=== PATIENT | male | born 1945 | race Caucasian/White ===

== ENCOUNTER 2021-08-04 02:37 | Outpatient (CLI) | payer BC, OTHER, SELFPAY ==
[2021-08-04 10:09] LABS: Source Nasal/Nares
[2021-08-04 12:54] LABS: COVID-19 PCR Negative (Negative)
== END 2021-08-04 02:38 | disposition home or self-care (01) ==
LOC: LBO 02:38
PROVIDERS: Visit Provider Ophthalmology
DX: Z20.822 Contact with and (suspected) exposure to COVID-19 (principal); Z01.818 Encounter for other preprocedural examination
CPT/HCPCS: 87635

== ENCOUNTER 2021-08-07 06:30 | Day surgery (SDC) | payer OTHER, BC, SELFPAY ==
[2021-08-07 06:48] VITALS: BP 163/81; PULSE 66; RESP 16; TEMP 36.4; O2SAT 100
[2021-08-07] MEDS: Tropicam./Phenyleph. (1/2.5%) 5 ML BTL OD ×3 (06:55→07:09)
--- NOTE | 2021-08-07 07:01 | W.ANESPRE ---
General Info Date of Service Date Performed: 08/07/21 Height: 5 ft 6 in Weight: 82 kg Body Mass Index (BMI): 29.2 Surgical Procedure: Operation Date: 08/07/21 07:40 Proposed Procedures Side Surgeon p Cataract Extraction with IOL Implant Right Guerrero Arechiga MD Operation Date: 08/07/21 16:55 Proposed Procedures Side Surgeon p Cataract Extraction with IOL Implant Left Guerrero Arechiga MD Meds Allergies and Home Medications Allergies Allergy/AdvReac Type Severity Reaction Status Date / Time Penicillins Allergy Skin Rash Verified 08/07/21 06:47 venom-honey bee Allergy Swelling/Ed Verified 08/07/21 06:47 [bee venom (honey bee)] maurilio Home Medication Medication Instructions Recorded atorvastatin [Lipitor] 10 mg PO DAILY 12/08/15 Lactobacillus acidophilus 10 cell PO DAILY 08/03/21 [Probiotic] ascorbic acid (vitamin C) 500 mg PO DAILY 08/03/21 cholecalciferol (vitamin D3) 2,000 unit PO DAILY 08/03/21 [Vitamin D3] latanoprost 1 drp OPHTHALMIC (EYE) HS 08/03/21 multivitamin,pm-jhgf-Pk-FA-min 1 tab PO DAILY 08/03/21 [Multivitamin And Mineral] tadalafil [Cialis] 10 mg PO DAILY 08/03/21 omega-3 fatty acids [Fish Oil] 1 cap PO DAILY 08/04/21 Current Visit Medications: Current Medications Generic Name Dose Route Start Last Admin Trade Name Freq PRN Reason Stop Dose Admin Acetaminophen 1,000 mg 08/07/21 06:00 Acetaminophen 500 Mg Tab PO Q4H PRN PRN Miscellaneous Medication 0 ml 08/07/21 06:00 Prednisolone 1%, Moxifloxacin 0.5%, Nepafenac 0.1% 5ml Btl OD DIRECTED ABEBE Miscellaneous Medication 0 ml 08/07/21 06:00 08/07/21 06:55 Tropicam./Phenyleph. (1/2.5%) 5 Ml Btl OD 1 drp DIRECTED ABEBE Administration Tetracaine HCl 0 ml 08/07/21 06:00 Tetracaine 0.5% 4 Ml Btl OD DIRECTED ABE[facility] PFSH Active Problems Active Problems: Problem Status Onset Code Nuclear sclerotic cataract of left eye H25.12 Posterior subcapsular age-related cataract of left eye H25.042 Medical History Active Problem List Nuclear sclerotic cataract of left eye (Acute) Posterior subcapsular age-related cataract of left eye (Acute) Medical History Benign essential hypertension Hx of agent [place] exposure Hyperlipidemia 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 Neck pain LARON (obstructive sleep apnea) Pain of right shoulder joint on movement Recurrent varicose vein of lower extremity Superficial vein thrombosis Tinnitus Surgical History Surgical History (Updated 08/07/21 @ 06:47 by Maik Vergara) H/O arthroscopic knee surgery Hx of facial fracture repair Hx of fracture of arm Inguinal hernia Tobacco Smoking/Tobacco Use Status: Former Tobacco Use Alcohol Alcohol Intake: current Alcohol intake frequency: a few times a week Alcohol type: wine Substance Use Substance use: Never Substance use type: does not use Vital Signs and Lab Results Vital Signs Most Recent Vital Signs in EMR: Most Recent Vital Signs Temp Pulse Resp BP Pulse Ox 36.4 C L 66 16 163/81 H 100 08/07/21 06:48 08/07/21 06:48 08/07/21 06:48 08/07/21 06:48 08/07/21 06:48 Lab Results Blood Type / Crossmatch: No Data to Display Complete Blood Count: No Data to Display Complete Metabolic Panel: No Data to Display Liver Function Panel: No Data to Display Coagulation Panel: No Data to Display Cardiac Panel: No Data to Display Arterial Blood Gas: No Data to Display Venous Blood Gas: No Data to Display Pancreas Panel: No Data to Display Thyroid Panel: No Data to Display Infectious Disease: Coronavirus (COVID-19)(PCR) Negative (Negative) 08/04/21 09:05 08/04/21 Coronavirus 2019 Source Nasal/Nares 08/04/21 09:05 08/04/21 Blood Cultures: No Data to Display Toxicology Panel: No Data to Display Anesthesia Assessment and Plan Anesthesia History Personal History: No History of Anesthesia Complications Family History: No Family History of Anesthesia Complications Exercise Tolerance Exercise Tolerance: Metabolic Equivalents>4 Pertinent Negatives Pertinent Negatives: No Symptoms of GERD Cardiac & Pulmonary Exam Cardiac Exam: Normal S1/S2 Heart Sounds Pulmonary Exam: Clear Bilateral Breath Sounds Implantable Cardiac Device Does patient have a Pacemaker or an ICD?: No Airway Exam Known Difficult Airway: No Mallampati Class: 2 Mouth Opening: Normal (> 3cm) Thyromental Distance: Greater than 3 cm Neck Range of Motion: Full ROM Neck Circumference: Normal Teeth Condition: Normal Dentition ASA Classification ASA Score: ASA 2 Emergency Case?: No NPO Status NPO Status: NPO Clears >2 hours, Solids >8 hours Anesthesia Plan Resuscitation Status: Full Code Anesthesia Technique: MAC Anesthesia Airway Planned: Natural Airway Monitors Used: Standard Monitors
[2021-08-07 07:07] VITALS: BMI 29.2
[2021-08-07] MEDS: Tetracaine 0.5% 4 ML BTL OD (07:23)
[2021-08-07] MEDS: Povidone-Iodine Ophth 30 ML BTL (07:24)
[2021-08-07] MEDS: Lidocaine 2% Jelly 6 ML SYR (07:24)
[2021-08-07] MEDS: Balanced Salt Soln.-PLUS 500 ML BAG (07:32)
[2021-08-07] MEDS: Duovisc Viscoelastic System EACH 1 EACH (07:33)
[2021-08-07 07:55] VITALS: BP 137/70; PULSE 65; RESP 16; TEMP 36.3; O2SAT 95
--- NOTE | 2021-08-07 07:55 | W.PM.DSUDISC ---
Discharge Plan Disposition Patient Disposition: HOME Condition: Good Discharge Details Attending Provider: Guerrero Arechiga Primary Care Provider: [facility] Home Meds and New Rx's Prescriptions: No Action atorvastatin [Lipitor] 10 MG tablet 10 mg PO DAILY RF: 0 latanoprost 0.005 % drops 1 drp ophthalmic (eye) HS RF: 0 ascorbic acid (vitamin C) 500 mg Tablet 500 mg PO DAILY RF: 0 Multivitamin And Mineral Tablet 1 tab PO DAILY RF: 0 tadalafil [Cialis] 10 mg Tablet 10 mg PO DAILY RF: 0 cholecalciferol (vitamin D3) [Vitamin D3] 50 mcg (2,000 unit) Capsule 2,000 unit PO DAILY RF: 0 Probiotic 10 billion cell Capsule 10 cell PO DAILY RF: 0 Fish Oil Capsule 1 cap PO DAILY RF: 0 zinc 10 mg Tablet 10 mg PO DAILY RF: 0 Discharge Instructions Stand Alone Forms: Post-op Topical Cataract, Kim Ribeiroey (DSU) Discharge Orders Discharge Orders: Discharge Order (Routine); Ordered 08/07/21 Ordered By: Guerrero Arechiga DS: Diagnosis Discharge Diagnosis (1) Nuclear sclerotic cataract of left eye: Status: Resolved (2) Posterior subcapsular age-related cataract of left eye: Status: Resolved
--- NOTE | 2021-08-07 07:56 | ROE_ITS ---
Date of service: 08/07/21 Time of Service: 07:56 Operative Note Operative Note DATE OF PROCEDURE: 08/07/21 PRE-OP DIAGNOSIS: Nuclear/posterior subcapsular cataract, left eye POST-OP DIAGNOSIS: same PROCEDURE: Cataract extraction using phacoemulsification with intraocular lens implant, left eye SURGEON: Guerrero Arechiga ANESTHESIA TYPE: Local By Surgeon and MAC Refer to Anesthesia Record PATHOLOGY: none sent COMPLICATIONS: None Patient was transported to: same day Patient's condition: stable Implants: [employer]wey [employer] Dewey / [employer] Tecnis [id number] Indications: Progressive decreased vision due to cataract, left eye Procedure Description: CATARACT SURGERY OPERATIVE REPORT PREOPERATIVE DIAGNOSIS: 1. Nuclear/posterior subcapsular cataract, left eye POSTOPERATIVE DIAGNOSIS: Same OPERATION: 1. Cataract extraction using phacoemulsification with posterior chamber intraocular lens implant, left eye. IOL: IOL Director Private/Model: [employer] Dewey / NATHALIA Tecnis [id number] IOL Power: + 16.5 diopters IOL Serial Number: [id number] Optic Diameter: 6.0 mm Haptic/Overall Diameter: 13.0 mm PHACO INFO: Kristian [employer]ur[employer] Vision System with OZil and Active Fluidics Cumulative Dispersed Energy (CDE): 21.26 seconds SURGEON: Guerrero Arechiga MD, JULIA ANESTHESIA: Monitored [facility] (MAC), with local sub-tenon's anesthetic infiltration COMPLICATIONS: None SPECIMENS: None INDICATIONS FOR PROCEDURE: The patient is a 75-year-old gentleman with history of diminished visual acuity and his left eye secondary to the development of significant nuclear and posterior subcapsular cataract. The option of cataract surgery was offered to the patient and he felt he was symptomatic enough that he wished to proceed. PROCEDURE: The correct surgical eye was identified and marked as the left eye and the pupil was dilated in the preoperative area using mydriatics and cycloplegics. The dilated pupil size was 8.0 mm. He elected to proceed without oral sedation. The patient was brought to the operating room where cardiopulmonary monitoring was instituted and surgical time-out was performed, confirming the correct operative eye and IOL power. Topical anesthesia was administered and ophthalmic povidone-iodine 5% was instilled into the conjunctival fornices. Lidocaine gel was applied to the cornea and the elieser-ocular area was prepped with Betadine 10% solution and draped in the usual sterile fashion for intraocular surgery, including an aperture drape. A Tegaderm transparent film dressing was cut in half and used to cover the lashes and lid margins. Care was taken to sequester the lashes and lid margins under the Tegaderm dressing. A lid speculum was placed between the lids of the operative eye and the Carissa-Lexa operating microscope was maneuvered into position. Suly scissors were then used to make a conjunctival buttonhole approximately 6mm posterior to the limbus in the inferonasal quadrant. Blunt dissection was carried out to expose bare sclera, and a blunt-tipped sub-tenon?s anesthesia cannula was introduced and passed posteriorly along the globe where non- preserved plain lidocaine was injected into posterior sub-Tenon?s space. A sideport knife was used to make a paracentesis port superiorly/superiortemporally. Intraocular phenylephrine/lidocaine was injected int the anterior chamber.. The anterior chamber was filled with viscoelastic. A 2.4mm keratome knife was used to create a half-thickness groove at the limbus and then to construct a three-plane near-clear corneal tunnel extending 2.0mm into clear cornea at the 3:00 position. A flap was raised on the anterior capsule and capsulorhexis forceps were used to complete a continuous curvilinear capsulorhexis of 5.5 mm. Balanced salt solution was then used to perform cortical cleaving hydrodissect ion and nuclear hydrodelineation until the lens could be freely rotated within the capsular bag. The lens nucleus was then disassembled and removed within the capsular bag and iris plane using phacoemulsification. The nucleus was noted to be quite dense. Residual cortical material was removed using the 45-degree angled silicone I/A tip with 0.3mm port. The posterior capsule was carefully polished to remove as much residual lens epithelial cells as safely possible. The capsular bag was then inflated and the anterior chamber deepened with viscoelastic. The lens implant described above was inserted into the capsular bag using the NATHALIA [place] Injector. A Kuglen hook was used to dial the IOL into position. Residual viscoelastic was then removed first from posterior to the IOL, then from the anterior chamber using the I/A handpiece. The lens implant was noted to center nicely within the capsular bag. The incisions were stromally hydrated, and the anterior chamber was reformed using BSS. Then 0.5cc of moxifloxacin 1.0mg/ml were injected into the capsular bag and anterior chamber. The incisions were checked with a Weck spear and found to be secure. Several drops of ophthalmic povidone-iodine 5% were then applied to the eye followed by two drops of Imprimis combination prednisolone/moxifloxacin/nepafenac solution. The drapes were removed and a clear plastic protective eye shield was placed over the eye. The patient was then returned to Same Day Surgery in stable condition.
--- NOTE | 2021-08-07 08:08 | W.ANESPOSTOP ---
Postoperative Evaluation Date, Time and Location Date Performed: 08/07/21 Time Performed: 08:00 Patient Location: Day Surgery Unit Vital Signs Most Recent Imported Vital Signs: Most Recent Vital Signs Temp Pulse Resp BP Pulse Ox 36.3 C L 65 16 137/70 95 08/07/21 07:55 08/07/21 07:55 08/07/21 07:55 08/07/21 07:55 08/07/21 07:55 Pain Score Most Recent Pain Score: Most Recent Pain Score Pain Level 0 08/07/21 07:55 Assessment Mental Status: Awake (Alert & Oriented to Patient Baseline) Airway and Respiratory Function: Patent airway with normal (patient baseline) respiratory exam Cardiovascular Function: Hemodynamically Stable Hydration Status: Adequately Hydrated Nausea & Vomiting: No Nausea or Vomiting Pain: Pt. Denies Any Pain Peripheral Nerve Block: Patient did not receive a nerve block
== END 2021-08-07 08:53 | disposition home or self-care (01) ==
PROVIDERS: Visit Provider Ophthalmology
PROC: (CPT 66984; principal; 2021-08-07 07:30)
DX: H25.042 Posterior subcapsular polar age-related cataract, left eye (principal); G47.33 Obstructive sleep apnea (adult) (pediatric); E78.5 Hyperlipidemia, unspecified
CPT/HCPCS: 66984; V2632

== ENCOUNTER 2021-09-15 02:07 | Outpatient (CLI) | payer OTHER, SELFPAY ==
[2021-09-15 10:27] LABS: Source Nasal/Nares
[2021-09-15 16:48] LABS: COVID-19 PCR Negative (Negative)
== END 2021-09-15 02:08 | disposition home or self-care (01) ==
PROVIDERS: Visit Provider Ophthalmology
DX: Z20.822 Contact with and (suspected) exposure to COVID-19 (principal); Z01.818 Encounter for other preprocedural examination
CPT/HCPCS: 87635

== ENCOUNTER 2021-09-18 10:50 | Day surgery (SDC) | payer OTHER, SELFPAY ==
[2021-09-18] MEDS: Tropicam./Phenyleph. (1/2.5%) 5 ML BTL OD ×3 (11:23→11:37)
[2021-09-18 11:24] VITALS: BP 165/77; PULSE 66; RESP 16; TEMP 36.2; O2SAT 98
--- NOTE | 2021-09-18 11:38 | W.ANESPRE ---
General Info Date of Service Date Performed: 09/18/21 Height: 5 ft 6 in Weight: 84.5 kg Body Mass Index (BMI): 30.0 Surgical Procedure: Operation Date: 09/18/21 14:40 Proposed Procedures Side Surgeon p Cataract Extraction with IOL Implant Right Guerrero Arechiga MD Meds Allergies and Home Medications Allergies Allergy/AdvReac Type Severity Reaction Status Date / Time Penicillins Allergy Skin Rash Verified 09/18/21 11:13 venom-honey bee Allergy Swelling/Ed Verified 09/18/21 11:13 [bee venom (honey bee)] maurilio Home Medication Medication Instructions Recorded atorvastatin [Lipitor] 10 mg PO DAILY 12/08/15 Lactobacillus acidophilus 10 cell PO DAILY 08/03/21 [Probiotic] ascorbic acid (vitamin C) 500 mg PO DAILY 08/03/21 cholecalciferol (vitamin D3) 2,000 unit PO DAILY 08/03/21 [Vitamin D3] latanoprost 1 drp OPHTHALMIC (EYE) HS 08/03/21 multivitamin,jd-vefc-Km-FA-min 1 tab PO DAILY 08/03/21 [Multivitamin And Mineral] tadalafil [Cialis] 10 mg PO DAILY 08/03/21 omega-3 fatty acids [Fish Oil] 1 cap PO DAILY 08/04/21 zinc 10 mg PO DAILY 08/07/21 Current Visit Medications: Current Medications Generic Name Dose Route Start Last Admin Trade Name Freq PRN Reason Stop Dose Admin Acetaminophen 1,000 mg 09/18/21 06:00 Acetaminophen 500 Mg Tab PO Q4H PRN PRN Miscellaneous Medication 0 ml 09/18/21 06:00 Prednisolone 1%, Moxifloxacin 0.5%, Nepafenac 0.1% 5ml Btl OD DIRECTED [facility] Miscellaneous Medication 0 ml 09/18/21 06:00 09/18/21 11:37 Tropicam./Phenyleph. (1/2.5%) 5 Ml Btl OD 1 drp DIRECTED ABEBE Administration Tetracaine HCl 0 ml 09/18/21 06:00 Tetracaine 0.5% 4 Ml Btl OD DIRECTED [facility] PFSH Active Problems Active Problems: Problem Status Onset Code Nuclear sclerotic cataract of left eye H25.12 Posterior subcapsular age-related cataract of left eye H25.042 Medical History Medical History Benign essential hypertension Hx of agent [place] exposure Hyperlipidemia 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 Neck pain LARON (obstructive sleep apnea) Pain of right shoulder joint on movement Recurrent varicose vein of lower extremity Superficial vein thrombosis Tinnitus Surgical History Surgical History H/O arthroscopic knee surgery Hx of cataract surgery Hx of facial fracture repair Hx of fracture of arm Inguinal hernia Tobacco Smoking/Tobacco Use Status: Former Tobacco Use Alcohol Alcohol Intake: current Alcohol intake frequency: a few times a week Alcohol type: wine Substance Use Substance use: Never Substance use type: does not use Vital Signs and Lab Results Vital Signs Most Recent Vital Signs in EMR: Most Recent Vital Signs Temp Pulse Resp BP Pulse Ox 36.2 C L 66 16 165/77 H 98 09/18/21 11:24 09/18/21 11:24 09/18/21 11:24 09/18/21 11:24 09/18/21 11:24 Lab Results Blood Type / Crossmatch: No Data to Display Complete Blood Count: No Data to Display Complete Metabolic Panel: No Data to Display Liver Function Panel: No Data to Display Coagulation Panel: No Data to Display Cardiac Panel: No Data to Display Arterial Blood Gas: No Data to Display Venous Blood Gas: No Data to Display Pancreas Panel: No Data to Display Thyroid Panel: No Data to Display Infectious Disease: Coronavirus (COVID-19)(PCR) Negative (Negative) 09/15/21 08:29 09/15/21 Coronavirus 2019 Source Nasal/Nares 09/15/21 08:29 09/15/21 Blood Cultures: No Data to Display Toxicology Panel: No Data to Display Anesthesia Assessment and Plan Anesthesia History Personal History: No History of Anesthesia Complications Family History: No Family History of Anesthesia Complications Exercise Tolerance Exercise Tolerance: Metabolic Equivalents>4 Pertinent Negatives Pertinent Negatives: No Symptoms of GERD Cardiac & Pulmonary Exam Cardiac Exam: Normal S1/S2 Heart Sounds Pulmonary Exam: Clear Bilateral Breath Sounds Implantable Cardiac Device Does patient have a Pacemaker or an ICD?: No Airway Exam Known Difficult Airway: No Mallampati Class: 2 Mouth Opening: Normal (> 3cm) Thyromental Distance: Greater than 3 cm Neck Range of Motion: Full ROM Neck Circumference: Normal Teeth Condition: Normal Dentition ASA Classification ASA Score: ASA 2 Emergency Case?: No NPO Status NPO Status: NPO Clears >2 hours, Solids >8 hours Anesthesia Plan Resuscitation Status: Full Code Anesthesia Technique: MAC Anesthesia Airway Planned: Natural Airway Monitors Used: Standard Monitors
[2021-09-18] MEDS: Tetracaine 0.5% 4 ML BTL OD (12:00)
[2021-09-18] MEDS: Balanced Salt Soln.-PLUS 500 ML BAG (12:00)
[2021-09-18] MEDS: Lidocaine 2% Jelly 6 ML SYR (12:01)
[2021-09-18] MEDS: Duovisc Viscoelastic System EACH 1 EACH (12:01)
[2021-09-18] MEDS: Povidone-Iodine Ophth 30 ML BTL (12:03)
[2021-09-18 12:18] VITALS: BP 148/75; PULSE 66; RESP 16; TEMP 36.5; O2SAT 98
--- NOTE | 2021-09-18 12:21 | W.PM.DSUDISC ---
Discharge Plan Disposition Condition: Good Discharge Details Attending Provider: Guerrero Arechiga Primary Care Provider: [facility] Home Meds and New Rx's Prescriptions: No Action atorvastatin [Lipitor] 10 MG tablet 10 mg PO DAILY RF: 0 latanoprost 0.005 % drops 1 drp ophthalmic (eye) HS RF: 0 ascorbic acid (vitamin C) 500 mg Tablet 500 mg PO DAILY RF: 0 Multivitamin And Mineral Tablet 1 tab PO DAILY RF: 0 tadalafil [Cialis] 10 mg Tablet 10 mg PO DAILY RF: 0 cholecalciferol (vitamin D3) [Vitamin D3] 50 mcg (2,000 unit) Capsule 2,000 unit PO DAILY RF: 0 Probiotic 10 billion cell Capsule 10 cell PO DAILY RF: 0 Fish Oil Capsule 1 cap PO DAILY RF: 0 zinc 10 mg Tablet 10 mg PO DAILY RF: 0 Discharge Instructions Stand Alone Forms: Post-op Topical Cataract, Kim Mazariegos (DSU) DS: Diagnosis Discharge Diagnosis (1) Posterior subcapsular age-related cataract, right eye: Status: Resolved (2) Nuclear sclerotic cataract of right eye: Status: Resolved
--- NOTE | 2021-09-18 12:23 | W.PM.OP ---
Date of service: 09/18/21 Time of Service: 12:24 Operative Note Operative Note DATE OF PROCEDURE: 09/18/21 PRE-OP DIAGNOSIS: Nuclear/posterior subcapsular cataract, right eye POST-OP DIAGNOSIS: same PROCEDURE: Cataract extraction using phacoemulsification with intraocular lens implant, right eye SURGEON: Guerrero Arechiga ANESTHESIA TYPE: Local By Surgeon and MAC Refer to Anesthesia Record ESTIMATED BLOOD LOSS: 0 PATHOLOGY: none sent COMPLICATIONS: None Patient was transported to: same day Patient's condition: stable Implants: De[employer] Dewey/NATHALIA Tecnis [id number] Indications: Progressive visual loss due to cataract, right eye Procedure Description: CATARACT SURGERY OPERATIVE REPORT PREOPERATIVE DIAGNOSIS: 1. Nuclear/posterior subcapsular cataract, right eye POSTOPERATIVE DIAGNOSIS: Same OPERATION: 1. Cataract extraction using phacoemulsification with posterior chamber intraocular lens implant, right eye. IOL: IOL Manager Supply Chain Planning/Model: De[employer] Dewey / NATHALIA Tecnis [id number] IOL Power: + 17.0 diopters IOL Serial Number: [id number] Optic Diameter: 6.0mm Haptic/Overall Diameter: 13.0mm PHACO INFO: [employer] Fluentialurion Vision System with OZil and Active Fluidics Cumulative Dispersed Energy (CDE): 8.46 seconds SURGEON: Guerrero Arechiga MD, JULIA ANESTHESIA: Monitored Anesthesia Care (MAC), with local sub-tenon's anesthetic infiltration COMPLICATIONS: None SPECIMENS: None INDICATIONS FOR PROCEDURE: The patient is a 75-year-old gentleman with history of diminished visual acuity in both eyes secondary to the development of bilateral nuclear and posterior subcapsular cataract. He has already undergone cataract surgery in the left eye and is doing well postoperatively. He now presents for cataract surgery in the right eye. PROCEDURE: The correct surgical eye was identified and marked as the right eye and the pupil was dilated in the preoperative area using mydriatics and cycloplegics. The dilated pupil size was 7.5 mm. He elected to proceed without oral sedation.. The patient was brought to the operating room where cardiopulmonary monitoring was instituted and surgical time-out was performed, confirming the correct operative eye and IOL power. Topical anesthesia was administered and ophthalmic povidone-iodine 5% was instilled into the conjunctival fornices. Lidocaine gel was applied to the cornea and the elieser-ocular area was prepped with Betadine 10% solution and draped in the usual sterile fashion for intraocular surgery, including an aperture drape. A Tegaderm transparent film dressing was cut in half and used to cover the lashes and lid margins. Care was taken to sequester the lashes and lid margins under the Tegaderm dressing. A lid speculum was placed between the lids of the operative eye and the Carissa-Lexa operating microscope was maneuvered into position. Suly scissors were then used to make a conjunctival buttonhole approximately 6mm posterior to the limbus in the inferonasal quadrant. Blunt dissection was carried out to expose bare sclera, and a blunt-tipped sub-tenon?s anesthesia cannula was introduced and passed posteriorly along the globe where non-preserved plain lidocaine was injected into posterior sub-Tenon?s space. A sideport knife was used to make a paracentesis port inferotemporally. Intraocular phenylephrine/lidocaine was injected into the anterior chamber. The anterior chamber was filled with viscoelastic. A 2.4mm keratome knife was used to create a half-thickness groove at the limbus and then to construct a three-plane near-clear corneal tunnel extending 2.0mm into clear cornea superiortemporally. A flap was raised on the anterior capsule and capsulorhexis forceps were used to complete a continuous curvilinear capsulorhexis of 5.5 mm. Balanced salt solution was then used to perform cortical cleaving hydrodissection and nuclear hydrodelineation until the lens could be freely rotated within the capsular bag. The lens nucleus was then disassembled and removed within the capsular bag and iris plane using phacoemulsification. Residual cortical material was removed using the I/A handpiece. The posterior capsule was carefully polished to remove as much residual lens epithelial cells as safely possible. The capsular bag was then inflated and the anterior chamber deepened with viscoelastic. The lens implant described above was inserted into the capsular bag using the NATHALIA [place] Injector. A Kuglen hook was used to dial the IOL into position. Residual viscoelastic was then removed first from posterior to the IOL, then from the anterior chamber using the I/A handpiece. The lens implant was noted to center nicely within the capsular bag. The incisions were stromally hydrated, and the anterior chamber was reformed using BSS. Then 0.5cc of moxifloxacin 1.0mg/ml were injected into the capsular bag and anterior chamber. The incisions were checked with a Weck spear and found to be secure. Several drops of ophthalmic povidone-iodine 5% were then applied to the eye followed by two drops of Imprimis combination prednisolone/moxifloxacin/nepafenac solution. The drapes were removed and a clear plastic protective eye shield was placed over the eye. The patient was then returned to Same Day Surgery in stable condition.
--- NOTE | 2021-09-18 12:58 | W.ANESPOSTOP ---
Postoperative Evaluation Date, Time and Location Date Performed: 09/18/21 Time Performed: 12:25 Patient Location: Day Surgery Unit Vital Signs Most Recent Imported Vital Signs: Most Recent Vital Signs Temp Pulse Resp BP Pulse Ox 36.5 C 66 16 148/75 H 98 09/18/21 12:18 09/18/21 12:18 09/18/21 12:18 09/18/21 12:18 09/18/21 12:18 Pain Score Most Recent Pain Score: Most Recent Pain Score Pain Level 0 09/18/21 12:18 Assessment Mental Status: Awake (Alert & Oriented to Patient Baseline) Airway and Respiratory Function: Patent airway with normal (patient baseline) respiratory exam Cardiovascular Function: Hemodynamically Stable Hydration Status: Adequately Hydrated Nausea & Vomiting: No Nausea or Vomiting Pain: Pt. Denies Any Pain Peripheral Nerve Block: Patient did not receive a nerve block
== END 2021-09-18 12:42 | disposition home or self-care (01) ==
PROVIDERS: Visit Provider Ophthalmology
PROC: (CPT 66984; principal; 2021-09-18 14:30)
DX: H25.041 Posterior subcapsular polar age-related cataract, right eye (principal); G47.33 Obstructive sleep apnea (adult) (pediatric); I10 Essential (primary) hypertension
CPT/HCPCS: 66984; V2632

== ENCOUNTER 2024-10-09 09:02 | Emergency (ER) | payer OTHER, SELFPAY ==
[2024-10-09] VITALS (11 sets, daily range): BP systolic 137–173; BP diastolic 56–65; PULSE 65–77; RESP 18–20; O2SAT 95–99
--- NOTE | 2024-10-09 09:35 | ED.GENADUL_ITS ---
Discharge Plan Disposition Patient Disposition: Home Condition: Stable Discharge Details Clinical Impression: Closed head injury with concussion Primary Care Provider: [facility] ED Provider: Wendy Ogden Home Meds and New Rx's Prescriptions: Continued atorvastatin [Lipitor] 10 MG tablet 10 mg PO DAILY red yeast rice 600 mg capsule 600 mg PO DAILY Rx Instructions: give with meal/snack latanoprost 0.005 % drops 1 drp ophthalmic (eye) HS ascorbic acid (vitamin C) 500 mg Tablet 500 mg PO DAILY multivitamin,ir-rymj-Lw-FA-min Tablet 1 tab PO DAILY tadalafil [Cialis] 10 mg Tablet 10 mg PO DAILY cholecalciferol (vitamin D3) [Vitamin D3] 50 mcg (2,000 unit) Capsule 2,000 unit PO DAILY Probiotic 10 billion cell Capsule 10 cell PO DAILY omega-3 fatty acids Capsule 1 cap PO DAILY zinc 10 mg Tablet 10 mg PO DAILY Discharge Instructions Instructions: Concussion, Adult ED, Minor Head Injury, Adult ED Additional Instructions: At this time the head CT is within normal limits. I do suspect a mild concussion. Please return to the ER immediately for any confusion, vomiting, blurry or double vision, worsening pain not relieved by Tylenol or any concerns. Please take Tylenol or Ibuprofen with food every 4-6 hours as needed for pain and swelling. Thank you for allowing us to care for you today. Referrals: [facility] [Primary Care Provider] - 2 weeks HPI General Mode of arrival: ambulatory . Date/Time Provider Initiated Documentation: 10/09/24 09:12 . Limitations to Documentation: no limitations . Information obtained by: patient, RN notes reviewed and old records reviewed . HPI Narrative: 78-year-old male presents to the ER with a chief complaint of posterior head pain after a head injury couple of days ago. He reports Saturday at 6:00 a trunk of a car came down and hit the back of his left scalp. He now has radiation of pain across the back of his head and up towards the top. He reports increased fatigue and sleepiness at home. He is alert and oriented x 4, denies any neck pain blurry vision double vision headache or weakness. He did take naproxen yesterday nothing today. Is not on any blood thinners or aspirin. No focal neurodeficits noted on exam. Past medical history includes obstructive sleep apnea, tinnitus, hypertension. He does have a small hematoma noted to left posterior scalp. Related Data Home Medications ?Medication ?Instructions ?Recorded ?Confirmed atorvastatin 10 mg tablet (Lipitor) 10 mg PO DAILY 12/08/15 10/09/24 Lactobacillus acidophilus 10 10 cell PO DAILY 08/03/21 10/09/24 billion cell capsule (Probiotic) ascorbic acid (vitamin C) 500 mg 500 mg PO DAILY 08/03/21 10/09/24 tablet cholecalciferol (vitamin D3) 50 2,000 unit PO DAILY 08/03/21 10/09/24 mcg (2,000 unit) capsule (Vitamin D3) latanoprost 0.005 % eye drops 1 drp ophthalmic (eye) HS 08/03/21 10/09/24 multivitamin,nm-ensc-Wa-FA-min 1 tab PO DAILY 08/03/21 10/09/24 tadalafil 10 mg tablet (Cialis) 10 mg PO DAILY 08/03/21 10/09/24 omega-3 fatty acids 1 cap PO DAILY 08/04/21 10/09/24 zinc 10 mg tablet 10 mg PO DAILY 08/07/21 10/09/24 red yeast rice 600 mg capsule 600 mg PO DAILY 10/09/24 10/09/24 Allergies Allergy/AdvReac Type Severity Reaction Status Date / Time Penicillins Allergy Skin Rash Verified 10/09/24 09:14 venom-honey bee (bee venom Allergy Swelling/Ed Verified 10/09/24 09:14 (honey bee)) maurilio General Stated Complaint: HeadInjury NAOMY: 3 Review of Systems All systems reviewed & are unremarkable except as noted in HPI and below Exam Narrative Exam Narrative: Constitutional: Alert and oriented x3. Appears stated age. Normal body habitus. Head: Normocephalic, no trauma. Eyes: Pupils PERRL, Red reflex noted, EOM's intact. Eyelids symmetrical without lesions, discharge, or swelling. ENT: Bilateral TM's WNL, External ear normal to inspection, no mastoid TTP, swelling, or erythema, Nasal turbinates WNL, no nasal discharge. Normal dentition, Posterior pharynx WNL, no exudate. Chest: RRR, Normal S1, S2, distal pulses intact. Resp: Lungs clear to auscultation bilaterally, no wheezes, rales, or rhonchi. Abdomen: Soft, non-distended, Normoactive bowel sounds all 4 quads. Musculoskeletal: Normal gait, Moves all 4 extremities without difficulty. Skin: No suspicious rashes or lesions. Capillary refill less than 2 sec. Neurologic: Cranial nerves II-XII intact. Alert and oriented x 3. Motor: No deficits noted. Sensory: Intact bilaterally all 4 extremities. Hematologic/Lymphatic: No ecchymosis, no lymphadenopathy. Course Vital Signs Vital signs: Vital Signs Pulse 74 10/09/24 09:12 Respiratory Rate 20 10/09/24 09:12 Blood Pressure 173/62 H 10/09/24 09:12 Pulse Oximetry 97 10/09/24 09:12 Pulse 74 10/09/24 09:12 Respiratory Rate 20 10/09/24 09:12 Blood Pressure 173/62 H 10/09/24 09:12 Blood Pressure Position Sitting 10/09/24 09:12 Pulse Oximetry 97 10/09/24 09:12 Oxygen Delivery Method Room Air 10/09/24 09:12 Oxygen Flow Rate 0 10/09/24 09:12 Pain Level 5 10/09/24 09:12 Medical Decision Making 78-year-old male presents to the ER with a chief complaint of posterior head pain after a head injury couple of days ago. He reports Saturday at 6:00 a trunk of a car came down and hit the back of his left scalp. He now has radiation of pain across the back of his head and up towards the top. He reports increased fatigue and sleepiness at home. He is alert and oriented x 4, denies any neck pain blurry vision double vision headache or weakness. He did take naproxen yesterday nothing today. Is not on any blood thinners or aspirin. No focal neurodeficits noted on exam. Past medical history includes obstructive sleep apnea, tinnitus, hypertension. He does have a small hematoma noted to left posterior scalp. CT head W/O ordered CT shows no acute intracranial abnormalities, no skull fractures. I do suspect mild concussion. Will give head injury observation instructions and strict return instructions. Discussed results with patient who verbalized understanding. Discussed red flags and when to return for any confusion worsening headache, vomiting. Verbalized understanding remained hemodynamically stable alert and oriented throughout the remainder of his stay. This text was generated using YouOSation system, please disregard any oddities of phrase or misspellings. Imaging Data Radiologic Study: Imaging: CT Scan Radiologist's impression: EXAM: CT HEAD WO CLINICAL HISTORY: Head Injury 2 days ago, fatigue. TECHNIQUE: Imaging Protocol: Axial computed tomography images with coronal and sagittal reformatted images were created and reviewed COMPARISON: No exams were available for comparison FINDINGS: There are no skull fractures. There is no fluid in the visualized paranasal sinuses. There is no evidence of intracranial hemorrhage, mass effect, or shift of midline structures. There are no extra-axial fluid collections. The ventricles are not enlarged or shifted and there is no blood within the ventricular system nor within the basal cisterns. IMPRESSION: No acute intracranial findings on this noninfused CT scan of the brain. Quality:SDOH Health Related Social Needs: No Data to Display PFSH All Active Problems (Updated 10/09/24 @ 10:38 by Wendy Ogden NP) Closed head injury with concussion (Acute) Medical History LARON (obstructive sleep apnea) Tinnitus Neck pain Benign essential hypertension 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 Hx of agent [place] exposure Superficial vein thrombosis Pain of right shoulder joint on movement Hyperlipidemia Recurrent varicose vein of lower extremity Surgical History Hx of cataract surgery H/O arthroscopic knee surgery Hx of fracture of arm Hx of facial fracture repair Inguinal hernia Social History Smoking/Tobacco Use Status: Former Tobacco Use Quit Date: 09/16/59 Smoking risk assessment performed?: Yes Alcohol Intake: current Alcohol Intake frequency: a few times a week Alcohol type: wine Drug use: Never Substance use type: does not use Do you feel safe at home: Yes Do you feel safe in your relationship?: Yes
--- NOTE | 2024-10-09 09:42 | DI.CT_ITS ---
Exam(s) CT HEAD WO EXAM: CT HEAD WO CLINICAL HISTORY: Head Injury 2 days ago, fatigue. TECHNIQUE: Imaging Protocol: Axial computed tomography images with coronal and sagittal reformatted images were created and reviewed COMPARISON: No exams were available for comparison FINDINGS: There are no skull fractures. There is no fluid in the visualized paranasal sinuses. There is no evidence of intracranial hemorrhage, mass effect, or shift of midline structures. There are no extra-axial fluid collections. The ventricles are not enlarged or shifted and there is no blo od within the ventricular system nor within the basal cisterns. IMPRESSION: No acute intracranial findings on this noninfused CT scan of the brain. Called by myself to ER 10/09/2024 at 10:30 a.m. RADIATION DOSE DELIVERED: 902.12mGy.cm Total DLP DATA REPOSITORY: All CT scans at this facility are submitted to the National Radiology Data Registry (NRDR) Dose Index Registry (DIR) with the [employer] (ACR). RADIATION OPTIMIZATION: All CT scans at this facility use at least one of these dose optimization te chniques: automated exposure control; mA and/or kV adjustment per patient size (includes targeted exa ms where dose is matched to clinical indication); or iterative reconstruction.
--- OUTSIDE RECORDS SUMMARY | 2024-10-09 10:33 | XMS_ITS | Encounter Summary ---
Author Name [facility] [place] [facility] Address [address] [place] [address] Care Team Providers Care Car Distributor Name Role Phone JUAN HANNA Primary Care Provider Unavailab le Insurance Providers: All historical and current Section Date Range: From patient's date of to the date document was created. This section includes the names of all active insurance providers for the patient. Insurance Provider Type of Coverage Plan Name Start of Policy Coverage End of Policy Coverage Group Number Member ID Insurance Provider's Telephone Number Policy Broussard's Name Patient's Relationship to Policy Broussard CONSTANZAEM BCBS CT FEDERAL PREFERRED PROVIDER ORGANIZAT ION (PPO) PSHB BASIC SELF+ 1 Sep 16, 2024 [id number] [phone] REYNA ROSALES PATIENT ANTHEM BCBS CT FEDERAL PREFERRED PROVIDER ORGANIZAT ION (PPO) BASIC SELF+ ONE Mar 17, 2018 113 [id number] REYNA ROSALES PATIENT [place] PREFERRED PROVIDER ORGANIZAT ION (PPO) BASIC SELF+ ONE Mar 17, 2018 113 [id number] REYNA ROSALES PATIENT [place] PREFERRED PROVIDER ORGANIZAT ION (PPO) BASIC SELF+ 1 Mar 17, 2018 113 [id number] [phone] REYNA ROSALES PATIENT [place] FEPRX PLAN PRESCRIPT ION CAREM ARK FEPRX Sep 16, 2024 [id number] REYNA ROSALES PATIENT DARLENE-F EP BCBS PRESCRIPT ION BCBS FEP PLAN Sep 16, 2010 [id number] REYNA ROSALES PATIENT MEDICARE (WNR) MEDICARE (M) PART A Mar 17, 2018 PART A [id number] REYNA ROSALES PATIENT MEDICARE (WNR) MEDICARE (M) PART A Sep 16, 2010 PART A [id number] [phone] REYNA ROSALES PATIENT Selected Encounter This section includes the information on record at [place] for the Encounter. Date/Time Encounter Type Encounter Description Reason Provider Source 2023 10:00 AM HT MUSCLE IMAGE SPECT MULT CARDIAC STRESS TEST ICD-10-CM R07.9 Chest pain, unspecified ANNA CHEUNG Encounter Template Text not used by [place] Assessments - Encounter Diagnoses This section includes the primary and secondary diagnoses documented for the Encounter. Date/Time Primary/Secondary Diagnosis Diagnosis Name Provider Source Oct 29, 2023 08:08 AM PRIMARY Chest pain, unspecified KRYSTLE FONTANEZ [facility] Plan of Treatment: Future Appointments (+ 6 months) and Future Tests (+/- 45 days) The Plan of Treatment section includes future care activities for the patient from all [place] treatmentfacilities. This section includes future appointments and future orders which are active, pending or scheduled. Future Appointments This section includes appointments that were scheduled to occur 6 months from the date of the Encounter, up to a maximum of 20 appointments. The data comes from all [place] treatment facilities. Appointment Date/Time Appointment Type Appointme nt Facility Name Nov 11, 2023 10:00 AM AMBULATORY - REHAB MEDICIN Tati MARCH [facility] Nov 12, 2023 04:00 PM AMBULATORY - MEDICINE SANGITA GARLAND [facility] Nov 13, 2023 10:30 AM AMBULATORY - MEDICINE GANESH MARCH [facility] Dec 05, 2023 08:00 AM AMBULATORY - NONE LUCAS MARCH [facility] Mar 12, 2024 08:00 AM AMBULATORY - MEDICINE STDes GUZMAN [facility] Mar 26, 2024 09:30 AM AMBULATORY - NONE [facility] Mar 26, 2024 10:15 AM [facility] Apr 08, 2024 01:30 PM AMBULATORY - MEDICINE GANESH MARCH [facility] Apr 15, 2024 11:00 AM AMBULATORY - MEDICINE GANESH MARCH [facility] Social History: Smoking Status (Most current) and Tobacco Use (All prior to encounter date) This section includes the most current, and the historical, smoking and tobacco- related health factors from the [place] facility where the Encounter took place. Current Smoking Status This section includes the most current smoking, or tobacco-related health factor, from the [place] facility where the Encounter took place. Date/Time Current Smoking Status Comment Facility Sep 04, 2010 01:20 PM QUIT TOBACCO USE > 7 YEARS AGO Pt. quit smoking in 1974. LUCAS MARCH [facility] Advance Directives: All historical and current Section Date Range: From patient's date of to the date document was created. This section includes ALL of a patient's completed or amended [place] Advance and Rescinded Directives. The entries below indicate that a directive exists for the patient, but an actual copy is not included with this document. The data comes from all [place] facilities. Date Advance Directives Provider Source Oct 08, 2019 ADVANCE DIRECTIVE LEISA ROBERTS [facility] Radiology Reports: +/- 30 days of the encounter Radiology Reports For cases when an order for radiology services may have been completed prior to the date of the Encounter, the report list includes the Radiology Reports that were completed up to 30 days before dateof the Encounter. For cases when an order for radiology services may have been completed after the date of the Encounter, the report list also includes the Radiology Reports that were completed up to30 days after date of the Encounter. The data comes from all [place] treatment facilities. Date/Time Radiology Report Provider Source 2023 10:02 AM SESTAMIBI MYOCARDI AL PERFUSION : REYNA ROSALES SILVIA [id number] -1945 M Exm Date: 2023@10:02 Req Phys: EDITH GARDNER Pat Loc: LIT PACT T PHONE (Req'g Loc) Img Loc: NUCLEAR MEDICINE (OOS) Service: Unknown (Case [id number] COMPLETE) MIBI STRESS (CARDIAC CHAIR) (NM Detailed) CPT:65354 CPT Modifiers : TC TECHNICAL COMPONENT Reason for Study: Estab DX of CAD Radiopharmaceutical: Tc99m SESTAMIBI (Rest Dose), 10.1 mCi Adm'd on 2023@10:00 by BECKY ZELAYA Radiopharmaceutical: Tc99m SESTAMIBI (Stress), 27.5 mCi Adm'd on 2023@11:45 by PRIETO ELLIS ( 2x ) SUPPLY OF RP AGENT,SESTAMIBI PER (NM Detailed) CPT:A9500 Clinical History: Provisional Diagnosis: Orthostatic Hypotension(ICD-10-CM I95.1) Past Cardiac History: white coat syndrome Father [place]. Current Symptoms: lightheadedness and orthostatic hypotension Does the patient have exertional symptoms? Yes Can the patient exercise on a treadmill sufficiently for an exercise study? Yes Does the patient have LBBB on ECG? No. Is patient claustrophobic? No Is patient currently taking Theophylline or Dipyridamole? No Is patient taking any of the following medications? (Beta Chuck, Digoxin, Diltiazem or Verapamil)? No Last recorded Weight/BMI: BODY MASS INDEX - JUL 18, 2023@13:26:08 28.4 175.8 lb [79.74 kg] (07/18/2023 13:26) Last recorded Height: 66 in [167.6 cm] (07/18/2023 13:26) Last recorder Blood Pressure: 174/87 (07/18/2023 Allergies: PENICILLIN, BEE STINGS {{ 1st MPI }} Report Status: Verified Date Reported: 2023 Date Verified: 2023 Boot And Shoe Repairman E-Sig: Report: Results will be reported in Cardiology Stress Test Report Note in [facility]. Impression: Results will be reported in Cardiology Stress Test Report Note in [facility]. Primary Diagnostic Code: Primary Interpreting Staff: LAZARA MELÉNDEZ, Staff Physician Verified by tie hacker for LAZARA MELÉNDEZ /LAZARA TOMLINSON [facility] Encounter Notes: All associated encounter notes This section contains the clinical notes associated to the Encounter. Date/Time Encounter Note(s) Provider Source 2023 04:35 PM CARDIOLOGY DIAGNOS TIC STUDY REPORT: LOCAL TITLE: Cardiology Stress Test Report (CP) STANDARD TITLE: CARDIOLOGY DIAGNOSTIC STUDY REPORT DATE OF NOTE: 2023@16:35:46 ENTRY DATE: 2023@16:35:46 AUTHOR: CLINICAL,DEVICE PRO EXP COSIGNER: URGENCY: STATUS: COMPLETED PROCEDURE SUMMARY CODE: Machine Resulted DATE/TIME PERFORMED: 2023@10:02 DOCUMENT IN VISTA IMAGING SEE FULL REPORT IN VISTA IMAGING SIGNATURE NOT REQUIRED SEE SIGNATURE IN VISTA IMAGING (ISCV KURT (NM STRESS)) AUTO-INSTRUMENT DIAGNOSIS Procedure: NMexer Release Status: Released Off-Line Verified Date Verified: 2023@16:35:27 CP Order Number: [id number] +--+ +--+ EXERCISE NUCLEAR STRESS TEST REPORT Name: REYNA ROSALES Date: 2023 10:02 AM Patient Location: [address] : 1945 Gender: Male Height: 66 in Age: 78 yrs Weight: 176 lb BSA: 1.9 m2 Patient Consent Procedure: Informed consent was discussed and obtained. An explanation of the procedure was provided. Patient verbalized understanding and gives consent to proceed. Exam Type Technetium-99m was injected and resting images were acquired. The patient then exercised on the treadmill and an additional dose of technetium-99m was injected at peak stress. Stress images were then acquired at upright and supine. Baseline ECG: The baseline ECG displays normal sinus rhythm. Normal baseline electrocardiogram. Study Quality The image quality: Adequate. Stress Findings The patient exercised 7:47 minutes on a Eusebio protocol,. achieving a workload of 9.70 METs. The peak heart rate attained was 148 bpm. The peak blood pressure attained was 180/110 mmHg. Patient achieved 104% age-predicted maximal HR. The baseline blood pressure was 140/88 mmHg. The baseline heart rate was 61 bpm. The patient did not have chest pain. No exercise-induced arrhythmias were noted. No ST segment changes. The patient did not have chest pain. Rest Images Homogeneous tracer uptake in all myocardial segments. Resting perfusion is normal. Stress Images Homogeneous tracer uptake in all myocardial segments. Stress perfusion is normal. Gated SPECT There is normal left ventricle wall motion. There is normal left ventricle function. There is no transient ichemic dilation (TID). Left ventricular chamber size is normal. Interpretation Summary Exercise stress myocardial perfusion imaging test shows no evidence of ischemia at a diagnostic level of stress. Exercise capacity is above average. Maximum workload achieved was 9.7 METS. Normal blood pressure response to exercise. Moreno treadmill score of 7 suggests a low risk of cardiovascular events. Left ventricular size and function were normal. Reading Physician:Anna Cheung on 2023 04:35 PM Anna Cheung 2023 04:35 PM Attending Food Services Manager Referring Physician: EDITH GARDNER Administrative Closure: 2023 by: Clinical,Device Proxy Service CLINICAL,DEVICE PROXY SERVICE [facility]
--- OUTSIDE RECORDS SUMMARY | 2024-10-09 10:33 | XMS_ITS | Encounter Summary ---
Author Organization [facility] Address [address] [place] [address] Care Team Providers Care Canceling And Cutting Control Clerk Name Role Phone Unavailable Primary Care Provider Unavailabl e Encounter Details Date Type Department Care Team (Late st Contact Info) Description 10/03/2007 Results Only [facility] [address] [place] [address] Bianca Williamson MD [address] [place] [address] Social History Tobacco Use Types Packs/Day Years Used Date Smoking Tobacco: Never Assessed Sex and Gender Information Value Date Recorded Sex Assigned at Not on file Legal Sex Male 18:25 EST Gender Identity Not on file Sexual Orientation Not on file documented as of this encounter Plan of Treatment Not on file documented as of this encounter Procedures Procedure Name Priority Date/Time Associated Diagnosis Comments SURGICAL PATHOLOGY Routine 10/03/2007 0:00 EST documented in this encounter Results * SURGICAL PATHOLOGY (10/03/2007 0:00 EST) Pathology Report: SURGICAL PATHOLOGY REPORT Reports generated via electronic interface contain original data; however they are lacking the format of the original report. Caution should be taken when reading/interpreti ng unformatted reports. Name: ? DEEPAK PAK ? Accession #: ? [id number] ? : ? 1945 (Age: 61) ??M ? Collect Date: ? 10/03/2007 ? Location: ? [facility] ? Receive Date: ? 10/06/2007 ? Provider: BIANCA WILLIAMSON MD Copy to: ? Final Pathologic Diagnosis: ? Skin of knee, right inner, shave biopsy: - Seborrheic keratosis. ?? Document reviewed and electronically signed by: Luis Bello MD Report ??Date: 10/07/2007 16:28 By the signature above, the attending physician certifies that he/she has personally conducted a gross and/or microscopic examination of the described specimens and rendered or confirmed the above diagnosis. Specimen(s) Received: ? Lesion R inner knee Clinical History: ? Lesion R inner knee Gross Description: ? Received in formalin labelled Pasha and right knee is a 0.6 x 0.4 x less than 0.1 cm shave biopsy of a house hyperkeratotic papule which measures 0.4 x 0.3 x 0.1 cm. ??The specimen is bisected and is entirely submitted in one cassette. ??(Dr. Herrera)/[facility] End of Report NICOLLE FIGUEROA 10/03/2007 10/06/2007 15: 13 EST us Bianca Williamson MD PATHOLOGY ORDERABLES Final Resul t NICOLLE FIGUEROA [address] [place] [address] documented in this encounter Visit Diagnoses Not on filedocumented in this encounter
--- OUTSIDE RECORDS SUMMARY | 2024-10-09 10:33 | XMS_ITS | Continuity of Care Document ---
Author Name [facility] Organization [facility] Care Team Providers Care Word Processor Operator Name Role Phone [facility] Unavailable Unavailable Problems Combined list of problems from Department of Defense and Veterans Affairs facilities. It does not include entries that were removed or entered in error. Problem Status Onset Date Problem Type Date of Resolution Comments Source Acquired hammer toes of bilateral feet Active Condition [facility] Asymmetrical sensorineural hearing loss (SNOMED CT 875637902) Active Condition [facility] Benign essential hypertension (SNOMED CT 3288967) Active Condition [facility] Benign paroxysmal positional vertigo Active Condition [facility] Benign Prostatic Hypertrophy with Outflow Obstruction (SCT 760936717) Active Condition [facility] Exposure to potentially hazardous substance Active Condition [facility] Familial painful callosities Active Condition [facility] History of traumatic brain injury Active Condition [facility] Hyperlipidemia Active Condition [facility] Laboratory Examination Ordered as part of a Routine General Medical Examination Active Condition [facility] 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 (SNOMED CT 2082456) Active Condition [facility] Neck Pain Active Condition [facility] Neoplasm of uncertain behavior of skin Active Condition [facility] Obstructive sleep apnea of adult (SNOMED CT 4618539271281) Active Condition [facility] Orthostatic hypotension Active Condition [facility] Pain of bilateral knee joints Active Condition [facility] Pain of right shoulder joint Active Condition [facility] Personal history of Agent [place] exposure Active Condition [facility] Posttraumatic stress disorder Active [facility] Recurrent varicose vein of lower limb Active Condition [facility] Superficial vein thrombosis Active Condition [facility] Tinnitus Active Condition [facility] Ventral hernia Active Condition [facility] Hearing loss (SNOMED CT 96293954) Inactive Condition 08/24/2019 [facility] Diagnosis: ICD-10-CM Z46.1 Encounter for fitting and adjustment of hearing aid Active Diagnosis [facility] Diagnosis: ICD-10-CM R01.1 Cardiac murmur, unspecified Active Diagnosis [facility] Diagnosis: ICD-10-CM I10 Essential (primary) hypertension Active Diagnosis [facility] Diagnosis: ICD-10-CM Z46.89 Encounter for fitting and adjustment of oth devices Active Diagnosis [facility] Diagnosis: ICD-10-CM Z46.0 Encounter for fit/adjst of spectacles and contact lenses Active Diagnosis [facility] Diagnosis: ICD-10-CM M17.0 Bilateral primary osteoarthritis of knee Active Diagnosis [facility] Diagnosis: ICD-10-CM N40.1 Benign prostatic hyperplasia with lower urinary tract symp Active Diagnosis [facility] Diagnosis: ICD-10-CM H81.10 Benign paroxysmal vertigo, unspecified ear Active Diagnosis [facility] Diagnosis: ICD-10-CM M20.40 Other hammer toe(s) (acquired), unspecified foot Active Diagnosis [facility] Diagnosis: ICD-10-CM I95.1 Orthostatic hypotension Active Diagnosis [facility] Diagnosis: ICD-10-CM Z04.9 Encounter for examination and observation for unsp reason Active Diagnosis [facility] Diagnosis: ICD-10-CM G47.33 Obstructive sleep apnea (adult) (pediatric) Active Diagnosis [facility] Diagnosis: ICD-10-CM S06.2X9S 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, sequela Active Diagnosis [facility] Diagnosis: ICD-10-CM I49.9 Cardiac arrhythmia, unspecified Active Diagnosis [facility] Diagnosis: ICD-10-CM R07.9 Chest pain, unspecified Active Diagnosis [facility] Diagnosis: ICD-10-CM H90.3 Sensorineural hearing loss, bilateral Active Diagnosis [facility] Diagnosis: ICD-10-CM M79.673 Pain in unspecified foot Active Diagnosis [facility] Diagnosis: ICD-10-CM H93.13 Tinnitus, bilateral Active Diagnosis [facility] Diagnosis: ICD-10-CM M79.674 Pain in right toe(s) Active Diagnosis [facility] Diagnosis: ICD-10-CM M79.675 Pain in left toe(s) Active Diagnosis [facility] Medications Combined list of outpatient medications from Department of Defense and Veterans Affairs facilities.Medications provided include 1) outpatient medications from the last 15 months, and 2) patient-reported medications. Medication Details Route Status Patient Instructions Prescription Expires Prescription Number Last Dispense Date Ordering Provider Order Date Order Qty Source ASCORBIC ACID 500MG TAB TAKE ONE TABLET BY MOUTH EVERY DAY ORAL ACTIVE MARY HOOVER A 2011 [facility] BRIMONIDINE 0.2%/BRINZO LAMIDE 1% SUSP,OPH INSTILL ONE DROP IN BOTH EYES TWICE A DAY OPHTHA LMIC 12/29/2023 [id number] YOLANDA HERNANDEZ 2022 8 [facility] CHOLECALCIF KATI 25MCG (1,000UNIT) TAB TAKE TWO TABLETS BY MOUTH EVERY DAY ORAL ACTIVE MARY HOOVER A 2011 [facility] DICLOFENAC NA 1% GEL,TOP APPLY 4 GRAMS TO LOWER EXTREMIT IES TOPICALL Y EVERY EIGHT HOURS NEEDED FOR PAIN/INF LAMMATIO N *DO NOT EXCEED 16 GRAMS DAILY TO ANY JOINT OF LOWER EXTREMIT IES. DO NOT EXCEED 8 GRAMS DAILY TO ANY JOINT OF UPPER EXTREMIT IES. DO NOT EXCEED TOTAL DOSE OF 32 GRAMS DAILY OVER ALL JOINTS. NEEDED FOR BILATERA L KNEE PAIN. *DO NOT EXCEED 16 GRAMS DAILY TO ANY JOINT OF LOWER EXTREMIT IES. DO NOT EXCEED 8 GRAMS DAILY TO ANY JOINT OF UPPER EXTREMIT IES. DO NOT EXCEED TOTAL DOSE OF 32 GRAMS DAILY OVER ALL JOINTS. NEEDED FOR BILATERA L KNEE PAIN. TOPICA L DISCONT INUED BY PROVIDE R 05/29/2025 [id number] ANTONIARADHA S 2023 400 [facility] MAGNESIUM CITRATE LIQUID,ORAL TAKE 400MG BY MOUTH EVERY DAY ORAL ACTIVE MARY HOOVER A [address] [facility] MULTIVITAMI NS W/MINERALS CAP/TAB TAKE ONE CAP/TAB BY MOUTH EVERY DAY ORAL ACTIVE RODSRI,ALEJANDRINA UREN P 2017 [facility] NIACINAMIDE 500MG TAB TAKE ONE TABLET BY MOUTH EVERY DAY ORAL ACTIVE RODSRIALEJANDRINA DINAN P 2018 [facility] OMEGA-3-ACI D ETHYL ESTERS 1000MG CAP,ORAL TAKE 1 CAPSULE BY MOUTH EVERY DAY ORAL ACTIVE MARY HOOVER A 2011 [facility] PROBIOTIC CAP,ORAL TAKE BY MOUTH EVERY DAY ORAL ACTIVE RODSRIALEJANDRINA UREN P 2018 [facility] RED YEAST RICE CAP/TAB TAKE 600MG BY MOUTH EVERY DAY ORAL ACTIVE [facility]ARY HOOVER A [address] [facility] SILDENAFIL CITRATE 100MG TAB TAKE ONE TABLET BY MOUTH NEEDED FOR ERECTILE DYSFUNCT ION MAX USE ONCE IN 24 HOUR PERIOD ORAL ACTIVE 11/30/2024 [id number] JJ,EV ELYN L [address] [facility] TAMSULOSIN HCL 0.4MG CAP TAKE ONE CAPSULE BY MOUTH ONCE DAILY FOR BENIGN PROSTATI C HYPERPLA ARMANDO 30 MINUTES AFTER THE SAME MEALTIME EACH DAY ORAL ACTIVE 03/27/2025 [id number] JJ,EV ELYN L 2023 90 [facility] Allergies, Adverse Reactions, Alerts Combined list of allergies from Department of Defense and Veterans Affairs facilities. It does not include entries that were removed or entered in error. Substance Category Reaction Severity Reaction type Status Date Reported Comments Source BEE STINGS Propensity to adverse reaction (finding) Swelling active 05/02/2018 [facility] PENICILLIN Propensity to adverse reactions to drug (finding) Eruption active 09/04/2010 [facility] Immunizations Combined list of available immunizations from the Department of Defense and Veterans Affairs facilities. Immunization Series Date Given Administered By Site Reaction Lot Number CVX Code Drug First Coat Operator Status Comments Source TDAP 2022 TEVIN SPICER RIGHT DELTO ID [id number] 115 complet ed [facility] COVID-19 (MODERNA), MRNA, LNP-S, PF, 100 MCG/0.5 ML DOSE 2 2020 207 complet ed [facility] COVID-19 (MODERNA), MRNA, LNP-S, PF, 100 MCG/0.5 ML DOSE 1 2020 207 complet ed [facility] PNEUMOCOCCAL POLYSACCHARID E PPV23 2016 33 complet ed [facility] PNEUMOCOCCAL CONJUGATE PCV 13 2014 133 complet ed [facility] TD(ADULT) UNSPECIFIED FORMULATION 2012 139 complet ed [facility] TDAP 2009 115 complet ed [facility] ZOSTER LIVE 2009 121 complet ed [facility] PNEUMOCOCCAL, UNSPECIFIED FORMULATION 2008 109 complet ed [facility] TETANUS DIPHTHERIA (HISTORICAL) 2006 139 complet ed routine [facility] Results Combined list of recent chemistry, hematology and other laboratory results from Department of Defense and Veterans Affairs, ranging from 15 months to all on record, depending upon the facility. Order Name Results Value Reference Range Date Interpretation Specimen Comments Source PSA (ARCHITEC T) PROSTATE SPECIFIC AG [MASS/VOLU ME] IN SERUM OR PLASMA 3.72 ng/mL 07/30 Specimen Type: SERUM Comment: , Tests performed on [employer] SN:[id number] (405) TSH within normal limits. Reflex testing not required. Ordering Provider: CARMEN GARDNER Report Released Date/Time: Jun 26, 2024 08:27 AM Reporting Lab: [facility] [address] [facility] [address] Performing Lab: [facility] [address] [facility] [address] [facility] THYROID TESTING CASCADE THYROTROPI N [UNITS/VOL UME] IN SERUM OR PLASMA 3.10 u[IU]/mL 0.35 - 5.00 07/30 Specimen Type: SERUM Comment: , Tests performed on [employer] SN:[id number] (405) TSH within normal limits. Reflex testing not required. Ordering Provider: CARMEN GARDNER Report Released Date/Time: Jun 26, 2024 08:27 AM Reporting Lab: [facility] [address] [facility] [address] Performing Lab: [facility] [address] [facility] [address] [facility] VIT D 25-OH(J ) CALCIFEROL (VIT D2) [MASS/VOLU ME] IN SERUM OR PLASMA 28.9 ng/mL 20.0 - 50.0 07/30 Specimen Type: SERUM Comment: , Tests performed on [employer] SN:[id number] (405) TSH within normal limits. Reflex testing not required. Ordering Provider: CARMEN GARDNER Report Released Date/Time: Jun 26, 2024 08:27 AM Reporting Lab: [facility] [address] [facility] [address] Performing Lab: [facility] [address] [facility] [address] [facility] LIVER PROFILE PROTEIN [MASS/VOLU ME] IN SERUM OR PLASMA 6.7 g/dL 6.0 - 8.5 07/30 Specimen Type: PLASMA Comment: , Tests performed on [employer] SN:[id number] (405). Ordering Provider: CARMEN GARDNER Report Released Date/Time: Jun 26, 2024 08:27 AM Reporting Lab: [facility] [address] [facility] [address] Performing Lab: [facility] [address] [facility] [address] [facility] LIVER PROFILE ALBUMIN [MASS/VOLU ME] IN SERUM OR PLASMA 3.7 g/dL 3.2 - 5.0 07/30 Specimen Type: PLASMA Comment: , Tests performed on [employer] SN:[id number] (405). Ordering Provider: CARMEN GARDNER Report Released Date/Time: Jun 26, 2024 08:27 AM Reporting Lab: [facility] [address] [facility] [address] Performing Lab: [facility] [address] [facility] [address] [facility] LIVER PROFILE BILIRUBIN. TOTAL [MASS/VOLU ME] IN SERUM OR PLASMA 0.4 mg/dL 0.2 - 1.2 07/30 Specimen Type: PLASMA Comment: , Tests performed on [employer] SN:[id number] (405). Ordering Provider: CARMEN GARDNER Report Released Date/Time: Jun 26, 2024 08:27 AM Reporting Lab: [facility] [address] [place] [facility] [place] [address] Performing Lab: [facility] [address] [place] [facility] [place] [address] [facility] LIVER PROFILE ALKALINE PHOSPHATAS E [ENZYMATIC ACTIVITY/V OLUME] IN SERUM OR PLASMA 41 U/L 40 - 150 07/30 Specimen Type: PLASMA Comment: , Tests performed on [employer] SN:[id number] (405). Ordering Provider: CARMEN GARDNER Report Released Date/Time: Jun 26, 2024 08:27 AM Reporting Lab: [facility] [address] [place] [facility] [place] [address] Performing Lab: [facility] [address] [place] [facility] [place] [address] [facility] LIVER PROFILE ALANINE AMINOTRANS FERASE [ENZYMATIC ACTIVITY/V OLUME] IN SERUM OR PLASMA 34 U/L 7 - 52 07/30 Specimen Type: PLASMA Comment: , Tests performed on [employer] SN:[id number] (405). Ordering Provider: CARMEN GARDNER Report Released Date/Time: Jun 26, 2024 08:27 AM Reporting Lab: [facility] [address] [place] [facility] [place] [address] Performing Lab: [facility] [address] [place] [facility] [place] [address] [facility] LIVER PROFILE ASPARTATE AMINOTRANS FERASE [ENZYMATIC ACTIVITY/V OLUME] IN SERUM OR PLASMA 25 U/L 5 - 34 07/30 Specimen Type: PLASMA Comment: , Tests performed on [employer] SN:[id number] (405). Ordering Provider: CARMEN GARDNER Report Released Date/Time: Jun 26, 2024 08:27 AM Reporting Lab: [facility] [address] [place] [facility] [place] [address] Performing Lab: [facility] [address] [place] [facility] [place] [address] [facility] LIVER PROFILE FIB-4 SCORE 1.41 <2.67 - 2.67 07/30 Specimen Type: PLASMA Comment: , Tests performed on [employer] SN:[id number] (405). Ordering Provider: CARMEN GARDNER Report Released Date/Time: Jun 26, 2024 08:27 AM Reporting Lab: [facility] [address] [facility] [address] Performing Lab: [facility] [address] [facility] [address] [facility] P4 GLU,BUN,C REAT,LYTE S,CA UREA NITROGEN [MASS/VOLU ME] IN SERUM OR PLASMA 15 mg/dL 7 - 25 07/30 Specimen Type: PLASMA Comment: , Tests performed on [employer] SN:[id number] (405). Ordering Provider: CARMEN GARDNER Report Released Date/Time: Jun 26, 2024 08:27 AM Reporting Lab: [facility] [address] [facility] [address] Performing Lab: [facility] [address] [facility] [address] [facility] P[facility] GLU,BUN,C REAT,LYTE S,CA SODIUM [MOLES/VOL UME] IN SERUM OR PLASMA 138 mmol/L 135 - 145 07/30 Specimen Type: PLASMA Comment: , Tests performed on [employer] SN:[id number] (405). Ordering Provider: CARMEN GARDNER Report Released Date/Time: Jun 26, 2024 08:27 AM Reporting Lab: [facility] [address] [facility] [address] Performing Lab: [facility] [address] [facility] [address] [facility] P4 GLU,BUN,C REAT,LYTE S,CA POTASSIUM [MOLES/VOL UME] IN SERUM OR PLASMA 4.4 mmol/L 3.5 - 5.0 07/30 Specimen Type: PLASMA Comment: , Tests performed on [employer] SN:[id number] (405). Ordering Provider: CARMEN GARDNER Report Released Date/Time: Jun 26, 2024 08:27 AM Reporting Lab: [facility] [address] [facility] [address] Performing Lab: [facility] [address] [facility] [address] [facility] P4 GLU,BUN,C REAT,LYTE S,CA CHLORIDE [MOLES/VOL UME] IN SERUM OR PLASMA 103 mmol/L 100 - 110 07/30 Specimen Type: PLASMA Comment: , Tests performed on [employer] SN:[id number] (405). Ordering Provider: CARMEN GARDNER Report Released Date/Time: Jun 26, 2024 08:27 AM Reporting Lab: [facility] [address] [facility] [address] Performing Lab: [facility] [address] [facility] [address] [facility] P4 GLU,BUN,C REAT,LYTE S,CA CARBON DIOXIDE, TOTAL [MOLES/VOL UME] IN SERUM OR PLASMA 28 mmol/L 20 - 30 07/30 Specimen Type: PLASMA Comment: , Tests performed on [employer] SN:[id number] (405). Ordering Provider: CARMEN GARDNER Report Released Date/Time: Jun 26, 2024 08:27 AM Reporting Lab: [facility] [address] [facility] [address] Performing Lab: [facility] [address] [facility] [address] [facility] P4 GLU,BUN,C REAT,LYTE S,CA ANION GAP IN SERUM OR PLASMA 7 4 - 16 07/30 Specimen Type: PLASMA Comment: , Tests performed on [employer] SN:[id number] (405). Ordering Provider: CARMEN GARDNER Report Released Date/Time: Jun 26, 2024 08:27 AM Reporting Lab: [facility] [address] [facility] [address] Performing Lab: [facility] [address] [facility] [address] [facility] P4 GLU,BUN,C REAT,LYTE S,CA GLUCOSE [MASS/VOLU ME] IN SERUM OR PLASMA 99 mg/dL 65 - 100 07/30 Specimen Type: PLASMA Comment: , Tests performed on [employer] SN:[id number] (405). Ordering Provider: CARMEN GARDNER Report Released Date/Time: Jun 26, 2024 08:27 AM Reporting Lab: [facility] [address] [facility] [address] Performing Lab: [facility] [address] [facility] [address] [facility] P4 GLU,BUN,C REAT,LYTE S,CA CREATININE [MASS/VOLU ME] IN SERUM OR PLASMA 0.96 mg/dL 0.50 - 1.50 07/30 Specimen Type: PLASMA Comment: , Tests performed on [employer] SN:[id number] (405). Ordering Provider: CARMEN GARDNER Report Released Date/Time: Jun 26, 2024 08:27 AM Reporting Lab: [facility] [address] [facility] [address] Performing Lab: [facility] [address] [facility] [address] [facility] P4 GLU,BUN,C REAT,LYTE S,CA CALCIUM [MASS/VOLU ME] IN SERUM OR PLASMA 8.7 mg/dL 8.5 - 10.5 07/30 Specimen Type: PLASMA Comment: , Tests performed on [employer] SN:[id number] (405). Ordering Provider: CARMEN GARDNER Report Released Date/Time: Jun 26, 2024 08:27 AM Reporting Lab: [facility] [address] [facility] [address] Performing Lab: [facility] [address] [facility] [address] [facility] P4 GLU,BUN,C REAT,LYTE S,CA GLOMERULAR FILTRATION RATE/1.73 SQ M.PREDICTE D [VOLUME RATE/AREA] IN SERUM, PLASMA OR BLOOD BY CREATININE -BASED FORMULA (CKD-EPI 2020) 81 mL/min 07/30 Specimen Type: PLASMA Comment: , Tests performed on [employer] SN:[id number] (405). Ordering Provider: CARMEN GARDNER Report Released Date/Time: Jun 26, 2024 08:27 AM Reporting Lab: [facility] [address] [facility] [address] Performing Lab: [facility] [address] [facility] [address] [facility] CBC NO DIFF LEUKOCYTES [#/VOLUME] IN BLOOD BY AUTOMATED COUNT 4.5 10*3/uL 4.5 - 11.0 07/30 Specimen Type: BLOOD No comment entered. Ordering Provider: CARMEN GARDNER Report Released Date/Time: Jun 26, 2024 08:27 AM Reporting Lab: [facility] [address] [facility] [address] Performing Lab: [facility] [address] [facility] [address] [facility] CBC NO DIFF ERYTHROCYT ES [#/VOLUME] IN BLOOD BY AUTOMATED COUNT 4.59 10*6/uL 4.23 - 5.66 07/30 Specimen Type: BLOOD No comment entered. Ordering Provider: CARMEN GARDNER Report Released Date/Time: Jun 26, 2024 08:27 AM Reporting Lab: [facility] [address] [facility] [address] Performing Lab: [facility] [address] [facility] [address] [facility] CBC NO DIFF HEMOGLOBIN [MASS/VOLU ME] IN BLOOD 14.7 g/dL 12.8 - 17 07/30 Specimen Type: BLOOD No comment entered. Ordering Provider: CARMEN GARDNER Report Released Date/Time: Jun 26, 2024 08:27 AM Reporting Lab: [facility] [address] [facility] [address] Performing Lab: [facility] [address] [facility] [address] [facility] CBC NO DIFF HEMATOCRIT [VOLUME FRACTION] OF BLOOD BY AUTOMATED COUNT 44.0 39.2 - 50.4 07/30 Specimen Type: BLOOD No comment entered. Ordering Provider: CARMEN GARDNER Report Released Date/Time: Jun 26, 2024 08:27 AM Reporting Lab: [facility] [address] [facility] [address] [facility] [address] [facility] [address] [facility] CBC NO DIFF MCV [ENTITIC VOLUME] BY AUTOMATED COUNT 95.9 fL 82 - 99 07/30 Specimen Type: BLOOD No comment entered. Ordering Provider: CARMEN GARDNER Report Released Date/Time: Jun 26, 2024 08:27 AM Reporting Lab: [facility] [address] [facility] [address] Performing Lab: [facility] [address] [facility] [address] [facility] CBC NO DIFF MCH [ENTITIC MASS] BY AUTOMATED COUNT 32.0 pg 26.2 - 32.6 07/30 Specimen Type: BLOOD No comment entered. Ordering Provider: CARMEN GARDNER Report Released Date/Time: Jun 26, 2024 08:27 AM Reporting Lab[facility] [address] [facility] [address] Per[facility]: [facility] [address] [facility] [address] [facility] CBC NO DIFF MCHC [MASS/VOLU ME] BY AUTOMATED COUNT 33.4 g/dL 30.8 - 35.1 07/30 Specimen Type: BLOOD No comment entered. Ordering Provider: CARMEN GARDNER Report Released Date/Time: Jun 26, 2024 08:27 AM Reporting Lab[facility] [address] [facility] [address] Per[facility]: [facility] [address] [facility] [address] [facility] CBC NO DIFF PLATELETS [#/VOLUME] IN BLOOD BY AUTOMATED COUNT 245 10*3/uL 140 - 360 07/30 Specimen Type: BLOOD No comment entered. Ordering Provider: CARMEN GARDNER Report Released Date/Time: Jun 26, 2024 08:27 AM Reporting Lab: [facility] [address] [facility] [address] Per[facility]: [facility] [address] [facility] [address] [facility] CBC NO DIFF PLATELET MEAN VOLUME [ENTITIC VOLUME] IN BLOOD BY AUTOMATED COUNT 8.8 fL 9.2 - 12.4 07/30 L Specimen Type: BLOOD No comment entered. Ordering Provider: CARMEN GARDNER Report Released Date/Time: Jun 26, 2024 08:27 AM Reporting Lab: [facility] [address] [facility] [address] Performing Lab: [facility] [address] [facility] [address] [facility] CBC NO DIFF ERYTHROCYT E DISTRIBUTI ON WIDTH [RATIO] BY AUTOMATED COUNT 13.1 12.0 - 16.0 07/30 Specimen Type: BLOOD No comment entered. Ordering Provider: CARMEN GARDNER Report Released Date/Time: Jun 26, 2024 08:27 AM Reporting Lab: [facility] [address] [facility] [address] Per[facility]: [facility] [address] [facility] [address] [facility] LIPOPROTE IN CHOLESTER OL FRACT. PANEL CHOLESTERO L [MASS/VOLU ME] IN SERUM OR PLASMA 236 mg/dL 0 - 200 07/30 H Specimen Type: PLASMA Comment: , Tests performed on [employer] SN:[id number] (405). Ordering Provider: CARMEN GARDNER Report Released Date/Time: Jun 26, 2024 08:27 AM Reporting Lab: [facility] [address] [facility] [address] [facility]: [facility] [address] [facility] [address] [facility] LIPOPROTE IN CHOLESTER OL FRACT. PANEL TRIGLYCERI DE [MASS/VOLU ME] IN SERUM OR PLASMA 183 mg/dL 0 - 150 07/30 H Specimen Type: PLASMA Comment: , Tests performed on [employer] SN:[id number] (405). Ordering Provider: CARMEN GARDNER Report Released Date/Time: Jun 26, 2024 08:27 AM Reporting Lab: [facility] [address] [facility] [address] [facility]: [facility] [address] [facility] [address] [facility] LIPOPROTE IN CHOLESTER OL FRACT. PANEL CHOLESTERO L IN HDL [MASS/VOLU ME] IN SERUM OR PLASMA 52 mg/dL 40 07/30 Specimen Type: PLASMA Comment: , Tests performed on [employer] SN:[id number] (405). Ordering Provider: CARMEN GARDNER Report Released Date/Time: Jun 26, 2024 08:27 AM Reporting Lab: [facility] [address] [facility] [address] Performing Lab: [facility] [address] [facility] [address] [facility] LIPOPROTE IN CHOLESTER OL FRACT. PANEL CHOLESTERO L IN LDL [MASS/VOLU ME] IN SERUM OR PLASMA BY CALCULATIO N 147 mg/dL 0 - 129 07/30 H Specimen Type: PLASMA Comment: , Tests performed on Desai Lap Cutter Truer Operator Joon SN:[id number] (405). Ordering Provider: CARMEN GARDNER Report Released Date/Time: Jun 26, 2024 08:27 AM Reporting Lab: [facility] [address] [facility] [address] Performing Lab: [facility] [address] [facility] [address] [facility] URINALYSI S W/REFLEX TO CULTURE COLOR OF URINE Colorles s 05/21 Specimen Type: URINE No comment entered. Ordering Provider: CARMEN GARDNER Report Released Date/Time: May 01, 2024 10:59 AM Reporting Lab: [facility] [address] [facility] [address] Performing Lab: [facility] [address] [facility] [address] [facility] URINALYSI S W/REFLEX TO CULTURE SPECIFIC GRAVITY OF URINE BY REFRACTOME TRY 1.005 1.003 - 1.030 05/21 Specimen Type: URINE No comment entered. Ordering Provider: CARMEN GARDNER Report Released Date/Time: May 01, 2024 10:59 AM Reporting Lab: [facility] [address] [facility] [address] Performing Lab: [facility] [address] [facility] [address] [facility] URINALYSI S W/REFLEX TO CULTURE UROBILINOG EN [MASS/VOLU ME] IN URINE <2.0mg/d L <2.0 - 2.0 05/21 Specimen Type: URINE No comment entered. Ordering Provider: CARMEN GARDNER Report Released Date/Time: May 01, 2024 10:59 AM Reporting Lab: [facility] [address] [facility] [address] Performing Lab: [facility] [address] [facility] [address] [facility] URINALYSI S W/REFLEX TO CULTURE BILIRUBIN. TOTAL [PRESENCE] IN URINE BY TEST STRIP NEG 05/21 Specimen Type: URINE No comment entered. Ordering Provider: CARMEN GARDNER Report Released Date/Time: May 01, 2024 10:59 AM Reporting Lab: [facility] [address] [facility] [address] Performing [facility]: [facility] [address] [facility] [address] [facility] URINALYSI S W/REFLEX TO CULTURE KETONES [PRESENCE] IN URINE NEGmg/dL 05/21 Specimen Type: URINE No comment entered. Ordering Provider: CARMEN GARDNER Report Released Date/Time: May 01, 2024 10:59 AM Reporting Lab: [facility] [address] [facility] [address] Performing Lab: [facility] [address] [facility] [address] [facility] URINALYSI S W/REFLEX TO CULTURE GLUCOSE [MASS/VOLU ME] IN URINE BY TEST STRIP NEGmg/dL 05/21 Specimen Type: URINE No comment entered. Ordering Provider: CARMEN GARDNER Report Released Date/Time: May 01, 2024 10:59 AM Reporting Lab: [facility] [address] [facility] [address] Performing Lab: [facility] [address] [facility] [address] [place] [address] [facility] URINALYSI S W/REFLEX TO CULTURE PROTEIN [MASS/VOLU ME] IN URINE BY TEST STRIP NEGmg/dL 05/21 Specimen Type: URINE No comment entered. Ordering Provider: CARMEN GARDNER Report Released Date/Time: May 01, 2024 10:59 AM Reporting Lab: [facility] [address] [facility] [address] Performing Lab: [facility] [address] [facility] [address] [facility] URINALYSI S W/REFLEX TO CULTURE PH OF URINE BY TEST STRIP 6.5 5 - 8 05/21 Specimen Type: URINE No comment entered. Ordering Provider: CARMEN GARDNER Report Released Date/Time: May 01, 2024 10:59 AM Reporting Lab: [facility] [address] [facility] [address] Performing Lab: [facility] [address] [facility] [address] [facility] URINALYSI S W/REFLEX TO CULTURE APPEARANCE OF URINE CLEAR 05/21 Specimen Type: URINE No comment entered. Ordering Provider: CARMEN GARDNER Report Released Date/Time: May 01, 2024 10:59 AM Reporting Lab: [facility] [address] [facility] [address] Performing Lab: [facility] [address] [facility] [address] [facility] URINALYSI S W/REFLEX TO CULTURE HEMOGLOBIN [PRESENCE] IN URINE NEG 05/21 Specimen Type: URINE No comment entered. Ordering Provider: CARMEN GARDNER Report Released Date/Time: May 01, 2024 10:59 AM Reporting Lab: [facility] [address] [facility] [address] Performing Lab: [facility] [address] [facility] [address] [facility] URINALYSI S W/REFLEX TO CULTURE NITRITE [PRESENCE] IN URINE BY TEST STRIP NEG 05/21 Specimen Type: URINE No comment entered. Ordering Provider: CARMEN GARDNER Report Released Date/Time: May 01, 2024 10:59 AM Reporting Lab: [facility] [address] [facility] [address] Performing Lab: [facility] [address] [facility] [address] [facility] URINALYSI S W/REFLEX TO CULTURE LEUKOCYTES [PRESENCE] IN URINE NEG 05/21 Specimen Type: URINE No comment entered. Ordering Provider: CARMEN GARDNER Report Released Date/Time: May 01, 2024 10:59 AM Reporting Lab: [facility] [address] [facility] [address] Performing Lab: [facility] [address] [facility] [address] [facility] VIT D 25-OH(WRJ ) CALCIFEROL (VIT D2) [MASS/VOLU ME] IN SERUM OR PLASMA 31.0 ng/mL 20.0 - 50.0 03/26 Specimen Type: SERUM Comment: , Tests performed on Desai Lap Cutter Truer Operator Robles SN:[id number] (405) TSH within normal limits. Reflex testing not required. Ordering Provider: CARMEN GARDNER Report Released Date/Time: Mar 17, 2024 08:32 AM Reporting Lab: [facility] [address] [facility] [address] Performing Lab: [facility] [address] [facility] [address] [facility] LIPOPROTE IN CHOLESTER OL FRACT. PANEL CHOLESTERO L [MASS/VOLU ME] IN SERUM OR PLASMA 248 mg/dL 0 - 200 03/26 H Specimen Type: PLASMA Comment: , Tests performed on Desai G[employer] Miners Jono SN:[id number] (405). Ordering Provider: CARMEN GARDNER Report Released Date/Time: Mar 17, 2024 08:32 AM Reporting Lab: [facility] [address] [facility] [address] Performing Lab: [facility] [address] [facility] [address] [facility] LIPOPROTE IN CHOLESTER OL FRACT. PANEL TRIGLYCERI DE [MASS/VOLU ME] IN SERUM OR PLASMA 128 mg/dL 0 - 150 03/26 Specimen Type: PLASMA Comment: , Tests performed on Desai Lap Cutter Truer Operator Joon SN:[id number] (405). Ordering Provider: CARMEN GARDNER Report Released Date/Time: Mar 17, 2024 08:32 AM Reporting Lab: [facility] [address] [facility] [address] Performing Lab: [facility] [address] [facility] [address] [facility] LIPOPROTE IN CHOLESTER OL FRACT. PANEL CHOLESTERO L IN HDL [MASS/VOLU ME] IN SERUM OR PLASMA 56 mg/dL 40 03/26 Specimen Type: PLASMA Comment: , Tests performed on Desai Lap Cutter Truer Operator Joon SN:[id number] (405). Ordering Provider: CARMEN GARDNER Report Released Date/Time: Mar 17, 2024 08:32 AM Reporting Lab: [facility] [address] [place] [facility] [place] [address] Performing Lab: [facility] [address] [facility] [address] [facility] LIPOPROTE IN CHOLESTER OL FRACT. PANEL CHOLESTERO L IN LDL [MASS/VOLU ME] IN SERUM OR PLASMA BY CALCULATIO N 166 mg/dL 0 - 129 03/26 H Specimen Type: PLASMA Comment: , Tests performed on Desai Lap Cutter Truer Operator Joon SN:[id number] (405). Ordering Provider: CARMEN GARDNER Report Released Date/Time: Mar 17, 2024 08:32 AM Reporting Lab: [facility] [address] [facility] [address] Performing Lab: [facility] [address] [facility] [address] [facility] Vital Signs Combined list of inpatient and outpatient Vital Signs from Department of Defense and Veterans Affairs, ranging from 12 months to all on record, depending upon the facility. Vital Sign Value Date Comments Source SYSTOLIC BLOOD PRESSURE 144 07/30/2024 12:59:03 [facility] DIASTOLIC BLOOD PRESSURE 67 07/30/2024 12:59:03 [facility] PULSE OXIMETRY 95 07/30/2024 [facility] WEIGHT 179.8 07/30/2024 12:59:03 [facility] BMI 29kg/m2 07/30/2024 12:59:03 [facility] PAIN 1 07/30/2024 12:59:03 [facility] HEIGHT 66 07/30/2024 12:59:03 [facility] TEMPERATURE 96.9 07/30/2024 12[facility]59:03 [facility] PULSE 70 07/30/2024 12:59:03 [facility] SYSTOLIC BLOOD PRESSURE 165 05/11/2024 08:08:44 [facility] DIASTOLIC BLOOD PRESSURE 73 05/11/2024 08:08:44 [facility] PULSE OXIMETRY 98 05/11/2024 08:08:44 [facility] PAIN 5 05/11/2024 08:08:44 [facility] PULSE 57 05/11/2024 08:08:44 [facility] RESPIRATION 16 05/11/2024 08:08:44 [facility] SYSTOLIC BLOOD PRESSURE 136 03/26/2024 09:25:58 [facility] DIASTOLIC BLOOD PRESSURE 72 03/26[facility]24 09:25[facility] 94 03/26/2024 09:25:58 [facility] WEIGHT 178.4 03/26/2024 09:25:58 [facility] BMI 29kg/m2 03/26/2024 09:25:58 [facility] PAIN 0 03/26/2024 09:25:58 [facility] HEIGHT 66 03/26/2024 09:25:58 [facility] TEMPERATURE 96.9 03/26/2024 09:25:58 [facility] PULSE 49 03/26/2024 09:25:58 . Darnell [facility] Encounters Combined list of: 1) Encounters from Department of Veterans Affairs facilities going back up to thelast 18 months. 2) Encounters from the Department of Defense facilities going back up to 280 months. Location Location Details Encounter Type Encounter Number Reason For Visit Attending Provider ADM Date DC Date Status Disposition Source [facility] OFF/OP EST JANUARY X REQ PHY/QHP [id number] [id number] Diagnos is: ICD-10- CM M79.675 Pain in left toe(s)< br/> Helio MCKINLEY 04/29 [facility] OFFICE O/P EST MOD 30-39 MIN 48728-2.40 5. Diagnos is: ICD-10- CM M79.674 Pain in right toe(s)< br/> TRINI,CHINA ISTOPHER L 05/15 [facility] DIAB SHOE FOR DENSITY INSERT 79976-5.40 5. Diagnos is: ICD-10- CM M20.40 Other hammer toe(s) (acquir ed), unspeci fied foot
TRINI,[facility] ISTOPHER L 05/24 [facility] Outpatient Encounter [id number] [id number] [facility] HEARING AID REPAIR/MOD IFYING [id number] [id number] Diagnos is: ICD-10- CM Z46.1 Encount er for fitting and adjustm ent of hearing aid<br/ > KARIN FABIAN R 06/06 [facility] Outpatient Encounter [id number] [id number] [facility] FIT SPECTACLES MULTIFOCAL [id number] [id number] Diagnos is: ICD-10- CM Z46.0 Encount er for fit/adj st of spectac les and contact lenses< br/> ANGEL GONZALEZ MARCE 06/18 [facility] Outpatient Encounter [id number] [id number] [facility] Outpatient Encounter [id number] [id number] 07/02 [facility] OFF/OP EST MAY X REQ PHY/QHP [id number] [id number] Diagnos is: ICD-10- CM Z46.89 Encount er for fitting and adjustm ent of oth devices
ASHLEYPARTHASALONikiaELIAS Ahn MARCI 07/05 [facility] OFFICE O/P EST MOD 30-39 MIN 10823-5.40 [id number] Diagnos is: ICD-10- CM I95.1 Orthost atic hypoten lucy
CARMEN GARDNER ELISA L 07/18 [facility] Outpatient Encounter [id number] [id number] Gabriel KAT 07/18 [facility] Outpatient Encounter [id number] [id number] 07/18 [facility] Outpatient Encounter [id number] [id number] 07/25 [facility] Outpatient Encounter [id number] [id number] Serg KEYES ELPIDIO L 07/31 [facility] HEARING AID EXAM BOTH EARS 31139-2.40 [id number] Diagnos is: ICD-10- CM H93.13 Tinnitu s, bilater al
CARENKARIN LAURIE R 08/01 [facility] RY [facility] TTE W/DOPPLER COMPLETE 43422-3.40 [id number] Diagnos is: ICD-10- CM I95.1 Orthost atic hypoten lucy
JORGE CORONADO L 08/05 [facility] OFFICE O/P EST LOW 20-29 MIN 30292-4.40 [id number] Diagnos is: ICD-10- CM M79.673 Pain in unspeci fied foot
VERONICA,PEN [place] 08/14 [facility] HEARING AID FITTING/CH ECKING 87325-4.40 [id number] Diagnos is: ICD-10- CM H90.3 Sensori neural hearing loss, bilater al
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
CARMEN GARDNER ELISA L 10/02 [facility] Outpatient Encounter [id number] [id number] 10/04 [facility] SELF-MGMT EDUC & TRAIN 1 [place] [address]-7.40 [id number] Diagnos is: ICD-10- CM H90.3 Sensori neural hearing loss, bilater al
KARIN FABIAN R 10/[facility] Outpatient Encounter [id number] [id number] 10/08 [facility] HT MUSCLE IMAGE SPECT MULT [id number] [id number] Diagnos is: ICD-10- CM R07.9 Chest pain, unspeci fied
STOCKLUIZ THAN 10/16 [facility] EXT ECG>7D<15D RECORDING [id number] [id number] Diagnos is: ICD-10- CM I49.9 Cardiac arrhyth arlin, unspeci fied
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
LAMIA,MARY SUPRIYA 11/11 [facility] EXT ECG>7D<15D REV&INTERP J 30335-8.40 [id number] Diagnos is: ICD-10- CM I95.1 Orthost atic hypoten lucy
Gabriel KAT 11/11 [facility] [place] [facility] [place] [facility] OFF/OP EST MAY X REQ PHY/QHP 73040-2.40 [id number] Diagnos is: ICD-10- CM G47.33 Obstruc tive sleep apnea (adult) (pediat toni)
BJELIC,LAUREN ESPERANZA L 11/12 [facility] Outpatient Encounter [id number] [id number] Diagnos is: ICD-10- CM I95.1 Orthost atic hypoten lucy
CARMEN GARDNER L 11/13 [facility] Outpatient Encounter [id number] [id number] 11/27 [facility] Outpatient Encounter [id number] [id number] 12/04 [facility] Outpatient Encounter [id number] [id number] 12/07 [facility] OFF/OP EST JANUARY X REQ PHY/QHP [id number] [id number] Diagnos is: ICD-10- CM Z04.9 Encount er for examina tion and observa tion for unsp reason< br/> PETTIGLIO, PAMELLA A 03/12 [facility] OFFICE O/P EST MOD 30 MIN [id number] [id number] Diagnos is: ICD-10- CM N40.1 Benign prostat ic hyperpl edu with lower urinary tract symp
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
JJ,CARMEN ELISA L 04/15 [facility] THERAPEUTI C EXERCISES 70103-3.40 [id number] Diagnos is: ICD-10- CM H81.10 Benign paroxys mal vertigo , unspeci fied ear<br/ > PRIETO,CA NDACE L 04/20 [facility] HC PRO PHONE CALL 11-20 MIN [id number] [id number] Diagnos is: ICD-10- CM H81.10 Benign paroxys mal vertigo , unspeci fied ear<br/ > PRIETO,CA NDACE L 04/20 [facility] THERAPEUTI C ACTIVITIES [id number] [id number] Diagnos is: ICD-10- CM H81.10 Benign paroxys mal vertigo , unspeci fied ear<br/ > PRIETO,CA NDACE L 04/28 [facility] OFFICE O/P EST MOD 30 MIN [id number] [id number] Diagnos is: ICD-10- CM M20.40 Other hammer toe(s) (acquir ed), unspeci fied foot
VERONICAALLISON MESSER 05/11 [facility] THERAPEUTI C ACTIVITIES [id number] [id number] Diagnos is: ICD-10- CM H81.10 Benign paroxys mal vertigo , unspeci fied ear<br/ > PIRETO,CA NDACE L 05/15 [facility] OFF/OP EST JANUARY X REQ PHY/QHP 70498-4.40 [id number] Diagnos is: ICD-10- CM N40.1 Benign prostat ic hyperpl edu with lower urinary tract symp
PETTIGLIOPAMELLA A 05/21 [facility] OFF/OP CNSLTJ NEW/EST LOW 30 [id number] [id number] Diagnos is: ICD-10- CM M17.0 Bilater al primary osteoar thritis of knee
FRANK KNIGHT S 05/28 [facility] Outpatient Encounter [id number] [id number] VERONICA,PEN [place] 05/28 [facility] Outpatient Encounter [id number] [id number] 06/09 [facility] Outpatient Encounter [id number] [id number] 06/12 [facility] FIT SPECTACLES MULTIFOCAL 84502-6.40 [id number] Diagnos is: ICD-10- CM Z46.0 Encount er for fit/adj st of spectac les and contact lenses< br/> ANGEL GONZALEZ 06/15 [facility] Outpatient Encounter [id number] [id number] 06/16 [facility] Outpatient Encounter [id number] [id number] 06/26 [facility] Outpatient Encounter [id number] [id number] VERONICA,PEN [place] 07/03 [facility] Outpatient Encounter [id number] [id number] 07/07 [facility] ORTHOPEDIC [place] [id number] [id number] Diagnos is: ICD-10- CM Z46.89 Encount er for fitting and adjustm ent of oth devices
JENNIFER WEISS Y B 07/10 [facility] OFFICE O/P EST MOD 30 MIN [id number] [id number] Diagnos is: ICD-10- CM I10 Essenti al (primar y) hyperte nsion<b r/> JJ,CARMEN ELISA L 07/30 [facility] N [facility] Outpatient Encounter [id number] [id number] 07/31 [facility] Outpatient Encounter [id number] [id number] 07/31 [facility] Outpatient Encounter [id number] [id number] 08/24 [facility] 3D RENDER W/INTRP POSTPROCES 97711-7.40 [id number] Diagnos is: ICD-10- CM R01.1 Cardiac murmur, unspeci fied
RAMÍREZ GARY S 09/14 [facility] HEARING AID SUP/ACCESS /DEV 07862-3.40 [id number] Diagnos is: ICD-10- CM Z46.1 Encount er for fitting and adjustm ent of hearing aid<br/ > KARIN FABIAN 09/15 [facility] Outpatient Encounter [id number] [id number] 10/09 [facility] Social History Combined list of available smoking, tobacco, and other social history from Department of Defense and Veterans Affairs facilities. Social History Type Response Date Comment Source Tobacco smoking status [facility]-TOBACCO FORMER USER 10/02/2023 [facility] of [facility] History of tobacco use ID-TOBACCO FORMER USER 05/18/2022 [facility] History of tobacco use ID-TOBACCO FORMER USER 05/17/2021 [facility] History of tobacco use ID-TOBACCO FORMER USER 11/04/2018 [facility] History of tobacco use QUIT TOBACCO USE > 7 YEARS AGO 01/27/2018 quit in 1971-72 [facility] History of tobacco use QUIT TOBACCO USE > 7 YEARS AGO 04/29/2017 [facility] History of tobacco use QUIT TOBACCO USE > 7 YEARS AGO 04/05/2016 quit early 70's [facility] History of tobacco use QUIT TOBACCO USE > 7 YEARS AGO 09/04/2010 Pt. quit smoking in 1975. [facility] Plan of Care List of future care activities from Department of Veterans Affairs facilities. Additional future care activities may be listed in the Assessment and Plan section. Date/Time Care Activity Care Activity Detail Facili ty 11/05/2024 AMBULATORY - MEDICINE AMBULATORY - MEDICI [facility] Advance Directives List of completed, amended, or rescinded Advance Directives on record at Department of Veterans Affairs facilities. An actual copy of the Directive is not included. Date Advance Directive Provider Source 10/08/2019 ADVANCE DIRECTIVE LEISA ROBERTS [facility]
--- OUTSIDE RECORDS SUMMARY | 2024-10-09 10:33 | XMS_ITS | Clinical Summary ---
Author Organization [facility] Address [address] [place] [address] Care Team Providers Care Ip Litigation Associate Name Role Phone Unknown, Provider Primary Care Provider Unava ilable Social History Tobacco Use Types Packs/Day Years Used Date Smoking Tobacco: Never Assessed Sex and Gender Information Value Date Recorded Sex Assigned at Not on file Legal Sex Male 18:25 EST Gender Identity Not on file Sexual Orientation Not on file Plan of Treatment Health Maintenance Due Date Last Done Comments Hepatitis C Screen 1945 Fall Risk Screening 2010 RSV Immunization ( o r 60+ Years) (1 - 1-dose 75+ series) 2020 COVID-19 Vaccine ( season) 2024 Care Teams Ip Litigation Associate Relationship Specialty Start Date End Date Unknown, Provider, PCP - General 07/29/15
--- OUTSIDE RECORDS SUMMARY | 2024-10-09 10:33 | XMS_ITS | Referral Summary ---
Author Organization [facility] Address [address] [place] [address] Care Team Providers Care Technician Support Association Name Role Phone Unknown, Provider Primary Care Provider Unava ilable Social History Tobacco Use Types Packs/Day Years Used Date Smoking Tobacco: Never Assessed Sex and Gender Information Value Date Recorded Sex Assigned at Not on file Legal Sex Male 18:25 EST Gender Identity Not on file Sexual Orientation Not on file Plan of Treatment Not on file Care Teams Technician Support Association Relationship Specialty Start Date End Date Unknown, Provider, PCP - General 07/29/15
--- OUTSIDE RECORDS SUMMARY | 2024-10-09 10:33 | XMS_ITS | Encounter Summary ---
Author Organization [facility] Address [address] [place] [address] Care Team Providers Care Spring Up Supervisor Name Role Phone Unavailable Primary Care Provider Unavailabl e Encounter Details Date Type Department Care Team (Late st Contact Info) Description 05/16/[address] [facility] [address] [place] [address] Rose Sandhu MD [address] [place] [address] Social History Tobacco Use Types Packs/Day Years [...] Date/Time Associated Diagnosis Comments SURGICAL PATHOLOGY Routine 05/16/2000 0:00 EDT documented in this encounter Results * SURGICAL PATHOLOGY (05/16/2000 0:00 EDT) Pathology Report: SURGICAL PATHOLOGY REPORT Reports generated via electronic interface contain original data; however they are lacking the format of the original report. Caution should be taken when reading/interpreti ng unformatted reports. Name: ? DEEPAK PAK ? Accession #: ? [id number] ? : ? 1945 (Age: 54) ??M ? Collect Date: ? 05/16/2000 ? Location: ? [facility] ? Receive Date: ? 05/16/2000 ? Provider: ROSE SANDHU MD Copy to: YOSELIN SHRESTHA MD ? Final Pathologic Diagnosis: ? Skin of back, punch biopsy: - Seborrheic keratosis, pigmented. Document reviewed and electronically signed by: Lizet Osorio MD Report ??Date: 05/17/2000 17:40 By the signature above, the attending physician certifies that he/she has personally conducted a gross and/or microscopic examination of the described specimens and rendered or confirmed the above diagnosis. Specimen(s) Received: ? None given Clinical History: ? Pigmented skin lesion - ?dysplastic nevus or melanoma; clinical diagnosis code 239.8 Gross Description: ? Received in formalin labelled [place] and puncture biopsy back is a house-brown mottled granular circular 0.4 cm skin punch excised to a depth of 0.4 cm. ??There is an eccentric brown homogeneous 0.2 x 0.2 cm papule. ??The specimen is bisected and entirely submitted in one cassette. ??(Gloria Dhillon)/ankita End of Report NICOLLE FIGUEROA 05/16/2000 05/16/2000 9:0 7 EDT us Rose Sandhu MD PATHOLOGY ORDERABLES Final Resul t NICOLLE FIGUEROA [address] [place] [address] documented in this encounter Visit Diagnoses Not on filedocumented in this encounter
--- OUTSIDE RECORDS SUMMARY | 2024-10-09 10:33 | XMS_ITS | Encounter Summary ---
Author Name [facility] [place] [facility] [place] [facility] [place] Address [address] [place] [address] Care Team Providers Care Sheet Layer Name Role Phone JUAN HANNA Primary Care Provider Unavail le Insurance Providers: All historical and current [...] Broussard's Name Patient's Relationship to Policy Broussard ANTHEM BCBS CT FEDERAL PREFERRED PROVIDER ORGANIZAT ION (PPO) PSHB BASIC SELF+ 1 Sep 16, 2024 33C [id number] REYNA ROSALES PATIENT ANTHEM BCBS CT FEDERAL PREFERRED PROVIDER ORGANIZAT ION (PPO) BASIC SELF+ ONE Mar 17, 2018 113 [id number] REYNA ROSALES PATIENT ANTHEM [place] OF [place] (FEDERAL) PREFERRED PROVIDER ORGANIZAT ION (PPO) BASIC SELF+ ONE Mar 17, 2018 113 [id number] REYNA ROSALES PATIENT BCBS OF [place] FEDERAL PREFERRED PROVIDER ORGANIZAT ION (PPO) BASIC SELF+ 1 Mar 17, 2018 113 [id number] REYNA ROSALES PATIENT CAREMARK FEPRX PLAN PRESCRIPT ION CAREM ARK FEPRX Sep 16, 2024 [id number] REYNA ROSALES PATIENT DARLENE-F EP BCBS PRESCRIPT ION BCBS FEP PLAN Sep 16, 2010 [id number] REYNA ROSALES PATIENT MEDICARE (WNR) MEDICARE (M) PART A Mar 17, 2018 PART A [id number] REYNA ROSALES PATIENT MEDICARE (WNR) MEDICARE (M) PART A Sep 16, 2010 PART A [id number] REYNA ROSALES PATIENT Selected Encounter This section includes the information on record at [place] for the Encounter. Date/Time Encounter Type Encounter Description Reason Provider Source 2023 02:15 PM EXT ECG>7D<15D RECORDING CARDIOLOGY ICD-10-CM I49.9 Cardiac arrhythmia, unspecified JENNY KAT Encounter Template Text not used by [place] Assessments - Encounter Diagnoses This section includes the primary and secondary diagnoses documented for the Encounter. Date/Time Primary/Secondary Diagnosis Diagnosis Name Provider Source Oct 23, 2023 12:12 PM PRIMARY Cardiac arrhythmia, unspecified TERRA ALICEA [facility] Plan of Treatment: Future Appointments (+ 6 months) and Future Tests (+/- 45 days) The Plan of Treatment section includes future care activities for the patient from all [place] treatmentfacilities. This section includes future appointments and future orders which are active, pending or scheduled. Future Appointments This section includes appointments that were scheduled to occur 6 months from the date of the Encounter, up to a maximum of 20 appointments. The data comes from all [place] treatment facilities. Appointment Date/Time Appointment Type Appointme nt Facility Name Nov 11, 2023 10:00 AM AMBULATORY - REHAB MEDICIN Tati MARCH [facility] Nov 12, 2023 04:00 PM AMBULATORY - MEDICINE SANGITA [facility] Nov 13, 2023 10:30 AM AMBULATORY - MEDICINE GANESH MARCH [facility] Dec 05, 2023 08:00 AM AMBULATORY - NONE LUCAS MARCH [facility] Mar 12, 2024 08:00 AM AMBULATORY - MEDICINE [facility] Mar 26, 2024 09:30 AM AMBULATORY [facility] NONE [facility] Mar 26, 2024 10:15 AM AMBULATORY - NONE [facility] Apr 08, 2024 01:30 PM AMBULATORY - MEDICINE GANESH MARCH [facility] Apr 15, 2024 11:00 AM AMBULATORY - MEDICINE GANESH MARCH [facility] Social History: Smoking Status (Most current) and Tobacco Use (All prior to encounter date) This section includes the most current, and the historical, smoking and tobacco- related health factors from the [place] facility where the Encounter took place. Current Smoking Status This section includes the most current smoking, or tobacco-related health factor, from the [place] facility where the Encounter took place. Date/Time Current Smoking Status Comment Facility Sep 04, 2010 01:20 PM QUIT TOBACCO USE > 7 YEARS AGO Pt. quit smoking in 1974. LUCAS ANCA [facility] Advance Directives: All historical and current Section Date Range: From patient's date of to the date document was created. This section includes ALL of a patient's completed or amended [place] and Rescinded Directives. The entries below indicate that a directive exists for the patient, but an actual copy is not included with this document. The data comes from all [place] facilities. Date [place] Directives Provider Source Oct 08, 2019 ADVANCE DIRECTIVE LEISA ROBERTS [facility] Radiology Reports: +/- 30 days of the [...] the Encounter. The data comes from all [place] treatment facilities. Date/Time Radiology Report Provider Source 2023 10:02 AM SESTAMIBI MYOCARDI AL PERFUSION : REYNA ROSALES SILVIA [id number] -[id number] M Exm Date: 2023@10:02 Req Phys: EDITH GARDNER Pat Loc: LIT PACT T PHONE (Req'g Loc) Img Loc: NUCLEAR MEDICINE ([facility]OS) Service: Unknown (Case 345 COMPLETE) MIBI STRESS (CARDIAC CHAIR) ([place] Detailed) CPT:27265 CPT Modifiers : TC TECHNICAL COMPONENT Reason for Study: Estab DX of CAD Radiopharmaceutical: Tc99m SESTAMIBI (Rest Dose), 10.1 mCi Adm'd on 2023@10:00 by BECKY ZELAYA Radiopharmaceutical: Tc99m SESTAMIBI (Stress), 27.5 mCi Adm'd on 2023@11:45 by PRIETO ELLIS ( 2x ) SUPPLY OF RP AGENT,SESTAMIBI PER ([place] Detailed) CPT:A9500 Clinical History: Provisional Diagnosis: Orthostatic Hypotension(ICD-10-CM I95.1) Past Cardiac History: white coat syndrome Father [place]. Current Symptoms: lightheadedness and orthostatic hypotension Does the patient have exertional symptoms? Yes Can the patient exercise on a treadmill sufficiently for an exercise study? Yes Does the patient have LBBB on ECG? No. Is patient claustrophobic? No Is patient currently taking Theophylline or Dipyridamole? No Is patient taking any of the following medications? (Beta [place], Digoxin, Diltiazem or Verapamil)? No Last recorded Weight/BMI: BODY MASS INDEX - JUL 18, 2023@13:26:08 28.4 175.8 lb [79.74 kg] (07/18/2023 13:26) Last recorded Height: 66 in [167.6 cm] (07/18/2023 13:26) Last recorder Blood Pressure: 174/87 (07/18/2023 Allergies: PENICILLIN, BEE STINGS {{ 1st MPI }} Report Status: Verified Date Reported: 2023 Date Verified: 2023 Security Flex Utility Officer E-Sig: Report: Results will be reported in Cardiology Stress Test Report Note in CPRS. Impression: Results will be reported in Cardiology Stress Test Report Note in CPRS. Primary Diagnostic Code: Primary Interpreting Staff: LAZARA MELÉNDEZ, Staff Physician Verified by recording studio internship for LAZARA MELÉNDEZ /LAZARA TOMLINSON [facility] Encounter Notes: All associated encounter notes This section contains the clinical notes associated to the Encounter. Date/Time Encounter Note(s) Provider Source 2023 01:39 PM CARDIOLOGY DIAGNOS TIC STUDY REPORT: LOCAL TITLE: Arrhythmia Monitoring Report/Cardiology STANDARD TITLE: CARDIOLOGY DIAGNOSTIC STUDY REPORT DATE OF NOTE: 2023@13:39 ENTRY DATE: 2023@13:39:38 AUTHOR: TERRA ALICEA COSIGNER: URGENCY: STATUS: COMPLETED Diagnosis:Cardiac Arrhythmia, unspecified(ICD-10-CM I49.9) Ziopatch XT applied per protocol. Patient instructed to wear monitor for 14 days, then remove and send back in the return kit provided (pt was advised to take package directly into P.O. and ask the parts clerk plant maintenance to scan the bar code for tracking purposes). Pt was also instructed to press the event button every time he experiences a symptom, and write in the diary book provided what the symptom was and how long it lasted. Opportunity was given for questions, and the patient seemed comfortable with the instructions. Zio XT Device#: [id number] Return Kit tracking #:[id number] /ken/ TERRA ALICEA Licensed Practical Nurse Signed: 2023 13:44 TERRA ALICEA [facility]
--- OUTSIDE RECORDS SUMMARY | 2024-10-09 10:34 | XMS_ITS | Encounter Summary ---
Author Name [facility] [place] [facility] [place] [facility] [place] Address [address] [place] [address] Care Team Providers Care Esters And Emulsifiers Supervisor Name Role Phone JUAN HANNA Primary Care [...] BASIC SELF+ 1 Sep 16, 2024 33C [id number] [phone] REYNA ROSALES PATIENT ANTHEM BCBS CT FEDERAL PREFERRED PROVIDER ORGANIZAT ION (PPO) BASIC SELF+ ONE Mar 17, 2018 113 [id number] REYNA ROSALES PATIENT ANTHEM [place] (FEDERAL) PREFERRED PROVIDER ORGANIZAT ION (PPO) BASIC SELF+ ONE Mar 17, 2018 113 [id number] REYNA ROSALES PATIENT [place] OF [place] FEDERAL PREFERRED PROVIDER ORGANIZAT ION (PPO) BASIC SELF+ 1 Mar 17, 2018 113 [id number] REYNA ROSALES PATIENT CAREMARK FEPRX PLAN PRESCRIPT ION CAREM ARK FEPRX Sep 16, 2024 [id number] REYNA ROSALES PATIENT DARLNEE-F EP BCBS PRESCRIPT ION BCBS FEP PLAN Sep 16, 2010 [id number] REYNA ROSALES PATIENT MEDICARE (WNR) MEDICARE (M) PART A Mar 17, 2018 PART A [id number] REYNA ROSALES PATIENT MEDICARE (WNR) MEDICARE (M) PART A Sep 16, 2010 PART A [id number] [phone] REYNA ROSALES PATIENT Selected Encounter This section includes the information on record at [place] for the Encounter. Date/Time Encounter Type Encounter Description Reason Pro vider Source Nov 28, 2023 03:22 PM Outpatient Encounter ADMIN PAT ACTIVTIES (MASNONCT) IHE Encounter Template Text not used by [place] Plan of Treatment: Future Appointments (+ 6 months) and Future Tests (+/- 45 days) The Plan of Treatment section includes future care activities for the patient from all [place] treatmentfacilities. This section includes future appointments and future orders which are active, pending or scheduled. Future Appointments This section includes appointments that were scheduled to occur 6 months from the date of the Encounter, up to a maximum of 20 appointments. The data comes from all [place] treatment facilities. Appointment Date/Time Appointment Type Appointme nt Facility Name Dec 05, 2023 08:00 AM AMBULATORY - NONE LUCAS MARCH [facility] Mar 12, 2024 08:00 AM AMBULATORY - MEDICINE Des [facility] Mar 26, 2024 09:30 AM AMBULATORY - NONE [facility] Mar 26, 2024 10:15 AM AMBULATORY - NONE [facility] Apr 08, 2024 01:30 PM AMBULATORY - MEDICINE [facility] [facility] Apr 15, 2024 11:00 AM AMBULATORY - MEDICINE [facility] Apr 20, 2024 09:00 AM AMBULATORY - REHAB MEDICIN E WHITE [facility] Apr 28, 2024 01:30 PM AMBULATORY - REHAB MEDICIN E WHITE [facility] May 11, 2024 08:00 AM AMBULATORY - SURGERY [facility] May 15, 2024 09:00 AM AMBULATORY - REHAB MEDICIN E LUCAS [facility] May 21, 2024 08:45 AM AMBULATORY - NONE [facility] May 21, 2024 09:00 AM AMBULATORY - MEDICINE [facility] May 28, 2024 09:00 AM AMBULATORY - SURGERY [facility] Social History: Smoking Status (Most current) and Tobacco Use (All prior to encounter date) This section includes the most current, and the historical, smoking and tobacco- related health factors from the [place] facility where the Encounter took place. Current Smoking Status This section includes the most current smoking, or tobacco-related health factor, from the [place] facility where the Encounter took place. Date/Time Current Smoking Status Comment Facility Sep 04, 2010 01:20 PM QUIT TOBACCO USE > 7 YEARS AGO Pt. quit smoking in 1974. [facility] Advance Directives: All historical and current Section Date Range: From patient's date of to the date document was created. This section includes ALL of a patient's completed or amended [place] and Rescinded Directives. The entries below indicate that a directive exists for the patient, but an actual copy is not included with this document. The data comes from all [place] facilities. Date [place] Directives Provider Source Oct 08, 2019 ADVANCE DIRECTIVE LEISA ROBERTS [facility] Encounter Notes: All associated encounter notes This section contains the clinical notes associated to the Encounter. Date/Time Encounter Note(s) Provider Source Nov 28, 2023 03:22 PM TELEPHONE ENCOUNTE R NOTE: LOCAL TITLE: V1 PHARMACY CUSTOMER CARE MEDICATION RENEWAL STANDARD TITLE: TELEPHONE ENCOUNTER NOTE DATE OF NOTE: NOV 28, 2023@15:22 ENTRY DATE: NOV 28, 2023@15:22:48 AUTHOR: CYNTHIA TRAVIS EXP COSIGNER: URGENCY: STATUS: COMPLETED V1 PHARMACY CUSTOMER CARE MEDICATION RENEWAL Has ADDENDA Date: Nov Division: [place] Pt referred by Pharmacy Call Center for medication renewal: Non-controlled/maintenance medication Medications requested: [id number] SILDENAFIL CITRATE 100MG TAB Defer to primary care provider To be mailed . Please review and renew if appropriate. *This note was generated by [facility] Pharmacy Customer Care. If you have any questions or need assistance, do not contact this author. Please refer all questions to your local, on-site pharmacy departments. /ken/ Philip Travis (Cynthia), [facility] Cutter Out, [place]/Pharmacy Customer Care Signed: 11/28/2023 15:23 Receipt Acknowledged By: 11/28/2023 15:28 /ken/ RITO CRUM for STEVE MCKINLEY 11/30/2023 17:03 /ken/ EDITH GARDNER APRN 11/28/2023 ADDENDUM STATUS: COMPLETED Dispense Drugs (units/dose): SILDENAFIL CITRATE 100MG TAB () Last Filled: 03/20/23 Refills Remainin Filled: 03/20/23 (Mail) released 03/25/23 /ken/ RITO CRUM Signed: 11/28/2023 15:28 CYNTHIA TRAVIS [facility]
--- OUTSIDE RECORDS SUMMARY | 2024-10-09 10:34 | XMS_ITS | Encounter Summary ---
Author Name [facility] [place] [facility] [place] Address [address] [place] [address] Care Team Providers Care Electrician Refinery Name Role Phone JUAN HANNA Primary Care Provider [facility] Insurance Providers: All historical and current [...] Broussard's Name Patient's Relationship to Policy Broussard SUHAS BCBS CT FEDERAL PREFERRED PROVIDER ORGANIZAT ION (PPO) PSHB BASIC SELF+ 1 Sep 16, 2024 33C [id number] REYNA ROSALES PATIENT ANTHEM BCBS CT FEDERAL PREFERRED PROVIDER ORGANIZAT ION (PPO) BASIC SELF+ ONE Mar 17, 2018 113 [id number] REYNA ROSALES PATIENT ANTHEM [place] (FEDERAL) PREFERRED PROVIDER ORGANIZAT ION (PPO) BASIC SELF+ ONE Mar 17, 2018 113 [id number] REYNA ROSALES PATIENT [place] FEDERAL PREFERRED PROVIDER ORGANIZAT ION (PPO) BASIC SELF+ 1 Mar 17, 2018 113 [id number] REYNA ROSALES PATIENT DARLENE FEPRX PLAN PRESCRIPT ION CAREM ARK FEPRX Sep 16, 2024 [id number] REYNA ROSALES PATIENT DARLENE-F EP BCBS PRESCRIPT ION BCBS FEP PLAN Sep 16, 2010 [id number] REYNA ROSALES PATIENT MEDICARE (WNR) MEDICARE (M) PART A Mar 17, 2018 PART A [id number] REYNA ROSALES PATIENT MEDICARE (WNR) MEDICARE (M) PART A Sep 16, 2010 PART A [id number] REYNA ROSALES PATIENT Selected Encounter This section includes the information on record at [place] for the Encounter. Date/Time Encounter Type Encounter Description Reason Provider Source Nov 11, 2023 10:02 AM EXT ECG>7D<15D REV&INTERPJ CARDIOLOGY ICD-10-CM I95.1 Orthostatic hypotension JENNY KAT Encounter Template Text not used by [place] Assessments - Encounter Diagnoses This section includes the primary and secondary diagnoses documented for the Encounter. Date/Time Primary/Secondary Diagnosis Diagnosis Name Provider Source Nov 20, 2023 10:53 AM PRIMARY Orthostatic hypotension JENNY KAT [facility] Plan of Treatment: Future Appointments (+ 6 months) and Future Tests (+/- 45 days) The Plan of Treatment section includes future care activities for the patient from all [place] treatmentfacilities. This section includes future appointments and future orders which are active, pending or scheduled. Future Appointments This section includes appointments that were scheduled to occur 6 months from the date of the Encounter, up to a maximum of 20 appointments. The data comes from all [place] treatment facilities. Appointment Date/Time Appointment Type Appointme nt Facility Name Nov 12, 2023 04:00 PM AMBULATORY - MEDICINE [facility] Nov 13, 2023 10:30 AM AMBULATORY - MEDICINE GANESH Tati MARCH [facility] Dec 05, 2023 08:00 AM AMBULATORY - NONE LUCAS MARCH [facility] Mar 12, 2024 08:00 AM AMBULATORY - MEDICINE [facility] Mar 26, 2024 09:30 AM AMBULATORY - NONE [facility] Mar 26, 2024 10:15 AM AMBULATORY - NONE [facility] Apr 08, 2024 01:30 PM AMBULATORY - MEDICINE GANESH MARCH [facility] Apr 15, 2024 11:00 AM AMBULATORY - MEDICINE WHIT Tati MARCH [facility] Apr 20, 2024 09:00 AM AMBULATORY - REHAB MEDICIN E LUCAS MARCH [facility] Apr 28, 2024 01:30 PM AMBULATORY - REHAB MEDICIN E LUCAS MARCH [facility] May 11, 2024 08:00 AM AMBULATORY - SURGERY [facility] Social History: Smoking Status (Most current) and Tobacco Use (All prior to encounter date) This section includes the most current, and the historical, smoking and tobacco- related health factors from the [place] facility where the Encounter took place. Current Smoking Status This section includes the most current smoking, or tobacco-related health factor, from the [place] facility where the Encounter took place. Date/Time Current Smoking Status [facility] Facility Sep 04, 2010 01:20 PM QUIT TOBACCO USE > 7 YEARS AGO Pt. quit smoking in 1974. LUCAS [facility] [place] Directives: All historical and current Section Date Range: From patient's date of to the date document was created. This section includes ALL of a patient's completed or amended [place] and Rescinded Directives. The entries below indicate that a directive exists for the patient, but an actual copy is not included with this document. The data comes from all [place] facilities. Date [place] Directives Provider Source Oct 08, 2019 ADVANCE DIRECTIVE LEISA ROBERTS [facility] Radiology Reports: +/- 30 days of [...] the Encounter. The data comes from all [place] treatment facilities. Date/Time Radiology Report Provider Source 2023 10:02 AM SESTAMIBI MYOCARDI AL PERFUSION : REYNA ROSALES [facility] [id number] -1945 M Exm Date: 2023@10:02 Req Phys: EDITH GARDNER Pat Loc: LIT PACT T PHONE (Req'g Loc) Img Loc: NUCLEAR MEDICINE ([facility]OS) Service: Unknown (Case 345 COMPLETE) MIBI STRESS (CARDIAC CHAIR) ([place] Detailed) CPT:64882 CPT Modifiers : TC TECHNICAL COMPONENT Reason for Study: Estab DX of CAD Radiopharmaceutical: Tc99m SESTAMIBI (Rest Dose), 10.1 mCi Adm'd on 2023@10:00 by BECYK ZELAYA Radiopharmaceutical: Tc99m SESTAMIBI (Stress), 27.5 mCi Adm'd on 2023@11:45 by PRIETO ELLIS ( 2x ) SUPPLY OF RP AGENT,SESTAMIBI PER ([place] Detailed) CPT:A9500 Clinical History: Provisional Diagnosis: Orthostatic Hypotension(ICD-10-CM I95.1) Past Cardiac History: white coat syndrome Father [place]. Current Symptoms: lightheadedness and orthostatic hypotension Does [...] Verified Date Reported: 2023 Date Verified: 2023 Shoe Repairer Helper E-Sig: Report: Results will be reported in Cardiology Stress Test Report Note in CPRS. Impression: Results will be reported in Cardiology Stress Test Report Note in CPRS. Primary Diagnostic Code: Primary Interpreting Staff: LAZARA MELÉNDEZ, Staff Physician Verified by airworthiness inspector for LAZARA MELÉNDEZ /LAZARA TOMLINSON [facility] Encounter Notes: All associated encounter notes This section contains the clinical notes associated to the Encounter. Date/Time Encounter Note(s) Provider Source Nov 11, 2023 10:02 AM CARDIOLOGY DIAGNOS TIC STUDY REPORT: LOCAL TITLE: Arrhythmia Monitoring Report/Cardiology STANDARD TITLE: CARDIOLOGY DIAGNOSTIC STUDY REPORT DATE OF NOTE: NOV 11, 2023@10:02 ENTRY DATE: NOV 11, 2023@10:02:44 AUTHOR: JENNY KAT COSIGNER: URGENCY: STATUS: COMPLETED Zio results Indication: Lightheadedness Prescriber: Duglas Gardner Enrollment period: 10/16/23 - 10/30/23 Analysis time (after artifact removed): 13 days and 20 hours The predominant underlying rhythm was sinus with a mean heart rate of 69 bpm (sinus range 45 to 137 bpm). ------ Atrial ectopy: Frequent isolated beats (8.3%), occasional couplets (3.9%) and rare triplets. Ventricular ectopy: Rare isolated beats ------- Atrial fibrillation/Atrial flutter : none Supraventricular tachycardia : 15 episodes the longest of which was 26 seconds in duration at average rate of 109bpm, the fastest of which 4 beats in duration at max rate of 130 bpm. Ventricular tachycardia (4 beats or more): none AV block (2nd degree Mobitz type II, 3rd degree): none Pauses (3 seconds or longer): none Triggered events: 13 Diary entries: 9 [lightheaded, dizzy] The cardiac rhythm during the patient's symptoms was sinus at 58-106bpm at times with frequent atrial ectopy. Impression: The underlying rhythm is sinus at a mean heart rate of 69bpm. Atrial ectopy was frequent, atrial ectopy accounted for ~12%. Patient symptoms occurred during sinus rhythm at times with atrial ectopy, difficult to determine if the atrial ectopy is causing dizziness as the atrial ectopy was pervasive (~ 12% of all beats). /ken/ JENNY KAT Staff Physician, Cardiology Signed: 11/11/2023 10:12 JENNY KAT [facility]
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
--- OUTSIDE RECORDS SUMMARY | 2024-10-09 10:34 | XMS_ITS | Encounter Summary ---
Author Name [facility] [place] [facility] [place] [facility] [place] Address [address] [place] [address] Care Team Providers Care Television Mechanic Name Role Phone JUAN HANNA Primary Care [...] BASIC SELF+ 1 Sep 16, 2024 [id number] [id number] [phone] REYNA ROSALES PATIENT [place] PREFERRED PROVIDER ORGANIZAT ION (PPO) BASIC SELF+ ONE Mar 17, 2018 113 [id number] [phone] REYNA ROSALES PATIENT ANTHE[place] (FEDERAL) PREFERRED PROVIDER ORGANIZAT ION (PPO) BASIC SELF+ ONE Mar 17, 2018 113 [id number] [phone] REYNA ROSALES PATIENT [place] FED[place]AL PREFERRED PROVIDER ORGANIZAT ION (PPO) BASIC SELF+ 1 Mar 17, 2018 113 [id number] [phone] REYNA ROSALES PATIENT [place] FEPRX PLAN PRESCRIPT ION MARYJANEM ARK FEPRX Sep 16, 2024 [id number] REYNA ROSALES PATIENT DARLENE-F EP BCBS PRESCRIPT ION BCBS FEP PLAN Sep 16, 2010 [id number] REYNA ROSALES PATIENT MEDICARE (WNR) MEDICARE (M) PART A Mar 17, 2018 PART A [id number] REYNA ROSALES PATIENT MEDICARE (WNR) MEDICARE (M) PART A Sep 16, 2010 PART A [id number] REYNA ROSALES PATIENT Selected Encounter This section includes the information on record at [place] for the Encounter. Date/Time Encounter Type Encounter Description Reason Provider Source Nov 13, 2023 10:30 AM Outpatient Encounter TELEPHONE PRIMARY CARE ICD-10-CM I95.1 Orthostatic hypotension EDITH GARDNER Tati Encounter Template Text not used by [place] Assessments - Encounter Diagnoses This section includes the primary and secondary diagnoses documented for the Encounter. Date/Time Primary/Secondary Diagnosis Diagnosis Name Provider Source Nov 13, 2023 10:30 AM PRIMARY Orthostatic hypotension EDITH GARDNER [facility] Nov 13, 2023 10:30 AM SECONDARY Benign paroxysmal vertigo, unspecified ear EDITH GARDNER [facility] Nov 13, 2023 10:30 AM SECONDARY Personal history of traumatic brain injury EDITH GARDNER [facility] Plan of Treatment: Future Appointments (+ 6 months) and Future Tests (+/- 45 days) The Plan of Treatment section includes future care activities for the patient from all [place] treatmentfacilities. This section includes future appointments and future orders which are active, pending or scheduled. Future Appointments This section includes appointments that were scheduled to occur 6 months from the date of the Encounter, up to a maximum of 20 appointments. The data comes from all [place] treatment facilities. Appointment Date/Time Appointment Type Appointme nt Facility Name Dec 05, 2023 08:00 AM AMBULATORY - NONE [place] [facility] Mar 12, 2024 08:00 AM AMBULATORY - MEDICINE [facility] Mar 26, 2024 09:30 AM AMBULATORY - NONE [facility] Mar 26, 2024 10:15 AM AMBULATORY - NONE [facility] Apr 08, 2024 01:30 PM AMBULATORY - MEDICINE GANESH MARCH T [facility] Apr 15, 2024 11:00 AM AMBULATORY - MEDICINE WHIT Tati MARCH T [facility] Apr 20, 2024 09:00 AM AMBULATORY - REHAB MEDICIN E LUCAS MARCH T [facility] Apr 28, 2024 01:30 PM AMBULATORY - REHAB MEDICIN E LUCAS MARCH T [facility] May 11, 2024 08:00 AM AMBULATORY - SURGERY LUCAS MARCH [facility] Social History: Smoking Status (Most current) and Tobacco Use (All prior to encounter date) This section includes the most current, and the historical, smoking and tobacco- related health factors from the [place] facility where the Encounter took place. Current Smoking Status This section includes the most current smoking, or tobacco-related health factor, from the [place] facility where the Encounter took place. Date/Time Current Smoking Status Comment Renato amor Oct 02, 2023 11:00 AM VA-TOBACCO FORMER USER [facility] Tobacco Use History This section includes a history of the smoking, or tobacco-related health factors, that were collected on or before the date of the Encounter. The data comes from the [place] facility where the Encounter took place. Date/Time Smoking Status/Tobacco Use Comment Jimy beauchamp Oct 02, 2023 11:00 AM VA-TOBACCO QUIT 15 YRS OR MORE [facility] May 18, 2022 02:00 PM VA-TOBACCO FORMER USER [facility] May 18, 2022 02:00 PM VA-TOBACCO QUIT 15 YRS OR MORE [facility] May 17, 2021 09:30 AM VA-TOBACCO FORMER USER [facility] May 17, 2021 09:30 AM VA-TOBACCO QUIT 15 YRS OR MORE [facility] Nov 04, 2018 09:35 AM VA-TOBACCO FORMER USER [facility] Nov 04, 2018 09:35 AM VA-TOBACCO QUIT 15 YRS OR MORE [facility] January 27, 2018 03:02 PM QUIT TOBACCO USE > 7 YEARS AGO quit in 1970- [facility] Apr 05, 2016 06:59 AM QUIT TOBACCO USE > 7 YEARS AGO quit early [facility] Advance Directives: All historical and current Section Date Range: From patient's date of to the date document was created. This section includes ALL of a patient's completed or amended VA Advance and Rescinded Directives. The entries below indicate that a directive exists for the patient, but an actual copy is not included with this document. The data comes from all [place] facilities. Date Advance Directives Provider Source Oct 08, 2019 ADVANCE DIRECTIVE LEISA ROBERTS [facility] Radiology Reports: +/- 30 days [...] the Encounter. The data comes from all [place] treatment facilities. Date/Time Radiology Report Provider Source 2023 10:02 AM SESTAMIBI MYOCARDI AL PERFUSION : REYNA ROSALES Hiro [id number] -[id number] M Exm Date: 2023@10:02 Req Phys: EDITH GARDNER Pat Loc: LIT PACT T PHONE (Req'g Loc) Img Loc: NUCLEAR MEDICINE (OOS) Service: Unknown (Case [id number] COMPLETE) MIBI STRESS (CARDIAC CHAIR) (NM Detailed) CPT:58409 CPT Modifiers : TC TECHNICAL COMPONENT Reason [...] Verified Date Reported: 2023 Date Verified: 2023 Environmental [employer] Sanitarian E-Sig: Report: Results will be reported in Cardiology Stress Test Report Note in CPRS. Impression: Results will be reported in Cardiology Stress Test Report Note in CPRS. Primary Diagnostic Code: Primary Interpreting Staff: LAZARA MELÉNDEZ, Staff Physician Verified by operating room surgical technologist for LAZARA MELÉNDEZ /LAZARA TOMLINSON [facility] Encounter Notes: All associated encounter notes This section contains the clinical notes associated to the Encounter. Date/Time Encounter Note(s) Provider Source Nov 13, 2023 12:16 PM PRIMARY CARE TELEP KWAME ENCOUNTER NOTE: LOCAL TITLE: Telephone Note-Primary Care STANDARD TITLE: PRIMARY CARE TELEPHONE ENCOUNTER NOTE DATE OF NOTE: NOV 13, 2023@12:16 ENTRY DATE: NOV 13, 2023@12:17:03 AUTHOR: EDITH GARDNER EXP COSIGNER: URGENCY: STATUS: COMPLETED Work Phone: Cell phone: ASSES/PLAN - # vertigo- would like to try Chang-Daroff maneuver exercises- if this does not help we will consult PT Continue yoga/strectching # dizziness/lightheadedness- othrostatic hypotension moving slowly when changing positions,normal cadiac stress test, ZIO with atrial ectopy unclear if related to dixxiness consider cardiac consult if worsens NOT discussed today # hyperlipidemia- did not tolerate statin may consider lower dose statin but his lifestyle modifications have already lowered his cholesterol and he planned on losing 12 lbs over the summer - lost 12 then gained some back # HTN - well controlled at home possible element of white coat syndrom continue with lifestyle management - 124/71 pulse 58 # ventral hernia epigastric- appears with sit up, spontaneouly reduces- approx 4 inches around dicussed binder not interested # hammer toe-went back to podiatry- has orthotics his feet are flattening- # lesion L ear- AK vs SCC seen by Dr Mayes's office requesting - AK # back and neck pain- chiropractor and massage therapy #Meds: reviewed, reconciled #health Maint: vaccines reviewed: RTC - March or Apr ftf follow up [x] open access [x] Counseling of patient/family dominates over 50% of this 15 minute telephone encounter HPI: Was seen in TBI clinic [facility], states that was enlightening. Multiple TBI since age 9. Plan was to mail Chang-Daroff maneuver instructions. If not successful recommend PT at [facility] or [facility] or via [facility] for more specific instructions to treat BPPV Less dizziness getting out of bed in the morning now that he is changing posotion more slowly Cardiac stress test was normal ZIO patch - Impression: The underlying rhythm is sinus at a mean heart rate of 69bpm. Atrial ectopy was frequent, atrial ectopy accounted for ~12%. Patient symptoms occurred during sinus rhythm at times with atrial ectopy, difficult to determine if the atrial ectopy is causing dizziness as the atrial ectopy was pervasive (~ 12% of all beats). Discussed differentiating between BPPV (room spinning/balance issues) and lightheadedness. Described these are two separate issues. 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 Acquired hammer toes of bilateral feet 2. Orthostatic hypotension 3. Neoplasm of uncertain behavior of skin 4. Ventral hernia 5. Recurrent varicose vein of lower limb 6. Hyperlipidemia 7. Pain of right shoulder joint 8. Pain of right shoulder joint 9. Posttraumatic stress disorder 10. Superficial vein thrombosis 11. Personal history of Agent [place] exposure 12. Asymmetrical sensorineural hearing loss (SNOMED CT [id number]) 13. 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 (SNOMED CT 4442171) 14. Benign essential hypertension (SNOMED CT 1549905) 15. Laboratory Examination Ordered as part of a Routine General Medical Examinat 16. Neck Pain 17. Tinnitus 18. Obstructive sleep apnea of adult (SNOMED CT [id number]) SURGICAL HISTORY: MEDS: Active Outpatient Medications (excluding Supplies): Active Outpatient [...] BY MOUTH EVERY DAY ACTIVE 6) Non-VA OHWVZ-1-TWSP ETHYL ESTERS 1000MG CAP 1000MG ACTIVE MOUTH EVERY DAY 7) Non-VA PROBIOTIC CAP,ORAL BY MOUTH EVERY DAY ACTIVE 8) Non-VA RED YEAST RICE CAP/TAB 600MG MOUTH EVERY DAY ACTIVE 9 Total Medications Outside VA meds: ALLERGIES: PENICILLIN, BEE STINGS ROS: as above OBJ: Exam: Psych: Normal affect and demeanor. normal speech pattern Neurological:Alert, oriented X3 /es/ EDITH GARDNER APRN Signed: 11/13/2023 12:47 EDITH GARDNER [facility]
--- OUTSIDE RECORDS SUMMARY | 2024-10-09 10:34 | XMS_ITS | Encounter Summary ---
Author Name [facility] [place] [facility] [place] Address [address] [place] [address] Care Team Providers Care Pastry Artist Name Role Phone JUAN HANNA Primary Care Provider [facility] le Insurance Providers: All historical and [...] BASIC SELF+ 1 Sep 16, 2024 33C [id number] [phone] REYNA ROSALES PATIENT ANTHEM BCBS CT FEDERAL PREFERRED PROVIDER ORGANIZAT ION (PPO) BASIC SELF+ ONE Mar 17, 2018 113 [id number] REYNA ROSALES PATIENT ANTHEM [place] OF [place] (FEDERAL) PREFERRED PROVIDER ORGANIZAT ION (PPO) BASIC SELF+ ONE Mar 17, 2018 113 [id number] [phone] REYNA ROSALES PATIENT BCBS OF [place] FEDERAL PREFERRED PROVIDER ORGANIZAT ION (PPO) BASIC SELF+ 1 Mar 17, 2018 113 [id number] REYNA ROSALES PATIENT DARLENE FEPRX PLAN PRESCRIPT ION CAREM ARK FEPRX Sep 16, 2024 [id number] REYNA ROSALES PATIENT DARLENE-F EP BCBS PRESCRIPT ION BCBS FEP PLAN Sep 16, 2010 [id number] REYNA ROSALES PATIENT MEDICARE (WNR) MEDICARE (M) PART A Mar 17, 2018 PART A [id number] [phone] REYNA ROSALES PATIENT MEDICARE (WNR) MEDICARE (M) PART A Sep 16, 2010 PART A [id number] REYNA ROSALES PATIENT Selected Encounter This section includes the information on record at [place] for the Encounter. Date/Time Encounter Type Encounter Description Reason Provider Source Mar 12, 2024 08:00 AM OFF/OP EST JANUARY X REQ PHY/QHP PRIMARY CARE/MEDICINE ICD-10-CM Z04.9 Encounter for examination and observation for unsp reason BRADY WORRELL RA [facility] Encounter Template Text not used by [place] Assessments - Encounter Diagnoses This section includes the primary and secondary diagnoses documented for the Encounter. Date/Time Primary/Secondary Diagnosis Diagnosis Name Provider Source Mar 25, 2024 11:23 AM PRIMARY Encounter for examination and observation for unsp reason BRADY WORRELL RA [facility] Plan of Treatment: Future Appointments (+ 6 months) and Future Tests (+/- 45 days) The Plan of Treatment section includes future care activities for the patient from all [place] treatmentfacilities. This section includes future appointments and future orders which are active, pending or scheduled. Future Appointments This section includes appointments that were scheduled to occur 6 months from the date of the Encounter, up to a maximum of 20 appointments. The data comes from all [place] treatment facilities. Appointment Date/Time Appointment Type Appointme nt Facility Name Mar 26, 2024 09:30 AM AMBULATORY - NONE [facility] Mar 26, 2024 10:15 AM AMBULATORY - NONE [facility] Apr 08, 2024 01:30 PM AMBULATORY - MEDICINE GANESH MARCH [facility] Apr 15, 2024 11:00 AM AMBULATORY - MEDICINE GANESH MARCH Alejandro [facility] Apr 20, 2024 09:00 AM AMBULATORY [place] [facility] Apr 28, 2024 01:30 PM AMBULATORY - [place] [facility] May 11, 2024 08:00 AM AMBULATORY [place] [facility] May 15, 2024 09:00 AM AMBULATORY - [place] [facility] May 21, 2024 08:45 AM AMBULATORY - NONE [facility] May 21, 2024 09:00 AM AMBULATORY - MEDICINE [facility] May 28, 2024 09:00 AM [place] [facility] Jun 16, 2024 01:00 PM AMBULATORY - [place] [facility] Jul 10, 2024 11:30 AM [place] [facility] Jul 30, 2024 01:00 PM AMBULATORY - NONE [facility] Jul 30, 2024 02:00 PM AMBULATORY - NONE [facility] Aug 24, 2024 08:30 AM AMBULATORY - NONE LUCAS MARCH T [facility] Aug 26, 2024 08:30 AM AMBULATORY - MEDICINE [place] MARCH T [facility] Lab Results: +/- 30 days of the encounter This section includes the Chemistry and Hematology Lab Results on record with [facility] for the patient. Radiology Reports and Pathology Reports are provided separately, in subsequent sections. Lab Results This section contains the Chemistry/Hematology Results that were resulted 30 days before or 30 daysafter the date of the Encounter. Date/Time Source Result Type Result - Unit Interpretation Reference Range Comment Mar 26, 2024 10:19 AM [facility] VIT D 25-OH([facility]) Specimen Type: SERUM Comment: , Tests performed on Desai [employer] Robles SN:[id number] (405) TSH within normal limits. Reflex testing not required. Ordering Provider: EDITH GARDNER Report Released Date/Time: Mar 17, 2024 08:32 AM Reporting Lab: [facility] [place] [facility] [address] [facility] [address] Performing Lab: [facility] [place] [facility] [address] [facility] [place] [facility] [address] VIT D 25-OH([facility]) 31.0 ng/mL 20.0-50.0 Mar 26, 2024 10:19 AM [facility] CBC NO DIFF Specimen Type: BLOOD No comment entered. Ordering Provider: EDITH GARDNER Report Released Date/Time: Mar 17, 2024 08:32 AM Reporting Lab: [facility] [place] [facility] [address] [facility] [place] [facility] [address] Performing Lab: [facility] [place] [facility] [address] [facility] [place] [address] WBC 4.6 10*3/uL 4.5-11.0 RBC 4.87 10*6/uL 4.23-5.66 HGB 15.6 g/dL 12.8-17 HEMATOCRIT 46.8 39.2-50.4 MCV 96.1 fL 82-99 MCH 32.0 pg 26.2-32.6 MCHC 33.3 g/dL 30.8-35.1 PLT 238 10*3/uL 140-360 MPV 9.5 fL 9.2-12.4 RDW 13.2 12.0-16.0 Mar 26, 2024 10:19 AM [facility] LIPOPROTEIN CHOLESTEROL FRACT. PANEL Specimen Type: PLASMA Comment: , Tests performed on Consult A Doctor SN:[id number] (405). Ordering Provider: EDITH GARDNER Report Released Date/Time: Mar 17, 2024 08:32 AM Reporting Lab: [facility] [place] [facility] [address] [facility] [place] [facility] [address] Performing Lab: [facility] [place] [facility] [address] [facility] [address] CHOLESTEROL 248 mg/dL H 0-200 TRIGLYCERIDE 128 mg/dL 0-150 HDL CHOLESTEROL 56 mg/dL >40 LDL CHOLESTEROL (CALC) 166 mg/dL H 0-129 Mar 26, 2024 10:19 AM [facility] LIVER PROFILE Specimen Type: PLASMA Comment: , Tests performed on Consult A Doctor SN:[id number] (405). Ordering Provider: EDITH GARDNER Report Released Date/Time: Mar 17, 2024 08:32 AM Reporting Lab: [facility] [place] [facility] [address] [facility] [address] Performing Lab: [facility] [place] [facility] [address] [facility] [address] PROTEIN, TOTAL 7.0 g/dL 6.0-8.5 ALBUMIN 3.9 g/dL 3.2-5.0 BILIRUBIN, TOTAL 0.9 mg/dL 0.2-1.2 ALKALINE PHOSPHATASE 37 U/L L 40-150 ALT(SGPT) 22 U/L 7-52 AST(SGOT) 27 U/L 5-34 FIB-4 SCORE 1.89 <2.67 Mar 26, 2024 10:19 AM [facility] GLYCOHEMOGLOBIN (A1C ONLY) Specimen Type: BLOOD Comment: , Tests performed on [employer] SN:[id number] (405) Values obtained from A1C measurements can vary. For typical A1C assays, a reported value of 7.0 could actually be between 6.72 and 7.28 if measured by a reference method. A reported value of 9.0 could actually be between 8.73 and 9.27. Ref: http://www.ng sp.org/CAPdat a.asp Ordering Provider: EDITH GARDNER Report Released Date/Time: Mar 17, 2024 08:32 AM Reporting Lab: [facility] [facility] [address] [facility] [address] Performing Lab: [facility] [address] [facility] [address] HEMOGLOBIN A1C 5.4 4.0-5.6 Mar 26, 2024 10:19 AM [facility] THYROID TESTING CASCADE Specimen Type: SERUM Comment: , Tests performed on Desai [employer] SN:[id number] (405) TSH within normal limits. Reflex testing not required. Ordering Provider: EDITH GARDNER Report Released Date/Time: Mar 17, 2024 08:32 AM Reporting Lab: [facility] [address] [facility] [facility] [address] Performing Lab: [facility] [place] [address] [facility] [address] TSH 4.33 u[IU]/mL 0.35-5.00 Mar 26, 2024 10:19 AM [facility] P4 GLU,BUN,CREAT,LYTES,CA Specimen Type: PLASMA Comment: , Tests performed on Consult A Doctor SN:[id number] (405). Ordering Provider: EDITH GARDNER Report Released Date/Time: Mar 17, 2024 08:32 AM Reporting Lab: [facility] [address] [place] [id number] Performing Lab: [facility] [place] [facility] [address] [place] [phone] UREA NITROGEN 15 mg/dL 7-25 SODIUM 139 mmol/L 135-145 POTASSIUM 4.7 mmol/L 3.5-5.0 CHLORIDE 103 mmol/L 100-110 CARBON DIOXIDE 30 mmol/L 20-30 ANION GAP 6 4-16 GLUCOSE 89 mg/dL 65-100 CREATININE 0.88 mg/dL 0.50-1.50 CALCIUM 9.2 mg/dL 8.5-10.5 eGFR(CKD-EPI 2020) 88 mL/min Mar 26, 2024 10:19 AM [facility] PSA (SIGNAL TOWER DIRECTOR) Specimen Type: SERUM Comment: , Tests performed on [employer] SN:[id number] (405) TSH within normal limits. Reflex testing not required. Ordering Provider: EDITH GARDNER Report Released Date/Time: Mar 26, 2024 10:09 AM Reporting Lab: [place] [address] [place] [place] [phone] Performing Lab: [place] [id number] PSA (SIGNAL TOWER DIRECTOR) 4.09 ng/mL H Mar 26, 2024 10:19 AM [facility] URINALYSIS W/REFLEX TO CULTURE Specimen Type: URINE No comment entered. Ordering Provider: EDITH GARDNER Report Released Date/Time: Mar 17, 2024 08:32 AM Reporting Lab: [place] [address] [place] [phone] Performing Lab: [place] [phone] URINE COLOR Colorless NOT DEFINED SPECIFIC GRAVITY 1.006 1.0 03-1.03 0 UROBILINOGEN <2.0 mg/dL <2.0 URINE BILIRUBIN NEG NEG URINE KETONES NEG mg/dL NEG URINE GLUCOSE NEG mg/dL NEG PROTEIN, URINE NEG mg/dL NEG URINE PH 6.5 5-8 CLARITY CLEAR NOT DEFINED URINE BLOOD NEG NEG NITRITE, URINE NEG NEG WBC SCREEN NEG NEG Social History: Smoking Status (Most current) and Tobacco Use (All prior to encounter date) This section includes the most current, and the historical, smoking and tobacco- related health factors from the [place] facility where the Encounter took place. Current Smoking Status This section includes the most current smoking, or tobacco-related health factor, from the [place] facility where the Encounter took place. Date/Time Current Smoking Status Comment Renato amor Oct 02, 2023 11:00 AM VA-TOBACCO FORMER USER [facility] Tobacco Use History This section includes a history of the smoking, or tobacco-related health factors, that were collected on or before the date of the Encounter. The data comes from the [place] facility where the Encounter took place. Date/Time Smoking Status/Tobacco Use Comment Jimy beauchamp Oct 02, 2023 11:00 AM VA-TOBACCO QUIT 15 YRS OR MORE [facility] May 18, 2022 02:00 PM VA-TOBACCO FORMER USER [facility] May 18, 2022 02:00 PM VA-TOBACCO QUIT 15 YRS OR MORE [facility] May 17, 2021 09:30 AM VA-TOBACCO FORMER USER [facility] May 17, 2021 09:30 AM VA-TOBACCO QUIT 15 YRS OR MORE [facility] Nov 04, 2018 09:35 AM VA-TOBACCO FORMER USER [facility] Nov 04, 2018 09:35 AM VA-TOBACCO QUIT 15 YRS OR MORE [facility] January 27, 2018 03:02 PM QUIT TOBACCO USE > 7 YEARS AGO quit in 1970- [facility] Apr 05, 2016 06:59 AM QUIT TOBACCO USE > 7 YEARS AGO quit early 's [facility] Advance Directives: All historical and current Section Date Range: From patient's date of to the date document was created. This section includes ALL of a patient's completed or amended [place] Advance and Rescinded Directives. The entries below indicate that a directive exists for the patient, but an actual copy is not included with this document. The data comes from all [place] facilities. Date Advance Directives Provider Source Oct 08, 2019 ADVANCE DIRECTIVE LEISA ROBERTS Alejandro [facility] Encounter Notes: All associated encounter notes This section contains the clinical notes associated to the Encounter. Date/Time Encounter Note(s) Provider Source Mar 12, 2024 08:10 AM NONVA MEDICATION M GT NOTE: LOCAL TITLE: Prescription Slip for NonVA Pharmacy STANDARD TITLE: NONVA MEDICATION MGT NOTE DATE OF NOTE: MAR 12, 2024@08:10 ENTRY DATE: MAR 12, 2024@08:10:39 AUTHOR: CHANELLE PERAZA EXP COSIGNER: URGENCY: STATUS: COMPLETED [facility] [address] [place] [address] Patient: Date: MAR 12, 2024 REYNA ROSALES [address], [place] [address] :Sep Medication: DOXYCYLINE 100 MG Quantity: 14 Sig: TAKE ONE TAB BY MOUTH 2 TIMES DAILY FOR 7 DAYS Refills: 0 Substitution Permitted NPI # [id number] JULIETH # Feb /es/ Date AMISH VASQUEZ [facility] Mar 12, 2024 08:04 AM PRIMARY CARE NOTE: LOCAL TITLE: [place] [facility] NOTE STANDARD TITLE: PRIMARY CARE NOTE DATE OF NOTE: MAR 12, 2024@08:04 ENTRY DATE: MAR 12, 2024@08:04:59 AUTHOR: PAMELLA WORRELL EXP COSIGNER: URGENCY: STATUS: COMPLETED Vet presenting to clinic with rash area left outer lower abd- states found tick after shower- beleves on for less than 24 hours. Tick removed easily- not engorged- noted some tissue may have come off. Cleaned area with H2O2, rubbing alcohol. Has noted rash to area with several blisters, very itchy- cellulitic appearance. Confer with provider- will start course of doxycyline. /ken/ PAMELLA WORRELL RN Signed: 03/12/2024 08:10 PAMELLA WORRELL [facility]
--- OUTSIDE RECORDS SUMMARY | 2024-10-09 10:34 | XMS_ITS | Encounter Summary ---
Author Name [facility] [facility] [place] [facility] [place] Address [address] [place] [address] Care Team Providers Care Building Repair Maintenance Supervisor Name Role Phone JUAN HANNA Primary [...] BASIC SELF+ 1 Sep 16, 2024 33C [id number] [phone] REYNA ROSALES PATIENT ANTHEM BCBS [place] FEDERAL PREFERRED PROVIDER ORGANIZAT ION (PPO) BASIC SELF+ ONE Mar 17, 2018 113 [id number] [phone] REYNA ROSALES PATIENT AN[place] (FED[place]) PREFERRED PROVIDER ORGANIZAT ION (PPO) BASIC SELF+ ONE Mar 17, 2018 113 [id number] REYNA ROSALES PATIENT [place] FED[place]AL PREFERRED PROVIDER ORGANIZAT ION (PPO) BASIC SELF+ 1 Mar 17, 2018 113 [id number] REYNA ROSALES PATIENT [place] FEPRX PLAN PRESCRIPT ION CAREM ARK FEPRX Sep 16, 2024 [id number] REYNA ROSALES PATIENT DARLENE-F EP BCBS PRESCRIPT ION BCBS FEP PLAN Sep 16, 2010 [id number] REYNA ROSALES PATIENT MEDICARE (WNR) MEDICARE (M) PART A Mar 17, 2018 PART A [id number] [phone] REYNA ROSALES PATIENT MEDICARE (WNR) MEDICARE (M) PART A Sep 16, 2010 PART A [id number] [phone] REYNA ROSALES PATIENT Selected Encounter This section includes the information on record at [place] for the Encounter. Date/Time Encounter Type Encounter Description Reason Pro vider Source Dec 05, 2023 03:00 PM Outpatient Encounter COMMUNITY CARE CONSULT IHE Encounter Template Text not used by VA Plan of Treatment: Future Appointments (+ 6 [...] Appointment Type Appointme nt Facility Name Mar 12, 2024 08:00 AM AMBULATORY - MEDICINE [facility] Mar 26, 2024 09:30 AM AMBULATORY - NONE [facility] Mar 26, 2024 10:15 AM AMBULATORY - NONE [facility] Apr 08, 2024 01:30 PM [place] [facility] Apr 15, 2024 11:00 AM [place] [facility] Apr 20, 2024 09:00 AM AM[place] [facility] Apr 28, 2024 01:30 PM AMBULATORY - [place] [facility] May 11, 2024 08:00 AM [place] [facility] May 15, 2024 09:00 AM AM[place] [facility] May 21, 2024 08:45 AM AMBULATORY - NONE [facility] May 21, 2024 09:00 AM AMBULATORY - MEDICINE [facility] May 28, 2024 09:00 AM AMBULATORY - SURGERY [facility] [facility] Social History: Smoking Status (Most current) [...] Pt. quit smoking in 1974. [facility] Advance Directives: All historical and current Section [...] Oct 08, 2019 ADVANCE DIRECTIVE LEISA ROBERTS [facility] Encounter Notes: All associated encounter notes This section contains the clinical notes associated to the Encounter. Date/Time Encounter Note(s) Provider Source Dec 05, 2023 03:00 PM NONVA CONSULT: LOCAL TITLE: COMMUNITY CARE CONSULT RESULT NOTE STANDARD TITLE: NONVA CONSULT DATE OF NOTE: DEC 05, 2023@15:00 ENTRY DATE: DEC 27, 2023@15:01:44 AUTHOR: JACKELINE PRESLEY EXP COSIGNER: URGENCY: STATUS: COMPLETED Vist[facility] Imaging - Scanned Document COMMUNITY CARE-OPTOMETRY DISEASE MANAGEMENT DOS: 12/05/2023 POAG OS, GLAUCOMA SUSPECT PROGRESS EVAL NOTE [facility] /ken/ JACKELINE PRESLEY TRAVELING SALES REPRESENTATIVE Signed: 12/27/2023 15:04 JACKELINE PRESLEY [facility]
--- OUTSIDE RECORDS SUMMARY | 2024-10-09 10:35 | XMS_ITS | Encounter Summary ---
Author Name [facility] [place] [facility] [place] Address [address] [place] [address] Care Team Providers Care Mushroom Farmer Name Role Phone JUAN HANNA Primary Care Provider Unavailab robertson Insurance Providers: All historical and current Section [...] BASIC SELF+ 1 Sep 16, 2024 33C [id number] [phone] REYNA ROSALES PATIENT [place] PREFERRED PROVIDER ORGANIZAT ION (PPO) BASIC SELF+ ONE Mar 17, 2018 113 [id number] REYNA ROSALES PATIENT ANTHEM [place] OF [place] ([place]ED[place]) PREFERRED PROVIDER ORGANIZAT ION (PPO) BASIC SELF+ ONE Mar 17, 2018 113 [id number] [phone] REYNA ROSALES PATIENT [place] PREFERRED PROVIDER ORGANIZAT ION (PPO) BASIC SELF+ 1 Mar 17, 2018 113 [id number] REYNA ROSALES PATIENT [place] FEPRX PLAN PRESCRIPT ION CAREM ARK FEPRX Sep 16, 2024 [id number] REYNA ROSALES PATIENT DARLENE-F EP BCBS PRESCRIPT ION BCBS FEP PLAN Sep 16, 2010 [id number] REYNA ROSALES PATIENT MEDICARE (WNR) MEDICARE (M) PART A Mar 17, 2018 PART A [id number] REYNA ROSALES PATIENT MEDICARE (WNR) MEDICARE (M) PART A Sep 16, 2010 PART A [id number] REYNA ROSALES PATIENT Selected Encounter This section includes the information on record at [place] for the Encounter. Date/Time Encounter Type Encounter Description Reason Provider Source Apr 28, 2024 01:30 PM [facility] [employer] PHYSICAL THERAPY ICD-10-CM H81.10 Benign paroxysmal vertigo, unspecified ear RADAMES PRIETO E Encounter Template Text not used by [place] Assessments - Encounter Diagnoses This section includes the primary and secondary diagnoses documented for the Encounter. Date/Time Primary/Secondary Diagnosis Diagnosis Name Provider Source May 07, 2024 02:39 PM PRIMARY Benign paroxysmal vertigo, unspecified ear JEWELS PRIETO [facility] Plan of Treatment: Future Appointments (+ [...] Date/Time Appointment Type Appointme nt Facility Name May 11, 2024 08:00 AM AMBULATORY - SURGERY [facility] May 15, 2024 09:00 AM AMBULATORY - REHAB MEDICIN E [facility] May 21, 2024 08:45 AM AMBULATORY - NONE [facility] May 21, 2024 09:00 AM AMBULATORY - MEDICINE [facility] May 28, 2024 09:00 AM AMBULATORY - SURGERY [facility] Jun 16, 2024 01:00 PM AMBULATORY - REHAB MEDICIN E [facility] Jul 10, 2024 11:30 AM AMBULATORY - SURGERY [facility] Jul 30, 2024 01:00 PM AMBULATORY - NONE [facility] Jul 30, 2024 02:00 PM AMBULATORY - NONE [facility] Aug 24, 2024 08:30 AM AMBULATORY - NONE [facility] Aug 26, 2024 08:30 AM AMBULATORY - MEDICINE [facility] Sep 14, 2024 08:30 AM [facility] Sep 15, 2024 09:30 AM [facility] Lab Results: +/- 30 days of the encounter This section includes the Chemistry and Hematology Lab Results on record with [place] for the patient. Radiology Reports and Pathology Reports are provided separately, in subsequent sections. Lab Results This section contains the Chemistry/Hematology Results that were resulted 30 days before or 30 daysafter the date of the Encounter. Date/Time Source Result Type Result - Unit Interpretation Reference Range Comment May 21, 2024 09:08 AM [facility] URINALYSIS W/REFLEX TO CULTURE Specimen Type: URINE No comment entered. Ordering Provider: ERIC GARDNER Report Released Date/Time: May 01, 2024 10:59 AM Reporting Lab: [facility] [address] [facility] [id number] Performing Lab: [facility] [address] [facility] [address] URINE COLOR Colorless NOT DEFINED SPECIFIC GRAVITY 1.005 1.003-1.030 UROBILINOGEN <2.0 mg/dL <2.0 URINE BILIRUBIN NEG [...] YEARS AGO Pt. quit smoking in 1974. [facility] Advance Directives: All historical and [...] Oct 08, 2019 ADVANCE DIRECTIVE LEISA ROBERTS [facility] Radiology Reports: +/- 30 days of [...] the Encounter. The data comes from all [place] treatment facilities. Date/Time Radiology Report Provider Source May 28, 2024 08:43 AM KNEE 4 VIEWS (ORTH O): REYNA ROSALES [facility] [id number] -1945 M Exm Date: MAY 28, 2024@08:43 Req Phys: JJ,EDITH L Pat Loc: LIT PACT T (Req'g Loc) Img Loc: XRAY (OOS) Service: [place] [address] (Case [id number] COMPLETE) KNEE 4 VIEWS (ORTHO) (RAD Detailed) CPT:98164 Reason for Study: knee pain Clinical History: Both knees ache on a reular basis, flexibility is not good. wears compression stocking R leg, knee pain has been present for several years but has gotten worse this past year. Pain is worse when walking up or down stairs, described as I have a pretty high tolerance for pain, it is sharp, across the entire knee no swelling or discoloration. No recent injury hx meniscus tears surgically repaired both knees. [facility]. coordinate with [facility] pearl Report Status: Verified Date Reported: MAY 28, 2024 Date Verified: MAY 28, 2024 [employer] Professional E-Sig:/ES/DERRELL RODRIGES Report: Bilateral knees: COMPARISON: No relevant prior imaging. Right knee: There is severe narrowing of the medial joint compartment -- loss of joint space with subchondral sclerosis and minor marginal osteophyte formation. Spurring of the intercondylar tibial spines is also noted. As result of the changes in the medial compartment there is compensatory widening (varus angulation) of the lateral compartment. Mild marginal osteophytes are noted. The patella is normally aligned and without significant tilt. Mild marginal osteophyte formation is evident. There is a evidence of joint fluid in the suprapatellar bursa. Minor enthesophyte formation is associated with the superior pole of patella. The periarticular soft tissues are otherwise unremarkable except minor scattered calcific atherosclerotic change.. Left knee: There are severe degenerative changes of the medial joint compartment -- loss of joint space with subchondral sclerosis and minor marginal osteophyte formation. Minor spurring of the intercondylar tibial spines is appreciated. There is varus angulation of the knee resulting in widening of the lateral compartment. Only minor marginal osteophyte formation is appreciated. The patellofemoral articulation is well-maintained although there is some marginal osteophyte formation related to the patella. A small amount of increased soft tissue density is evident in the suprapatellar bursa consistent with joint fluid. Minor enthesophyte formation of the superior pole of patella is noted. The periarticular soft tissues are of higher vascular calcification. Impression: 1. 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 2. Bilateral joint effusions (small). Primary Diagnostic Code: NO IMMEDIATE ATTENTION REQUIRED Primary Interpreting Staff: DERRELL RODRIGES, RADIOLOGY ATTENDING ([employer] Certified Network Professional) /DERRELL BARRAGAN [facility] May 28, 2024 08:43 AM KNEE 4 VIEWS (ORTH O): REYNA ROSALES [facility] [id number] -1945 M Exm Date: MAY 28, 2024@08:43 Req Phys: JJ,EDITH L Pat Loc: LIT PACT T (Req'g Loc) Img Loc: XRAY (OOS) Service: Unknown [facility] [address] (Case [id number] COMPLETE) KNEE 4 VIEWS (ORTHO) (RAD Detailed) CPT:09097 Proc Modifiers : LEFT Reason for Study: knee pain Clinical History: Both knees ache on a reular basis, flexibility is not good. wears compression stocking R leg, knee pain has been present for several years but has gotten worse this past year. Pain is worse when walking up or down stairs, described as I have a pretty high tolerance for pain, it is sharp, across the entire knee no swelling or discoloration. No recent injury hx meniscus tears surgically repaired both knees. [facility]. coordinate with [employer] Report Status: Verified Date Reported: MAY 28, 2024 Date Verified: MAY 28, 2024 [employer] Cert[employer] Professional E-Sig:/ES/DERRELL RODRIGES Report: Bilateral knees: COMPARISON: No relevant prior imaging. Right knee: There is severe narrowing of the medial joint compartment -- loss of joint space with subchondral sclerosis and minor marginal osteophyte formation. Spurring of the intercondylar tibial spines is also noted. As result of the changes in the medial compartment there is compensatory widening (varus angulation) of the lateral compartment. Mild marginal osteophytes are noted. The patella is normally aligned and without significant tilt. Mild marginal osteophyte formation is evident. There is a evidence of joint fluid in the suprapatellar bursa. Minor enthesophyte formation is associated with the superior pole of patella. The periarticular soft tissues are otherwise unremarkable except minor scattered calcific atherosclerotic change.. Left knee: There are severe degenerative changes of the medial joint compartment -- loss of joint space with subchondral sclerosis and minor marginal osteophyte formation. Minor spurring of the intercondylar tibial spines is appreciated. There is varus angulation of the knee resulting in widening of the lateral compartment. Only minor marginal osteophyte formation is appreciated. The patellofemoral articulation is well-maintained although there is some marginal osteophyte formation related to the patella. A small amount of increased soft tissue density is evident in the suprapatellar bursa consistent with joint fluid. Minor enthesophyte formation of the superior pole of patella is noted. The periarticular soft tissues are of higher vascular calcification. Impression: 1. 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 2. Bilateral joint effusions (small). Primary Diagnostic Code: NO IMMEDIATE ATTENTION REQUIRED Primary Interpreting Staff: DERRELL RODRIGES, RADIOLOGY ATTENDING ([employer] Certified Network Professional) /DERRELL [facility]AN [facility] Encounter Notes: All associated encounter notes This section contains the clinical notes associated to the Encounter. Date/Time Encounter Note(s) Provider Source Apr 28, 2024 01:00 PM PHYSICAL THERAPY N OTE: LOCAL TITLE: Physical Therapy Note STANDARD TITLE: PHYSICAL THERAPY NOTE DATE OF NOTE: APR 28, 2024@13:00 ENTRY DATE: APR 28, 2024@15:46:36 AUTHOR: JEWELS PRIETO EXP COSIGNER: URGENCY: STATUS: COMPLETED Current PC Provider: EDITH GARDNER Current PC Team: LIT PACT T *WH* Current Pat. 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 Since [facility] he has had 11/12/23Was seen in TBI clinic [facility], states that was enlightening. Multiple TBI since age 9. Plan was to mail Chang-Daroff maneuver instructions. If not successful trial balance exercises. Discussed care plan with [place]ah and they would [facility], even if they are eligible for community care. [facility] follow up on Saturday at [address] Address: [address] [place] [address] [id number] [facility] County: [place] ([address]) Office: UNSPECIFIED E-mail: [email or web address]: continues to have difficulty with connecting with visits and was not able to connect this morning. We rescheduled for 1300 today , and he had no issues with this connection. O: Glenbeulah instructed and performed: balance progression, with Rhomberg progression, SLS progression, tandem progression , education on balance training ORDER Performance health [employer] Item #[id number] Catalog #[id number] [employer] Balance Disc Item #[id number] Catalog #[id number] A: Glenbeulah did well with exercises and exercise progression. He has profound balance loss with eyes closed so I advised him to work up to this but not when he is alone. Glenbeulah was advised to performed roll test to determine if he continues to have symptoms that are unilateral. Also advised with head off the bed position. P: follow up in 2 weeks total time 60 mins [id number] ther ex [id number] ther act 15 /es/ JEWELS PRIETO Doctor of Physical Therapy, licensed in [place] Signed: 05/04/2024 16:41 JEWELS PRIETO [facility]
--- OUTSIDE RECORDS SUMMARY | 2024-10-09 10:35 | XMS_ITS | Encounter Summary ---
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 Name Role Phone JUAN HANNA Primary [...] BASIC SELF+ 1 Sep 16, 2024 33C [id number] [phone] REYNA PAK PATIENT ANTHEM BCBS CT FEDERAL PREFERRED PROVIDER ORGANIZAT ION (PPO) BASIC SELF+ ONE Mar 17, 2018 113 [id number] REYNA PAK PATIENT ANTHEM [place]BS OF [place] (FEDERAL) PREFERRED PROVIDER ORGANIZAT ION (PPO) BASIC SELF+ ONE Mar 17, 2018 113 [id number] REYNA PAK PATIENT BCBS OF [place] FEDERAL PREFERRED PROVIDER ORGANIZAT ION (PPO) BASIC SELF+ 1 Mar 17, 2018 113 [id number] REYNA PAK FEPRX PLAN PRESCRIPT ION CAREM ARK FEPRX Sep 16, 2024 [id number] REYNA PAK-F EP BCBS PRESCRIPT ION BCBS FEP PLAN Sep 16, 2010 [id number] REYNA PAK PATIENT MEDICARE (WNR) MEDICARE (M) PART A Mar 17, 2018 PART A [id number] REYNA PAK PATIENT MEDICARE (WNR) MEDICARE (M) PART A Sep 16, 2010 PART A [id number] REYNA PAK PATIENT Selected Encounter This section includes the information on record at [place] for the Encounter. Date/Time Encounter Type Encounter Description Reason Provider Source May 11, 2024 08:00 AM OFFICE O/P EST MOD 30 MIN PODIATRY ICD-10-CM M20.40 Other hammer toe(s) (acquired), unspecified foot VERONICA,SOFY IHE Encounter Template Text not used by [place] Assessments - Encounter Diagnoses This section includes the primary and secondary diagnoses documented for the Encounter. Date/Time Primary/Secondary Diagnosis Diagnosis Name Provider Source May 21, 2024 02:52 PM PRIMARY Other hammer toe(s) (acquired), unspecified foot VERONICA,SOFY [place] [facility] May 21, 2024 02:52 PM SECONDARY Corns and callosities VERONICA,SOFY [place] May 21, 2024 02:52 PM SECONDARY Nail dystrophy VERONICA,SOFY [place] [facility] May 21, 2024 02:52 PM SECONDARY Tinea unguium VERONICA,SOFY [place] [facility] Plan of Treatment: Future Appointments (+ [...] Appointment Type Appointme nt Facility Name May 15, 2024 09:00 AM AMBULATORY - REHAB MEDICIN E [facility] May 21, 2024 08:45 AM AMBULATORY - NONE [facility] May 21, 2024 09:00 AM AMBULATORY - MEDICINE [facility] May 28, 2024 09:00 AM AMBULATORY - SURGERY [facility] T [facility] Jun 16, 2024 01:00 PM AMBULATORY - REHAB MEDICIN E [facility] Jul 10, 2024 11:30 AM AMBULATORY - SURGERY [facility]ARCH [place] [facility] Jul 30, 2024 01:00 PM AMBULATORY - NONE [facility] Jul 30, 2024 02:00 PM AMBULATORY - NONE [facility] Aug 24, 2024 08:30 AM AMBULATORY - NONE [facility] Aug 26, 2024 08:30 AM AMBULATORY - MEDICINE [place] [facility] Sep 14, 2024 08:30 AM AMBULATORY - MEDICINE GANESH MARCH T [facility] Sep 15, 2024 09:30 AM [facility] Nov 05, 2024 08:30 AM AMBULATORY - MEDICINE [facility] Lab Results: +/- 30 days of [...] Range Comment May 21, 2024 09:[address] [facility] URINALYSIS W/REFLEX TO CULTURE Specimen Type: URINE No comment entered. Ordering Provider: ERIC GARDNER Report Released Date/Time: May 01, 2024 10:59 AM Reporting Lab: [facility] [address] [facility] [address] Performing Lab: [facility] [address] [facility] [address] URINE COLOR Colorless NOT DEFINED SPECIFIC GRAVITY 1.005 1.003-1.030 UROBILINOGEN <2.0 mg/dL <2.0 URINE BILIRUBIN NEG NEG URINE KETONES NEG mg/dL NEG URINE GLUCOSE NEG mg/dL NEG PROTEIN, URINE NEG mg/dL NEG URINE PH 6.5 5-8 CLARITY CLEAR NOT DEFINED URINE BLOOD NEG NEG NITRITE, URINE NEG NEG WBC SCREEN NEG NEG Vital Signs: All taken on the encounter date This section contains inpatient and outpatient Vital Signs collected on the date of the Encounter. Date/Time Temperature Pulse Blood Pressure Respiratory Rate SP02 Pain Height Weight Body Mass Index Source May 11, 2024 08:08 AM 57 165/73 16 98 5 [facility] Social History: Smoking Status (Most [...] YEARS AGO Pt. quit smoking in 1974. [facility] Advance Directives: All historical and [...] Oct 08, 2019 ADVANCE DIRECTIVE LEISA ROBERTS [facility] Radiology Reports: +/- 30 [...] the Encounter. The data comes from all [place] treatment facilities. Date/Time Radiology Report Provider Source May 28, 2024 08:43 AM KNEE 4 VIEWS (ORTH O): REYNA PAK [id number] -1945 M Exm Date: MAY 28, 2024@08:43 Req Phys: EDITH GARDNER Pat Loc: LIT PACT T (Req'g Loc) Img Loc: XRAY (OOS) Service: Unknown [facility] [place] [address] (Case [id number] COMPLETE) KNEE 4 VIEWS (ORTHO) (RAD Detailed) CPT:24184 Proc Modifiers : LEFT Reason for Study: [...] tears surgically repaired both knees. Agus Finch [facility]. coordinate with GISSELLE pearl Report Status: Verified Date Reported: MAY 28, 2024 Date Verified: MAY 28, 2024 Shipwright Helper E-Sig:/ES/DERRELL RODRIGES Report: Bilateral knees: COMPARISON: No [...] Primary Interpreting Staff: DERRELL RODRIGES, RADIOLOGY ATTENDING (Shipwright Helper) /DERRELL BARRAGAN [facility] May 28, 2024 08:43 AM KNEE 4 VIEWS (ORTH O): REYNA PAK [id number] -1945 M Exm Date: MAY 28, 2024@08:43 Req Phys: JJ,EDITH L Pat Loc: LIT PACT T (Req'g Loc) Img Loc: XRAY (OOS) Service: [place] [address] (Case [id number] COMPLETE) KNEE 4 VIEWS (ORTHO) (RAD Detailed) CPT:18281 Reason for Study: knee pain Clinical History: [...] meniscus tears surgically repaired both knees. [facility]. coordinate with LICHA pearl Report Status: Verified Date Reported: MAY 28, 2024 Date Verified: MAY 28, 2024 Shipwright Helper E-Sig:/ES/DERRELL RODRIGES Report: Bilateral knees: COMPARISON: No [...] Primary Interpreting Staff: DERRELL RODRIGES, RADIOLOGY ATTENDING (Shipwright Helper) /DERRELL BARRAGAN T [facility] Encounter Notes: All associated encounter notes This section contains the clinical notes associated to the Encounter. Date/Time Encounter Note(s) Provider Source May 11, 2024 08:07 AM PODIATRY OUTPATIEN T NOTE: LOCAL TITLE: Podiatry/Outpatient Note STANDARD TITLE: PODIATRY OUTPATIENT NOTE DATE OF NOTE: MAY 11, 2024@08:07 ENTRY DATE: MAY 11, 2024@08:07:11 AUTHOR: SOFY HDZ COSIGNER: URGENCY: STATUS: COMPLETED Mr. Pak is a 78 yo non-DM male who is seen in clinic for follow up care to consult for Chief Complaint: Pt. is walk-in to clinic with c/o pain in L/great toe. He reports that he is unable to lift medial portion of L/great toe nail. This is the area that is causing pain. Minimal redness, pain on palpation of area by nail. No s/sx's of infection present. He was previously seen at [facility] in [place] by AMISH Franklin. Today he reports that since he has been to see Philip his foot pain and knee pain has resolved. He also notes that if he goes without the TRUCK DRIVER SUPERVISOR's in the house with his slippers he has significant pain to feet and knees. He is thrilled that something as simple as good orthotics (from [facility] in [place]) can be so effective in relieving his LE pain. Today he again asks about using his BC/BS insurance through his to get an extra pair of TRUCK DRIVER SUPERVISOR's. His c/o today are to get his TRUCK DRIVER SUPERVISOR's renewed and see if he can get his R2 hammer toe fixed, it bothers him greatly and to get new footwear. 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 Benign essential hypertension ([facility] 6331444) V72.62 Lab Exam Ordered part of Routine General Med. Exam. (ICD-9-CM 72.62) 723.1 Neck Pain (ICD-9-CM 723.1) 388.30 Tinnitus (ICD-9-CM 388.30) G47.33 Obstructive sleep apnea of adult ([facility] [id number]) Active Outpatient Medications (excluding Supplies): Active Outpatient Medications Status ======== 1) SILDENAFIL CITRATE 100MG TAB TAKE ONE TABLET BY MOUTH ACTIVE NEEDED FOR ERECTILE DYSFUNCTION MAX USE ONCE IN 24 HOUR PERIOD 2) TAMSULOSIN HCL 0.4MG CAP TAKE ONE CAPSULE BY MOUTH ACTIVE ONCE DAILY FOR BENIGN PROSTATIC HYPERPLASIA 30 MINUTES AFTER THE SAME MEALTIME EACH DAY Active Non-VA Medications Status ======== 1) Non-VA ASCORBIC ACID 500MG TAB 500MG MOUTH EVERY DAY ACTIVE 2) Non-VA CHOLECALCIF 25MCG (D3-1,000UNIT) TAB 2000UNIT ACTIVE MOUTH EVERY DAY 3) Non-VA MAGNESIUM CITRATE LIQUID,ORAL 400MG MOUTH ACTIVE EVERY DAY 4) Non-VA MULTIVITAMIN/MINERALS CAP/TAB ONE CAP/TAB BY ACTIVE MOUTH EVERY DAY 5) Non-VA NIACINAMIDE 500MG TAB 500MG BY MOUTH EVERY DAY ACTIVE 6) Non-VA VHZZP-0-YMLT ETHYL ESTERS 1000MG CAP 1000MG ACTIVE MOUTH EVERY DAY 7) Non-VA PROBIOTIC CAP,ORAL BY MOUTH EVERY DAY ACTIVE 8) Non-VA RED YEAST RICE CAP/TAB 600MG MOUTH EVERY DAY ACTIVE ======== 10 Total Medications Allergies: PENICILLIN, BEE STINGS Lab A1c (last three) Collection DT Specimen Test Name Result Units Ref Range 03/26/2024 10:19 BLOOD HEMOGLOBIN A1C 5.4 % 4.0 - 5.6 07/03/2023 07:40 BLOOD HEMOGLOBIN A1C 5.2 % 4.0 - 5.6 08/20/2013 08:34 BLOOD HEMOGLOBIN A1C 5.9 HIGHEST 4.0 - 5.6 REVIEW OF SYSTEMS: No F/C/NS/N/V. 10 point ROS conducted and were unremarkable except for : General: Head and Neck: Respiratory: Cardiovascular: GI: : Musculoskeletal: Neurological: Psychiatric: Integumentary: LATEST VITALS: BP: 165/73 (05/11/2024 08:08) Pulse: 57 (05/11/2024 08:08) Temp: 96.9 F [36.1 C] (03/26/2024 09:25) Resp: 16 (05/11/2024 08:08) HT(in): 66 in [167.6 cm] (03/26/2024 09:25) WT(lbs):178.4 lb [80.92 kg] (03/26/2024 09:25) 05/11/24 @ 0808 PULSE OXIMETRY: 98 BODY MASS INDEX - MAR 26, 2024@09:25:58 28.9 Shoe/Amb: Kenna low top hikers in good condition too small /independent Social: Tobacco: Smoked for 3 years while in the [employer] EtOH: Vasc: Dopplered pulses: Right DP Monophasic/Biphasic X3, B/L feet are warm to touch. CFT:< 3 seconds bilateral. No pedal hair growth noted. Varicosities noted bilaterally. No edema noted on B/L LE, he wears thigh high compression on his RLE. Derm: Nails are thick and dystrophic with subungual debris X10. Today they are trimmed/debrided/smoothed without issue. R1 nail was not attached to the nail bed in a U shape it was trimmed back/smoothed to intact nail without issue. Left lateral plantar foot has a row of 5 small corns that are debrided with a curette without incidence. Skin texture and turgor are WNL. No open wounds or ecchymosis noted. No erythema or clinical signs of infection noted. No interdigital maceration noted. No evidence of ingrown nails noted. Neurologic: S-W 5.07 Intact B/L, Light touch sensations grossly intact. Orthopedic: Semi rigid hammered digit to R2nd toe with mickie prominence to Right MTPJ with mild lateral deviation of Right hallux. Fat pad atrophy. IMP: Mr. Pak is a 78 yo non-DM male who is seen in clinic for follow up care to consult for Chief Complaint: Pt. is walk-in to clinic with c/o pain in L/great toe. He reports that he is unable to lift medial portion of L/great toe nail. This is the area that is causing pain. Today his nails are trimmed/ debrided/smoothed as noted above, new footwear are ordered and a consult is placed to renew TRUCK DRIVER SUPERVISOR's at [facility]. PLAN: 1. Foot exam and education: a. Wear slippers in the home with orthotics b. Continue current foot care regimen 2. Foot and knee pain: a. Resolved with TRUCK DRIVER SUPERVISOR's from [facility], Renewed today b. New footwear [employer] [facility]642 Aquilino Matos, 8.5 Wide 3. Corns Left lateral foot: a. Debrided without issue 4. Hammer toe R2: a. Will follow up to see the best remedy for your toe b. Tenotomy or surgery c. At this time we have limited OR availability RTC: April 2025 TOTAL TIME SPENT WITH PATIENT: 50 MINUTES /ken/ Sofy Hdz MSN INSPECTOR INSULATION Staff Nurse Practitioner Signed: 05/11/2024 17:08 SOFY HDZ [facility]
--- OUTSIDE RECORDS SUMMARY | 2024-10-09 10:35 | XMS_ITS | Encounter Summary ---
Author Name [facility] [place] [place] [facility] [place] Address [address] [place] [address] Care Team Providers Care Full Stack Software Engineer Name Role Phone JUAN HANNA Primary Care [...] BASIC SELF+ 1 Sep 16, 2024 33C [id number] [phone] REYNA ROSALES PATIENT ANTHEM BCBS CT FEDERAL PREFERRED PROVIDER ORGANIZAT ION (PPO) BASIC SELF+ ONE Mar 17, 2018 113 [id number] [phone] RENYA ROSALES PATIENT ANTHEM [place] OF [place] (FEDERAL) PREFERRED PROVIDER ORGANIZAT ION (PPO) BASIC SELF+ ONE Mar 17, 2018 113 [id number] REYNA ROSALES PATIENT BCBS OF [place] FEDERAL PREFERRED PROVIDER ORGANIZAT ION (PPO) BASIC SELF+ 1 Mar 17, 2018 113 [id number] [phone] REYNA ROSALES PATIENT [place] FEPRX PLAN PRESCRIPT ION CAREM ARK FEPRX Sep 16, 2024 [id number] REYNA ROSALES PATIENT DARLENE-F EP BCBS PRESCRIPT ION BCBS FEP PLAN Sep 16, 2010 [id number] REYNA ROSALES PATIENT MEDICARE (WNR) MEDICARE (M) PART A Mar 17, 2018 PART A [id number] REYNA ROSALES PATIENT MEDICARE (WNR) MEDICARE (M) PART A Sep 16, 2010 PART A [id number] [phone] REYNA ROSALES PATIENT Selected Encounter This section includes the information on record at [place] for the Encounter. Date/Time Encounter Type Encounter Description Reason Pro vider Source Mar 26, 2024 02:37 PM Outpatient Encounter ADMIN PAT ACTIVTIES (MASNONCT) IHE Encounter Template Text not used by [place] Plan of Treatment: Future Appointments (+ 6 months) and Future Tests (+/- 45 days) The Plan of Treatment section includes future care activities for the patient from all [place] treatmentfacilities. This section includes future appointments and future orders which are active, pending or scheduled. Future Appointments This section includes appointments that were scheduled to occur 6 months from the date of the Encounter, up to a maximum of 20 appointments. The data comes from all [place] treatment facilities. Appointment Date/Time Appointment Type Appointme nt Facility Name Apr 08, 2024 01:30 PM AM[facility]ORY [facility] Apr 15, 2024 11:00 AM AMBUL[facility]ORY - MEDIC[facility] Apr 20, 2024 09:00 AM AMBULATORY - REHAB MEDICIN E [facility] Apr 28, 2024 01:30 PM AMBULATORY - REHAB MEDICIN E [facility] May 11, 2024 08:00 AM AMBULATORY - SURGERY [facility] May 15, 2024 09:00 AM AMBULATORY - REHAB MEDICIN E [facility] May 21, 2024 08:45 AM AMBULATORY - NONE [facility] May 21, 2024 09:00 AM AMBULATORY - MEDICINE [facility] May 28, 2024 09:00 AM AMBULATORY - SURGERY [facility]UCAS MARCH [facility] Jun 16, 2024 01:00 PM AMBULATORY - REHAB MEDICIN E [facility] MARCH [facility] Jul 10, 2024 11:30 AM AMBULATORY - SURGERY [facility] Jul 30, 2024 01:00 PM AMBULATORY - NONE [facility] Jul 30, 2024 02:00 PM AMBULATORY - NONE [facility] Aug 24, 2024 08:30 AM AMBULATORY - NONE [facility] Aug 26, 2024 08:30 AM AMBULATORY - MEDICINE GANESH MARCH T [facility] Sep 14, 2024 08:30 AM AMBULATORY - MEDICINE [facility]ARCH T [facility] Sep 15, 2024 09:30 AM AMBULATORY - [facility]AB [facility]IC[facility] Lab Results: +/- 30 days of the [...] Range Comment Mar 26, 2024 10:19 AM [facility] CBC NO DIFF Specimen Type: BLOOD No comment entered. Ordering Provider: EDITH GARDNER Report Released Date/Time: Mar 17, 2024 08:32 AM Reporting Lab: [facility] [address] [facility] [address] Performing Lab: [facility] [address] [facility] [address] WBC 4.6 10*3/uL 4.5-11.0 RBC 4.87 10*6/uL 4.23-5.66 HGB 15.6 g/dL 12.8-17 HEMATOCRIT 46.8 39.2-50.4 MCV 96.1 fL 82-99 MCH 32.0 pg 26.2-32.6 MCHC 33.3 g/dL 30.8-35.1 PLT 238 10*3/uL 140-360 MPV 9.5 fL 9.2-12.4 RDW 13.2 12.0-16.0 Mar 26, 2024 10:19 AM [facility] VIT D 25-OH([facility]) Specimen Type: SERUM Comment: , Tests performed on [employer] Robles SN:[id number] (405) TSH within normal limits. Reflex testing not required. Ordering Provider: EDITH GARDNER Report Released Date/Time: Mar 17, 2024 08:32 AM Reporting Lab: [facility] [address] [facility] [address] Performing Lab: [facility] [address] [facility] [address] VIT D 25-OH([facility]) 31.0 ng/mL 20.0-50.0 Mar 26, 2024 10:19 AM [facility] LIPOPROTEIN CHOLESTEROL FRACT. PANEL Specimen Type: PLASMA Comment: , Tests performed on [employer] SN:[id number] (405). Ordering Provider: EDITH GARDNER Report Released Date/Time: Mar 17, 2024 08:32 AM Reporting Lab: [facility] [address] [facility] [address] Performing Lab: [facility] [address] [facility] [address] CHOLESTEROL 248 mg/dL H 0-200 TRIGLYCERIDE 128 mg/dL 0-150 HDL CHOLESTEROL 56 mg/dL >40 LDL CHOLESTEROL (CALC) 166 mg/dL H 0-129 Mar 26, 2024 10:19 AM [facility] P4 GLU,BUN,CREAT,LYTES,CA Specimen Type: PLASMA Comment: , Tests performed on [employer] SN:[id number] (405). Ordering Provider: EDITH GARDNER Report Released Date/Time: Mar 17, 2024 08:32 AM Reporting Lab: [facility] [address] [facility] [address] Performing Lab: [facility] [address] [facility] [address] UREA NITROGEN 15 mg/dL 7-25 SODIUM 139 mmol/L 135-145 POTASSIUM 4.7 mmol/L 3.5-5.0 CHLORIDE 103 mmol/L 100-110 CARBON DIOXIDE 30 mmol/L 20-30 ANION GAP 6 4-16 GLUCOSE 89 mg/dL 65-100 CREATININE 0.88 mg/dL 0.50-1.50 CALCIUM 9.2 mg/dL 8.5-10.5 eGFR(CKD-EPI 2020) 88 mL/min Mar 26, 2024 10:19 AM [facility] LIVER PROFILE Specimen Type: PLASMA Comment: , Tests performed on [employer] SN:[id number] (405). Ordering Provider: EDITH GARDNER Report Released Date/Time: Mar 17, 2024 08:32 AM Reporting [facility] [address] [facility] [address] Performing Lab: [facility] [address] [facility] [address] PROTEIN, TOTAL 7.0 g/dL 6.0-8.5 ALBUMIN 3.9 g/dL 3.2-5.0 BILIRUBIN, TOTAL 0.9 mg/dL 0.2-1.2 ALKALINE PHOSPHATASE 37 U/L L 40-150 ALT(SGPT) 22 U/L 7-52 AST(SGOT) 27 U/L 5-34 FIB-4 SCORE 1.89 <2.67 Mar 26, 2024 10:19 AM [facility] GLYCOHEMOGLOBIN (A1C ONLY) Specimen Type: BLOOD Comment: , Tests performed on [employer] Robles SN:[id number] (405) Values obtained from A1C measurements can vary. For typical A1C assays, a reported value of 7.0 could actually be between 6.72 and 7.28 if measured by a reference method. A reported value of 9.0 could actually be between 8.73 and 9.27. Ref: http://www.ng sp.org/CAPdat a.asp Ordering Provider: EDITH GARDNER Report Released Date/Time: Mar 17, 2024 08:32 AM Reporting Lab: [facility] [address] [facility] [address] Performing Lab: [facility] [address] [facility] [address] HEMOGLOBIN A1C 5.4 4.0-5.6 Mar 26, 2024 10:19 AM [facility] PSA (FURNITURE STAINER) Specimen Type: SERUM Comment: , Tests performed on [employer] Robles SN:[id number] (405) TSH within normal limits. Reflex testing not required. Ordering Provider: EDITH GARDNER Report Released Date/Time: Mar 26, 2024 10:09 AM Reporting Lab: [facility] [address] [facility] [address] Performing Lab: [facility] [address] [facility] [address] PSA (FURNITURE STAINER) 4.09 ng/mL H Mar 26, 2024 10:19 AM [facility] THYROID TESTING CASCADE Specimen Type: SERUM Comment: , Tests performed on [employer] Heavy Equipment Operator Robles SN:[id number] (405) TSH within normal limits. Reflex testing not required. Ordering Provider: EDITH GARDNER Report Released Date/Time: Mar 17, 2024 08:32 AM Reporting Lab: [facility] [address] [facility] [address] Performing Lab: [facility] [address] [facility] [address] TSH 4.33 u[IU]/mL 0.35-5.00 Mar 26, 2024 10:19 AM [facility] URINALYSIS W/REFLEX TO CULTURE Specimen Type: URINE No comment entered. Ordering Provider: EDITH GARDNER Report Released Date/Time: Mar 17, 2024 08:32 AM Reporting Lab: [facility] [address] [facility] [address] Performing Lab: [facility] [address] [facility] [address] URINE COLOR Colorless NOT DEFINED SPECIFIC GRAVITY [...] and tobacco- related health factors from the [place] facility where the Encounter took place. Current Smoking Status This section includes the most current smoking, or tobacco-related health factor, from the [place] facility where the Encounter took place. Date/Time Current Smoking Status Comment Facility Sep 04, 2010 01:20 PM QUIT TOBACCO USE > 7 YEARS AGO Pt. quit smoking in 1974. [facility] Advance Directives: All historical and current Section Date Range: From patient's date of to the date document was created. This section includes ALL of a patient's completed or amended [place] Advance and Rescinded Directives. The entries below indicate that a directive exists for the patient, but an actual copy is not included with this document. The data comes from all [place] facilities. Date Advance Directives Provider Source Oct 08, 2019 ADVANCE DIRECTIVE LEISA ROBERTS [facility] Encounter Notes: All associated encounter notes This section contains the clinical notes associated to the Encounter. Date/Time Encounter Note(s) Provider Source Mar 26, 2024 02:37 PM LETTERS: LOCAL TITLE: LETTER TO PATIENT ATTEMPT TO CONTACT STANDARD TITLE: LETTERS DATE OF NOTE: MAR 26, 2024@14:37 ENTRY DATE: MAR 26, 2024@14:37:56 AUTHOR: ELIAS SINCLAIR COSIGNER: URGENCY: STATUS: COMPLETED [facility] [address] [place] [address] MAR 26, 2024 REYNA ROSALES [address] [place] [id number] Dear REYNA ROSALES, [facility] [place] is trying to reach you to schedule an appointment. If you have already been in contact with the clinic and scheduled an appointment you may disregard this letter. If we do not hear from you within 14 days, we will assume you no longer desire an appointment. Please call one of the numbers provided below so that we may find a suitable date for you: Service: Orthopedic Service Direct: [phone] Ext: [phone] Toll Free: [phone] [phone] We look forward to hearing from you. Sincerely, Clinical Operations ELIAS SINCLAIR [facility]
--- OUTSIDE RECORDS SUMMARY | 2024-10-09 10:35 | XMS_ITS | Encounter Summary ---
Author Name [facility] [place] Organization [facility] [place] [facility] [place] Address [address] [place] [address] Care Team Providers Care [employer] Team Leader Name Role Phone JUAN HANNA Primary Care [...] BASIC SELF+ 1 Sep 16, 2024 33C [id number] [phone] REYNA ROSALES PATIENT ANTHEM BCBS CT FEDERAL PREFERRED PROVIDER ORGANIZAT ION (PPO) BASIC SELF+ ONE Mar 17, 2018 113 [id number] [phone] REYNA ROSALES PATIENT ANTHEM [place] OF [place] (FEDERAL) PREFERRED PROVIDER ORGANIZAT ION (PPO) BASIC SELF+ ONE Mar 17, 2018 113 [id number] [phone] REYNA ROSALES PATIENT [place] FEDERAL PREFERRED PROVIDER ORGANIZAT ION (PPO) BASIC SELF+ 1 Mar 17, 2018 113 [id number] [phone] REYNA ROSALES FEPRX PLAN PRESCRIPT ION CAREM ARK FEPRX Sep 16, 2024 [id number] REYNA ROSALES-F EP BCBS PRESCRIPT ION BCBS FEP PLAN Sep 16, 2010 [id number] REYNA ROSALES PATIENT MEDICARE (WNR) MEDICARE (M) PART A Mar 17, 2018 PART A [id number] REYNA ROSALES PATIENT MEDICARE (WNR) MEDICARE (M) PART A Sep 16, 2010 PART A [id number] REYNA ROSALES PATIENT Selected Encounter This section includes the information on record at [place] for the Encounter. Date/Time Encounter Type Encounter Description Reason Provider Source Apr 20, 2024 09:00 AM PRO PHONE CALL 11-20 MIN TELEPHONE/REHAB AND SUPPORT ICD-10-CM H81.10 Benign paroxysmal vertigo, unspecified ear TIFFANIE PRIETO IHTati Encounter Template Text not used by [place] Assessments - Encounter Diagnoses This section includes the primary and secondary diagnoses documented for the Encounter. Date/Time Primary/Secondary Diagnosis Diagnosis Name Provider Source Apr 20, 2024 09:00 AM PRIMARY Benign paroxysmal vertigo, unspecified ear JEWELS PRIETO [facility] Plan of Treatment: Future Appointments (+ [...] Appointment Type Appointme nt Facility Name Apr 28, 2024 01:30 PM AMBULATORY - REHAB MEDICIN E [facility] May 11, 2024 08:00 AM AMBULATORY - SURGERY [facility] May 15, 2024 09:00 AM AMBULATORY - REHAB MEDICIN E [facility] May 21, 2024 08:45 AM AMBULATORY - NONE [facility] May 21, 2024 09:00 AM AMBULATORY - MEDICINE [facility] May 28, 2024 09:00 AM AMBULATORY - SURGERY [facility] Jun 16, 2024 01:00 PM AMBULATORY - REHAB MEDICIN E [facility] Jul 10, 2024 11:30 AM AMBULATORY - SURGERY [facility] Jul 30, 2024 01:00 PM AMBULATORY - NONE [facility] Jul 30, 2024 02:00 PM AMBULATORY - NONE [facility] Aug 24, 2024 08:30 AM AMBULATORY - NONE [facility] [place] Aug 26, 2024 08:30 AM AMBULATORY - MEDICINE [facility] Sep 14, 2024 08:30 AM AMBULATORY - MEDICINE [facility] Sep 15, 2024 09:30 AM [facility] Lab Results: +/- 30 days [...] Range Comment Mar 26, 2024 10:19 AM [facility] CBC NO DIFF Specimen Type: BLOOD No comment entered. Ordering Provider: EDITH GARDNER Report Released Date/Time: Mar 17, 2024 08:32 AM Reporting Lab: [facility] [address] [address] [address] Performing Lab: [facility] [address] [address] [address] WBC 4.6 10*3/uL 4.5-11.0 RBC 4.87 10*6/uL 4.23-5.66 HGB 15.6 g/dL 12.8-17 HEMATOCRIT 46.8 39.2-50.4 MCV 96.1 fL 82-99 MCH 32.0 pg 26.2-32.6 MCHC 33.3 g/dL 30.8-35.1 PLT 238 10*3/uL 140-360 MPV 9.5 fL 9.2-12.4 RDW 13.2 12.0-16.0 Mar 26, 2024 10:19 AM [facility] VIT D 25-OH(J) Specimen Type: SERUM Comment: , Tests performed on [employer] Robles SN:[id number] (405) TSH within normal limits. Reflex testing not required. Ordering Provider: EDITH GARDNER Report Released Date/Time: Mar 17, 2024 08:32 AM Reporting Lab: [facility] [address] [address] Performing Lab: [facility] [address] [address] VIT D 25-OH([facility]) 31.0 ng/mL 20.0-50.0 Mar 26, 2024 10:19 AM [facility] LIPOPROTEIN CHOLESTEROL FRACT. PANEL Specimen Type: PLASMA Comment: , Tests performed on [employer] SN:[id number] (405). Ordering Provider: EDITH GARDNER Report Released Date/Time: Mar 17, 2024 08:32 AM Reporting Lab: [facility] [address] [address] Performing Lab: [facility] [address] [facility] [address] CHOLESTEROL 248 mg/dL H 0-200 TRIGLYCERIDE 128 mg/dL 0-150 HDL CHOLESTEROL 56 mg/dL >40 LDL CHOLESTEROL (CALC) 166 mg/dL H 0-129 Mar 26, 2024 10:19 AM [facility] LIVER PROFILE Specimen Type: PLASMA Comment: , Tests performed on [employer] SN:[id number] (405). Ordering Provider: EDITH GARDNER Report Released Date/Time: Mar 17, 2024 08:32 AM Reporting Lab: [facility] [address] [address] Performing Lab: [facility] [address] [address] PROTEIN, TOTAL 7.0 g/dL 6.0-8.5 ALBUMIN 3.9 g/dL 3.2-5.0 BILIRUBIN, TOTAL 0.9 mg/dL 0.2-1.2 ALKALINE PHOSPHATASE 37 U/L L 40-150 ALT(SGPT) 22 U/L 7-52 AST(SGOT) 27 U/L 5-34 FIB-4 SCORE 1.89 <2.67 Mar 26, 2024 10:19 AM [facility] P4 GLU,BUN,CREAT,LYTES,CA Specimen Type: PLASMA Comment: , Tests performed on [employer] Joon SN:[id number] (405). Ordering Provider: EDITH GARDNER Report Released Date/Time: Mar 17, 2024 08:32 AM Reporting Lab: [facility] [address] [address] Performing Lab: [facility] [address] [facility] [address] UREA NITROGEN 15 mg/dL 7-25 SODIUM 139 mmol/L 135-145 POTASSIUM 4.7 mmol/L 3.5-5.0 CHLORIDE 103 mmol/L 100-110 CARBON DIOXIDE 30 mmol/L 20-30 ANION GAP 6 4-16 GLUCOSE 89 mg/dL 65-100 CREATININE 0.88 mg/dL 0.50-1.50 CALCIUM 9.2 mg/dL 8.5-10.5 eGFR(CKD-EPI 2020) 88 mL/min Mar 26, 2024 10:19 AM [facility] GLYCOHEMOGLOBIN (A1C ONLY) Specimen Type: BLOOD Comment: , Tests performed on [employer] Robles SN:[id number] (405) Values obtained from A1C measurements can vary. For typical A1C assays, a reported value of 7.0 could actually be between 6.72 and 7.28 if measured by a reference method. A reported value of 9.0 could actually be between 8.73 and 9.27. Ref: http://www.ng sp.org/CAPdat a.asp Ordering Provider: EDITH GARDNER Report Released Date/Time: Mar 17, 2024 08:32 AM Reporting Lab: [facility] [address] [address] Performing Lab: [facility] [address] [address] HEMOGLOBIN A1C 5.4 4.0-5.6 Mar 26, 2024 10:19 AM [facility] THYROID TESTING CASCADE Specimen Type: SERUM Comment: , Tests performed on [employer] Robles SN:[id number] (405) TSH within normal limits. Reflex testing not required. Ordering Provider: EDITH GARDNER Report Released Date/Time: Mar 17, 2024 08:32 AM Reporting Lab: [facility] [address] [address] [address] Performing Lab: [facility] [address] [address] TSH 4.33 u[IU]/mL 0.35-5.00 Mar 26, 2024 10:19 AM [facility] PSA (SENIOR BENEFITS SPECIALIST) Specimen Type: SERUM Comment: , Tests performed on [employer] Robles SN:[id number] (405) TSH within normal limits. Reflex testing not required. Ordering Provider: EDITH GARDNER Report Released Date/Time: Mar 26, 2024 10:09 AM Reporting Lab: [facility] [address] [address] [address] Performing Lab: [facility] [address] [address] PSA (SENIOR BENEFITS SPECIALIST) 4.09 ng/mL H Mar 26, 2024 10:19 AM [facility] URINALYSIS W/REFLEX TO CULTURE Specimen Type: URINE No comment entered. Ordering Provider: EDITH GARDNER Report Released Date/Time: Mar 17, 2024 08:32 AM Reporting Lab: [facility] [address] [address] Performing Lab: [facility] [address] [address] URINE COLOR Colorless NOT DEFINED SPECIFIC GRAVITY [...] YEARS AGO Pt. quit smoking in 1974. [facility] Advance Directives: All historical and current [...] Provider Source Oct 08, 2019 ADVANCE DIRECTIVE [facility] Encounter Notes: All associated encounter notes This section contains the clinical notes associated to the Encounter. Date/Time Encounter Note(s) Provider Source Apr 20, 2024 03:42 PM PHYSICAL THERAPY T ELEPHONE ENCOUNTER NOTE: LOCAL TITLE: Telephone Note/Physical Therapy STANDARD TITLE: PHYSICAL THERAPY TELEPHONE ENCOUNTER NOTE DATE OF NOTE: APR 20, 2024@15:42 ENTRY DATE: APR 20, 2024@15:42:32 AUTHOR: JEWELS PRIETO EXP COSIGNER: URGENCY: STATUS: COMPLETED was not present for [facility] meeting and reports by phone that he was under the understanding that the video had to be connected through the phone and not just the computer. He reports that for some reason he is not able to receive [facility] phone calls right now and reports that the phone did ring x 2 and he was unable to answer. 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
--- OUTSIDE RECORDS SUMMARY | 2024-10-09 10:35 | XMS_ITS | Encounter Summary ---
Author Name [facility] Organization [facility] [place] Address [address] [place] [address] Care Team Providers Care Facility Attendant Name Role Phone JUAN HANNA Primary Care [...] BASIC SELF+ 1 Sep 16, 2024 33C [id number] [phone] REYNA ROSALES PATIENT ANTHEM BCBS CT FEDERAL PREFERRED PROVIDER ORGANIZAT ION (PPO) BASIC SELF+ ONE Mar 17, 2018 113 [id number] [phone] REYNA ROSALES PATIENT ANTHEM [place] (FEDERAL) PREFERRED PROVIDER ORGANIZAT ION (PPO) BASIC SELF+ ONE Mar 17, 2018 113 [id number] REYNA ROSALES PATIENT [place] OF [place] FEDERAL PREFERRED PROVIDER ORGANIZAT ION (PPO) BASIC SELF+ 1 Mar 17, 2018 113 [id number] REYNA ROSALES PATIENT [place] FEPRX PLAN PRESCRIPT ION CAREM ARK FEPRX Sep 16, 2024 [id number] REYNA ROSALES PATIENT DARLENE-F EP BCBS PRESCRIPT ION BCBS FEP PLAN Sep 16, 2010 [id number] REYNA ROSALES PATIENT MEDICARE (WNR) MEDICARE (M) PART A Mar 17, 2018 PART A [id number] REYNA ROSALES PATIENT MEDICARE (WNR) MEDICARE (M) PART A Sep 16, 2010 PART A [id number] REYNA ROSALES PATIENT Selected Encounter This section includes the information on record at [place] for the Encounter. Date/Time Encounter Type Encounter Description Reason Pro vider Source Apr 03, 2024 12:28 PM Outpatient Encounter ADMIN PAT ACTIVTIES (MASNONCT) I[facility] Encounter Template Text not used by [place] Plan of Treatment: Future Appointments (+ 6 months) and Future Tests (+/- 45 days) The Plan of Treatment section includes future care activities for the patient from all [place] treatmentfacilities. This section includes future appointments and future orders which are active, pending or scheduled. Future Appointments This section includes appointments that were scheduled to occur 6 months from the date of the Encounter, up to a maximum of 20 appointments. The data comes from all [place] treatment facilities. Appointment Date/Time Appointment Type Appointme nt Facility Name Apr 08, 2024 01:30 PM [facility]ORY [facility] Apr 15, 2024 11:00 AM [facility] Apr 20, 2024 09:00 AM AMBULATORY - REHAB MEDICIN [facility] Apr 28, 2024 01:30 PM AMBULATORY - REHAB MEDICIN E [facility] May 11, 2024 08:00 AM AMBULATORY - SURGERY [facility] May 15, 2024 09:00 AM AMBULATORY - REHAB MEDICIN E [facility] May 21, 2024 08:45 AM AMBULATORY - NONE [facility] May 21, 2024 09:00 AM AMBULATORY - MEDICINE [facility] May 28, 2024 09:00 AM [facility]BUL[facility] [place] [facility] Jun 16, 2024 01:00 PM AMBULATORY - [place] [facility] Jul 10, 2024 11:30 AM [facility]BUL[facility]ORY - [facility] [place] [facility] Jul 30, 2024 01:00 PM AMBULATORY - NONE [facility] Jul 30, 2024 02:00 PM AMBULATORY - NONE [facility] Aug 24, 2024 08:30 AM AMBULATORY - NONE [facility] [place] [facility] Aug 26, 2024 08:30 AM [place] [facility] Sep 14, 2024 08:30 AM [place] [facility] Sep 15, 2024 09:30 AM AMBULATORY - REHAB [facility]ICIN [facility] Lab Results: +/- 30 days of [...] Range Comment Mar 26, 2024 10:19 AM [facility] VIT D 25-OH([facility]) Specimen Type: SERUM Comment: , Tests performed on [employer] Rob[employer] SN:[id number] (405) TSH within normal limits. Reflex testing not required. Ordering Provider: EDITH GARDNER Report Released Date/Time: Mar 17, 2024 08:32 AM Reporting Lab: [facility] [address] [address] Performing Lab: [facility] [address] [address] VIT D 25-OH([facility]) 31.0 ng/mL 20.0-50.0 Mar 26, 2024 10:19 AM [facility] LIPOPROTEIN CHOLESTEROL FRACT. PANEL Specimen Type: PLASMA Comment: , Tests performed on [employer]oon SN:[id number] (405). Ordering Provider: EDITH GARDNER Report Released Date/Time: Mar 17, 2024 08:32 AM Reporting Lab: [facility] [address] [facility] [address] Performing Lab: [facility] [address] [facility] [address] CHOLESTEROL 248 mg/dL H 0-200 TRIGLYCERIDE 128 mg/dL 0-150 HDL CHOLESTEROL 56 mg/dL >40 LDL CHOLESTEROL (CALC) 166 mg/dL H 0-129 Mar 26, 2024 10:19 AM [facility] P4 GLU,BUN,CREAT,LYTES,CA Specimen Type: PLASMA Comment: , Tests performed on [employer] Joon SN:[id number] (405). Ordering Provider: EDITH GARDNER Report Released Date/Time: Mar 17, 2024 08:32 AM Reporting Lab: [facility] [address] [facility] [address] Performing Lab: [facility] [address] [facility] [address] UREA NITROGEN 15 mg/dL 7-25 SODIUM 139 mmol/L 135-145 POTASSIUM 4.7 mmol/L 3.5-5.0 CHLORIDE 103 mmol/L 100-110 CARBON DIOXIDE 30 mmol/L 20-30 ANION GAP 6 4-16 GLUCOSE 89 mg/dL 65-100 CREATININE 0.88 mg/dL 0.50-1.50 CALCIUM 9.2 mg/dL 8.5-10.5 eGFR(CKD-EPI 2020) 88 mL/min Mar 26, 2024 10:19 AM [facility] LIVER PROFILE Specimen Type: PLASMA Comment: , Tests performed on [employer] Joon SN:[id number] (405). Ordering Provider: EDITH GARDNER Report Released Date/Time: Mar 17, 2024 08:32 AM Reporting Lab: [facility] [address] [facility] [address] Performing Lab: [facility] [address] [facility] [address] PROTEIN, TOTAL 7.0 g/dL 6.0-8.5 ALBUMIN 3.9 g/dL 3.2-5.0 BILIRUBIN, TOTAL 0.9 mg/dL 0.2-1.2 ALKALINE PHOSPHATASE 37 U/L L 40-150 ALT(SGPT) 22 U/L 7-52 AST(SGOT) 27 U/L 5-34 FIB-4 SCORE 1.89 <2.67 Mar 26, 2024 10:19 AM [facility] GLYCOHEMOGLOBIN (A1C ONLY) Specimen Type: BLOOD Comment: , Tests performed on [employer] SN:[id number] (405) Values obtained from A1C measurements can vary. For typical A1C assays, a reported value of 7.0 could actually be between 6.72 and 7.28 if measured by a reference method. A reported value of 9.0 could actually be between 8.73 and 9.27. Ref: http://www.ng sp.org/CAPdat a.asp Ordering Provider: EDITH GARDNER Report Released Date/Time: Mar 17, 2024 08:32 AM Reporting Lab: [facility] [address] [facility] [address] Performing Lab: [facility] [address] [facility] [address] HEMOGLOBIN A1C 5.4 4.0-5.6 Mar 26, 2024 10:19 AM [facility] THYROID TESTING CASCADE Specimen Type: SERUM Comment: , Tests performed on [employer] SN:[id number] (405) TSH within normal limits. Reflex testing not required. Ordering Provider: EDITH GARDNER Report Released Date/Time: Mar 17, 2024 08:32 AM Reporting Lab: [facility] [address] [facility] [address] Performing Lab: [facility] [address] [facility] [address] TSH 4.33 u[IU]/mL 0.35-5.00 Mar 26, 2024 10:19 AM [facility] CBC NO DIFF Specimen Type: BLOOD No comment entered. Ordering Provider: EDITH GARDNER Report Released Date/Time: Mar 17, 2024 08:32 AM Reporting Lab: [facility] [address] [facility] [address] Performing Lab: [facility] [address] [facility] [address] WBC 4.6 10*3/uL 4.5-11.0 RBC 4.87 10*6/uL 4.23-5.66 HGB 15.6 g/dL 12.8-17 HEMATOCRIT 46.8 39.2-50.4 MCV 96.1 fL 82-99 MCH 32.0 pg 26.2-32.6 MCHC 33.3 g/dL 30.8-35.1 PLT 238 10*3/uL 140-360 MPV 9.5 fL 9.2-12.4 RDW 13.2 12.0-16.0 Mar 26, 2024 10:19 AM [facility] PSA (SECRETARY OF POLICE) Specimen Type: SERUM Comment: , Tests performed on [employer] Robles SN:[id number] (405) TSH within normal limits. Reflex testing not required. Ordering Provider: EDITH GARDNER Report Released Date/Time: Mar 26, 2024 10:09 AM Reporting Lab: [facility] [address] [facility] [address] Performing Lab: [facility] [address] [facility] [address] PSA (SECRETARY OF POLICE) 4.09 ng/mL H Mar 26, 2024 10:19 AM [facility] URINALYSIS W/REFLEX TO CULTURE Specimen Type: URINE No comment entered. Ordering Provider: EDITH GARDNER Report Released Date/Time: Mar 17, 2024 08:32 AM Reporting Lab: [facility] [address] [facility] [address] Performing Lab: [facility] [address] [facility] [address] URINE COLOR Colorless NOT DEFINED SPECIFIC GRAVITY [...] and tobacco- related health factors from the ID facility where the Encounter took place. Current Smoking Status This section includes the most current smoking, or tobacco-related health factor, from the ID facility where the Encounter took place. Date/Time Current Smoking Status Comment Facility Sep 04, 2010 01:20 PM QUIT TOBACCO USE > 7 YEARS AGO Pt. quit smoking in 1974. [facility] Advance Directives: All historical and current Section Date Range: From patient's date of to the date document was created. This section includes ALL of a patient's completed or amended ID Advance and Rescinded Directives. The entries below indicate that a directive exists for the patient, but an actual copy is not included with this document. The data comes from all ID facilities. Date Advance Directives Provider Source Oct 08, 2019 ADVANCE DIRECTIVE LEISA ROBERTS [facility] Encounter Notes: All associated encounter notes This section contains the clinical notes associated to the Encounter. Date/Time Encounter Note(s) Provider Source Apr 03, 2024 12:28 PM LETTERS: LOCAL TITLE: LETTER TO PATIENT ATTEMPT TO CONTACT STANDARD TITLE: LETTERS DATE OF NOTE: APR 03, 2024@12:28 ENTRY DATE: APR 03, 2024@12:28:19 AUTHOR: NELSON LYNN EXP COSIGNER: URGENCY: STATUS: COMPLETED [facility] [address] [place] [address] APR 03, 2024 REYNA ROSALES [address] [place] [id number] Dear REYNA ROSALES, [facility] [place] is trying to reach you to schedule [...] find a suitable date for you: Service: Physical Therapy Direct: [phone] [phone] Toll Free: [phone] We look forward to hearing from you. Sincerely, Clinical Operations NELSON LYNN [facility]
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
--- OUTSIDE RECORDS SUMMARY | 2024-10-09 10:35 | XMS_ITS | Encounter Summary ---
Author Name [facility] Organization [facility] [place] Address [address] [place] [address] Care Team Providers Care Skirt Clipper Name Role Phone JUAN HANNA Primary Care [...] BASIC SELF+ 1 Sep 16, 2024 33C [id number] [phone] REYNA ROSALES PATIENT ANTHEM BCBS [place] FEDERAL PREFERRED PROVIDER ORGANIZAT ION (PPO) BASIC SELF+ ONE Mar 17, 2018 113 [id number] [phone] REYNA ROSALES PATIENT ANTHEM [place] (FEDERAL) PREFERRED PROVIDER ORGANIZAT ION (PPO) BASIC SELF+ ONE Mar 17, 2018 113 [id number] [phone] REYNA ROSALES PATIENT [place] FED[place] PREFERRED PROVIDER ORGANIZAT ION (PPO) BASIC SELF+ 1 Mar 17, 2018 113 [id number] [phone] REYNA ROSALES PATIENT CAREMARK FEPRX PLAN PRESCRIPT ION MARYJANEM ARK FEPRX Sep 16, 2024 [id number] REYNA ROSALES PATIENT CARESANKET-F EP BCBS PRESCRIPT ION BCBS FEP PLAN Sep 16, 2010 [id number] REYNA ROSALES PATIENT MEDICARE (WNR) MEDICARE (M) PART A Mar 17, 2018 PART A [id number] REYNA ORSALES PATIENT MEDICARE (WNR) MEDICARE (M) PART A Sep 16, 2010 PART A [id number] REYNA ROSALES PATIENT Selected Encounter This section includes the information on record at [place] for the Encounter. Date/Time Encounter Type Encounter Description Reason Pro vider Source Apr 08, 2024 01:30 PM Outpatient Encounter TELEPHONE PRIMARY CARE IHE Encounter Template Text not used by [place] Plan of Treatment: Future Appointments (+ 6 months) and Future Tests (+/- 45 days) The Plan of Treatment section includes future care activities for the patient from all [place] treatmentfacilities. This section includes future appointments and future orders which are active, pending or scheduled. Future Appointments This section includes appointments that were scheduled to occur 6 months from the date of the Encounter, up to a maximum of 20 appointments. The data comes from all [place] treatment facilities. Appointment Date/Time Appointment Type Appointme nt Facility Name Apr 15, 2024 11:00 AM [facility] Apr 20, 2024 09:00 AM AMBULATORY - REHAB [facility]ICIN E [facility] Apr 28, 2024 01:30 PM AMBULATORY - REHAB MEDICIN E [facility] May 11, 2024 08:00 AM AMBULATORY - SURGERY [facility] May 15, 2024 09:00 AM AMBULATORY - [facility]AB [facility]ICIN [facility] May 21, 2024 08:45 AM AMBULATORY - NONE [facility] May 21, 2024 09:00 AM AMBULATORY - MEDICINE [facility] May 28, 2024 09:00 AM AMBUL[facility]ORY - SURGERY [facility] Jun 16, 2024 01:00 PM AMBULATORY - REHAB MEDICIN E [facility] Jul 10, 2024 11:30 AM AMBULATORY - SURGERY [facility] Jul 30, 2024 01:00 PM AMBULATORY - NONE [facility] Jul 30, 2024 02:00 PM AMBULATORY - NONE [facility] Aug 24, 2024 08:30 AM AMBULATORY - NONE [facility] Aug 26, 2024 08:30 AM AMBULATORY - MEDICINE [facility] Sep 14, 2024 08:30 AM AMBULATORY - MEDICINE [facility] Sep 15, 2024 09:30 AM AMBULATORY - [facility]IC[facility] Lab Results: +/- 30 days of [...] Range Comment Mar 26, 2024 10:19 AM [facility] CBC NO DIFF Specimen Type: BLOOD No comment entered. Ordering Provider: EDITH GARDNER Report Released Date/Time: Mar 17, 2024 08:32 AM Reporting Lab: [facility] [address] [facility] [address] Performing Lab: [facility] [address] [facility] [address] WBC 4.6 10*3/uL 4.5-11.0 RBC 4.87 10*6/uL 4.23-5.66 HGB 15.6 g/dL 12.8-17 HEMATOCRIT 46.8 39.2-50.4 MCV 96.1 fL 82-99 MCH 32.0 pg 26.2-32.6 MCHC 33.3 g/dL 30.8-35.1 PLT 238 10*3/uL 140-360 MPV 9.5 fL 9.2-12.4 RDW 13.2 12.0-16.0 Mar 26, 2024 10:19 AM [facility] VIT D 25-OH(WRJ) Specimen Type: SERUM Comment: , Tests performed on [employer] Robles SN:[id number] (405) TSH within normal limits. Reflex testing not required. Ordering Provider: EDITH GARDNER Report Released Date/Time: Mar 17, 2024 08:32 AM Reporting Lab: [facility] [address] [facility] [address] Performing Lab: [facility] [address] [facility] [address] VIT D 25-OH(WRJ) 31.0 ng/mL 20.0-50.0 Mar 26, 2024 10:19 AM [facility] LIPOPROTEIN CHOLESTEROL FRACT. PANEL Specimen Type: PLASMA Comment: , Tests performed on [employer] T[employer] Joon SN:[id number] (405). Ordering Provider: EDITH GARDNER Report Released Date/Time: Mar 17, 2024 08:32 AM Reporting Lab: [facility] [address] [facility] [address] Performing Lab: [facility] [address] [facility] [address] CHOLESTEROL 248 mg/dL H 0-200 TRIGLYCERIDE 128 mg/dL 0-150 HDL CHOLESTEROL 56 mg/dL >40 LDL CHOLESTEROL (CALC) 166 mg/dL H 0-129 Mar 26, 2024 10:19 AM [facility] LIVER PROFILE Specimen Type: PLASMA Comment: , Tests performed on [employer] Joon SN:[id number] (405). Ordering Provider: EDITH GARDNER Report Released Date/Time: Mar 17, 2024 08:32 AM Reporting Lab: [facility] [address] [facility] [address] Performing Lab: [facility] [address] [facility] [address] PROTEIN, TOTAL 7.0 g/dL 6.0-8.5 ALBUMIN 3.9 g/dL 3.2-5.0 BILIRUBIN, TOTAL 0.9 mg/dL 0.2-1.2 ALKALINE PHOSPHATASE 37 U/L L 40-150 ALT(SGPT) 22 U/L 7-52 AST(SGOT) 27 U/L 5-34 FIB-4 SCORE 1.89 <2.67 Mar 26, 2024 10:19 AM [facility] P4 GLU,BUN,CREAT,LYTES,CA Specimen Type: PLASMA Comment: , Tests performed on [employer] Joon SN:[id number] (405). Ordering Provider: EDITH GARDNER Report Released Date/Time: Mar 17, 2024 08:32 AM Reporting Lab: [facility] [address] [facility] [address] Performing Lab: [facility] [address] [facility] [address] UREA NITROGEN 15 mg/dL 7-25 SODIUM 139 mmol/L 135-145 POTASSIUM 4.7 mmol/L 3.5-5.0 CHLORIDE 103 mmol/L 100-110 CARBON DIOXIDE 30 mmol/L 20-30 ANION GAP 6 4-16 GLUCOSE 89 mg/dL 65-100 CREATININE 0.88 mg/dL 0.50-1.50 CALCIUM 9.2 mg/dL 8.5-10.5 eGFR(CKD-EPI 2020) 88 mL/min Mar 26, 2024 10:19 AM [facility] THYROID TESTING [place] Specimen Type: SERUM Comment: , Tests performed on [employer] SN:[id number] (405) TSH within normal limits. Reflex testing not required. Ordering Provider: EDITH GARDNER Report Released Date/Time: Mar 17, 2024 08:32 AM Reporting Lab: [facility] [address] [facility] [address] Performing Lab: [facility] [address] [facility] [address] TSH 4.33 u[IU]/mL 0.35-5.00 Mar 26, 2024 10:19 AM [facility] GLYCOHEMOGLOBIN (A1C ONLY) Specimen Type: BLOOD Comment: , Tests performed on [employer] SN:[id number] (405) Values obtained from A1C measurements can [...] Reporting Lab: [facility] [address] [facility] [address] Performing Lab: [facility] [address] [facility] [address] HEMOGLOBIN A1C 5.4 4.0-5.6 Mar 26, 2024 10:19 AM [facility] PSA (APPLIANCE REPAIR TECHNICIAN) Specimen Type: SERUM Comment: , Tests performed on [employer] T[employer] Boss Robles SN:[id number] (405) TSH within normal limits. Reflex testing not required. Ordering Provider: EDITH GARDNER Report Released Date/Time: Mar 26, 2024 10:09 AM Reporting Lab: [facility] [address] [phone] Performing Lab: [facility] [address] [place] [phone] PSA (APPLIANCE REPAIR TECHNICIAN) 4.09 ng/mL H Mar 26, 2024 10:19 AM [facility] URINALYSIS W/REFLEX TO CULTURE Specimen Type: URINE No comment entered. Ordering Provider: EDITH GARDNER Report Released Date/Time: Mar 17, 2024 08:32 AM Reporting Lab: [facility] [address] [phone] Performing Lab: [facility] [address] [place] [address] URINE COLOR Colorless NOT DEFINED SPECIFIC GRAVITY [...] and tobacco- related health factors from the [place] facility where the Encounter took place. Current Smoking Status This section includes the most current smoking, or tobacco-related health factor, from the [place] facility where the Encounter took place. Date/Time Current Smoking Status Comment Renato amor Oct 02, 2023 11:00 AM [place]-TOBACCO FORMER USER [facility] Tobacco Use History This section includes a history of the smoking, or tobacco-related health factors, that were collected on or before the date of the Encounter. The data comes from the [place] facility where the Encounter took place. Date/Time Smoking Status/Tobacco Use Comment F acility Oct 02, 2023 11:00 AM VA-TOBACCO QUIT 15 YRS OR MORE [facility] May 18, 2022 02:00 PM VA-TOBACCO FORMER USER [facility] May 18, 2022 02:00 PM VA-TOBACCO QUIT 15 YRS OR MORE [facility] May 17, 2021 09:30 AM VA-TOBACCO FORMER USER [facility] May 17, 2021 09:30 AM VA-TOBACCO QUIT 15 YRS OR MORE [facility] Nov 04, 2018 09:35 AM VA-TOBACCO FORMER USER [facility] Nov 04, 2018 09:35 AM VA-TOBACCO QUIT 15 YRS OR MORE [facility] January 27, 2018 03:02 PM QUIT TOBACCO USE > 7 YEARS AGO quit in 1970- [facility] Apr 05, 2016 06:59 AM QUIT TOBACCO USE > 7 YEARS AGO quit early s [facility] Advance Directives: All historical and current Section Date Range: From patient's date of to the date document was created. This section includes ALL of a patient's completed or amended [place] Advance and Rescinded Directives. The entries below indicate that a directive exists for the patient, but an actual copy is not included with this document. The data comes from all [place] facilities. Date Advance Directives Provider Source Oct 08, 2019 ADVANCE DIRECTIVE LEISA ROBERTS [facility] Encounter Notes: All associated encounter notes This section contains the clinical notes associated to the Encounter. Date/Time Encounter Note(s) Provider Source Apr 08, 2024 01:37 PM NO SHOW NOTE: LOCAL TITLE: NO SHOW/CLINIC CANCELLATION NOTE PRIMARY CARE STANDARD TITLE: NO SHOW NOTE DATE OF NOTE: APR 08, 2024@13:37 ENTRY DATE: APR 08, 2024@13:38:08 AUTHOR: EDITH GARDNER COSIGNER: URGENCY: STATUS: COMPLETED PRIMARY CARE NO SHOW/CLINIC CANCELLATION NOTE Scheduled Appointment Date & Time: Mar@13:30 (X) For phone or [facility] visits [place] was not able to be contacted at the scheduled time of the visit Left [place] voicemail message: mail box full Please reschedule the for the following visit type and timeframe [facility] Clinic Telephone Clinic Face to Face Clinic (X) Next available opening RTC Date: Assign MSAs to this note to take action on the clinic appointment and add any additional re-scheduling instructions. /ken/ EDITH GARDNER APRN Signed: 04/08/2024 13:39 Receipt Acknowledged By: 04/09/2024 08:38 /ken/ EDITH SANTOYO [facility]
--- OUTSIDE RECORDS SUMMARY | 2024-10-09 10:35 | XMS_ITS | Encounter Summary ---
Author Name [facility] Organization [facility] [place] Address [address] [place] [address] Care Team Providers Care Clinical Account Specialist Name Role Phone JUAN HANNA Primary Care [...] BASIC SELF+ 1 Sep 16, 2024 33C [id number] [phone] REYNA ROSALES PATIENT ANTHEM BCBS CT FEDERAL PREFERRED PROVIDER ORGANIZAT ION (PPO) BASIC SELF+ ONE Mar 17, 2018 113 [id number] REYNA ROSALES PATIENT ANTHEM [place]BS OF [place] (FEDERAL) PREFERRED PROVIDER ORGANIZAT ION (PPO) BASIC SELF+ ONE Mar 17, 2018 113 [id number] [phone] REYNA ROSALES PATIENT [place] FEDERAL PREFERRED PROVIDER ORGANIZAT ION (PPO) BASIC SELF+ 1 Mar 17, 2018 113 [id number] [phone] REYNA ROSALES PATIENT [employer] FEPRX PLAN PRESCRIPT ION CAREM ARK FEPRX Sep 16, 2024 [id number] REYNA ROSALES PATIENT DARLENE-F EP BCBS PRESCRIPT ION BCBS FEP PLAN Sep 16, 2010 [id number] REYNA ROSALES PATIENT MEDICARE (WNR) MEDICARE (M) PART A Mar 17, 2018 PART A [id number] REYNA ROSALES PATIENT MEDICARE (WNR) MEDICARE (M) PART A Sep 16, 2010 PART A [id number] [phone] REYNA ROSALES PATIENT Selected Encounter This section includes the information on record at [place] for the Encounter. Date/Time Encounter Type Encounter Description Reason Pro vider Source Dec 08, 2023 10:37 AM Outpatient Encounter ADMIN PAT ACTIVTIES (MASNONCT) IHE [...] 12, 2024 08:00 AM AMBULATORY - [facility] Mar 26, 2024 09:30 AM AMBULATORY - NONE [facility] Mar 26, 2024 10:15 AM AMBULATORY - NONE [facility] Apr 08, 2024 01:30 PM [facility] - [facility]IC[facility] Apr 15, 2024 11:00 AM [facility]IC[facility] [facility] [facility] Apr 20, 2024 09:00 AM AMBULATORY - [facility] [place] [facility] Apr 28, 2024 01:30 PM AMBULATORY - [facility] [place] [facility] May 11, 2024 08:00 AM AMBULATORY - SURGERY [place] [facility] May 15, 2024 09:00 AM AMBULATORY - REHAB MEDICIN [facility] May 21, 2024 08:45 AM AMBULATORY - NONE [facility] May 21, 2024 09:00 AM AMBULATORY - MEDICINE [facility] May 28, 2024 09:00 AM AMBULATORY - SURGERY [facility] Social History: Smoking Status (Most current) [...] AGO Pt. quit smoking in 1974. [facility] Advance Directives: All historical and current [...] Provider Source Oct 08, 2019 ADVANCE DIRECTIVE ARMANDOLEISAWENDY ZAVALA [facility] Encounter Notes: All associated encounter notes This section contains the clinical notes associated to the Encounter. Date/Time Encounter Note(s) Provider Source Dec 08, 2023 10:38 AM NONVA NOTE: LOCAL TITLE: NonVA Medical Records STANDARD TITLE: NONVA NOTE DATE OF NOTE: DEC 08, 2023@10:38 ENTRY DATE: MAY 05, 2024@10:38:55 AUTHOR: CHOLO PRIETO EXP COSIGNER: URGENCY: STATUS: COMPLETED NONVA 11/13/2023-12/08/2023 HOME BLOOD PRESSURE READINGS PROVIDED BY PATIENT /es/ CHOLO PRIETO Signed: 05/05/2024 10:39 Receipt Acknowledged By: 05/05/2024 15:24 /ken/ CHOLO BARRAGAN APRN [facility]
--- OUTSIDE RECORDS SUMMARY | 2024-10-09 10:35 | XMS_ITS | Encounter Summary ---
Author Name [facility] [place] [facility] [place] [facility] [place] Address [address] [place] [address] Care Team Providers Care Base Filler Name Role Phone JUAN AHNNA Primary Care Provider Unavail le Insurance Providers: [...] BASIC SELF+ 1 Sep 16, 2024 33C [id number] [phone] REYNA ROSALES PATIENT ANTHEM BCBS [place] PREFERRED PROVIDER ORGANIZAT ION (PPO) BASIC SELF+ ONE Mar 17, 2018 113 [id number] [phone] REYNA ROSALES PATIENT ANTHEM [place] OF [place] (FEDERAL) PREFERRED PROVIDER ORGANIZAT ION (PPO) BASIC SELF+ ONE Mar 17, 2018 113 [id number] [phone] REYNA ROSALES PATIENT [place] FED[place] PREFERRED PROVIDER ORGANIZAT ION (PPO) BASIC SELF+ 1 Mar 17, 2018 113 [id number] [phone] REYNA ROSALES PATIENT [place] FEPRX PLAN PRESCRIPT ION CAREM ARK FEPRX Sep 16, 2024 [id number] REYNA ROSALES PATIENT DARLENE-F EP BCBS PRESCRIPT ION BCBS FEP PLAN Sep 16, 2010 [id number] REYNA ROSALES PATIENT MEDICARE (WNR) MEDICARE (M) PART A Mar 17, 2018 PART A [id number] REYNA ROSALES PATIENT MEDICARE (WNR) MEDICARE (M) PART A Sep 16, 2010 PART A [id number] [phone] REYNA ROSALES PATIENT Selected Encounter This section includes the information on record at [place] for the Encounter. Date/Time Encounter Type Encounter Description Reason Provider Source Apr 20, 2024 09:00 AM THERAPEUTIC EXERCISES PHYSICAL THERAPY ICD-10-CM H81.10 Benign paroxysmal vertigo, unspecified ear RADAMES VAZQUEZ E Encounter Template Text not used by [place] Assessments - Encounter Diagnoses This section includes the primary and secondary diagnoses documented for the Encounter. Date/Time Primary/Secondary Diagnosis Diagnosis Name Provider Source May 09, 2024 12:27 PM PRIMARY Benign paroxysmal vertigo, unspecified ear JEWELS VAZQUEZ [facility] Plan of Treatment: Future Appointments (+ 6 months) and Future Tests (+/- 45 days) The Plan of Treatment section includes future care activities for the patient from all [place] treatmentfacilities. This section includes future appointments and future orders which are active, pending or scheduled. Future Appointments This section includes appointments that were scheduled to occur 6 months from the date of the Encounter, up to a maximum of 20 appointments. The data comes from all [place] treatment facilities. Appointment Date/Time Appointment Type Appointme nt Facility Name Apr 28, 2024 01:30 PM AMBULATORY - REHAB MEDICIN E [facility] May 11, 2024 08:00 AM AMBULATORY - SURGERY [facility] May 15, 2024 09:00 AM AMBULATORY - REHAB MEDICIN E [facility] May 21, 2024 08:45 AM AMBULATORY - NONE [facility] May 21, 2024 09:00 AM AMBULATORY - MEDICINE [facility] May 28, 2024 09:00 AM AMBULATORY - SURGERY [facility] Jun 16, 2024 01:00 PM AMBULATORY - REHAB MEDICIN E [facility] Jul 10, 2024 11:30 AM AMBULATORY - SURGERY [facility] Jul 30, 2024 01:00 PM AMBULATORY - NONE [facility] Jul 30, 2024 02:00 PM AMBULATORY - NONE [facility] Aug 24, 2024 08:30 AM AMBULATORY - NONE [facility] Aug 26, 2024 08:30 AM AMBULATORY - MEDICINE GANESH [facility] Sep 14, 2024 08:30 AM AMBULATORY - MEDICINE GANESH E ANCA T [facility] Sep 15, 2024 09:30 AM AMB[facility] - [facility] Lab Results: +/- 30 days of [...] Range Comment Mar 26, 2024 10:19 AM [facility] CBC NO DIFF Specimen Type: BLOOD No comment entered. Ordering Provider: EDITH GARDNER Report Released Date/Time: Mar 17, 2024 08:32 AM Reporting Lab: [facility] [address] [address] Performing Lab: [facility] [address] [address] WBC 4.6 10*3/uL 4.5-11.0 RBC 4.87 10*6/uL 4.23-5.66 HGB 15.6 g/dL 12.8-17 HEMATOCRIT 46.8 39.2-50.4 MCV 96.1 fL 82-99 MCH 32.0 pg 26.2-32.6 MCHC 33.3 g/dL 30.8-35.1 PLT 238 10*3/uL 140-360 MPV 9.5 fL 9.2-12.4 RDW 13.2 12.0-16.0 Mar 26, 2024 10:19 AM [facility] VIT D 25-OH([facility] [[email or web address] Specimen Type: SERUM Comment: , Tests performed on [employer] SN:[id number] (405) TSH within normal limits. Reflex testing not required. Ordering Provider: EDITH GARDNER Report Released Date/Time: Mar 17, 2024 08:32 AM Reporting Lab: [facility] [address] [address] Performing Lab: [facility] [address] [facility] [address] VIT D 25-OH([facility] [[email or web address]]) 31.0 ng/mL 20.0-50.0 Mar 26, 2024 10:19 AM [facility] LIPOPROTEIN CHOLESTEROL FRACT. PANEL Specimen Type: PLASMA Comment: , Tests performed on [employer] SN:[id number] (405). Ordering Provider: EDITH GARDNER Report Released Date/Time: Mar 17, 2024 08:32 AM Reporting Lab: [facility] [address] [facility] [address] Performing Lab: [facility] [address] [address] CHOLESTEROL 248 mg/dL H 0-200 TRIGLYCERIDE 128 mg/dL 0-150 HDL CHOLESTEROL 56 mg/dL >40 LDL CHOLESTEROL (CALC) 166 mg/dL H 0-129 Mar 26, 2024 10:19 AM [facility] P4 GLU,BUN,CREAT,LYTES,CA Specimen Type: PLASMA Comment: , Tests performed on [employer] SN:[id number] (405). Ordering Provider: EDITH GARDNER Report Released Date/Time: Mar 17, 2024 08:32 AM Reporting Lab: [facility] [address] [address] Performing Lab: [facility] [address] [address] UREA NITROGEN 15 mg/dL 7-25 SODIUM 139 mmol/L 135-145 POTASSIUM 4.7 mmol/L 3.5-5.0 CHLORIDE 103 mmol/L 100-110 CARBON DIOXIDE 30 mmol/L 20-30 ANION GAP 6 4-16 GLUCOSE 89 mg/dL 65-100 CREATININE 0.88 mg/dL 0.50-1.50 CALCIUM 9.2 mg/dL 8.5-10.5 eGFR(CKD-EPI 2020) 88 mL/min Mar 26, 2024 10:19 AM [facility] LIVER PROFILE Specimen Type: PLASMA Comment: , Tests performed on [employer] SN:[id number] (405). Ordering Provider: EDITH GARDNER Report Released Date/Time: Mar 17, 2024 08:32 AM Reporting Lab: [facility] [address] [address] Performing Lab: [facility] [address] [address] PROTEIN, TOTAL 7.0 g/dL 6.0-8.5 ALBUMIN 3.9 g/dL 3.2-5.0 BILIRUBIN, TOTAL 0.9 mg/dL 0.2-1.2 ALKALINE PHOSPHATASE 37 U/L L 40-150 ALT(SGPT) 22 U/L 7-52 AST(SGOT) 27 U/L 5-34 FIB-4 SCORE 1.89 <2.67 Mar 26, 2024 10:19 AM [facility] GLYCOHEMOGLOBIN (A1C ONLY) Specimen Type: BLOOD Comment: , Tests performed on [employer] SN:[id number] (405) Values obtained from A1C measurements can vary. For typical A1C assays, a reported value of 7.0 could actually be between 6.72 and 7.28 if measured by a reference method. A reported value of 9.0 could actually be between 8.73 and 9.27. Ref: http://www.ng sp.org/CAPdat a.asp Ordering Provider: EDITH GARDNER Report Released Date/Time: Mar 17, 2024 08:32 AM Reporting Lab: [facility] [address] [address] Performing Lab: [facility] [address] [address] HEMOGLOBIN A1C 5.4 4.0-5.6 Mar 26, 2024 10:19 AM [facility] PSA (CHAIN FORMING MACHINE OPERATOR) Specimen Type: SERUM Comment: , Tests performed on [employer] SN:[id number] (405) TSH within normal limits. Reflex testing not required. Ordering Provider: EDITH GARDNER Report Released Date/Time: Mar 26, 2024 10:09 AM Reporting Lab: [facility] [address] [address] Performing Lab: [facility] [address] [address] PSA (CHAIN FORMING MACHINE OPERATOR) 4.09 ng/mL H Mar 26, 2024 10:19 AM [facility] THYROID TESTING CASCADE Specimen Type: SERUM Comment: , Tests performed on [employer] SN:[id number] (405) TSH within normal limits. Reflex testing not required. Ordering Provider: EDITH GARDNER Report Released Date/Time: Mar 17, 2024 08:32 AM Reporting Lab: [facility] [address] [address] Performing Lab: [facility] [address] [address] TSH 4.33 u[IU]/mL 0.35-5.00 Mar 26, 2024 10:19 AM [facility] URINALYSIS W/REFLEX TO CULTURE Specimen Type: URINE No comment entered. Ordering Provider: EDITH GARDNER Report Released Date/Time: Mar 17, 2024 08:32 AM Reporting Lab: [facility] [address] [facility] [address] Performing Lab: [facility] [address] [address] URINE COLOR Colorless NOT DEFINED SPECIFIC GRAVITY [...] and tobacco- related health factors from the [place] facility where the Encounter took place. Current Smoking Status This section includes the most current smoking, or tobacco-related health factor, from the [place] facility where the Encounter took place. Date/Time Current Smoking Status Comment Facility Sep 04, 2010 01:20 PM QUIT TOBACCO USE > 7 YEARS AGO Pt. quit smoking in 1974. [facility] Advance Directives: All historical and current Section Date Range: From patient's date of to the date document was created. This section includes ALL of a patient's completed or amended [place] Advance and Rescinded Directives. The entries below indicate that a directive exists for the patient, but an actual copy is not included with this document. The data comes from all [place] facilities. Date Advance Directives Provider Source Oct 08, 2019 ADVANCE DIRECTIVE LEISA ROBERTS [facility] Encounter Notes: All associated encounter notes This section contains the clinical notes associated to the Encounter. Date/Time Encounter Note(s) Provider Source Apr 23, 2024 04:00 PM PHYSICAL THERAPY OUTPATIENT CONSULT: [facility] TITLE: CONSULT: Physical Therapy Outpatient STANDARD TITLE: PHYSICAL THERAPY OUTPATIENT CONSULT DATE OF NOTE: APR 23, 2024@16:00 ENTRY DATE: APR 23, 2024@16:17:31 AUTHOR: JEWELS VAZQUEZ EXP COSIGNER: URGENCY: STATUS: COMPLETED Current PC Provider: EDITH GARDNER Current PC Team: LIT PACT T *WH* Current Pat. 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 Since [facility] he has had 11/12/23Was seen in TBI clinic [facility], states that was enlightening. Multiple TBI since age 9. Plan was to mail Chang-Daroff maneuver instructions. If not succucessful follow up with balance ex. Discussed care plan with [facility] and they would like [facility], even if they are eligible for community care. [facility] Residential Address: [address] [place] [id number] [place] [address] County: [place] ([place] Office: UNSPECIFIED E-mail: [email or web address] S: is a78 year old male who reports that he has been getting lightheaded for 50 years. He reprots that he loses balance when walking between objects through hallway and has to touch the ma sometimes. He also has dizziness with sit to stand sometimes and knows to wait for a couple of minutes. He reprots that despite the dizziness he was always a very good skier and skater , but it has gotten much works lately and he feels he has no balance at all. He has done the Habituation exercises and reprots that he doesn't think they helped at that time. He does not get dizzy lying down or getting up, or rolling over in bed. instructed and performed :Access Code: [email or web address] URL: [email or web address] Date: 04/28/2024 Prepared by: Jewels Vazquez Exercises - Heel Raises with Counter Support - 1 x daily - 7 x weekly - 1 sets - 10 reps - Mini Squat with Counter Support - 1 x daily - 7 x weekly - 1 sets - 10 reps - Standing Hip Extension with Counter Support - 1 x daily - 7 x weekly - 1 sets - 10 reps - Standing March with Counter Support - 1 x daily - 7 x weekly - 1 sets - 10 reps - Standing Hip Abduction with Counter Support - 1 x daily - 7 x weekly - 1 sets - 10 reps - Standing Knee Flexion with Counter Support - 1 x daily - 7 x weekly - 1 sets - 10 reps - Sit to Stand - 1 x daily - 7 x weekly - 1 sets - 10 reps - Standing Bicep Curls with Resistance - 1 x daily - 7 x weekly - 1 sets - 10 reps - Romberg Stance with Eyes Closed - 1 x daily - 7 x weekly - 1 sets - 10 reps - Tandem Stance - 1 x daily - 7 x weekly - 1 sets - 10 reps - Sit to Stand Without Arm Support - 1 x daily - 7 x weekly - 1 sets - 10 reps A: presents with complex dizziness that is worse with head turns and quick motions but can be controlled with slowing down and spending more time with movements. He reports that he knows his balance is worse now but he hasn't found anything that helps. We will start with advance balance exercise and if he wants to try habituation exercises again, I advised that they will not cause any damage. P: Follow up on the total time 60 mins [id number] mod complex eval 30 [id number] ther ex 30 /es/ JEWELS VAZQUEZ Doctor of Physical Therapy, licensed in [place] Signed: 05/04/2024 16:22 JEWELS VAZQUEZ [facility]
--- OUTSIDE RECORDS SUMMARY | 2024-10-09 10:35 | XMS_ITS | Encounter Summary ---
Author Name [facility] Address [address] [place] [address] Care Team Providers Care Dietary Manager Name Role Phone JUAN HANNA Primary Care [...] BASIC SELF+ 1 Sep 16, 2024 [id number] [phone] REYNA ROSALES PATIENT ANTHEM BCBS CT FEDERAL PREFERRED PROVIDER ORGANIZAT ION (PPO) BASIC SELF+ ONE Mar 17, 2018 113 [id number] [phone] REYNA ROSALES PATIENT ANTHEM [place] (FEDERAL) PREFERRED PROVIDER ORGANIZAT ION (PPO) BASIC SELF+ ONE Mar 17, 2018 113 [id number] [phone] REYNA ROSALES PATIENT [place] OF [place] FEDERAL PREFERRED PROVIDER ORGANIZAT ION (PPO) BASIC SELF+ 1 Mar 17, 2018 113 [id number] REYNA ROSALES PATIENT [place] FEPRX PLAN PRESCRIPT ION CAREM ARK FEPRX Sep 16, 2024 [id number] REYNA ROSALES PATIENT DARLENE-F EP BCBS PRESCRIPT ION BCBS FEP PLAN Sep 16, 2010 [id number] REYNA ROSALES PATIENT MEDICARE (WNR) MEDICARE (M) PART A Mar 17, 2018 PART A [id number] REYNA ROSALES PATIENT MEDICARE (WNR) MEDICARE (M) PART A Sep 16, 2010 PART A [id number] [phone] REYNA ROSALES PATIENT Selected Encounter This section includes the information on record at [place] for the Encounter. Date/Time Encounter Type Encounter Description Reason Provider Source Mar 26, 2024 09:30 AM OFFICE O/P EST MOD 30 MIN PRIMARY CARE/MEDICINE ICD-10-CM N40.1 Benign prostatic hyperplasia with lower urinary tract symp JJ,EDITH L IHE Encounter Template Text not used by [place] Assessments - Encounter Diagnoses This section includes the primary and secondary diagnoses documented for the Encounter. Date/Time Primary/Secondary Diagnosis Diagnosis Name Provider Source Apr 14, 2024 04:12 PM PRIMARY Benign prostatic hyperplasia with lower urinary tract symp JJ,EDITH L [facility] Apr 14, 2024 04:12 PM SECONDARY Benign paroxysmal vertigo, unspecified ear JJ,EDITH L [facility] Apr 14, 2024 04:12 PM SECONDARY Essential (primary) hypertension JJEDITH L [facility] Apr 14, 2024 04:12 PM SECONDARY Hyperlipidemia, unspecified JJ,EDITH L [facility] Apr 14, 2024 04:12 PM SECONDARY Orthostatic hypotension JJ,EDITH L [facility] Apr 14, 2024 04:12 PM SECONDARY Other obstructive and reflux uropathy JJ,EDITH L [facility] Apr 14, 2024 04:12 PM SECONDARY Pain in left knee JJ,EDITH L [facility] Apr 14, 2024 04:12 PM SECONDARY Pain in right knee JJ,EDITH L [facility] Apr 14, 2024 04:12 PM SECONDARY Post-traumatic stress disorder, unspecified EDITH GARDNER [facility] Plan of Treatment: Future Appointments (+ 6 months) and Future Tests (+/- 45 days) The Plan of Treatment section includes future care activities for the [facility] This section includes future appointments and future orders which are active, pending or scheduled. Future Appointments This section includes appointments that were scheduled to occur 6 months from the date of the Encounter, up to a maximum of 20 appointments. The data comes from all [place] treatment facilities. Appointment Date/Time Appointment Type Appointme nt Facility Name Apr 08, 2024 01:30 PM AMBULATORY [place]IC[place] [facility] Apr 15, 2024 11:00 AM [place] [facility] Apr 20, 2024 09:00 AM AMBULATORY - [place] [facility] Apr 28, 2024 01:30 PM [place]AT[place] [facility] May 11, 2024 08:00 AM AMBULATORY [place] [facility] May 15, 2024 09:00 AM AM[place]AT[place] [facility] May 21, 2024 08:45 AM AMBULATORY - NONE [facility] May 21, 2024 09:00 AM AMBULATORY - MEDICINE [facility] May 28, 2024 09:00 AM [place]ORY [place] [facility] Jun 16, 2024 01:00 PM AMBULATORY - [place] [facility] Jul 10, 2024 11:30 AM AMBULATORY - [place] [facility] Jul 30, 2024 01:00 PM AMBULATORY - NONE [facility] Jul 30, 2024 02:00 PM AMBULATORY - NONE [facility] Aug 24, 2024 08:30 AM AMBULATORY - NONE [place] [facility] Aug 26, 2024 08:30 AM [place] [facility] Sep 14, 2024 08:30 AM [place] [facility] Sep 15, 2024 09:30 AM [facility]ULAT[facility] - [facility] Lab Results: +/- 30 days of the encounter This section includes the Chemistry and Hematology Lab Results on record with [place] for the patient. Radiology Reports and Pathology Reports are provided separately, in subsequent sections. Lab Results This section contains the Chemistry/Hematology Results that were resulted 30 days before or 30 daysafter the date of the Encounter. Date/Time Source Result Type Result - Unit Interpretation Reference Range Comment Mar 26, 2024 10:19 AM [facility] CBC NO DIFF Specimen Type: BLOOD No comment entered. Ordering Provider: EDITH GARDNER Report Released Date/Time: Mar 17, 2024 08:32 AM Reporting Lab: [facility] [address] [facility] [address] Performing Lab: [facility] [address] [facility] [address] WBC 4.6 10*3/uL 4.5-11.0 RBC 4.87 10*6/uL 4.23-5.66 HGB 15.6 g/dL 12.8-17 HEMATOCRIT 46.8 39.2-50.4 MCV 96.1 fL 82-99 MCH 32.0 pg 26.2-32.6 MCHC 33.3 g/dL 30.8-35.1 PLT 238 10*3/uL 140-360 MPV 9.5 fL 9.2-12.4 RDW 13.2 12.0-16.0 Mar 26, 2024 10:19 AM [facility] VIT D 25-OH(WRJ) Specimen Type: SERUM Comment: , Tests performed on [employer] SN:[id number] (405) TSH within normal limits. Reflex testing not required. Ordering Provider: EDITH GARDNER Report Released Date/Time: Mar 17, 2024 08:32 AM Reporting Lab: [facility] [address] [facility] [address] Performing Lab: [facility] [address] [facility] [facility] [address] VIT D 25-OH([facility]) 31.0 ng/mL 20.0-50.0 Mar 26, 2024 10:19 AM [facility] LIPOPROTEIN CHOLESTEROL FRACT. PANEL Specimen Type: PLASMA Comment: , Tests performed on [employer] SN:[id number] (405). Ordering Provider: EDITH GARDNER Report Released Date/Time: Mar 17, 2024 08:32 AM Reporting Lab: [facility] [address] [facility] [facility] [address] Performing Lab: [facility] [address] [facility] [address] CHOLESTEROL 248 mg/dL H 0-200 TRIGLYCERIDE 128 mg/dL 0-150 HDL CHOLESTEROL 56 mg/dL >40 LDL CHOLESTEROL (CALC) 166 mg/dL H 0-129 Mar 26, 2024 10:19 AM [facility] LIVER PROFILE Specimen Type: PLASMA Comment: , Tests performed on [employer]ai Embossing Clerk Joon SN:[id number] (405). Ordering Provider: EDITH GARDNER Report Released Date/Time: Mar 17, 2024 08:32 AM Reporting Lab: [facility] [address] [facility] [address] Performing Lab: [facility] [address] [facility] [facility] [address] PROTEIN, TOTAL 7.0 g/dL 6.0-8.5 ALBUMIN 3.9 g/dL 3.2-5.0 BILIRUBIN, TOTAL 0.9 mg/dL 0.2-1.2 ALKALINE PHOSPHATASE 37 U/L L 40-150 ALT(SGPT) 22 U/L 7-52 AST(SGOT) 27 U/L 5-34 FIB-4 SCORE 1.89 <2.67 Mar 26, 2024 10:19 AM [facility] P4 GLU,BUN,CREAT,LYTES,CA Specimen Type: PLASMA Comment: , Tests performed on [employer] Embossing Clerk Joon SN:[id number] (405). Ordering Provider: EDITH GARDNER Report Released Date/Time: Mar 17, 2024 08:32 AM Reporting Lab: [facility] [address] [facility] [address] Performing Lab: [facility] [address] [facility] [facility] [address] UREA NITROGEN 15 mg/dL 7-25 SODIUM 139 mmol/L 135-145 POTASSIUM 4.7 mmol/L 3.5-5.0 CHLORIDE 103 mmol/L 100-110 CARBON DIOXIDE 30 mmol/L 20-30 ANION GAP 6 4-16 GLUCOSE 89 mg/dL 65-100 CREATININE 0.88 mg/dL 0.50-1.50 CALCIUM 9.2 mg/dL 8.5-10.5 eGFR(CKD-EPI 2020) 88 mL/min Mar 26, 2024 10:19 AM [facility] THYROID TESTING [place] Specimen Type: SERUM Comment: , Tests performed on [employer] Robles SN:[id number] (405) TSH within normal limits. Reflex testing not required. Ordering Provider: EDITH GARDNER Report Released Date/Time: Mar 17, 2024 08:32 AM Reporting [facility]: [facility] [address] [facility] [address] Performing Lab: [facility] [address] [facility] [facility] [address] TSH 4.33 u[IU]/mL 0.35-5.00 Mar 26, 2024 10:19 AM [facility] GLYCOHEMOGLOBIN (A1C ONLY) Specimen Type: BLOOD Comment: , Tests performed on [employer] SN:[id number] (405) Values obtained from A1C measurements can vary. For typical A1C assays, a reported value of 7.0 could actually be between 6.72 and 7.28 if measured by a reference method. A reported value of 9.0 could actually be between 8.73 and 9.27. Ref: http://www.ng sp.org/CAPdat a.asp Ordering Provider: DEITH GARDNER Report Released Date/Time: Mar 17, 2024 08:32 AM Reporting Lab: [facility] [address] [facility] [address] [facility] [address] [facility] [address] HEMOGLOBIN A1C 5.4 4.0-5.6 Mar 26, 2024 10:19 AM [facility] PSA (OPTHALMIC TECH) Specimen Type: SERUM Comment: , Tests performed on [employer]les SN:[id number] (405) TSH within normal limits. Reflex testing not required. Ordering Provider: EDITH GARDNER Report Released Date/Time: Mar 26, 2024 10:09 AM Reporting Lab: [facility] [address] [facility] [address] Performing Lab: [facility] [address] [facility] [facility] [address] PSA (OPTHALMIC TECH) 4.09 ng/mL H Mar 26, 2024 10:19 AM [facility] URINALYSIS W/REFLEX TO CULTURE Specimen Type: URINE No comment entered. Ordering Provider: EDITH GARDNER Report Released Date/Time: Mar 17, 2024 08:32 AM Reporting Lab: [facility] [address] [facility] [address] Performing Lab: [facility] [address] [facility] [facility] [address] URINE COLOR Colorless NOT DEFINED SPECIFIC GRAVITY [...] Pain Height Weight Body Mass Index Source Mar 26, 2024 09:25 AM 96.9 49 136/72 94 0 66 178.4 29 [facility] Social History: Smoking Status (Most current) and Tobacco Use (All prior to encounter date) This section includes the most current, and the historical, smoking and tobacco- related health factors from the [place] facility where the Encounter took place. Current Smoking Status This section includes the most current smoking, or tobacco-related health factor, from the [place] facility where the Encounter took place. Date/Time Current Smoking Status Comment Renato aomr Oct 02, 2023 11:00 AM VA-TOBACCO FORMER USER [facility] Tobacco Use History This section includes a history of the smoking, or tobacco-related health factors, that were collected on or before the date of the Encounter. The data comes from the [place] facility where the Encounter took place. Date/Time Smoking Status/Tobacco Use Comment Jimy beauchamp Oct 02, 2023 11:00 AM VA-TOBACCO QUIT 15 YRS OR MORE [facility] May 18, 2022 02:00 PM VA-TOBACCO FORMER USER [facility] May 18, 2022 02:00 PM VA-TOBACCO QUIT 15 YRS OR MORE [facility] May 17, 2021 09:30 AM VA-TOBACCO FORMER USER [facility] May 17, 2021 09:30 AM VA-TOBACCO QUIT 15 YRS OR MORE [facility] Nov 04, 2018 09:35 AM VA-TOBACCO FORMER USER [facility] Nov 04, 2018 09:35 AM VA-TOBACCO QUIT 15 YRS OR MORE [facility] January 27, 2018 03:02 PM QUIT TOBACCO USE > 7 YEARS AGO quit in 1970- [facility] Apr 05, 2016 06:59 AM QUIT TOBACCO USE > 7 YEARS AGO quit early [facility] Advance Directives: All historical and current Section Date Range: From patient's date of to the date document was created. This section includes ALL of a patient's completed or amended [place] Advance and Rescinded Directives. The entries below indicate that a directive exists for the patient, but an actual copy is not included with this document. The data comes from all [place] facilities. Date Advance Directives Provider Source Oct 08, 2019 ADVANCE DIRECTIVE [facility] Encounter Notes: All associated encounter notes This section contains the clinical notes associated to the Encounter. Date/Time Encounter Note(s) Provider Source Mar 26, 2024 11:23 AM ADDENDUM: LOCAL TITLE: Addendum STANDARD TITLE: ADDENDUM DATE OF NOTE: MAR 26, 2024@11:23:55 ENTRY DATE: MAR 26, 2024@11:23:56 AUTHOR: STEVE MCKINLEY COSIGNER: URGENCY: STATUS: COMPLETED PVR is done with 325 ml in bladder. /ken/ STEVE MCKINLEY Registered Nurse Signed: 03/26/2024 11:24 Receipt Acknowledged By: 03/26/2024 17:05 /ken/ EDITH GARDNER APRN --- Original Document --- 03/26/24 Preventive Health Annual Review: Suicide Screen: C-SSRS Screening Allen-Suicide Severity Rating Scale (C-SSRS Screener) 1. Over the past month, have you wished you were or wished you could go to sleep and not wake up? No 2. Over the past month, have you had any actual thoughts of killing yourself? No 3. Over the past month, have you been thinking about how you might do this? Response not required due to responses to other questions. 4. Over the past month, have you had these thoughts and had some intention of acting on them? Response not required due to responses to other questions. 5. Over the past month, have you started to work out or worked out the details of how to kill yourself? Response not required due to responses to other questions. 6. If yes, at any time in the past month did you intend to carry out this plan? Response not required due to responses to other questions. 7. In your lifetime, have you ever done anything, started to do anything, or prepared to do anything to end your life (for example, collected pills, obtained a gun, gave away valuables, went to the roof but didn't jump)? No 8. If YES, was this within the past 3 months? Response not required due to responses to other questions. Sexual Orientation: The patient thinks of their sexual orientation as: Straight or Heterosexual PTSD Screening: PC-PTSD-5 A PTSD screening test (PC-PTSD-5) was negative (score=1). IN THE PAST MONTH, have you ever had any experience that was so frightening, horrible or traumatic. For example: A serious accident or fire a physical or sexual assault or abuse An earthquake or flood A war Seeing someone be killed or seriously injured Having a loved one through homicide or suicide 1. Have you ever experienced this kind of event? YES 2. Had nightmares about the event(s) or thought about the event(s) when you did not want to? YES 3. Tried hard not to think about the event(s) or went out of your way to avoid situations that reminded you of the event(s)? NO 4. Been constantly on guard, watchful, or easily startled? NO 5. Delta numb or detached from people, activities, or your surroundings? NO 6. Delta guilty or unable to stop blaming yourself or others for the event(s) or any problems the event(s) may have caused? NO /es/ AVERY VICK Health Wiring Technician Signed: 03/26/2024 09:32 [facility] Mar 26, 2024 09:35 AM PRIMARY CARE NOTE: LOCAL TITLE: Primary Care Clinic Note STANDARD TITLE: PRIMARY CARE NOTE DATE OF NOTE: MAR 26, 2024@09:35 ENTRY DATE: MAR 26, 2024@09:35:04 AUTHOR: EDITH GARDNER EXP COSIGNER: URGENCY: STATUS: COMPLETED ASSES/PLAN - # BPH with urinary retention- - U/A, PSA , bladder scan PVR 325 - tamsulosin 0.4 mg discussed side effects # vertigo- tried Chang-Daroff maneuver exercises- no difference - consult PT - Continue yoga/strectching # dizziness/lightheadedness- othrostatic hypotension moving slowly when changing positions,normal cadiac stress test, ZIO with atrial ectopy unclear if related to dizziness consider cardiac consult if worsens - murmur aprreciated on exam- discuss echo next visit # Knee pain bilateral- -xrays and MUSKET consult # hyperlipidemia- did not tolerate statin may consider lower dose statin but his lifestyle modifications have already lowered his cholesterol - lost 12 then gained some back - CHO panel today # HTN - well controlled at home [...] reconciled #health Maint: vaccines reviewed: RTC - 1 week phone [x] open access Side effects from Meds: [x] Yes []NO [x] Counseling of patient/family dominates over 50% of face to face encounter HPI: Both knees ache on a reular basis, [...] tears surgically repaired both knees. [facility]. has toe isues right foot he thinks he needs surgery for, last seen in podiatry Jul 2023, due to reutrn April he will call Dizzy spells and loss of balance is getting worse. Since [facility] he has had 11/12/23Was seen in TBI clinic [facility], states that was enlightening. Multiple TBI since age 9. Plan was to mail Chang-Daroff maneuver instructions. If not successful recommend PT at [facility] or [facility] or via [facility] for more specific instructions to treat BPPV He is having increased urgency with urination- when he hears water running he needs to go, the flow is very slow and he can not sense when the flow stops, he does not feel if his bladder is empty, denies pain discomfort or burning, urinating every 2 hours during the day and is up once or twice at night. Drinks a lot of water, color is bright yellow. He has diffiulty starting a stream. Tick bite left side March 12 , dark red spot in center with 2 inches surrounding errytymia treated with doxy BID x 7 days tick was not engourged, he thinks it was on less than 24 hours. Area was very itchy, improved now. Redness is fading. B/P at home is 120-130/70s. 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 Exposure to potentially hazardous substance 2. History of traumatic brain injury 3. Benign paroxysmal positional vertigo 4. Acquired hammer toes of bilateral feet 5. Orthostatic hypotension 6. Neoplasm of uncertain behavior of skin 7. Ventral hernia 8. Recurrent varicose vein of lower limb 9. Hyperlipidemia 10. Pain of right shoulder joint 11. Pain of right shoulder joint 12. Posttraumatic stress disorder 13. Superficial vein thrombosis 14. Personal history of Agent Mower exposure 15. Asymmetrical sensorineural hearing loss (SNOMED CT 578055525) 16. 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 Benign essential hypertension (SNOMED CT 1719887) 18. Laboratory Examination Ordered as part of a Routine General Medical Examinat 19. Neck Pain 20. Tinnitus 21. Obstructive sleep apnea of adult (SNOMED CT 4891585060461) MEDS: Active Outpatient Medications (excluding Supplies): Active Outpatient Medications Status 1) SILDENAFIL CITRATE 100MG TAB TAKE ONE TABLET BY MOUTH ACTIVE NEEDED FOR ERECTILE DYSFUNCTION MAX USE ONCE IN 24 HOUR PERIOD Active Non-VA Medications Status 1) Non-VA ASCORBIC ACID 500MG TAB 500MG MOUTH EVERY DAY ACTIVE 2) Non-VA CHOLECALCIF 25MCG (D3-1,000UNIT) TAB 2000UNIT ACTIVE MOUTH EVERY DAY 3) Non-VA MAGNESIUM CITRATE LIQUID,ORAL 400MG MOUTH ACTIVE EVERY DAY 4) Non-VA MULTIVITAMIN/MINERALS CAP/TAB ONE CAP/TAB BY ACTIVE MOUTH EVERY DAY 5) Non-VA NIACINAMIDE 500MG TAB 500MG BY MOUTH EVERY DAY ACTIVE 6) Non-VA [id number] ETHYL ESTERS 1000MG CAP 1000MG ACTIVE MOUTH EVERY DAY 7) Non-VA PROBIOTIC CAP,ORAL BY MOUTH EVERY DAY ACTIVE 8) Non-VA RED YEAST RICE CAP/TAB 600MG MOUTH EVERY DAY ACTIVE 9 Total Medications Outside VA meds: ALLERGIES: PENICILLIN, BEE STINGS ROS: Gen: sleeps poorly, up 2-3 times to urinate, appetite good CV: denies chest pain, sob, headaches, visual distubances GI: denies diarrhea, constipation, blood in stool :+urinary frequency, urgency Extrem: no edema,+ pain OBJ: BP:136/72 (03/26/2024 09:25) HR:49 (03/26/2024 09:25) WT:178.4 lb [80.92 kg] (03/26/2024 09:25) HT: 66 in [167.6 cm] (03/26/2024 09:25) BODY MASS INDEX - MAR 26, 2024@09:25:58 28.9 General- Well-appearing, no apparent distress. Cardiovascular:RRR, S1,S2, + murmur, PMI non-displaced Respiratory: non-labored breathing, clear A & P Abdomen: abdomen soft, nontender Skin:Warm and dry. Extremities/feet: (-) edema Musculoskeletal: normal gait Psych: Normal affect and demeanor. normal speech pattern Neurological:Alert, oriented X3 /es/ EDITH GARDNER EXECUTIVE ADMINISTRATIVE ASSISTANT Signed: 03/26/2024 13:13 EDITH GARDNER [facility] Mar 26, 2024 09:30 AM PRIMARY CARE KELLEN Mueller EVALUATION NOTE: LOCAL TITLE: Preventive Health Annual Review STANDARD TITLE: PRIMARY CARE ANNUAL EVALUATION NOTE DATE OF NOTE: MAR 26, 2024@09:30 ENTRY DATE: MAR 26, 2024@09:30:06 AUTHOR: AVERY VICK EXP COSIGNER: URGENCY: STATUS: COMPLETED Preventive Health Annual Review Has ADDENDA Suicide Screen: C-SSRS Screening Allen-Suicide Severity Rating Scale (C-SSRS Screener) 1. Over the past month, have you wished you were or wished you could go to sleep and not wake up? No 2. Over the past month, have you had any actual thoughts of killing yourself? No 3. Over the past month, have you been thinking about how you might do this? Response not required due to responses to other questions. 4. Over the past month, have you had these thoughts and had some intention of acting on them? Response not required due to responses to other questions. 5. Over the past month, have you started to work out or worked out the details of how to kill yourself? Response not required due to responses to other questions. 6. If yes, at any time in the past month did you intend to carry out this plan? Response not required due to responses to other questions. 7. In your lifetime, have you ever done anything, started to do anything, or prepared to do anything to end your life (for example, collected pills, obtained a gun, gave away valuables, went to the roof but didn't jump)? No 8. If YES, was this within the past 3 months? Response not required due to responses to other questions. Sexual Orientation: The patient thinks of their sexual orientation as: Straight or Heterosexual PTSD Screening: PC-PTSD-5 A PTSD screening test (PC-PTSD-5) was negative (score=1). IN THE PAST MONTH, have you ever had any experience that was so frightening, horrible or traumatic. For example: A serious accident or fire a physical or sexual assault or abuse An earthquake or flood A war Seeing someone be killed or seriously injured Having a loved one through homicide or suicide 1. Have you ever experienced this kind of event? YES 2. Had nightmares about the event(s) or thought about the event(s) when you did not want to? YES 3. Tried hard not to think about the event(s) or went out of your way to avoid situations that reminded you of the event(s)? NO 4. Been constantly on guard, watchful, or easily startled? NO 5. Delta numb or detached from people, activities, or your surroundings? NO 6. Delta guilty or unable to stop blaming yourself or others for the event(s) or any problems the event(s) may have caused? NO /ken/ AVERY VICK Health Wiring Technician Signed: 03/26/2024 09:32 03/26/2024 ADDENDUM STATUS: COMPLETED PVR is done with 325 ml in bladder. /ken/ STEVE MCKINLEY Registered Nurse Signed: 03/26/2024 11:24 Receipt Acknowledged By: * AWAITING SIGNATURE * EDITH GARDNER [facility]
--- OUTSIDE RECORDS SUMMARY | 2024-10-09 10:35 | XMS_ITS | Encounter Summary ---
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 Name Role Phone JUAN HANNA Primary Care [...] BASIC SELF+ 1 Sep 16, 2024 33C [id number] [phone] REYNA ROSALES PATIENT ANTHEM BCBS [place] PREFERRED PROVIDER ORGANIZAT ION (PPO) BASIC SELF+ ONE Mar 17, 2018 113 [id number] [phone] REYNA ROSALES PATIENT ANTHEM BCBS OF [place] (FEDERAL) PREFERRED PROVIDER ORGANIZAT ION (PPO) BASIC SELF+ ONE Mar 17, 2018 113 [id number] [phone] REYNA ROSALES PATIENT BCBS OF IN [place] PREFERRED PROVIDER ORGANIZAT ION (PPO) BASIC SELF+ 1 Mar 17, 2018 113 [id number] [phone] REYNA ROSALES PATIENT CAREMARK FEPRX PLAN PRESCRIPT ION CAREM ARK FEPRX Sep 16, 2024 [id number] REYNA ROSALES PATIENT DARLENE-F EP BCBS PRESCRIPT ION BCBS FEP PLAN Sep 16, 2010 [id number] REYNA ROSALES PATIENT MEDICARE (WNR) MEDICARE (M) PART A Mar 17, 2018 PART A [id number] REYNA ROSALES PATIENT MEDICARE (WNR) MEDICARE (M) PART A Sep 16, 2010 PART A [id number] [phone] REYNA ROSALES PATIENT Selected Encounter This section includes the information on record at [place] for the Encounter. Date/Time Encounter Type Encounter Description Reason Provider Source May 15, 2024 09:00 AM THERAPEUTIC ACTIVITIES PHYSICAL THERAPY ICD-10-CM H81.10 Benign paroxysmal vertigo, unspecified ear RADAMES PRIETO E Encounter Template Text not used by [place] Assessments - Encounter Diagnoses This section includes the primary and secondary diagnoses documented for the Encounter. Date/Time Primary/Secondary Diagnosis Diagnosis Name Provider Source May 24, 2024 10:21 PM PRIMARY Benign paroxysmal vertigo, unspecified ear JEWELS PRIETO [facility] Plan of Treatment: Future Appointments (+ 6 months) and Future Tests (+/- 45 days) The Plan of Treatment section includes future care activities for the patient from all [place] treatmentfacilities. This section includes future appointments and future orders which are active, pending or scheduled. Future Appointments This section includes appointments that were scheduled to occur 6 months from the date of the Encounter, up to a maximum of 20 appointments. The data comes from all [place] treatment facilities. Appointment Date/Time Appointment Type Appointme nt Facility Name May 21, 2024 08:45 AM AMBULATORY - NONE [facility] May 21, 2024 09:00 AM AMBULATORY - MEDICINE [facility] May 28, 2024 09:00 AM AMBULATORY - SURGERY [facility] Jun 16, 2024 01:00 PM AMBULATORY - REHAB MEDICIN E [facility] Jul 10, 2024 11:30 AM AMBULATORY - SURGERY [facility] Jul 30, 2024 01:00 PM AMBULATORY - NONE [facility] Jul 30, 2024 02:00 PM AMBULATORY - NONE [facility] Aug 24, 2024 08:30 AM AMBULATORY - NONE LUCAS MARCH [facility] Aug 26, 2024 08:30 AM AMBULATORY - MEDICINE GANESH MARCH [facility] Sep 14, 2024 08:30 AM AMBULATORY - MEDICINE GANESH MARCH [facility] Sep 15, 2024 09:30 AM [facility] Nov 05, 2024 08:30 AM [facility]ORY - MEDICINE [facility] Lab Results: +/- 30 days of the [...] Range Comment May 21, 2024 09:08 AM [facility] URINALYSIS W/REFLEX TO CULTURE Specimen Type: URINE No comment entered. Ordering Provider: ERIC GARDNER Report Released Date/Time: May 01, 2024 10:59 AM Reporting Lab: LUCAS MARCH [facility] [address] [facility] [address] Performing Lab: [facility] [address] [facility] [address] URINE COLOR Colorless NOT DEFINED SPECIFIC GRAVITY [...] and tobacco- related health factors from the [place] facility where the Encounter took place. Current Smoking Status This section includes the most current smoking, or tobacco-related health factor, from the [place] facility where the Encounter took place. Date/Time Current Smoking Status Comment Facility Sep 04, 2010 01:20 PM QUIT TOBACCO USE > 7 YEARS AGO Pt. quit smoking in 1974. [facility] Advance Directives: All historical and current Section Date Range: From patient's date of to the date document was created. This section includes ALL of a patient's completed or amended [place] Advance and Rescinded Directives. The entries below indicate that a directive exists for the patient, but an actual copy is not included with this document. The data comes from all [place] facilities. Date Advance Directives Provider Source Oct 08, 2019 ADVANCE DIRECTIVE LEISA ROBERTS [facility] Radiology Reports: +/- 30 days [...] the Encounter. The data comes from all [place] treatment facilities. Date/Time Radiology Report Provider Source May 28, 2024 08:43 AM KNEE 4 VIEWS (ORTH O): REYNA ROSALES [id number] -1945 M Exm Date: MAY 28, 2024@08:43 Req Phys: JJ,EDITH Mueller Pat Loc: LIT PACT T (Req'g Loc) Img Loc: XRAY (OOS) Service: [place] [address] (Case [id number] COMPLETE) KNEE 4 VIEWS (ORTHO) (RAD Detailed) CPT:71336 Reason for Study: knee pain Clinical History: [...] 28, 2024 Date Verified: MAY 28, 2024 Buffet Attendant E-Sig:/ES/DERRELL RODRIGES Report: Bilateral knees: COMPARISON: No [...] Primary Interpreting Staff: DERRELL RODRIGES, RADIOLOGY ATTENDING (Buffet Attendant) /DERRELL BARRAGAN [facility] May 28, 2024 08:43 AM KNEE 4 VIEWS (ORTH O): REYNA ROSALES [facility] [id number] -1945 M Exm Date: MAY 28, 2024@08:43 Req Phys: JJ,EDITH L Pat Loc: LIT PACT T (Req'g Loc) Img Loc: XRAY (OOS) Service: [place] [address] (Case [id number] COMPLETE) KNEE 4 VIEWS (ORTHO) (RAD Detailed) CPT:53348 Proc Modifiers : LEFT Reason for Study: [...] both knees. [facility]. coordinate with GISSELLE pearl Report Status: Verified Date Reported: MAY 28, 2024 Date Verified: MAY 28, 2024 Buffet Attendant E-Sig:/ES/DERRELL RODRIGES Report: Bilateral knees: COMPARISON: No [...] Primary Interpreting Staff: DERRELL RODRIGES, RADIOLOGY ATTENDING (Buffet Attendant) /DERRELL [place]ARR[place] [facility] Encounter Notes: All associated encounter notes This section contains the clinical notes associated to the Encounter. Date/Time Encounter Note(s) Provider Source May 15, 2024 09:00 AM PHYSICAL THERAPY N OTE: LOCAL TITLE: Physical Therapy Note STANDARD TITLE: PHYSICAL THERAPY NOTE DATE OF NOTE: MAY 15, 2024@09:00 ENTRY DATE: MAY 15, 2024@09:14:38 AUTHOR: JEWELS PRIETO EXP COSIGNER: URGENCY: STATUS: COMPLETED Current PC Provider: EDITH GARDNER Current PC Team: JEFRY PACT T *WH* Current Pat. 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 Since [facility] he has had 11/12/23Was seen in TBI clinic [facility], states that was enlightening. Multiple TBI since age 9. Plan was to mail Chang-Reinaldooff maneuver instructions. If not successful follow up with balance ex. Residential Address: [address] [place] [address] County: [place] ([facility]) Office: UNSPECIFIED E-mail: [email or web address] HPI: is a 78 year old male who reports that he [...] was always a very good skier and skater, but it has gotten much works lately and he feels he has no balance at all. He has done the Habituation exercises and reprots that he doesn't think they helped at that time. He does not get dizzy lying down or getting up, or rolling over in bed. He reports that he has dizzy spells ,or when he is in doorways. S: reprots that he is really enjoying his exercises and his is also doing them. He had no idea that these were exercises that can help with his balance He reprots that he did see his admitting supervisor and they discussed his L side vision and that when he looks to the L he doesn't always loosing vision to the Left unless he completely turns your head all the way to look face forward to the Left. O: Profound LOB with eyes closed even with feet together. Balance with contralateral leg movement tandem walking double and SLS on Spotzot Ball lift with arms at shoulder height We discussed the next level of exercise and avoiding eyes closed if not safe and work on at this point, He reprots that he is missing fishing and would love to get back out. We discussed LOB in running water where the eyes see movement and send wrong messages to head. Lane is making good progress and enjoying exercises. He continues to report dizziness and LOB with turns. We discussed the three components to balance ,: the joint proprioceptors, the ears and the eyes. We also discussed fly making and he was advised that Corine Santiago has a fly making class on Tuesdays at [facility]. P: follow up in 3 weeks 900 AM total time 60 mins [id number] ther ex [phone] ther act / JEWELS PRIETO Doctor of Physical Therapy, licensed in [place] Signed: 05/24/2024 22:22 JEWELS PRIETO [facility]
--- OUTSIDE RECORDS SUMMARY | 2024-10-09 10:36 | XMS_ITS | Encounter Summary ---
Author Name [facility] [place] [facility] [place] Address [address] [place] [address] Care Team Providers Care Feed Preparation Operator Name Role Phone JUAN HANNA Primary Care [...] BASIC SELF+ 1 Sep 16, 2024 33C [id number] [phone] REYNA ROSALES PATIENT ANTHEM BCBS CT FEDERAL PREFERRED PROVIDER ORGANIZAT ION (PPO) BASIC SELF+ ONE Mar 17, 2018 113 [id number] [phone] REYNA ROSALES PATIENT ANTHEM BC[place] OF [place] ([place]ED[place]) PREFERRED PROVIDER ORGANIZAT ION (PPO) BASIC SELF+ ONE Mar 17, 2018 113 [id number] [phone] REYNA ROSALES PATIENT BCBS OF [place] FED[place]AL PREFERRED PROVIDER ORGANIZAT ION (PPO) BASIC SELF+ 1 Mar 17, 2018 113 [id number] [phone] REYNA ROSALES PATIENT CAREMARK FEPRX PLAN PRESCRIPT ION CAREM ARK FEPRX Sep 16, 2024 [id number] REYNA ROSALES PATIENT DARLENE-F EP BCBS PRESCRIPT ION BCBS FEP PLAN Sep 16, 2010 [id number] REYNA ROSALES PATIENT MEDICARE (WNR) MEDICARE (M) PART A Mar 17, 2018 PART A [id number] [phone] REYNA ROSALES PATIENT MEDICARE (WNR) MEDICARE (M) PART A Sep 16, 2010 PART A [id number] REYNA ROSALES PATIENT Selected Encounter This section includes the information on record at [place] for the Encounter. Date/Time Encounter Type Encounter Description Reason Pro vider Source Jul 31, 2024 01:50 PM Outpatient Encounter ADMIN PAT ACTIVTIES (MASNONCT) IHE Encounter Template Text not used by CT Plan of Treatment: Future Appointments (+ 6 months) and Future Tests (+/- 45 days) The Plan of Treatment section includes future care activities for the patient from all [place] treatmentfacilities. This section includes future appointments and future orders which are active, pending or scheduled. Future Appointments This section includes appointments that were scheduled to occur 6 months from the date of the Encounter, up to a maximum of 20 appointments. The data comes from all [place] treatment facilities. Appointment Date/Time Appointment Type Appointme nt Facility Name Aug 24, 2024 08:30 AM AMBULATORY - NONE [facility] Aug 26, 2024 08:30 AM AMBULATORY - MEDICINE [place] [facility] Sep 14, 2024 08:30 AM AMBULATORY - MEDICINE [place] [facility] Sep 15, 2024 09:30 AM AMBULATORY - REHAB [facility] Nov 05, 2024 08:30 AM AMBULATORY - MEDICINE [facility] Lab Results: +/- 30 days of the encounter This section includes the Chemistry and Hematology Lab Results on record with CT for the patient. Radiology Reports and Pathology Reports are provided separately, in subsequent sections. Lab Results This section contains the Chemistry/Hematology Results that were resulted 30 days before or 30 daysafter the date of the Encounter. Date/Time Source Result Type Result - Unit Interpretation Reference Range Comment Jul 30, 2024 02:16 PM [facility] PSA (HEAD TENNIS PROFESSIONAL) Specimen Type: SERUM Comment: , Tests performed on [employer] Trainee Robles SN:[id number] (405) TSH within normal limits. Reflex testing not required. Ordering Provider: ERIC GARDNER Report Released Date/Time: Jun 26, 2024 08:27 AM Reporting Lab: [facility] [address] [facility] [address] Performing Lab: [facility] [address] [facility] [address] PSA (HEAD TENNIS PROFESSIONAL) 3.72 ng/mL Jul 30, 2024 02:16 PM [facility] THYROID TESTING [place] Specimen Type: SERUM Comment: , Tests performed on [employer] Tra[employer] Robles SN:[id number] (405) TSH within normal limits. Reflex testing not required. Ordering Provider: ERIC GARDNER Report Released Date/Time: Jun 26, 2024 08:27 AM Reporting Lab: [facility] [address] [facility] [address] [facility]forming Lab: [facility] [address] [facility] [address] TSH 3.10 u[IU]/mL 0.35-5.00 Jul 30, 2024 02:16 PM [facility] VIT D 25-OH(J) Specimen Type: SERUM Comment: , Tests performed on [employer] Tra[employer] Robles SN:[id number] (405) TSH within normal limits. Reflex testing not required. Ordering Provider: ERIC GARDNER Report Released Date/Time: Jun 26, 2024 08:27 AM Reporting Lab: [facility] [address] [facility] [address] Performing Lab: [facility] [address] [facility] [address] VIT D 25-OH(J) 28.9 ng/mL 20.0-50.0 Jul 30, 2024 02:16 PM [facility] LIVER PROFILE Specimen Type: PLASMA Comment: , Tests performed on [employer]ai [employer] Joon SN:[id number] (405). Ordering Provider: ERIC GARDNER Report Released Date/Time: Jun 26, 2024 08:27 AM Reporting Lab: [facility] [address] [facility] [address] Performing Lab: [facility] [address] [place] [id number] PROTEIN, TOTAL 6.7 g/dL 6.0-8.5 ALBUMIN 3.7 g/dL 3.2-5.0 BILIRUBIN, TOTAL 0.4 mg/dL 0.2-1.2 ALKALINE PHOSPHATASE 41 U/L 40-150 ALT(SGPT) 34 U/L 7-52 AST(SGOT) 25 U/L 5-34 FIB-4 SCORE 1.41 <2.67 Jul 30, 2024 02:16 PM [facility] CBC NO DIFF Specimen Type: BLOOD No comment entered. Ordering Provider: ERIC GARDNER Report Released Date/Time: Jun 26, 2024 08:27 AM Reporting Lab: [facility] [address] [facility] [address] Performing Lab: [place] [phone] WBC 4.5 10*3/uL 4.5-11.0 RBC 4.59 10*6/uL 4.23-5.66 HGB 14.7 g/dL 12.8-17 HEMATOCRIT 44.0 39.2-50.4 MCV 95.9 fL 82-99 MCH 32.0 pg 26.2-32.6 MCHC 33.4 g/dL 30.8-35.1 PLT 245 10*3/uL 140-360 MPV 8.8 fL L 9.2-12.4 RDW 13.1 12.0-16.0 Jul 30, 2024 02:16 PM [facility] P4 GLU,BUN,CREAT,LYTES,CA Specimen Type: PLASMA Comment: , Tests performed on [employer] SN:[id number] (687). Ordering Provider: ERIC GARDNER Report Released Date/Time: Jun 26, 2024 08:27 AM Reporting Lab: [facility] [address] [place] [id number] Performing Lab: [place] [phone] UREA NITROGEN 15 mg/dL 7-25 SODIUM 138 mmol/L 135-145 POTASSIUM 4.4 mmol/L 3.5-5.0 CHLORIDE 103 mmol/L 100-110 CARBON DIOXIDE 28 mmol/L 20-30 ANION GAP 7 4-16 GLUCOSE 99 mg/dL 65-100 CREATININE 0.96 mg/dL 0.50-1.50 CALCIUM 8.7 mg/dL 8.5-10.5 eGFR(CKD-EPI 2020) 81 mL/min Jul 30, 2024 02:[address] [facility] CB LIPOPROTEIN CHOLESTEROL FRACT. PANEL Specimen Type: PLASMA Comment: , Tests performed on [employer] SN:[id number] (405). Ordering Provider: ERIC GARDNER Report Released Date/Time: Jun 26, 2024 08:27 AM Reporting Lab: [facility] [address] [facility] [address] Performing Lab: [facility] [address] [facility] [address] CHOLESTEROL 236 mg/dL H 0-200 TRIGLYCERIDE 183 mg/dL H 0-150 HDL CHOLESTEROL 52 mg/dL >40 LDL CHOLESTEROL (CALC) 147 mg/dL H 0-129 Social History: Smoking Status (Most current) and Tobacco Use (All prior to encounter date) This section includes the most current, and the historical, smoking and tobacco- related health factors from the CT facility where the Encounter took place. Current Smoking Status This section includes the most current smoking, or tobacco-related health factor, from the [place] facility where the Encounter took place. Date/Time Current Smoking Status Comment Facility Sep 04, 2010 01:20 PM QUIT TOBACCO USE > 7 YEARS AGO Pt. quit smoking in 1974. [facility] Advance Directives: All historical and current Section Date Range: From patient's date of to the date document was created. This section includes ALL of a patient's completed or amended CT Advance and Rescinded Directives. The entries below indicate that a directive exists for the patient, but an actual copy is not included with this document. The data comes from all CT facilities. Date Advance Directives Provider Source Oct 08, 2019 ADVANCE DIRECTIVE LEISA ROBERTS [facility] Radiology Reports: +/- 30 days [...] the Encounter. The data comes from all CT treatment facilities. Date/Time Radiology Report Provider Source Jul 31, 2024 12:10 PM UNLISTED COPIES FO R OUTSIDE REFERRAL: REYNA ROSALES [id number] -1945 M Exm Date: JUL 31, 2024@12:10 Req Phys: EDITH GARDNER Pat Loc: COM CARE-ORTHO GEN (Req'g Loc) Img Loc: XRAY (OOS) Service: Unknown (Case 63 COMPLETE) UNLISTED COPIES FOR OUTSIDE REFER(RAD Detailed) CPT:79544 Reason for Study: Copies for outside referral Clinical History: Please send 05/28/2024 knee XRs, L and R, to [facility], r/t [facility] Report Status: Electronically Filed Date Reported: Report: Copies (CD) made for outside facility. Impression: Copies (CD) made for outside facility Primary Diagnostic Code: VERIFIED BY: / *ELECTRONICALLY FILED* [facility] Encounter Notes: All associated encounter notes This section contains the clinical notes associated to the Encounter. Date/Time Encounter Note(s) Provider Source Jul 31, 2024 01:50 PM LETTERS: LOCAL TITLE: LETTER TO PATIENT ATTEMPT TO CONTACT STANDARD TITLE: LETTERS DATE OF NOTE: JUL 31, 2024@13:50 ENTRY DATE: JUL 31, 2024@13:50:31 AUTHOR: SIMONA DAVILA COSIGNER: URGENCY: STATUS: COMPLETED [facility] [address] [place] [address] JUL 31, 2024 REYNA ROSALES [address], [place] [address] Dear REYNA ROSALES, [facility] in [place] is trying to reach you to schedule an appointment. If you have already been in contact with the clinic and scheduled an appointment, you may disregard this letter. If we do not hear from you within 14 days, we will assume you no longer desire an appointment. Please call one of the numbers provided below so that we may find a suitable date for you. Service: Cardiology Service - Echocardiogram Direct: [phone] Ext: [phone] Toll Free: [phone] Ext: [phone] We look forward to hearing from you. Sincerely, Clinical Operations [facility]
--- OUTSIDE RECORDS SUMMARY | 2024-10-09 10:36 | XMS_ITS | Encounter Summary ---
Author Name [facility] [facility] [place] [facility] [place] [facility] [place] Address [address] [place] [address] Care Team Providers Care Registration Scheduling Specialist Name Role Phone JUAN HANNA Primary [...] BASIC SELF+ 1 Sep 16, 2024 [id number] [phone] REYNA ROSALES PATIENT ANTHEM BCBS CT FEDERAL PREFERRED PROVIDER ORGANIZAT ION (PPO) BASIC SELF+ ONE Mar 17, 2018 113 [id number] [phone] REYNA ROSALES PATIENT ANTHEM [place] (FEDERAL) PREFERRED PROVIDER ORGANIZAT ION (PPO) BASIC SELF+ ONE Mar 17, 2018 113 [id number] [phone] REYNA ROSALES PATIENT [place] FEDERAL PREFERRED PROVIDER ORGANIZAT ION (PPO) BASIC SELF+ 1 Mar 17, 2018 113 [id number] [phone] REYNA ROSALES PATIENT [place] FEPRX PLAN PRESCRIPT ION CAREM ARK FEPRX Sep 16, 2024 [id number] REYNA ROSALES PATIENT DARLENE-F EP BCBS PRESCRIPT ION BCBS FEP PLAN Sep 16, 2010 [id number] REYNA ROSALES PATIENT MEDICARE (WNR) MEDICARE (M) PART A Mar 17, 2018 PART A [id number] REYNA ROSALES PATIENT MEDICARE (WNR) MEDICARE (M) PART A Sep 16, 2010 PART A [id number] REYNA ROSALES PATIENT Selected Encounter This section includes the information on record at [place] for the Encounter. Date/Time Encounter Type Encounter Description Reason Provider Source Jul 30, 2024 01:00 PM OFFICE O/P EST MOD 30 MIN PRIMARY CARE/MEDICINE ICD-10-CM I10 Essential (primary) hypertension JJEDITH Ervin E Encounter Template Text not used by [facility] Assessments - Encounter Diagnoses This section includes the primary and secondary diagnoses documented for the Encounter. Date/Time Primary/Secondary Diagnosis Diagnosis Name Provider Source Aug 12, 2024 10:38 AM PRIMARY Essential (primary) hypertension JJEDITH [facility] Aug 12, 2024 10:38 AM SECONDARY Benign paroxysmal vertigo, unspecified ear JJEDITH Mueller [facility] Aug 12, 2024 10:38 AM SECONDARY Benign prostatic hyperplasia with lower urinary tract symp JJ,EDITH Ervin [facility] Aug 12, 2024 10:38 AM SECONDARY Hyperlipidemia, unspecified JJ,EDITH L [facility] Aug 12, 2024 10:38 AM SECONDARY Other obstructive and reflux uropathy JJEDITH Ervin [facility] Aug 12, 2024 10:38 AM SECONDARY Pain in left knee JJEDITH Ervin [facility] Aug 12, 2024 10:38 AM SECONDARY Pain in right knee JJ,EDITH Ervin [facility] Aug 12, 2024 10:38 AM SECONDARY Sensorineural hearing loss, bilateral JJEDITH [facility] Aug 12, 2024 10:38 AM SECONDARY Unspecified male sexual dysfunction EDITH GARDNER [facility] Aug 12, 2024 10:38 AM SECONDARY Ventral hernia without obstruction or gangrene EDITH GARDNER [facility] Plan of Treatment: Future Appointments (+ 6 months) and Future Tests (+/- 45 days) The Plan of Treatment section includes future care activities for the patient from all [place] treatmentfacilities. This section includes future appointments and future orders which are active, pending or scheduled. Future Appointments This section includes appointments that were scheduled to occur 6 months from the date of the Encounter, up to a maximum of 20 appointments. The data comes from all [place] treatment facilities. Appointment Date/Time Appointment Type Appointme nt Facility Name Aug 24, 2024 08:30 AM AMBULATORY - NONE LUCAS MARCH [facility] Aug 26, 2024 08:30 AM AMBULATORY - MEDICINE [facility] [place] Tati [facility] Sep 14, 2024 08:30 AM AMBULATORY - MEDICINE [facility] [place] Tati [facility] Sep 15, 2024 09:30 AM AMBULATORY - REHAB [facility] Nov 05, 2024 08:30 AM AMBULATORY - MEDICINE [facility] Lab Results: +/- 30 days of the encounter This section includes the Chemistry and Hematology Lab Results on record with [place] for the patient. Radiology Reports and Pathology Reports are provided separately, in subsequent sections. Lab Results This section contains the Chemistry/Hematology Results that were resulted 30 days before or 30 daysafter the date of the Encounter. Date/Time Source Result Type Result - Unit Interpretation Reference Range Comment Jul 30, 2024 02:16 PM [facility] VIT D 25-OH([facility]) Specimen Type: SERUM Comment: , Tests performed on [employer] SN:[id number] (405) TSH within normal limits. Reflex testing not required. Ordering Provider: ERIC GARDNER Report Released Date/Time: Jun 26, 2024 08:27 AM Reporting Lab: [facility] [address] [address] Performing Lab: [facility] [address] [address] VIT D 25-OH([facility]) 28.9 ng/mL 20.0-50.0 Jul 30, 2024 02:16 PM [facility] PSA (BILINGUAL SCHOOL PSYCHOLOGIST) Specimen Type: SERUM Comment: , Tests performed on [employer] SN:[id number] (405) TSH within normal limits. Reflex testing not required. Ordering Provider: ERIC GARDNER Report Released Date/Time: Jun 26, 2024 08:27 AM Reporting Lab: [facility] [address] [address] Performing Lab: [facility] [address] [address] PSA (BILINGUAL SCHOOL PSYCHOLOGIST) 3.72 ng/mL Jul 30, 2024 02:16 PM [facility] THYROID TESTING [place] Specimen Type: SERUM Comment: , Tests performed on [employer] SN:[id number] (405) TSH within normal limits. Reflex testing not required. Ordering Provider: ERIC GARDNER Report Released Date/Time: Jun 26, 2024 08:27 AM Reporting Lab: [facility] [address] [address] Performing Lab: [facility] [address] [address] TSH 3.10 u[IU]/mL 0.35-5.00 Jul 30, 2024 02:16 PM [facility] LIVER PROFILE Specimen Type: PLASMA Comment: , Tests performed on [employer] SN:[id number] (405). Ordering Provider: ERIC GARDNER Report Released Date/Time: Jun 26, 2024 08:27 AM Reporting Lab: [facility] [address] [address] Performing Lab: [facility] [address] [address] [address] PROTEIN, TOTAL 6.7 g/dL 6.0-8.5 ALBUMIN 3.7 g/dL 3.2-5.0 BILIRUBIN, TOTAL 0.4 mg/dL 0.2-1.2 ALKALINE PHOSPHATASE 41 U/L 40-150 ALT(SGPT) 34 U/L 7-52 AST(SGOT) 25 U/L 5-34 FIB-4 SCORE 1.41 <2.67 Jul 30, 2024 02:16 PM [facility] CBC NO DIFF Specimen Type: BLOOD No comment entered. Ordering Provider: ERIC GARDNER Report Released Date/Time: Jun 26, 2024 08:27 AM Reporting Lab: [facility] [address] [address] Performing Lab: [facility] [address] [place] [phone] WBC 4.5 10*3/uL 4.5-11.0 RBC 4.59 10*6/uL 4.23-5.66 HGB 14.7 g/dL 12.8-17 HEMATOCRIT 44.0 39.2-50.4 MCV 95.9 fL 82-99 MCH 32.0 pg 26.2-32.6 MCHC 33.4 g/dL 30.8-35.1 PLT 245 10*3/uL 140-360 MPV 8.8 fL L 9.2-12.4 RDW 13.1 12.0-16.0 Jul 30, 2024 02:16 PM [facility] P4 GLU,BUN,CREAT,LYTES,CA Specimen Type: PLASMA Comment: , Tests performed on [employer] SN:[id number] (405). Ordering Provider: ERIC GARDNER Report Released Date/Time: Jun 26, 2024 08:27 AM Reporting Lab: [facility] [address] [address] [address] Performing Lab: [facility] [address] [place] [phone] UREA NITROGEN 15 mg/dL 7-25 SODIUM 138 mmol/L 135-145 POTASSIUM 4.4 mmol/L 3.5-5.0 CHLORIDE 103 mmol/L 100-110 CARBON DIOXIDE 28 mmol/L 20-30 ANION GAP 7 4-16 GLUCOSE 99 mg/dL 65-100 CREATININE 0.96 mg/dL 0.50-1.50 CALCIUM 8.7 mg/dL 8.5-10.5 eGFR(CKD-EPI 2020) 81 mL/min Jul 30, 2024 02:16 PM [facility] LIPOPROTEIN CHOLESTEROL FRACT. PANEL Specimen Type: PLASMA Comment: , Tests performed on [employer] Joon SN:[id number] (405). Ordering Provider: ERIC GARDNER Report Released Date/Time: Jun 26, 2024 08:27 AM Reporting Lab: [facility] [address] [address] Performing Lab: [facility] [address] [facility] [place] [place] [address] CHOLESTEROL 236 mg/dL H 0-200 TRIGLYCERIDE 183 mg/dL H 0-150 HDL CHOLESTEROL 52 mg/dL >40 LDL CHOLESTEROL (CALC) 147 mg/dL H 0-129 Vital Signs: All taken on the encounter date This section contains inpatient and outpatient Vital Signs collected on the date of the Encounter. Date/Time Temperature Pulse Blood Pressure Respiratory Rate SP02 Pain Height Weight Body Mass Index Source Jul 30, 2024 01:23 PM 122/64 [facility] Jul 30, 2024 12:59 PM 96.9 70 144/67 95 1 66 179.8 29 [facility] [facility] Social History: Smoking Status (Most current) and Tobacco Use (All prior to encounter date) This section includes the most current, and the historical, smoking and tobacco- related health factors from the [place] facility where the Encounter took place. Current Smoking Status This section includes the most current smoking, or tobacco-related health factor, from the [place] facility where the Encounter took place. Date/Time Current Smoking Status Comment Renato amor Oct 02, 2023 11:00 AM VA-TOBACCO FORMER USER [facility] Tobacco Use History This section includes a history of the smoking, or tobacco-related health factors, that were collected on or before the date of the Encounter. The data comes from the [place] facility where the Encounter took place. Date/Time Smoking Status/Tobacco Use Comment Jimy beauchamp Oct 02, 2023 11:00 AM VA-TOBACCO QUIT 15 YRS OR MORE [facility] May 18, 2022 02:00 PM VA-TOBACCO FORMER USER [facility] May 18, 2022 02:00 PM VA-TOBACCO QUIT 15 YRS OR MORE [facility] May 17, 2021 09:30 AM VA-TOBACCO FORMER USER [facility] May 17, 2021 09:30 AM VA-TOBACCO QUIT 15 YRS OR MORE [facility] Nov 04, 2018 09:35 AM VA-TOBACCO FORMER USER [facility] Nov 04, 2018 09:35 AM VA-TOBACCO QUIT 15 YRS OR MORE [facility] January 27, 2018 03:02 PM QUIT TOBACCO USE > 7 YEARS AGO quit in 1970- [facility] Apr 05, 2016 06:59 AM QUIT TOBACCO USE > 7 YEARS AGO quit early [facility] Advance Directives: All historical and current Section Date Range: From patient's date of to the date document was created. This section includes ALL of a patient's completed or amended [place] Advance and Rescinded Directives. The entries below indicate that a directive exists for the patient, but an actual copy is not included with this document. The data comes from all [place] facilities. Date Advance Directives Provider Source Oct 08, 2019 ADVANCE DIRECTIVE ARMANDOLEISA COLON LUCAS [facility] [facility] Radiology Reports: +/- [...] the Encounter. The data comes from all [place] treatment facilities. Date/Time Radiology Report Provider Source Jul 31, 2024 12:10 PM UNLISTED COPIES FO R OUTSIDE REFERRAL: REYNA ROSALES [id number] -[id number] M Exm Date: JUL 31, 2024@12:10 Req Phys: EDITH GARDNER Pat Loc: COM CARE-ORTHO GEN (Req'g Loc) Img Loc: XRAY (OOS) Service: Unknown (Case [id number] COMPLETE) UNLISTED COPIES FOR OUTSIDE REFER(RAD Detailed) CPT:55336 Reason for Study: Copies for outside referral Clinical History: Please send 05/28/2024 knee XRs, L and R, to [facility], r/t [facility] Report Status: Electronically Filed Date Reported: Report: Copies (CD) made for outside facility. Impression: Copies (CD) made for outside facility Primary Diagnostic Code: VERIFIED BY: / *ELECTRONICALLY FILED* LUCAS MARCH [facility] Encounter Notes: All associated encounter notes This section contains the clinical notes associated to the Encounter. Date/Time Encounter Note(s) Provider Source Sep 14, 2024 12:43 PM ADDENDUM: LOCAL TITLE: Addendum STANDARD TITLE: ADDENDUM DATE OF NOTE: SEP 14, 2024@12:43:38 ENTRY DATE: SEP 14, 2024@12:43:39 AUTHOR: EDITH GARDNER EXP COSIGNER: URGENCY: STATUS: COMPLETED Please mail to /es/ EDITH GARDNER APRN Signed: 09/14/2024 12:43 Receipt Acknowledged By: 09/18/2024 08:50 /ken/ ANGELIKA DOVE Hospital Scientist --- Original Document --- 09/14/24 Letter to Patient Jeronimo Ararat: SEP 14, 2024 REYNA ROSALES [address], [place] [address] Dear REYNA ROSALES: The results of your cardiac echo show no change since the Jul 2023 study. The ma of the heart are functioning properly with good pumping ability. There is some hardening of the aortic valve with mild regurgitation (back flow). This may be the murmur I heard. No significant valve disease was seen. Please don't hesitate to call if you have any questions or concerns, . Sincerely, EDITH Scruggs [facility] [address] [place] [address] EDITH GARDNER [facility] Sep 14, 2024 12:39 PM LETTERS: LOCAL TITLE: Letter to Ila Scruggs STANDARD TITLE: LETTERS DATE OF NOTE: SEP 14, 2024@12:39 ENTRY DATE: SEP 14, 2024@12:39:21 AUTHOR: EDITH GARDNER COSIGNER: URGENCY: STATUS: COMPLETED Letter to Ila Scruggs Has ADDENDA SEP 14, 2024 REYNA ROSALES [address] [place], [place] [address] Dear REYNA ROSALES: The results of your cardiac echo show no change since the Jul 2023 study. The ma of the heart are functioning properly with good pumping ability. There is some hardening of the aortic valve with mild regurgitation (back flow). This may be the murmur I heard. No significant valve disease was seen. Please don't hesitate to call if you have any questions or concerns, . Sincerely, EDITH GARDNER APRN [place] [facility] [address] [place] [address] 09/14/2024 ADDENDUM STATUS: COMPLETED Please mail to vinny /ken/ EDITH GARDNER APRN Signed: 09/14/2024 12:43 Receipt Acknowledged By: * AWAITING SIGNATURE * ANGELIKA DOVE EVELYN L [facility] Aug 07, 2024 04:11 PM ADDENDUM: LOCAL TITLE: Addendum STANDARD TITLE: ADDENDUM DATE OF NOTE: AUG 07, 2024@16:11:23 ENTRY DATE: AUG 07, 2024@16:11:24 AUTHOR: EDITH GARDNER EXP COSIGNER: URGENCY: STATUS: COMPLETED Please mail to /ken/ EDITH GARDNER APRN Signed: 08/07/2024 16:11 Receipt Acknowledged By: 08/10/2024 08:19 /ken/ ANGELIKA DOVE Hospital Scientist --- Original Document --- 08/07/24 Letter to Patient - Sheba: AUG 07, 2024 REYNA ROSALES [address] [place], [place] [address] Dear REYNA ROSALES: I have reviewed your lab results. Complete blood count, Vit D and thyroid all look good. Electrolytes, kidney and liver function all normal. Cholesterol Your cholesterol levels are: CHOLESTEROL 236 H mg/dL 0 - 200 TRIGLYCERIDE 183 H mg/dL 0 - 150 HDL CHOLESTEROL 52 mg/dL Ref: >=40 LDL CHOLESTEROL (CALC) 147 H mg/dL 0 - 129 Comments: You can work on increasing your HDL, which is the good cholesterol. To improve this number, you can eat more fiber, avoid trans sat, and replace saturated fats with unsaturated fats. A heart-healthy diet includes lots of fruits and vegetables, fiber, and healthy fats (like those found in fish, nuts, and certain oils). It also means limiting sugar and unhealthy fats You can lower your LDL, or bad, cholesterol by avoiding red meat, butter, fried foods, cheese, and other foods that have a lot of saturated fat. You can lower triglycerides by avoiding sugary foods, fried foods, and excess alcohol. If you are overweight, it can help to lose weight. Your doctor or nurse can help you do this in a healthy way. Try to get regular physical activity. Even gentle forms of exercise, like walking, are good for your health. Even if these steps do little to change your cholesterol, they can improve your health in many other ways. Prostate level is normal Please don't hesitate to call if you have any questions or concerns, . Sincerely, EDITH Scruggs [facility] [address] [place] [address] [facility] Aug 07, 2024 04:04 PM LETTERS: LOCAL TITLE: Letter to Patient - [place] STANDARD TITLE: LETTERS DATE OF NOTE: AUG 07, 2024@16:04 ENTRY DATE: AUG 07, 2024@16:05:16 AUTHOR: EDITH GARDNER EXP COSIGNER: URGENCY: STATUS: COMPLETED Letter to Patient - Sheba Has ADDENDA AUG 07, 2024 REYNA ROS[address]ES [address] [place] [id number] Dear REYNA ROSALES: I have reviewed your lab results. Complete blood count, Vit D and thyroid all look good. Electrolytes, kidney and liver function all normal. Cholesterol Your cholesterol levels are: CHOLESTEROL 236 H mg/dL 0 - 200 TRIGLYCERIDE 183 H mg/dL 0 - 150 HDL CHOLESTEROL 52 mg/dL Ref: >=40 LDL CHOLESTEROL (CALC) 147 H mg/dL 0 - 129 Comments: You can work on increasing your HDL, which is the good cholesterol. To improve this number, you can eat more fiber, avoid trans sat, and replace saturated fats with unsaturated fats. A heart-healthy diet includes lots of fruits and vegetables, fiber, and healthy fats (like those found in fish, nuts, and certain oils). It also means limiting sugar and unhealthy fats You can lower your LDL, or bad, cholesterol by avoiding red meat, butter, fried foods, cheese, and other foods that have a lot of saturated fat. You can lower triglycerides by avoiding sugary foods, fried foods, and excess alcohol. If you are overweight, it can help to lose weight. Your doctor or nurse can help you do this in a healthy way. Try to get regular physical activity. Even gentle forms of exercise, like walking, are good for your health. Even if these steps do little to change your cholesterol, they can improve your health in many other ways. Prostate level is normal Please don't hesitate to call if you have any questions or concerns, . Sincerely, EDITH Scruggs [facility] [address] [place] [address] 08/07/2024 ADDENDUM STATUS: COMPLETED Please mail to Thanks. /es/ EDITH GARDNER APRN Signed: 08/07/2024 16:11 Receipt Acknowledged By: * AWAITING SIGNATURE * ANGELIKA DOVE EVELYN L [facility] Jul 30, 2024 01:07 PM PRIMARY CARE KELLEN Mueller EVALUATION NOTE: LOCAL TITLE: Preventive Health Annual Review STANDARD TITLE: PRIMARY CARE ANNUAL EVALUATION NOTE DATE OF NOTE: JUL 30, 2024@13:07 ENTRY DATE: JUL 30, 2024@13:07:04 AUTHOR: AVERY VICK COSIGNER: URGENCY: STATUS: COMPLETED COVID-19 Immunization: Refused Moderna Monovalent COVID-19 vaccine Immunization: COVID-19 (MODERNA), MRNA, LNP-S, PF, 50 MCG/0.5 ML (AGES 12+ YEARS) Refusal Reason: PATIENT DECISION Patient refuses all immunization(s) in the COVID-19 group Date Documented: 07/30/24 13:07 Influenza Immunization: Deferral / Refusal The patient declines to receive the recommended dose of seasonal influenza vaccine. Immunization: INFLUENZA, UNSPECIFIED FORMULATION Refusal Reason: PATIENT DECISION Patient refuses all immunization(s) in the FLU group Date Documented: 07/30/24 13:07 /ken/ AVERY VICK Health Accounting Software Specialist Signed: 07/30/2024 13:08 AVERY VICK Des [facility] Jul 30, 2024 01:07 PM PRIMARY CARE NOTE: LOCAL TITLE: Primary Care Clinic Note STANDARD TITLE: PRIMARY CARE NOTE DATE OF NOTE: JUL 30, 2024@13:07 ENTRY DATE: JUL 30, 2024@13:07:24 AUTHOR: EDITH GARDNER EXP COSIGNER: URGENCY: STATUS: COMPLETED Here for annual eval ASSES/PLAN - # BPH with urinary retention- - U/A, PSA , bladder scan PVR 325 March 2024 - tamsulosin 0.4 mg discussed side effects - repeat May 2024 U/A PVR 18 ml # vertigo/ loss of balance - tried Chang-Daroff maneuver exercises- no difference - seen in PT - much improvemnt - Continue yoga/strectching # Knee pain bilateral- -xrays and MUSKET consult done- going to [facility] for second opinion # hyperlipidemia- did not tolerate statin may consider lower dose statin but his lifestyle modifications have already lowered his cholesterol - CHO panel March 2024 CHOLESTEROL 248 H mg/dL 0 - 200 TRIGLYCERIDE 128 mg/dL 0 - 150 HDL CHOLESTEROL 56 mg/dL Ref: >=40 LDL CHOLESTEROL (CALC) 166 H mg/dL 0 - 129 Comments: # HTN - well controlled at home possible element of white coat syndrom continue with lifestyle management - # heart murmur- - echo ordered # ventral hernia epigastric- appears with sit up, spontaneouly reduces- approx 4 inches around dicussed binder not interested # hammer toe-went back to podiatry- has orthotics his feet are flattening- # lesion L ear- 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 Ariel from [facility] team, offered injections due to side effects, got some diclofenac gel but did not use it due to cardiac warnings on insert. He has an appointment at [facility] for second opinion. He was seen in PT for dizziness, was taught Chang-Daroff maneuver and provided with a pad he inflates and stands on ? these things have been great help. Has balance exercises all have helped. Started tamsulosin over the summer, urinary flow has improved no wait , strong, no dribbling. Takes B/P at home usually low 120s/70s HR 65-71 We discussed cholesterol. He has read parts of the [place] study, he also read about a study in [place] where average age of was in their 90sm all had high cholesterol. He acknowledges it is against everything reported in the [place] study We discussed risk/benefit of statin he does not want to start one at this time Having trouble staying asleep- sleeps for 4-5 hours then he is up. He gets oob, has two tangerines and coffee, reads the news. He naps every day for about an hour. Has C-PAP ? helps him sleep better when he does sleep. 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 Familial painful callosities 2. Benign Prostatic Hypertrophy with Outflow Obstruction ([facility] [id number]) 3. Pain of bilateral knee joints 4. Exposure to potentially hazardous substance 5. History of traumatic brain injury 6. Benign paroxysmal positional vertigo 7. Acquired hammer toes of bilateral feet 8. Orthostatic hypotension 9. Neoplasm of uncertain behavior of skin 10. Ventral hernia 11. Recurrent varicose vein of lower limb 12. Hyperlipidemia 13. Pain of right shoulder joint 14. Pain of right shoulder joint 15. Posttraumatic stress disorder 16. Superficial vein thrombosis 17. Personal history of Agent [place] exposure 18. Asymmetrical sensorineural hearing loss (SNOMED CT 384269646) 19. 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 Benign essential hypertension (SNOMED CT 1059156) 21. Laboratory Examination Ordered as part of a Routine General Medical Examinat 22. Neck Pain 23. Tinnitus 24. Obstructive sleep apnea of adult (SNOMED CT 8372144756229) MEDS: Active Outpatient Medications (excluding Supplies): Active Outpatient Medications Status 1) DICLOFENAC NA 1% TOP GEL APPLY 4 GRAMS TO LOWER ACTIVE EXTREMITIES TOPICALLY EVERY EIGHT HOURS NEEDED FOR PAIN/INFLAMMATION *DO NOT EXCEED 16 GRAMS DAILY TO ANY JOINT OF LOWER EXTREMITIES. DO NOT EXCEED 8 GRAMS DAILY TO ANY JOINT OF UPPER EXTREMITIES. DO NOT EXCEED TOTAL DOSE OF 32 GRAMS DAILY OVER ALL JOINTS. NEEDED FOR BILATERAL KNEE PAIN. 2) SILDENAFIL CITRATE 100MG TAB TAKE ONE TABLET BY MOUTH ACTIVE NEEDED FOR ERECTILE DYSFUNCTION MAX USE ONCE IN 24 HOUR PERIOD 3) TAMSULOSIN HCL 0.4MG CAP TAKE ONE CAPSULE [...] BY MOUTH EVERY DAY ACTIVE 6) Non-VA EFSNR-9-EMCF ETHYL ESTERS 1000MG CAP 1000MG ACTIVE MOUTH EVERY DAY 7) Non-VA PROBIOTIC CAP,ORAL BY MOUTH EVERY DAY ACTIVE 8) Non-VA RED YEAST RICE CAP/TAB 600MG MOUTH EVERY DAY ACTIVE 11 Total Medications Outside VA meds: ALLERGIES: PENICILLIN, BEE STINGS ROS: Gen: sleeps not well, good energy, appetite good CV: denies chest pain, sob, headaches, visual distubances GI: denies diarrhea, constipation, blood in stool : no urinary frequency, urgency Extrem: no edema, +pain OBJ: BP:144/67 (07/30/2024 12:59) HR:70 (07/30/2024 12:59) WT:179.8 lb [81.56 kg] (07/30/2024 12:59) HT: 66 in [167.6 cm] (07/30/2024 12:59) BODY MASS INDEX - JUL 30, 2024@12:59:03 29.1 General- Well-appearing, no apparent distress. Cardiovascular:RRR, S1,S2, no m/g/r, PMI non-displaced Respiratory: non-labored breathing, clear A & P Abdomen: abdomen soft, nontender Skin:Warm and dry. Extremities/feet: (-) edema Musculoskeletal: normal gait Psych: Normal affect and demeanor. normal speech pattern Neurological:Alert, oriented X3 Medication Reconciliation: Perform Medication Reconciliation JLV Link Data on this list may not be complete. Please check JLV. Allergies/ADRs (Tool #5) FACILITY ALLERGY/ADR -------- No Remote Allergy/ADR Data available for this patient [facility] BEE STINGS [facility] PENICILLIN [facility] (Tool #1) INCLUDED IN THIS LIST: Alphabetical list of active outpatient prescriptions dispensed from this [place] (local) and dispensed from another [place] or [facility] facility (remote) as well as inpatient orders (local pending and active), local clinic medications, locally documented non-VA medications, and local prescriptions that have or been discontinued in the past 90 days. Non-VA Meds Last Documented On: May 04, 2019 NOTE The display of VA prescriptions dispensed from another [place] or [facility] facility (remote) is limited to active outpatient prescription entries matched to National Drug File at the originating site and may not include some items such as investigational drugs, compounds, etc. NOT INCLUDED IN THIS LIST: Medications self-entered by the patient into personal health records (i.e. [employer]) are NOT included in this list. Non-VA medications documented outside this [place], remote inpatient orders (regardless of status) and remote clinic medications are NOT included in this list. The patient and provider must always discuss medications the patient is taking, regardless of where the medication was dispensed or obtained. Non-VA ASCORBIC ACID 500MG TAB TAKE ONE TABLET BY MOUTH EVERY DAY Non-VA medication recommended by VA provider. Non-VA CHOLECALCIF 25MCG (D3-1,000UNIT) TAB TAKE TWO TABLETS BY MOUTH EVERY DAY Non-VA medication recommended by VA provider. OUTPT DICLOFENAC NA 1% TOP GEL (Status = Active) APPLY 4 GRAMS TO LOWER EXTREMITIES TOPICALLY EVERY EIGHT HOURS NEEDED FOR PAIN/INFLAMMATION *DO NOT EXCEED 16 GRAMS DAILY TO ANY JOINT OF LOWER EXTREMITIES. DO NOT EXCEED 8 GRAMS DAILY TO ANY JOINT OF UPPER EXTREMITIES. DO NOT EXCEED TOTAL DOSE OF 32 GRAMS DAILY OVER ALL JOINTS. NEEDED FOR BILATERAL KNEE PAIN. Rx# [id number] Last Released: 06/01/24 Qty/Days Supply: 400/90 Rx Expiration Date: 05/29/25 Refills Remainin Indication: FOR PAIN/INFLAMMATION Non-VA MAGNESIUM CITRATE LIQUID,ORAL TAKE 400MG BY MOUTH EVERY DAY Non-VA medication recommended by VA provider. Non-VA MULTIVITAMIN/MINERALS CAP/TAB TAKE ONE CAP/TAB BY MOUTH EVERY DAY Patient wants to buy from Non-VA pharmacy. Non-VA NIACINAMIDE 500MG TAB TAKE ONE TABLET BY MOUTH EVERY DAY Patient wants to buy from Non-VA pharmacy. Non-VA LYHMA-5-REGR ETHYL ESTERS 1000MG CAP TAKE 1 CAPSULE BY MOUTH EVERY DAY Non-VA medication recommended by VA provider. Non-VA PROBIOTIC CAP,ORAL TAKE BY MOUTH EVERY DAY Non-VA medication not recommended by VA provider. Non-VA RED YEAST RICE CAP/TAB TAKE 600MG BY MOUTH EVERY DAY Non-VA medication recommended by VA provider. OUTPT SILDENAFIL CITRATE 100MG TAB (Status = Active/Suspended) TAKE ONE TABLET BY MOUTH NEEDED FOR ERECTILE DYSFUNCTION MAX USE ONCE IN 24 HOUR PERIOD Rx# [id number] Last Released: 03/12/24 Qty/Days Supply: Rx Expiration Date: 11/30/24 Refills Remainin Indication: FOR ERECTILE DYSFUNCTION OUTPT TAMSULOSIN HCL 0.4MG CAP (Status = Active/Suspended) TAKE ONE CAPSULE BY MOUTH ONCE DAILY FOR BENIGN PROSTATIC HYPERPLASIA 30 MINUTES AFTER THE SAME MEALTIME EACH DAY Rx# [id number] Last Released: 03/31/24 Qty/Days Supply: Rx Expiration Date: 03/27/25 Refills Remainin Indication: FOR BENIGN PROSTATIC HYPERPLASIA SUPPLIES Comments: does not want to use diclonefac The patient's Essential Medication List for Review was used for reconciliation to address additions, deletions, and changes as reported by the patient/caregiver. The patient\caregiver indicates that medications are not being taken as documented on the above medication list. The patient\caregiver was educated on the importance of taking medications as directed. They maintain their own up to date medication list. Was medication education provided for new medications or changes to medications? (including medication name, dose, route, reason for use, and potential side effects). No new medications or medication changes during this encounter. HTN Assess for Elevated BP>=140/90: Repeat blood pressure: 122/64 Patient reported blood pressure Systolic BP 117 Diastolic BP 70 The patient's blood pressure is usually adequately controlled. No medication changes are indicated at this time. COVID-19 Immunization: Refused Moderna Monovalent COVID-19 vaccine Immunization: COVID-19 (MODERNA), MRNA, LNP-S, PF, 50 MCG/0.5 ML (AGES 12+ YEARS) Refusal Reason: PATIENT DECISION Patient refuses all immunization(s) in the COVID-19 group Date Documented: 07/30/24 13:24 Frail/Elderly ADL & IADL Screens: ADL Screen Record INDEX of ADL. Score = 18 1. Bathing: either sponge bath, tub bath or shower. Receives no assistance (gets in and out of tub by self, if tub is usual means of bathing). 2. Dressing: gets clothes from closets and drawers, including under-clothes, outer garments and using fasteners (including braces if worn). Gets clothes and dresses self without assistance. 3. Toileting: going to the toilet room for bowel and urine elimination; cleaning self after elimination and arranging clothes. (May use cane, walker, or wheelchair, and manage bedpan or commode, emptying same next morning). No assistance needed. 4. Transfer: Moves in and out of bed, or chair, without assistance (may use support object like cane or walker). 5. Continence: Controls urination and bowel movement completely by self. 6. Feeding: Feeds self without assistance. Influenza Immunization: Deferral / Refusal The patient declines to receive the recommended dose of seasonal influenza vaccine. Immunization: INFLUENZA, UNSPECIFIED FORMULATION Refusal Reason: PATIENT DECISION Patient refuses all immunization(s) in the FLU group Date Documented: 07/30/24 13:25 Homelessness/Food Insecurity Screen: In the past 2 months, have you been living in stable housing that you own, rent, or stay in as part of a household? Yes - Living in stable housing. Are you worried or concerned that in the next 2 months you may NOT have stable housing that you own, rent, or stay in as part of a household? No - Not worried about housing near future [facility] [place] [facility] reports the following: Within the past 12 months, you worried whether your food would run out before you got money to buy more. Never true Within the past 12 months, the food you bought just didn't last and you didn't have money to get more. Never true Alcohol Use Screen (AUDIT-C): Alcohol Screen: SCREEN FOR ALCOHOL (AUDIT-C) An alcohol screening test (AUDIT-C) was negative (score=4). 1. How often did you have a drink containing alcohol in the past year? Consider a drink to be a 12 ounce can or bottle of regular beer, 8 ounces of malt liquor, a 5 ounce glass of table wine, or a 1.5 ounce shot of liquor (like scotch, gin, or vodka). Monthly or less 2. How many drinks containing alcohol did you have on a typical day when you were drinking in the past year? One or two drinks 3. How often did you have six or more drinks on one occasion in the past year? Weekly Herpes Zoster (Shingles) Vaccine: The patient declines to receive the recommended dose of zoster (shingles) vaccine. Immunization: ZOSTER RECOMBINANT Refusal Reason: PATIENT DECISION Patient refuses all immunization(s) in the ZOSTER group Date Documented: 07/30/24 13:27 Advance Directive Screen MH AD: Patient has an Advance Directive on file at this [facility]. No updates are needed at this time. The patient received education about Advance Directives and written notification of his/her rights. Comment: will send us a copy Depression Screening: Perform PHQ-2 A PHQ-2 screen was performed. The score was 0 which is a negative screen for depression. Over the past two weeks, how often have you been bothered by the following problems? 1. Little interest or pleasure in doing things Not at all 2. Feeling down, depressed, or hopeless Not at all /ken/ EDITH GARDNER [address] Signed: 07/30/2024 14:31 EDITH GARDNER [facility] Jul 30, 2024 01:01 PM PRIMARY CARE KELLEN Mueller EVALUATION NOTE: LOCAL TITLE: Preventive Health Annual Review STANDARD TITLE: PRIMARY CARE ANNUAL EVALUATION NOTE DATE OF NOTE: JUL 30, 2024@13:01 ENTRY DATE: JUL 30, 2024@13:01:56 AUTHOR: VICK,AVERY EXP COSIGNER: URGENCY: STATUS: COMPLETED Falls & Incontinence Screen: Falls Screen: 4. No falls within the past year. Incontinence Screen: No incontinence. Homelessness/Food Insecurity Screen: In the past 2 months, have you been living in stable housing that you own, rent, or stay in as part of a household? Yes - Living in stable housing. Are you worried or concerned that in the next 2 months you may NOT have stable housing that you own, rent, or stay in as part of a household? No - Not worried about housing near future [facility] [place] [facility] reports the following: Within the past 12 months, you worried whether your food would run out before you got money to buy more. Never true Within the past 12 months, the food you bought just didn't last and you didn't have money to get more. Never true Alcohol Use Screen (AUDIT-C): Alcohol Screen: SCREEN FOR ALCOHOL (AUDIT-C) An alcohol screening test (AUDIT-C) was negative (score=3). 1. How often did you have a drink containing alcohol in the past year? Consider a drink to be a 12 ounce can or bottle of regular beer, 8 ounces of malt liquor, a 5 ounce glass of table wine, or a 1.5 ounce shot of liquor (like scotch, gin, or vodka). Two to three times per week 2. How many drinks containing alcohol did you have on a typical day when you were drinking in the past year? One or two drinks 3. How often did you have six or more drinks on one occasion in the past year? Never Depression Screening: Perform PHQ-2 A PHQ-2 screen was performed. The score was 0 which is a negative screen for depression. Over the past two weeks, how often have you been bothered by the following problems? 1. Little interest or pleasure in doing things Not at all 2. Feeling down, depressed, or hopeless Not at all /ken/ AVERY VICK [employer] Specialist Signed: 07/30/2024 13:03 AVERY VICK [facility]
--- OUTSIDE RECORDS SUMMARY | 2024-10-09 10:36 | XMS_ITS | Encounter Summary ---
Author Name [facility] Address [address] [place] [address] Care Team Providers Care Interline Clerk Name Role Phone JUAN HANNA Primary [...] BASIC SELF+ 1 Sep 16, 2024 33C [id number] [phone] REYNA ROSALES PATIENT [place] FED[place]AL PREFERRED PROVIDER ORGANIZAT ION (PPO) BASIC SELF+ ONE Mar 17, 2018 113 [id number] [phone] REYNA ROSALES PATIENT ANTHEM [place] (FEDERAL) PREFERRED PROVIDER ORGANIZAT ION (PPO) BASIC SELF+ ONE Mar 17, 2018 113 [id number] [phone] REYNA ROSALES PATIENT [place] PREFERRED PROVIDER ORGANIZAT ION (PPO) BASIC SELF+ 1 Mar 17, 2018 113 [id number] REYNA ROSALES PATIENT [employer] FEPRX PLAN PRESCRIPT ION MARYJANEM ARK FEPRX Sep 16, 2024 [id number] REYNA ROSALES PATIENT CARESANKET-F EP BCBS PRESCRIPT ION BCBS FEP PLAN Sep 16, 2010 [id number] REYNA ROSALES PATIENT MEDICARE (WNR) MEDICARE (M) PART A Mar 17, 2018 PART A [id number] REYNA ROSALES PATIENT MEDICARE (WNR) MEDICARE (M) PART A Sep 16, 2010 PART A [id number] [phone] REYNA ROSALES PATIENT Selected Encounter This section includes the information on record at [place] for the Encounter. Date/Time Encounter Type Encounter Description Reason Pro vider Source Jun 16, 2024 01:00 PM Outpatient Encounter PHYSICAL THERAPY IHE Encounter Template Text not used by VA Plan of Treatment: Future Appointments (+ 6 months) and Future Tests (+/- 45 days) The Plan of Treatment section includes future care activities for the patient from all [place] treatmentfacilities. This section includes future appointments and future orders which are active, pending or scheduled. Future Appointments This section includes appointments that were scheduled to occur 6 months from the date of the Encounter, up to a maximum of 20 appointments. The data comes from all [place] treatment facilities. Appointment Date/Time Appointment Type Appointme nt Facility Name Jul 10, 2024 11:30 AM AMBULATORY - SURGERY [facility] [place] [facility] Jul 30, 2024 01:00 PM AMBULATORY - NONE [facility] Jul 30, 2024 02:00 PM AMBULATORY - NONE [facility] Aug 24, 2024 08:30 AM AMBULATORY - NONE [place] [facility] Aug 26, 2024 08:30 AM [place] [facility] Sep 14, 2024 08:30 AM [place] [facility] Sep 15, 2024 09:30 AM [facility] Nov 05, 2024 08:30 AM AMBULATORY - MEDICINE [facility] Lab Results: +/- 30 days of the encounter This section includes the Chemistry and Hematology Lab Results on record with [place] for the patient. Radiology Reports and Pathology [...] May 01, 2024 10:59 AM Reporting Lab: [facility] [address] [facility] [address] Performing Lab: [facility] [address] [facility] [address] URINE COLOR Colorless NOT DEFINED SPECIFIC GRAVITY [...] and tobacco- related health factors from the [place] facility where the Encounter took place. Current Smoking Status This section includes the most current smoking, or tobacco-related health factor, from the [place] facility where the Encounter took place. Date/Time Current Smoking Status Comment Facility Sep 04, 2010 01:20 PM QUIT TOBACCO USE > 7 YEARS AGO Pt. quit smoking in 1974. [facility] Advance Directives: All historical and current Section Date Range: From patient's date of to the date document was created. This section includes ALL of a patient's completed or amended [place] Advance and Rescinded Directives. The entries below indicate that a directive exists for the patient, but an actual copy is not included with this document. The data comes from all [place] facilities. Date Advance Directives Provider Source Oct [...] the Encounter. The data comes from all [place] treatment facilities. Date/Time Radiology Report Provider Source May 28, 2024 08:43 AM KNEE 4 VIEWS (ORTH O): REYNA ROSALES [id number] -1945 M Exm Date: MAY 28, 2024@08:43 Req Phys: JJ,EDITH L Pat Loc: LIT PACT T (Req'g Loc) Img Loc: XRAY (OOS) Service: [place] [address] (Case [id number] COMPLETE) KNEE 4 VIEWS (ORTHO) (RAD Detailed) CPT:05179 Reason for Study: knee pain Clinical History: [...] 28, 2024 Date Verified: MAY 28, 2024 Network Admin E-Sig:/ES/DERRELL RODRIGES Report: Bilateral knees: COMPARISON: No [...] Primary Interpreting Staff: DERRELL RODRIGES, RADIOLOGY ATTENDING (Network Admin) /DERRELL BARRAGAN [facility] May 28, 2024 08:43 AM KNEE 4 VIEWS (ORTH O): REYNA ROSALES [facility] [id number] -1945 M Exm Date: MAY 28, 2024@08:43 Req Phys: JJ,EDITH L Pat Loc: LIT PACT T (Req'g Loc) Img Loc: XRAY (OOS) Service: [place] [address] (Case [id number] COMPLETE) KNEE 4 VIEWS (ORTHO) (RAD Detailed) CPT:08483 Proc Modifiers : LEFT Reason for Study: [...] both knees. [facility]. coordinate with GISSELLE pearl Report Status: Verified Date Reported: MAY 28, 2024 Date Verified: MAY 28, 2024 Network Admin E-Sig:/ES/DERRELL RODRIGES Report: Bilateral knees: COMPARISON: No [...] Primary Interpreting Staff: DERRELL RODRIGES, RADIOLOGY ATTENDING (Network Admin) /DERRELL BARRAGAN [facility]
--- OUTSIDE RECORDS SUMMARY | 2024-10-09 10:36 | XMS_ITS | Encounter Summary ---
Author Name [facility] [place] Address [address] [place] [address] Care Team Providers Care Grounds And Nursery Specialist Name Role Phone JUAN HANNA Primary [...] BASIC SELF+ 1 Sep 16, 2024 33C [id number] [phone] REYNA ROSALES PATIENT ANTHEM BCBS CT FEDERAL PREFERRED PROVIDER ORGANIZAT ION (PPO) BASIC SELF+ ONE Mar 17, 2018 113 [id number] [id number] REYNA ROSALES PATIENT ANTHEM [place] (FEDERAL) PREFERRED PROVIDER ORGANIZAT ION (PPO) BASIC SELF+ ONE Mar 17, 2018 113 [id number] REYNA ROSALES PATIENT [place] FEDERAL PREFERRED PROVIDER ORGANIZAT ION (PPO) BASIC SELF+ 1 Mar 17, 2018 113 [id number] [phone] REYNA ROSALES PATIENT [employer] FEPRX PLAN PRESCRIPT ION CAR[employer] ARK FEPRX Sep 16, 2024 [id number] REYNA ROSALES PATIENT [employer]-F EP BCBS PRESCRIPT ION BCBS FEP PLAN Sep 16, 2010 [id number] REYNA ROSALES PATIENT MEDICARE (WNR) MEDICARE (M) PART A Mar 17, 2018 PART A [id number] REYNA ROSALES PATIENT MEDICARE (WNR) MEDICARE (M) PART A Sep 16, 2010 PART A [id number] REYNA ROSALES PATIENT Selected Encounter This section includes the information on record at [place] for the Encounter. Date/Time Encounter Type Encounter Description Reason Provider Source May 28, 2024 09:39 AM Outpatient Encounter PROSTHETICS/ORTHOTIC S KALEY MARTIN Encounter Template Text not used by [place] Plan of Treatment: Future Appointments (+ 6 months) and Future Tests (+/- 45 days) The Plan of Treatment section includes future care activities for the patient from all [place] treatmentfacilities. This section includes future appointments and future orders which are active, pending or scheduled. Future Appointments This section includes appointments that were scheduled to occur 6 months from the date of the Encounter, up to a maximum of 20 appointments. The data comes from all [place] treatment facilities. Appointment Date/Time Appointment Type Appointme nt Facility Name Jun 16, 2024 01:00 PM AMBULATORY - REHAB [facility] Jul 10, 2024 11:30 AM AMBULATORY - SURGERY [facility] Jul 30, 2024 01:00 PM AMBULATORY - NONE [facility] Jul 30, 2024 02:00 PM AMBULATORY - NONE [facility] Aug 24, 2024 08:30 AM AMBULATORY - NONE [facility] [place] [facility] Aug 26, 2024 08:30 AM AMBULATORY - MEDICINE [facility] Sep 14, 2024 08:30 AM AMBULATORY - MEDICINE [facility] Sep 15, 2024 09:30 AM [facility] Nov 05, 2024 08:30 AM AMBULATORY - MEDICINE [facility] Lab Results: +/- 30 days of the [...] Range Comment May 21, 2024 09:08 AM [facility] URINALYSIS W/REFLEX TO CULTURE Specimen Type: URINE No comment entered. Ordering Provider: ERIC GARDNER Report Released Date/Time: May 01, 2024 10:59 AM Reporting Lab: [facility] [address] [facility] [address] Performing Lab: [facility] [address] [facility] [address] URINE COLOR Colorless NOT DEFINED SPECIFIC GRAVITY [...] smoking, or tobacco-related health factor, from the [place] facility where the Encounter took place. Date/Time Current Smoking Status Comment Facility Sep 04, 2010 01:20 PM QUIT TOBACCO USE > 7 YEARS AGO Pt. quit smoking in 1974. [facility] Advance Directives: All historical and current Section Date Range: From patient's date of to the date document was created. This section includes ALL of a patient's completed or amended VA Advance and Rescinded Directives. The entries below indicate that a directive exists for the patient, but an actual copy is not included with this document. The data comes from all [place] facilities. Date Advance Directives Provider Source Oct 08, 2019 ADVANCE DIRECTIVE LEISA ROBERTS [facility] Radiology Reports: +/- 30 days of [...] the Encounter. The data comes from all [place] treatment facilities. Date/Time Radiology Report Provider Source May 28, 2024 08:43 AM KNEE 4 VIEWS (ORTH O): REYNA ROSALES [id number] -1945 M Exm Date: MAY 28, 2024@08:43 Req Phys: EDITH GARDNER Pat Loc: LIT PACT T (Req'g Loc) Img Loc: XRAY (OOS) Service: [place] [address] (Case [id number] COMPLETE) KNEE 4 VIEWS (ORTHO) (RAD Detailed) CPT:26714 Reason for Study: knee pain Clinical History: [...] 28, 2024 Date Verified: MAY 28, 2024 [place] Guide E-Sig:/ES/DERRELL RODRIGES Report: Bilateral knees: COMPARISON: No [...] Primary Interpreting Staff: DERRELL RODRIGES, RADIOLOGY ATTENDING ([place] Guide) /DERRELL BARRAGAN [facility] May 28, 2024 08:43 AM KNEE 4 VIEWS (ORTH O): REYNA ROSALES [facility] [id number] -1945 M Exm Date: MAY 28, 2024@08:43 Req Phys: JJ,EDITH L Pat Loc: LIT PACT T (Req'g Loc) Img Loc: XRAY (OOS) Service: [place] [address] (Case [id number] COMPLETE) KNEE 4 VIEWS (ORTHO) (RAD Detailed) CPT:61108 Proc Modifiers : LEFT Reason for Study: [...] 28, 2024 Date Verified: MAY 28, 2024 [place] Guide E-Sig:/ES/DERRELL RODRIGES Report: Bilateral knees: COMPARISON: No [...] Primary Interpreting Staff: DERRELL RODRIGES, RADIOLOGY ATTENDING ([place] Guide) /DERRELL BARRAGAN [facility]
--- OUTSIDE RECORDS SUMMARY | 2024-10-09 10:36 | XMS_ITS | Encounter Summary ---
Author Name [facility] [place] [facility] [place] [facility] [place] Address [address] [place] [address] Care Team Providers Care Relief Mate Name Role Phone JUAN HANNA Primary Care [...] BASIC SELF+ 1 Sep 16, 2024 33C [id number] [phone] REYNA ROSALES PATIENT ANTHEM BCBS CT FEDERAL PREFERRED PROVIDER ORGANIZAT ION (PPO) BASIC SELF+ ONE Mar 17, 2018 113 [id number] [phone] REYNA ROSALES PATIENT ANTHEM BCBS OF [place] (FEDERAL) PREFERRED PROVIDER ORGANIZAT ION (PPO) BASIC SELF+ ONE Mar 17, 2018 113 [id number] [phone] REYNA ROSALES PATIENT BCBS OF [place] FEDERAL PREFERRED PROVIDER ORGANIZAT ION (PPO) BASIC SELF+ 1 Mar 17, 2018 113 [id number] REYNA ROSALES DARLENE FEPRX PLAN PRESCRIPT ION CAREM ARK FEPRX Sep 16, 2024 [id number] REYNA ROSALES PATIENT DARLENE-F EP BCBS PRESCRIPT ION BCBS FEP PLAN Sep 16, 2010 [id number] REYNA ROSALES PATIENT MEDICARE (WNR) MEDICARE (M) PART A Mar 17, 2018 PART A [id number] [phone] REYNA ROSALES PATIENT MEDICARE (WNR) MEDICARE (M) PART A Sep 16, 2010 PART A [id number] [phone] REYNA ROSALES PATIENT Selected Encounter This section includes the information on record at [place] for the Encounter. Date/Time Encounter Type Encounter Description Reason Provider Source May 28, 2024 09:00 AM OFF/OP CNSLTJ NEW/EST LOW 30 ORTHO/JOINT SURG ICD-10-CM M17.0 Bilateral primary osteoarthritis of knee GÓMEZ KNIGHT Tati Encounter Template Text not used by [place] Assessments - Encounter Diagnoses This section includes the primary and secondary diagnoses documented for the Encounter. Date/Time Primary/Secondary Diagnosis Diagnosis Name Provider Source Jun 12, 2024 11:38 AM PRIMARY Bilateral primary osteoarthritis of knee GÓMEZ KNIGHT [facility] Jun 12, 2024 11:38 AM SECONDARY Pain in left knee GÓMEZ KNIGHT [facility] Jun 12, 2024 11:38 AM SECONDARY Pain in right knee GÓMEZ KNIGHT [facility] Plan of Treatment: Future Appointments (+ [...] PM AMBULATORY - REHAB MEDICIN [facility] Jul 10, 2024 11:30 AM AMBULATORY - SURGERY [facility] Jul 30, 2024 01:00 PM AMBULATORY - NONE [facility] Jul 30, 2024 02:00 PM AMBULATORY - NONE [facility] Aug 24, 2024 08:30 AM AMBULATORY - NONE [facility] Aug 26, 2024 08:30 AM AMBULATORY - MEDICINE [facility] Sep 14, 2024 08:30 AM AMBULATORY - MEDICINE [facility] Sep 15, 2024 09:30 AM AMBULATORY - REHAB MEDICIN [facility] Nov 05, 2024 08:30 AM AMBULATORY - MEDICINE [facility] Lab Results: +/- 30 days of [...] Range Comment May 21, 2024 09:08 AM [facility] URINALYSIS W/REFLEX TO CULTURE Specimen Type: URINE No comment entered. Ordering Provider: ERIC GARDNER Report Released Date/Time: May 01, 2024 10:59 AM Reporting Lab: [facility] [address] [address] Performing Lab: [facility] [address] [address] URINE COLOR Colorless NOT DEFINED SPECIFIC GRAVITY [...] YEARS AGO Pt. quit smoking in 1974. [facility] Advance Directives: All historical and current [...] Oct 08, 2019 ADVANCE DIRECTIVE LEISA ROBERTS [facility] Radiology Reports: +/- 30 days of [...] KNEE 4 VIEWS (ORTH O): REYNA ROSALES [id number] -1945 M Exm Date: MAY 28, 2024@08:43 Req Phys: EDITH GARDNER Pat Loc: LIT PACT T (Req'g Loc) Img Loc: XRAY (OOS) Service: [place] [address] (Case [id number] COMPLETE) KNEE 4 VIEWS (ORTHO) (RAD Detailed) CPT:66968 Reason for Study: knee pain Clinical History: [...] 28, 2024 Date Verified: MAY 28, 2024 Shop Tailor E-Sig:/ES/DERRELL RODRIGES Report: Bilateral knees: COMPARISON: No [...] Primary Interpreting Staff: DERRELL RODRIGES, RADIOLOGY ATTENDING (Shop Tailor) /DERRELL [facility]ARRAGAN [facility] May 28, 2024 08:43 AM KNEE 4 VIEWS (ORTH O): REYNA ROSALES [facility] [id number] -1945 M Exm Date: MAY 28, 2024@08:43 Req Phys: EDITH GARDNER L Pat Loc: LIT PACT T (Req'g Loc) Img Loc: XRAY (OOS) Service: [place] [address] (Case [id number] COMPLETE) KNEE 4 VIEWS (ORTHO) (RAD Detailed) CPT:08682 Proc Modifiers : LEFT Reason for Study: [...] tears surgically repaired both knees. Agus Finch [facility]. coordinate with Sc[facility] apt Report Status: Verified Date Reported: MAY 28, 2024 Date Verified: MAY 28, 2024 Shop Tailor E-Sig:/ES/DERRELL RODRIGES Report: Bilateral knees: COMPARISON: No [...] Primary Interpreting Staff: DERRELL RODRIGES, RADIOLOGY ATTENDING (Shop Tailor) /DERRELL BARRAGAN [facility] Encounter Notes: All associated encounter notes This section contains the clinical notes associated to the Encounter. Date/Time Encounter Note(s) Provider Source May 28, 2024 10:23 AM ORTHOPEDIC SURGERY CONSULT: LOCAL TITLE: CONSULT: Orthopedic Surgery STANDARD TITLE: ORTHOPEDIC SURGERY CONSULT DATE OF NOTE: MAY 28, 2024@10:23 ENTRY DATE: MAY 29, 2024@11:25:25 AUTHOR: GÓMEZ KNIGHT COSIGNER: URGENCY: STATUS: COMPLETED CHIEF COMPLAINT: Left greater than right knee pain. HISTORY OF PRESENT ILLNESS: The patient is a 78-year-old male with a several year history of left greater than right knee pain. His pain is intermittent, global, aching in nature. It tends to be worse in the medial aspect. The pain increases with prolonged walking, prolonged standing, stairs. He avoids kneeling activities. His pain has decreased with rest. He is not taking any medications for pain or arthritis. He relates that he does not like to take medications. Denies swelling, instability with his knees. He has not used a brace or a cane. He has had no infections or injections of his knees. He was walking up to a mile a day; however, has had to significantly curtail that due to knee pain. He is able to bike with his 17 to 30 miles 2 to 3 times a week and that does not bother his knees. He has had 2 prior arthroscopies for presumed meniscal tears on both knees. These were done approximately 20 and 15 years ago. He denies any wound healing issues, denies any history of infections after these surgeries. He denies any bilateral hip or groin area pain. He has had no back pain in the past, got right lower extremity sciatica he said after seeing a chiropractor, switched over to a massage therapist, has not had any additional left lower extremity sciatica. This was approximately 15 years ago. He denies any lower extremity paresthesias. He had a superficial vein thrombosis on the right, and was evaluated for varicose veins awhile ago with no operative intervention, no blood thinners, and uses a compression stocking on his left lower extremity. He is not on blood thinners, he is not on aspirin. Denies bleeding problems. Denies a history of DVT, PE. Denies rheumatoid arthritis, psoriatic arteritis, gout. Relates he tested positive once for COVID but was not symptomatic. He has been vaccinated for COVID. He denies fevers, chills, or recent illness. SOCIAL HISTORY: He is . He is retired. He is as [employer] . He is very active around the house doing work around the house. He quit smoking numerous years ago. He smoked a pack a day for about 3 years while he was in the service. He denies vaping or other nicotine sources now. He drinks 1 beer or a glass of wine most nights of the week. He denies a history of IV or illicit drug use. ALLERGIES: 1. Penicillin with rash. 2. Bee stings with swelling. MEDICATIONS: 1. Sildenafil. 2. Tamsulosin. 3. Probiotic. 4. Vitamin D3. 5. Red yeast rice capsule. 6. Roxie 3 fatty acid. 7. Vitamin C. 8. Magnesium. 9. Multivitamin. 10. Niacinamide. REVIEW OF SYSTEMS: 1. Hearing loss, uses hearing aids. 2. Sleep apnea, uses CPAP. 3. BPH. 4. Benign paroxysmal vertigo. 5. Post traumatic stress disorder. Denies diabetes, thyroid problems. Denies glaucoma. Denies COPD, asthma. Denies NV, chest pain, heart failure, atrial fibrillation, hypertension, hypercholesterolemia. Denies orthopnea, paroxysmal nocturnal dyspnea. Denies gastroesophageal reflux disease, peptic ulcer disease, weight loss, change in bowel habits, bright red blood per rectum, black tarry stools. Nocturia 0 to 1 times a night. Denies hematuria, dysuria, UTIs, kidney stones. Denies strokes or seizures. Denies depression, anxiety. PAST SURGICAL HISTORY: 1. 2 right knee arthroscopies done approximately 20 and 15 years ago. 2. 2 left knee arthroscopies done approximately 20 and 15 years ago. 3. Bilateral cataract extractions. 4. Open reduction, internal fixation of the right arm fracture. 5. Bilateral inguinal hernia repairs as an . 6. Open reduction, internal fixation of a jaw fracture in 1994. PAST MEDICAL HISTORY: 1. Benign paroxysmal vertigo. 2. PTSD. 3. Sleep apnea. 4. BPH. He has an upper dental bridge, and he has regular dental visits with issues. PHYSICAL EXAMINATION: General: Reveals an age appropriate male in no acute respiratory distress. Musculoskeletal: His gait is satisfactory. He is able to heel and toe rise. He has intact sensation to light touch in the lower extremities. Lower extremity muscle strength is 5/5. Bilateral foraminal, popliteal, dorsalis pedis, posterior tibial arterial pulses are palpable. His calves are soft, nontender. He has mild varicose veins on the right, and no pedal edema. Bilateral Hip Exams: Essentially the same and would be described as one: Flexion 100 degrees. The remainder of the bilateral hip range of motion is satisfactory without crepitus, groin pain, anterior thigh pain, or hip area pain complaints. No tenderness on palpation over the greater trochanteric area. Negative log roll, negative pelvic rock. Stinchfield's is negative. Steven's testing is negative. Straight leg raising is negative. Bilateral Knee Exams: Are essentially the same and will be described as one: There are no gross deformities. There is minimal clinical genu varum. There are well healed arthroscopic stab incisions about the knee. Range of motion is 0 to 120 degrees. Trace effusion. No signs of infection. Minimal patellar crepitation. Negative ballottement test. Patellar tracking is normal. There is some medial joint line opening with valgus stress with the knee flexed 30 degrees. Collateral ligaments are stable to varus/valgus stress testing done with the knee in full extension. Minimal tenderness on palpation of the medial joint lines. Anterior drawer 5 mm, Mary's is negative. STUDIES: Report Status: Verified Date Reported: MAY 28, 2024 Date Verified: MAY 28, 2024 Shop Tailor E-Sig:/ES/DERRELL RODRIGES Report: Bilateral knees: COMPARISON: No [...] compartments bilaterally. 2. Bilateral joint effusions (small). X-rays were reviewed with him. IMPRESSION AND PLAN: Left greater than right knee pain in a 78-year-old male with a BMI of 28. His bilateral knee pain and problems are from a varus pattern osteoarthritis with bone on bone appearance on the tunnel views, bilateral knees. He also has some patellofemoral degenerative changes. I discussed the nature of his bilateral knee pain, problems, findings, treatment options, and considerations with him. Discussed conservative treatment options versus consideration for total knee arthroplasty. Discussed the indications for and purely elective nature of total knee arthroplasty with him. Discussed expected outcomes of total knee arthroplasty with him. Presently he does not desire consideration for a knee replacement. Discussed conservative treatments of activity modification, avoidance of aggravating activities, avoiding high impact activities, oral medications, topical medications, physical therapy for quad strengthening, consideration of medial uploader brace, trial of intra-articular cortisone injections. Discussed the hurtful, but not harmful, nature of osteoarthritis with him. After discussion, he would like to try to diclofenac gel and we will mail this out to him. Questions were solicited and answered. He desires to be followed up as needed. 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
--- OUTSIDE RECORDS SUMMARY | 2024-10-09 10:36 | XMS_ITS | Encounter Summary ---
Author Name [facility] [place] [facility] [place] [facility] [place] Address [address] [place] [address] Care Team Providers Care Oceanographer Assistant Name Role Phone JUAN HANNA Primary Care [...] BASIC SELF+ 1 Sep 16, 2024 33C [id number] [phone] REYNA ROSALES PATIENT ANTHEM BCBS CT FEDERAL PREFERRED PROVIDER ORGANIZAT ION (PPO) BASIC SELF+ ONE Mar 17, 2018 113 [id number] [phone] REYNA ROSALES PATIENT ANTHEM BCBS OF [place] (FEDERAL) PREFERRED PROVIDER ORGANIZAT ION (PPO) BASIC SELF+ ONE Mar 17, 2018 113 [id number] [phone] REYNA ROSALES PATIENT [place]BS OF [place] FEDERAL PREFERRED PROVIDER ORGANIZAT ION (PPO) BASIC SELF+ 1 Mar 17, 2018 113 [id number] [phone] REYNA ROSALES PATIENT CAREMARK FEPRX PLAN PRESCRIPT ION CAREM ARK FEPRX Sep 16, 2024 [id number] REYNA ROSALES PATIENT DARLENE-F EP BCBS PRESCRIPT ION BCBS FEP PLAN Sep 16, 2010 [id number] REYNA ROSALES PATIENT MEDICARE (WNR) MEDICARE (M) PART A Mar 17, 2018 PART A [id number] REYNA ROSALES PATIENT MEDICARE (WNR) MEDICARE (M) PART A Sep 16, 2010 PART A [id number] [phone] REYNA ROSALES PATIENT Selected Encounter This section includes the information on record at [place] for the Encounter. Date/Time Encounter Type Encounter Description Reason Provider Source Jun 15, 2024 11:34 AM FIT SPECTACLES MULTIFOCAL ADMIN PAT ACTIVTIES (MASNONCT) ICD-10-CM Z46.0 Encounter for fit/adjst of spectacles and contact lenses SUNITHA GONZALEZ IHTati Encounter Template Text not used by [place] Assessments - Encounter Diagnoses This section includes the primary and secondary diagnoses documented for the Encounter. Date/Time Primary/Secondary Diagnosis Diagnosis Name Provider Source Jun 15, 2024 11:34 AM PRIMARY Encounter for fit/adjst of spectacles and contact lenses SUNITHA GONZALEZ [facility] Plan of Treatment: Future Appointments (+ 6 months) and Future Tests (+/- 45 days) The Plan of Treatment section includes future care activities for the patient from all [place] treatmentfacilities. This section includes future appointments and future orders which are active, pending or scheduled. Future Appointments This section includes appointments that were scheduled to occur 6 months from the date of the Encounter, up to a maximum of 20 appointments. The data comes from all [place] treatment facilities. Appointment Date/Time Appointment Type Appointme nt Facility Name Jun 16, 2024 01:00 PM AMBULATORY - REHAB MEDICIN E [facility] Jul 10, 2024 11:30 AM AMBULATORY - SURGERY [facility] Jul 30, 2024 01:00 PM [facility]ATORY - NONE [facility] Jul 30, 2024 02:00 PM AMBULATORY - NONE [facility] Aug 24, 2024 08:30 AM AMBULATORY - NONE LUCAS MARCH [facility] Aug 26, 2024 08:30 AM AMBULATORY - MEDICINE GANESH MARCH [facility] Sep 14, 2024 08:30 AM AMBULATORY - MEDICINE GANESH MARHC [facility] Sep 15, 2024 09:30 AM AMBULATORY - REHAB [facility] Nov 05, 2024 08:30 AM AMBULATORY - MEDICINE [facility] Lab Results: +/- 30 days of the encounter This section includes the Chemistry and Hematology Lab Results on record with [place] for the patient. Radiology Reports and Pathology Reports are provided separately, in subsequent sections. Lab Results This section contains the Chemistry/Hematology Results that were resulted 30 days before or 30 daysafter the date of the Encounter. Date/Time Source Result Type Result - Unit Interpretation Reference Range Comment May 21, 2024 09:08 AM [facility] URINALYSIS W/REFLEX TO CULTURE Specimen Type: URINE No comment entered. Ordering Provider: ERIC GARDNER Report Released Date/Time: May 01, 2024 10:59 AM Reporting Lab: LUCAS MARCH [facility] [address] [facility] [address] Performing Lab: [facility] [address] [facility] [address] URINE COLOR Colorless NOT DEFINED SPECIFIC GRAVITY [...] and tobacco- related health factors from the [place] facility where the Encounter took place. Current Smoking Status This section includes the most current smoking, or tobacco-related health factor, from the [place] facility where the Encounter took place. Date/Time Current Smoking Status Comment Facility Sep 04, 2010 01:20 PM QUIT TOBACCO USE > 7 YEARS AGO Pt. quit smoking in 1974. LUCAS MARCH [facility] Advance Directives: All historical and current Section Date Range: From patient's date of to the date document was created. This section includes ALL of a patient's completed or amended [place] Advance and Rescinded Directives. The entries below indicate that a directive exists for the patient, but an actual copy is not included with this document. The data comes from all [place] facilities. Date Advance Directives Provider Source Oct 08, 2019 ADVANCE DIRECTIVE LEISA ROBERTS [facility] Radiology Reports: +/- 30 days of [...] the Encounter. The data comes from all [place] treatment facilities. Date/Time Radiology Report Provider Source May 28, 2024 08:43 AM KNEE 4 VIEWS (ORTH O): REYNA ROSALES [facility] [id number] -1945 M Exm Date: MAY 28, 2024@08:43 Req Phys: EDITH GARDNER Pat Loc: LIT PACT T (Req'g Loc) Img Loc: XRAY (OOS) Service: [place] [address] (Case [id number] COMPLETE) KNEE 4 VIEWS (ORTHO) (RAD Detailed) CPT:90698 Reason for Study: knee pain Clinical History: [...] 28, 2024 Date Verified: MAY 28, 2024 Event Technician E-Sig:/ES/DERRELL RODRIGES Report: Bilateral knees: COMPARISON: No [...] Primary Interpreting Staff: DERRELL RODRIGES, RADIOLOGY ATTENDING (Event Technician) /DERRELL BARRAGAN [facility] May 28, 2024 08:43 AM KNEE 4 VIEWS (ORTH O): REYNA ROSALES [facility] [id number] -1945 M [facility] Date: MAY 28, 2024@08:43 Req Phys: JJ,EDITH L Pat Loc: LIT PACT T (Req'g Loc) Img Loc: XRAY (OOS) Service: [place] [address] (Case [id number] COMPLETE) KNEE 4 VIEWS (ORTHO) (RAD Detailed) CPT:68238 Proc Modifiers : LEFT Reason for Study: [...] both knees. [facility]. coordinate with [employer] apt Report Status: Verified Date Reported: MAY 28, 2024 Date Verified: MAY 28, 2024 Event Technician E-Sig:/ES/DERRELL RODRIGES Report: Bilateral knees: COMPARISON: No [...] Primary Interpreting Staff: DERRELL RODRIGES, RADIOLOGY ATTENDING (Event Technician) /DERRELL BARRAGAN [facility] Encounter Notes: All associated encounter notes This section contains the clinical notes associated to the Encounter. Date/Time Encounter Note(s) Provider Source Jun 15, 2024 11:50 AM ADDENDUM: LOCAL TITLE: Addendum STANDARD TITLE: ADDENDUM DATE OF NOTE: JUN 15, 2024@11:50:32 ENTRY DATE: JUN 15, 2024@11:50:33 AUTHOR: SUNITHA GONZALEZ EXP COSIGNER: URGENCY: STATUS: COMPLETED NEW FIT Multifocal Mohawk was fit with 2 pair (FULLTIME PAL & COMPUTER PAL) new multifocal eyeglasses (59669), which will be mailed to the 's home in approximately three weeks. was informed that he or she may return to the clinic by appointment for fittings, repairs, and adjustments as needed. CC RX: [facility] [phone] 06/08/24 EXP - 06/08/26 FULLTIME PAL & COMPUTER PAL Dr Enma Monroy, OD Lic#[id number] FULLTIME PAL: The quote provided below is for informational purposes only. Please verify prior to the creation of a purchase order. REYNA ROSALES 3687 RX INFORMATION OD +0.75 -1.50 X92 Add:+2.75 Pzm:+3.00 Dir:DOWN Prz2:0.00 Dir2: OS 0.00 0.00 X Add:+2.75 Pzm:+3.50 Dir:UP Prz2:0.00 Dir2: FITTING INFORMATION FPD: NPD: [place]:R:30 L:29 SEG HT:R:24 L:24 Tint:None Shade:None [place] Billable Items FRAME: [address] [place] [address] [id number] Right Lens: POLY VARILUX COMFORT DRX TRANSITIONS SUMMERS XTRA ACTIVE 1.586 POLY Left Lens: POLY VARILUX COMFORT DRX TRANSITIONS SUMMERS XTRA ACTIVE 1.586 POLY SCRATCH RESISTANT COATING HERIBERTO KLEAR ANTI-REFLECTIVE COATING PRZM1 PRZM1 COMPUTER PAL: The quote provided below is for informational purposes only. Please verify prior to the creation of a purchase order. REYNA ROSALES 3687 RX INFORMATION OD +2.25 -1.50 X92 Add:+1.25 Pzm:+3.00 Dir:DOWN Prz2:0.00 Dir2: OS +1.50 0.00 X Add:+1.25 Pzm:+3.50 Dir:UP Prz2:0.00 Dir2: FITTING INFORMATION FPD: NPD: [place]:R:29 L:28 SEG HT:R:24 L:24 Tint:None Shade:None [place] Billable Items FRAME: FX10 GUNMETAL [id number] Right Lens: POLY VARILUX PHYSIO DRX 1.586 POLY Left Lens: POLY VARILUX PHYSIO DRX 1.586 POLY CRIZAL AVANCE AR PRZM1 PRZM1 Glasses fit by:Sunitha Gonzalez /ken/ SUNITHA RASMUSSEN Signed: 06/15/2024 12:04 Receipt Acknowledged By: 06/15/2024 13:57 /es/ BALDO KUHN POWER HAIR CLIPPER --- Original Document --- 06/15/24 Has Admin Note: Reason for call Clinic Name:EYE Pt dropped off new Rx to be ordered with same frames. Pt had a question: is there a flip down magnifier for eyeglasses that could be ordered? 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 /ken/ LISA CHOI MSA Signed: 06/15/2024 11:40 Receipt Acknowledged By: 06/15/2024 11:50 /ken/ SUNITHA RASMUSSEN 06/15/2024 ADDENDUM STATUS: COMPLETED IN REGARD TO THE FLIP-DOWN MAGNIFYER, THAT IS A CUSTOM OR LOW-VISION AID THAT [facility] DOES NOT SUPPLY. I WOULD CHECK WITH DR DE JESUS TO SEE IF SHE HAS ANY LOW VISION AIDS THAT MIGHT WORK. /ken/ SUNITHA RASMUSSEN Signed: 06/15/2024 11:50 Receipt Acknowledged By: * AWAITING SIGNATURE * HOWARD DE JESUS * AWAITING SIGNATURE * LISA CHOI [facility] Jun 15, 2024 11:48 AM ADDENDUM: LOCAL TITLE: Addendum STANDARD TITLE: ADDENDUM DATE OF NOTE: JUN 15, 2024@11:48:16 ENTRY DATE: JUN 15, 2024@11:48:18 AUTHOR: SUNITHA GONZALEZ EXP COSIGNER: URGENCY: STATUS: COMPLETED IN REGARD TO THE FLIP-DOWN MAGNIFYER, THAT IS A CUSTOM OR LOW-VISION AID THAT [facility] DOES NOT SUPPLY. I WOULD CHECK WITH DR DE JESUS TO SEE IF SHE HAS ANY LOW VISION AIDS THAT MIGHT WORK. /es/ SUNITHA GONZALEZ LOOPER FIXER Signed: 06/15/2024 11:50 Receipt Acknowledged By: 07/21/2024 11:36 /es/ HOWARD DE JESUS, OD CHIEF, OPTOMETRY 06/19/2024 07:59 /es/ LISA CHOI MSA --- Original Document --- 06/15/24 Has Admin Note: Reason for call Clinic Name:EYE Pt dropped off new Rx to be ordered with same frames. Pt had a question: is there a flip down magnifier for eyeglasses that could be ordered? 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 /es/ LISA CHOI MSA Signed: 06/15/2024 11:40 Receipt Acknowledged By: 06/15/2024 11:50 /es/ SUNITHA RASMUSSEN 06/15/2024 ADDENDUM STATUS: COMPLETED NEW FIT Multifocal Mohawk was fit with 2 pair (FULLTIME PAL & COMPUTER PAL) new multifocal eyeglasses (55599), which will be mailed to the 's home in approximately three weeks. was informed that he or she may return to the clinic by appointment for fittings, repairs, and adjustments as needed. CC RX: [facility] [phone] 06/08/24 EXP - 06/08/26 FULLTIME PAL & COMPUTER PAL Dr Enma Monroy, OD Lic#[id number] FULLTIME PAL: The quote provided below is for informational purposes only. Please verify prior to the creation of a purchase order. REYNA ROSALES 0182 RX INFORMATION OD +0.75 -1.50 X92 Add:+2.75 Pzm:+3.00 Dir:DOWN Prz2:0.00 Dir2: OS 0.00 0.00 X Add:+2.75 Pzm:+3.50 Dir:UP Prz2:0.00 Dir2: FITTING INFORMATION FPD: NPD: [place]:R:30 L:29 SEG HT:R:24 L:24 Tint:None Shade:None [place] Billable Items FRAME: FX10 COFFEE Right Lens: POLY VARILUX COMFORT DRX TRANSITIONS SUMMERS XTRA ACTIVE 1.586 POLY Left Lens: POLY VARILUX COMFORT DRX TRANSITIONS SUMMERS XTRA ACTIVE 1.586 POLY SCRATCH RESISTANT COATING HERIBERTO KLEAR ANTI-REFLECTIVE COATING PRZM1 PRZM1 COMPUTER PAL: The quote provided below is for informational purposes only. Please verify prior to the creation of a purchase order. REYNA ROSALES 3687 RX INFORMATION OD +2.25 -1.50 X92 Add:+1.25 Pzm:+3.00 Dir:DOWN Prz2:0.00 Dir2: OS +1.50 0.00 X Add:+1.25 Pzm:+3.50 Dir:UP Prz2:0.00 Dir2: FITTING INFORMATION FPD: NPD: [place]:R:29 L:28 SEG HT:R:24 L:24 Tint:None Shade:None VA Billable Items FRAME: FX10 [facility] Right Lens: POLY VARILUX PHYSIO DRX 1.586 POLY Left Lens: POLY VARILUX PHYSIO DRX 1.586 POLY CRIZAL AVANCE AR PRZM1 PRZM1 Glasses fit by:Sunitha Gonzalez /ken/ SUNITHA GONZALEZ LOOPER FIXER Signed: 06/15/2024 12:04 Receipt Acknowledged By: 06/15/2024 13:57 /ken/ BALDO KUHN POWER HAIR CLIPPER SUNITHA GONZALEZ [facility] Jun 15, 2024 11:37 AM ADMINISTRATIVE NOT E: LOCAL TITLE: Has Admin Note STANDARD TITLE: ADMINISTRATIVE NOTE DATE OF NOTE: JUN 15, 2024@11:37 ENTRY DATE: JUN 15, 2024@11:37:32 AUTHOR: LISA CHOI EXP COSIGNER: URGENCY: STATUS: COMPLETED Has Admin Note Has ADDENDA Reason for call Clinic Name:EYE Pt dropped off new Rx to be ordered with same frames. Pt had a question: is there a flip down magnifier for eyeglasses that could be ordered? 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 /ken/ LISA CHOI MSA Signed: 06/15/2024 11:40 Receipt Acknowledged By: 06/15/2024 11:50 /ken/ SUNITHA RASMUSSEN 06/15/2024 ADDENDUM STATUS: COMPLETED IN REGARD TO THE FLIP-DOWN MAGNIFYER, THAT IS A CUSTOM OR LOW-VISION AID THAT [facility] DOES NOT SUPPLY. I WOULD CHECK WITH DR DE JESUS TO SEE IF SHE HAS ANY LOW VISION AIDS THAT MIGHT WORK. /es/ SUNITHA RASMUSSEN Signed: 06/15/2024 11:50 Receipt Acknowledged By: 07/21/2024 11:36 /es/ HOWARD DE JESUS, OD CHIEF, OPTOMETRY 06/19/2024 07:59 /ken/ LISA CHOI MSA 06/15/2024 ADDENDUM STATUS: COMPLETED NEW FIT Multifocal was fit with 2 pair (FULLTIME PAL & COMPUTER PAL) new multifocal eyeglasses (71605), which will be mailed to the 's home in approximately three weeks. was informed that he or she may return to the clinic by appointment for fittings, repairs, and adjustments as needed. CC RX: [facility] [phone] 06/08/24 EXP - 06/08/26 FULLTIME PAL & COMPUTER PAL Dr Enma Monroy, OD Lic#[id number] FULLTIME PAL: The quote provided below is for informational purposes only. Please verify prior to the creation of a purchase order. REYNA ROSALES 3687 RX INFORMATION OD +0.75 -1.50 X92 Add:+2.75 Pzm:+3.00 Dir:DOWN Prz2:0.00 Dir2: OS 0.00 0.00 X Add:+2.75 Pzm:+3.50 Dir:UP Prz2:0.00 Dir2: FITTING INFORMATION FPD: NPD: [place]:R:30 L:29 SEG HT:R:24 L:24 Tint:None Shade:None VA Billable Items FRAME: FX10 COFFEE Right Lens: POLY VARILUX COMFORT DRX TRANSITIONS SUMMERS XTRA ACTIVE 1.586 POLY Left Lens: POLY VARILUX COMFORT DRX TRANSITIONS SUMMERS XTRA ACTIVE 1.586 POLY SCRATCH RESISTANT COATING HERIBERTO KLEAR ANTI-REFLECTIVE COATING PRZM1 PRZM1 COMPUTER PAL: The quote provided below is for informational purposes only. Please verify prior to the creation of a purchase order. REYNA ROSALES 3687 RX INFORMATION OD +2.25 -1.50 X92 Add:+1.25 Pzm:+3.00 Dir:DOWN Prz2:0.00 Dir2: OS +1.50 0.00 X Add:+1.25 Pzm:+3.50 Dir:UP Prz2:0.00 Dir2: FITTING INFORMATION FPD: NPD: [place]:R:29 L:28 SEG HT:R:24 L:24 Tint:None Shade:None VA Billable Items FRAME: FX10 GUNMETAL Right Lens: POLY VARILUX PHYSIO DRX 1.586 POLY Left Lens: POLY VARILUX PHYSIO DRX 1.586 POLY CRIZAL AVANCE AR PRZM1 PRZM1 Glasses fit by:Sunitha Gonzalez /ken/ SUNITHA GONZALEZ LOOPER FIXER Signed: 06/15/2024 12:04 Receipt Acknowledged By: 06/15/2024 13:57 /ken/ BALDO KUHN POWER HAIR CLIPPER 07/21/2024 ADDENDUM STATUS: COMPLETED Pt currently followed by CC eye provider. Last BCVA was 20/30 OD, 20/20 OS. Pt would need to be evaluated in low vision clinic in order for these types of devices to be prescribed. /ken/ HOWARD DE JESUS, OD CHIEF, OPTOMETRY Signed: 07/21/2024 11:41 LISA CHOI [facility]
--- OUTSIDE RECORDS SUMMARY | 2024-10-09 10:36 | XMS_ITS | Encounter Summary ---
Author Name [facility] [place] [facility] [place] [facility] [place] Address [address] [place] [address] Care Team Providers Care Courtesy Car Driver Name Role Phone JUAN HANNA Primary Care [...] BASIC SELF+ 1 Sep 16, 2024 33C [id number] [phone] REYNA ROSALES PATIENT ANTHEM BCBS CT FEDERAL PREFERRED PROVIDER ORGANIZAT ION (PPO) BASIC SELF+ ONE Mar 17, 2018 113 [id number] REYNA ROSALES PATIENT ANTHEM BCBS OF [place] (FEDERAL) PREFERRED PROVIDER ORGANIZAT ION (PPO) BASIC SELF+ ONE Mar 17, 2018 113 [id number] [phone] REYNA ROSALES PATIENT [place] FEDERAL PREFERRED PROVIDER ORGANIZAT ION (PPO) BASIC SELF+ 1 Mar 17, 2018 113 [id number] REYNA ROSALES PATIENT CAREMARK FEPRX PLAN PRESCRIPT ION CAREM ARK FEPRX Sep 16, 2024 [id number] REYNA ROSALES PATIENT DARLENE-F EP BCBS PRESCRIPT ION BCBS FEP PLAN Sep 16, 2010 [id number] REYNA ROSALES PATIENT MEDICARE (WNR) MEDICARE (M) PART A Mar 17, 2018 PART A [id number] [phone] REYNA ROSALES PATIENT MEDICARE (WNR) MEDICARE (M) PART A Sep 16, 2010 PART A [id number] REYNA ROSALES PATIENT Selected Encounter This section includes the information on record at [place] for the Encounter. Date/Time Encounter Type Encounter Description Reason Pro vider Source Jun 09, 2024 08:51 AM Outpatient Encounter ADMIN PAT ACTIVTIES (MASNONCT) IHE Encounter Template Text not used by [place] Plan of Treatment: Future Appointments (+ 6 months) and Future Tests (+/- 45 days) The Plan of Treatment section includes future care activities for the patient from all [place] treatmentfacilities. This section includes future appointments and future orders which are active, pending or scheduled. Future Appointments This section includes appointments that were scheduled to occur 6 months from the date of the Encounter, up to a maximum of 20 appointments. The data comes from all [place] treatment facilities. Appointment Date/Time Appointment Type Appointme nt Facility Name Jun 16, 2024 01:00 PM AMBULATORY - REHAB MEDICIN E [facility]AS M[facility] Jul 10, 2024 11:30 AM AMBULATORY - SURGERY [facility] M[facility] Jul 30, 2024 01:00 PM AMBULATORY - NONE [facility] Jul 30, 2024 02:00 PM AMBULATORY - NONE [facility] Aug 24, 2024 08:30 AM AMBULATORY - NONE LUCAS MARCH [facility] Aug 26, 2024 08:30 AM AMBULATORY - MEDICINE GANESH MARCH [facility] Sep 14, 2024 08:30 AM AMBULATORY - MEDICINE GANESH MARCH [facility] Sep 15, 2024 09:30 AM [facility] Nov 05, 2024 08:30 AM [facility] Lab Results: +/- 30 days of the [...] Range Comment May 21, 2024 09:08 AM [facility] URINALYSIS W/REFLEX TO CULTURE Specimen Type: URINE No comment entered. Ordering Provider: ERIC GARDNER Report Released Date/Time: May 01, 2024 10:59 AM Reporting Lab: [facility] [address] [facility] [address] Performing Lab: [facility] [address] [facility] [address] URINE COLOR Colorless NOT DEFINED SPECIFIC GRAVITY [...] and tobacco- related health factors from the [place] facility where the Encounter took place. Current Smoking Status This section includes the most current smoking, or tobacco-related health factor, from the [place] facility where the Encounter took place. Date/Time Current Smoking Status Comment Facility Sep 04, 2010 01:20 PM QUIT TOBACCO USE > 7 YEARS AGO Pt. quit smoking in 1974. [facility] Advance Directives: All historical and current Section Date Range: From patient's date of to the date document was created. This section includes ALL of a patient's completed or amended [place] Advance and Rescinded Directives. The entries below indicate that a directive exists for the patient, but an actual copy is not included with this document. The data comes from all [place] facilities. Date Advance Directives Provider Source Oct 08, 2019 ADVANCE DIRECTIVE LEISA ROBERTS [facility] Radiology Reports: +/- 30 days of [...] the Encounter. The data comes from all [place] treatment facilities. Date/Time Radiology Report Provider Source May 28, 2024 08:43 AM KNEE 4 VIEWS (ORTH O): REYNA ROSALES [id number] -1945 M Exm Date: MAY 28, 2024@08:43 Req Phys: EDITH GARDNER Pat Loc: LIT PACT T (Req'g Loc) Img Loc: XRAY (OOS) Service: [place] [address] (Case [id number] COMPLETE) KNEE 4 VIEWS (ORTHO) (RAD Detailed) CPT:08838 Proc Modifiers : LEFT Reason for Study: [...] 28, 2024 Date Verified: MAY 28, 2024 Machine Stemmer E-Sig:/ES/DERRELL RODRIGES Report: Bilateral knees: COMPARISON: No [...] Primary Interpreting Staff: DERRELL RODRIGES, RADIOLOGY ATTENDING (Machine Stemmer) /DERRELL BARRAGAN [facility] May 28, 2024 08:43 AM KNEE 4 VIEWS (ORTH O): REYNA ROSALES [facility] [id number] -1945 M Exm Date: MAY 28, 2024@08:43 Req Phys: JJ,EDITH L Pat Loc: LIT PACT T (Req'g Loc) Img Loc: XRAY (OOS) Service: [place] [address] (Case 497 COMPLETE) KNEE 4 VIEWS (ORTHO) (RAD Detailed) CPT:49223 Reason for Study: knee pain Clinical History: [...] 28, 2024 Date Verified: MAY 28, 2024 Machine Stemmer E-Sig:/ES/EDRRELL RODRIGES Report: Bilateral knees: COMPARISON: No relevant [...] Primary Interpreting Staff: DERRELL RODRIGES, RADIOLOGY ATTENDING (Machine Stemmer) /DERRELL BARRAGAN [facility] Encounter Notes: All associated encounter notes This section contains the clinical notes associated to the Encounter. Date/Time Encounter Note(s) Provider Source Jun 09, 2024 08:51 AM LETTERS: LOCAL TITLE: LETTER TO PATIENT ATTEMPT TO CONTACT STANDARD TITLE: LETTERS DATE OF NOTE: JUN 09, 2024@08:51 ENTRY DATE: JUN 09, 2024@08:51:17 AUTHOR: ELIAS SINCLAIR COSIGNER: URGENCY: STATUS: COMPLETED [facility] [address] [place] [address] JUN 09, 2024 REYNA ROSALES [address], [place] [address] Dear REYNA ROSALES, The [facility] in [place] is trying to reach you to schedule [...] find a suitable date for you: Service: Podiatry Service Direct: [phone] [phone] Toll Free: [phone] [phone] We look forward to hearing from you. Sincerely, Clinical Operations ELIAS SINCLAIR [facility]
--- OUTSIDE RECORDS SUMMARY | 2024-10-09 10:36 | XMS_ITS | Encounter Summary ---
Author Name [facility] [place] [facility] [place] Address [address] [place] [address] Care Team Providers Care Dowel Pointer Name Role Phone JUAN HANNA Primary Care [...] BASIC SELF+ 1 Sep 16, 2024 33C [id number] [phone] REYNA ROSALES PATIENT ANTHEM [place]BS [place] FEDERAL PREFERRED PROVIDER ORGANIZAT ION (PPO) BASIC SELF+ ONE Mar 17, 2018 113 [id number] [phone] REYNA ROSALES PATIENT ANTHEM [place]BS OF [place] (FEDERAL) PREFERRED PROVIDER ORGANIZAT ION (PPO) BASIC SELF+ ONE Mar 17, 2018 113 [id number] [phone] REYNA ROSALES PATIENT [place] FED[place] PREFERRED PROVIDER ORGANIZAT ION (PPO) BASIC SELF+ 1 Mar 17, 2018 113 [id number] REYNA ROSALES PATIENT CAREMARK FEPRX PLAN PRESCRIPT ION CAREM ARK FEPRX Sep 16, 2024 [id number] REYNA ROSALES PATIENT DARLENE-F EP BCBS PRESCRIPT ION BCBS FEP PLAN Sep 16, 2010 [id number] REYNA ROSALES PATIENT MEDICARE (WNR) MEDICARE (M) PART A Mar 17, 2018 PART A [id number] REYNA ROSALES PATIENT MEDICARE (WNR) MEDICARE (M) PART A Sep 16, 2010 PART A [id number] REYNA ROSALES PATIENT Selected Encounter This section includes the information on record at [place] for the Encounter. Date/Time Encounter Type Encounter Description Reason Pro vider Source Jun 26, 2024 10:30 AM Outpatient Encounter PRIMARY CARE/MEDICINE IHE Encounter Template Text not used by [place] Plan of Treatment: Future Appointments (+ 6 [...] AM AMBULATORY - SURGERY [facility]UCAS [facility] T [facility] Jul 30, 2024 01:00 PM [facility] NONE [facility] Jul 30, 2024 02:00 PM AMBULATORY - NONE [facility] Aug 24, 2024 08:30 AM AMBULATORY - NONE [place] [facility] Aug 26, 2024 08:30 AM [facility] - [place]IC[facility] [place] [facility] Sep 14, 2024 08:30 AM AM[facility]ORY - MEDIC[facility] [place] [facility] Sep 15, 2024 09:30 AM AMBULATORY - REHAB [facility]IN E [facility] Nov 05, 2024 08:30 AM AMBULATORY - MEDICINE [facility] Social History: Smoking Status (Most current) and [...] 02, 2023 11:00 AM VA-TOBACCO FORMER USER [facility] Tobacco Use History This section includes a history of the smoking, or tobacco-related health factors, that were collected on or before the date of the Encounter. The data comes from the [place] facility where the Encounter took place. Date/Time Smoking Status/Tobacco Use Comment Jimy beauchamp Oct 02, 2023 11:00 AM VA-TOBACCO QUIT 15 YRS OR MORE [facility] May 18, 2022 02:00 PM VA-TOBACCO FORMER USER [facility] May 18, 2022 02:00 PM VA-TOBACCO QUIT 15 YRS OR MORE [facility] May 17, 2021 09:30 AM VA-TOBACCO FORMER USER [facility] May 17, 2021 09:30 AM VA-TOBACCO QUIT 15 YRS OR MORE [facility] Nov 04, 2018 09:35 AM VA-TOBACCO FORMER USER [facility] Nov 04, 2018 09:35 AM VA-TOBACCO QUIT 15 YRS OR MORE [facility] January 27, 2018 03:02 PM QUIT TOBACCO USE > 7 YEARS AGO quit in 1970-72 [facility] Apr 05, 2016 06:59 AM QUIT TOBACCO USE > 7 YEARS AGO quit early 's [facility] Advance Directives: All historical [...] 08, 2019 ADVANCE DIRECTIVE LEISA ROBERTS Alejandro [facility] Radiology Reports: +/- 30 days of [...] KNEE 4 VIEWS (ORTH O): REYNA ROSALES [id number] -1945 M Exm Date: MAY 28, 2024@08:43 Req Phys: EDITH GARDNER Pat Loc: LIT PACT T (Req'g Loc) Img Loc: XRAY (OOS) Service: [place] [address] (Case [id number] COMPLETE) KNEE 4 VIEWS (ORTHO) (RAD Detailed) CPT:25054 Reason for Study: knee pain Clinical History: [...] 28, 2024 Date Verified: MAY 28, 2024 Family Living Educator E-Sig:/ES/DERRELL RODRIGES Report: Bilateral knees: COMPARISON: No [...] Primary Interpreting Staff: DERRELL RODRIGES, RADIOLOGY ATTENDING (Family Living Educator) /DERRELL BARRAGAN [facility] May 28, 2024 08:43 AM KNEE 4 VIEWS (ORTH O): REYNA ROSALES [id number] -1945 M Exm Date: MAY 28, 2024@08:43 Req Phys: JJ,EDITH L Pat Loc: LIT PACT T (Req'g Loc) Img Loc: XRAY (OOS) Service: [place] [address] (Case [id number] COMPLETE) KNEE 4 VIEWS (ORTHO) (RAD Detailed) CPT:96345 Proc Modifiers : LEFT Reason for Study: [...] 28, 2024 Date Verified: MAY 28, 2024 Family Living Educator E-Sig:/ES/DERRELL RODRIGES Report: Bilateral knees: COMPARISON: No [...] Primary Interpreting Staff: DERRELL RODRIGES, RADIOLOGY ATTENDING (Family Living Educator) /DERRELL BARRAGAN [facility] Encounter Notes: All associated encounter notes This section contains the clinical notes associated to the Encounter. Date/Time Encounter Note(s) Provider Source Jun 26, 2024 11:07 AM NO SHOW NOTE: LOCAL TITLE: NO SHOW/CLINIC CANCELLATION NOTE PRIMARY CARE STANDARD TITLE: NO SHOW NOTE DATE OF NOTE: JUN 26, 2024@11:07 ENTRY DATE: JUN 26, 2024@11:07:19 AUTHOR: EDITH GARDNER EXP COSIGNER: URGENCY: STATUS: COMPLETED NO SHOW/CLINIC CANCELLATION NOTE PRIMARY CARE Has ADDENDA PRIMARY CARE NO SHOW/CLINIC CANCELLATION NOTE Scheduled Appointment Date & Time: Jun@10:30 (X) No Show did not arrive to scheduled appointment or arrived more than half way through the scheduled visit time Please reschedule the for the following visit type and timeframe [facility] Telephone Clinic Face to Face Clinic (X) Next available opening RTC Date: Assign MSAs to this note to take action on the clinic appointment and add any additional re-scheduling instructions. /ken/ EDITH GARDNER APRN Signed: 06/26/2024 11:07 Receipt Acknowledged By: 06/26/2024 11:37 /ken/ TEJ APPLE for TERRA STEWARDID 06/26/2024 ADDENDUM STATUS: COMPLETED patient received a link this morning to check in for video appt at 11 - when Edith didn't connect he called and the appt has been rescheduled. /ken/ TEJ APPLE Signed: 06/26/2024 11:36 EDITH GARDNER [facility]
--- OUTSIDE RECORDS SUMMARY | 2024-10-09 10:36 | XMS_ITS | Encounter Summary ---
Author Name [facility] [place] Organization [facility] [place] Address [address] [place] [address] Care Team Providers Care Family Services Manager Name Role Phone JUAN HANNA Primary [...] BASIC SELF+ 1 Sep 16, 2024 33C [id number] [phone] REYNA ROSALES PATIENT ANTHEM BCBS CT FEDERAL PREFERRED PROVIDER ORGANIZAT ION (PPO) BASIC SELF+ ONE Mar 17, 2018 113 [id number] [phone] REYNA ROSALES PATIENT ANTHEM [place] OF [place] (FEDERAL) PREFERRED PROVIDER ORGANIZAT ION (PPO) BASIC SELF+ ONE Mar 17, 2018 113 [id number] [phone] REYNA ROSALES PATIENT [place] FEDERAL PREFERRED PROVIDER ORGANIZAT ION (PPO) BASIC SELF+ 1 Mar 17, 2018 113 [id number] [phone] REYNA ROSALES PATIENT CAREMARK FEPRX PLAN PRESCRIPT ION CAREM ARK FEPRX Sep 16, 2024 [id number] REYNA ROSALES PATIENT [place]ES[place]ET-F EP BCBS PRESCRIPT ION BCBS FEP PLAN Sep 16, 2010 [id number] REYNA ROSALES PATIENT MEDICARE (WNR) MEDICARE (M) PART A Mar 17, 2018 PART A [id number] [phone] REYNA ROSALES PATIENT MEDICARE (WNR) MEDICARE (M) PART A Sep 16, 2010 PART A [id number] [phone] REYNA ROSALES PATIENT Selected Encounter This section includes the information on record at [place] for the Encounter. Date/Time Encounter Type Encounter Description Reason Pro vider Source Jul 07, 2024 02:29 PM Outpatient Encounter ADMIN PAT ACTIVTIES (MASNONCT) IHE Encounter Template Text not used by [place] Plan of Treatment: Future Appointments (+ 6 months) and Future Tests (+/- 45 days) The Plan of Treatment section includes future care activities for the patient from all [place] treatmentfacilities. This section includes future appointments and future orders which are active, pending or scheduled. Future Appointments This section includes appointments that were scheduled to occur 6 months from the date of the Encounter, up to a maximum of 20 appointments. The data comes from all [place] treatment facilities. Appointment Date/Time Appointment Type Appointme nt Facility Name Jul 10, 2024 11:30 AM AMBULATORY - SURGERY [facility] Jul 30, 2024 01:00 PM [facility]ULATORY [facility] NONE [facility] Jul 30, 2024 02:00 PM AMBULATORY - NONE [facility] Aug 24, 2024 08:30 AM AMBULATORY - NONE [place] [facility] Aug 26, 2024 08:30 AM AMBULATORY - MEDICINE [facility] Sep 14, 2024 08:30 AM AMBULATORY - MEDICINE [facility] Sep 15, 2024 09:30 AM [facility] Nov 05, 2024 08:30 AM AMBULATORY - MEDICINE [facility] Lab Results: +/- 30 days of the encounter This section includes the Chemistry and Hematology Lab Results on record with [place] for the patient. Radiology Reports and Pathology Reports are provided separately, in subsequent sections. Lab Results This section contains the Chemistry/Hematology Results that were resulted 30 days before or 30 daysafter the date of the Encounter. Date/Time Source Result Type Result - Unit Interpretation Reference Range Comment Jul 30, 2024 02:16 PM [facility] VIT D 25-OH(WRJ) Specimen Type: SERUM Comment: , Tests performed on [facility] Technician Robles SN:[id number] (405) TSH within normal limits. Reflex testing not required. Ordering Provider: ERIC GARDNER Report Released Date/Time: Jun 26, 2024 08:27 AM Reporting Lab: [facility] [address] [address] Performing Lab: [facility] [address] [facility] [address] VIT D 25-OH([facility]) 28.9 ng/mL 20.0-50.0 Jul 30, 2024 02:16 PM [facility] [facility] THYROID TESTING [place] Specimen Type: SERUM Comment: , Tests performed on [facility] Robles SN:[id number] (405) TSH within normal limits. Reflex testing not required. Ordering Provider: ERIC GARDNER Report Released Date/Time: Jun 26, 2024 08:27 AM Reporting Lab: [facility] [address] [facility] [address] Performing Lab: [facility] [address] [facility] [address] TSH 3.10 u[IU]/mL 0.35-5.00 Jul 30, 2024 02:16 PM [facility] [place] [facility] PSA (CLINICAL STAFF PHARMACIST) Specimen Type: SERUM Comment: , Tests performed on [facility]ai [employer] Robles SN:[id number] (405) TSH within normal limits. Reflex testing not required. Ordering Provider: ERIC GARDNER Report Released Date/Time: Jun 26, 2024 08:27 AM Reporting Lab: [place] [facility] [address] [place] [facility] [place] [place] [address] Performing Lab: [facility] [address] [facility] [address] PSA (CLINICAL STAFF PHARMACIST) 3.72 ng/mL Jul 30, 2024 02:16 PM [facility] [facility] LIVER PROFILE Specimen Type: PLASMA Comment: , Tests performed on [facility]ai [employer] Joon SN:[id number] (405). Ordering Provider: ERIC GARDNER Report Released Date/Time: Jun 26, 2024 08:27 AM Reporting Lab: [facility] [address] [facility] [address] Performing Lab: [address] [address] PROTEIN, TOTAL 6.7 g/dL 6.0-8.5 ALBUMIN 3.7 g/dL 3.2-5.0 BILIRUBIN, TOTAL 0.4 mg/dL 0.2-1.2 ALKALINE PHOSPHATASE 41 U/L 40-150 ALT(SGPT) 34 U/L 7-52 AST(SGOT) 25 U/L 5-34 FIB-4 SCORE 1.41 <2.67 Jul 30, 2024 02:16 PM [facility] [facility] CBC NO DIFF Specimen Type: BLOOD No comment entered. Ordering Provider: ERIC GARDNER Report Released Date/Time: Jun 26, 2024 08:27 AM Reporting Lab: [facility] [address] [address] Performing Lab: [facility] [address] [facility] [address] WBC 4.5 10*3/uL 4.5-11.0 RBC 4.59 10*6/uL 4.23-5.66 HGB 14.7 g/dL 12.8-17 HEMATOCRIT 44.0 39.2-50.4 MCV 95.9 fL 82-99 MCH 32.0 pg 26.2-32.6 MCHC 33.4 g/dL 30.8-35.1 PLT 245 10*3/uL 140-360 MPV 8.8 fL L 9.2-12.4 RDW 13.1 12.0-16.0 Jul 30, 2024 02:16 PM [facility] P4 GLU,BUN,CREAT,LYTES,CA Specimen Type: PLASMA Comment: , Tests performed on [facility]ai [employer] Joon SN:[id number] (405). Ordering Provider: ERIC GARDNER Report Released Date/Time: Jun 26, 2024 08:27 AM Reporting Lab: [facility] [address] [address] Performing Lab: [facility] [address] [facility] [address] UREA NITROGEN 15 mg/dL 7-25 SODIUM 138 mmol/L 135-145 POTASSIUM 4.4 mmol/L 3.5-5.0 CHLORIDE 103 mmol/L 100-110 CARBON DIOXIDE 28 mmol/L 20-30 ANION GAP 7 4-16 GLUCOSE 99 mg/dL 65-100 CREATININE 0.96 mg/dL 0.50-1.50 CALCIUM 8.7 mg/dL 8.5-10.5 eGFR(CKD-EPI 2020) 81 mL/min Jul 30, 2024 02:16 PM [facility] LIPOPROTEIN CHOLESTEROL FRACT. PANEL Specimen Type: PLASMA Comment: , Tests performed on [email or web address] SN:[id number] (405). Ordering Provider: ERIC GARDNER Report Released Date/Time: Jun 26, 2024 08:27 AM Reporting Lab: [facility] [address] [facility] [address] Performing Lab: [facility] [address] [facility] [address] CHOLESTEROL 236 mg/dL H 0-200 TRIGLYCERIDE 183 mg/dL H 0-150 HDL CHOLESTEROL 52 mg/dL >40 LDL CHOLESTEROL (CALC) 147 mg/dL H 0-129 Social History: Smoking Status (Most current) and Tobacco Use (All prior to encounter date) This section includes the most current, and the historical, smoking and tobacco- related health factors from the [place] facility where the Encounter took place. Current Smoking Status This section includes the most current smoking, or tobacco-related health factor, from the [place] facility where the Encounter took place. Date/Time Current Smoking Status Comment Facility Sep 04, 2010 01:20 PM QUIT TOBACCO USE > 7 YEARS AGO Pt. quit smoking in 1974. [facility] Advance Directives: All historical and current Section Date Range: From patient's date of to the date document was created. This section includes ALL of a patient's completed or amended [place] Advance and Rescinded Directives. The entries below indicate that a directive exists for the patient, but an actual copy is not included with this document. The data comes from all [place] facilities. Date Advance Directives Provider Source Oct 08, 2019 ADVANCE DIRECTIVE [facility] ROB[facility]S [facility] Radiology Reports: +/- 30 days of the [...] the Encounter. The data comes from all [place] treatment facilities. Date/Time Radiology Report Provider Source Jul 31, 2024 12:10 PM UNLISTED COPIES FO R OUTSIDE REFERRAL: REYNA ROSALES [id number] -1945 M Exm Date: JUL 31, 2024@12:10 Req Phys: EDITH GARDNER Pat Loc: COM CARE-ORTHO GEN (Req'g Loc) Img Loc: XRAY (OOS) Service: Unknown (Case [id number] COMPLETE) UNLISTED COPIES FOR OUTSIDE REFER(RAD Detailed) CPT:64859 Reason for Study: Copies for outside referral Clinical History: Please send 05/28/2024 knee XRs, L and R, to [facility], r/t [facility] Report Status: Electronically Filed Date Reported: Report: Copies (CD) made for outside facility. Impression: Copies (CD) made for outside facility Primary Diagnostic Code: VERIFIED BY: / *ELECTRONICALLY FILED* [facility] Encounter Notes: All associated encounter notes This section contains the clinical notes associated to the Encounter. Date/Time Encounter Note(s) Provider Source Jul 07, 2024 02:29 PM LETTERS: LOCAL TITLE: LETTER TO PATIENT ATTEMPT TO CONTACT STANDARD TITLE: LETTERS DATE OF NOTE: JUL 07, 2024@14:29 ENTRY DATE: JUL 07, 2024@14:29:27 AUTHOR: ADRIANO GARZA COSIGNER: URGENCY: STATUS: COMPLETED [facility] [address] [place] [address] JUL 07, 2024 REYNA ROSALES [address] [place], [place] [address] Dear REYNA ROSALES, [facility] in [place] is trying to reach you to schedule [...] find a suitable date for you: Service: Sleep Medicine Direct: [phone] [phone] Toll Free: [phone] [phone] We look forward to hearing from you. Sincerely, Clinical Operations Adriano GARZA,ADRIANO VERAS [facility]
--- OUTSIDE RECORDS SUMMARY | 2024-10-09 10:36 | XMS_ITS | Encounter Summary ---
Author Name [facility] [place] Organization [facility] [place] [facility] [place] Address [address] [place] [address] Care Team Providers Care Guest Relations Representative Name Role Phone JUAN HANNA Primary Care [...] BASIC SELF+ 1 Sep 16, 2024 33C [id number] [phone] REYNA ROSALES PATIENT ANTHEM BCBS CT FEDERAL PREFERRED PROVIDER ORGANIZAT ION (PPO) BASIC SELF+ ONE Mar 17, 2018 113 [id number] REYNA ROSALES PATIENT ANTHEM [place] OF [place] (FEDERAL) PREFERRED PROVIDER ORGANIZAT ION (PPO) BASIC SELF+ ONE Mar 17, 2018 113 [id number] REYNA ROSALES PATIENT BCBS OF [place] FEDERAL PREFERRED PROVIDER ORGANIZAT ION (PPO) BASIC SELF+ 1 Mar 17, 2018 113 [id number] REYNA ROSALES PATIENT CAREMARK FEPRX PLAN PRESCRIPT ION CAREM ARK FEPRX Sep 16, 2024 [id number] REYNA ROSALES PATIENT DARLENE-F EP BCBS PRESCRIPT ION BCBS FEP PLAN Sep 16, 2010 [id number] REYNA ROSALES PATIENT MEDICARE (WNR) MEDICARE (M) PART A Mar 17, 2018 PART A [id number] REYNA ROSALES PATIENT MEDICARE (WNR) MEDICARE (M) PART A Sep 16, 2010 PART A [id number] REYNA ROSALES PATIENT Selected Encounter This section includes the information on record at AL for the Encounter. Date/Time Encounter Type Encounter Description Reason Pro vider Source Jul 31, 2024 01:54 PM Outpatient Encounter ADMIN PAT ACTIVTIES (MASNONCT) IHE Encounter Template Text not used by AL Plan of Treatment: Future Appointments (+ 6 months) and Future Tests (+/- 45 days) The Plan of Treatment section includes future care activities for the patient from all AL treatmentfacilities. This section includes future appointments and future orders which are active, pending or scheduled. Future Appointments This section includes appointments that were scheduled to occur 6 months from the date of the Encounter, up to a maximum of 20 appointments. The data comes from all AL treatment facilities. Appointment Date/Time Appointment Type Appointme nt Facility Name Aug 24, 2024 08:30 AM AMBULATORY - NONE [facility] Aug 26, 2024 08:30 AM AMBULATORY - MEDICINE [facility] [facility] Sep 14, 2024 08:30 AM AMBULATORY - MEDICINE [facility] [facility] [facility] Sep 15, 2024 09:30 AM AMBULATORY - REHAB [facility] Nov 05, 2024 08:30 AM AMBULATORY - MEDICINE [facility] Lab Results: +/- 30 days of the encounter This section includes the Chemistry and Hematology Lab Results on record with AL for the patient. Radiology Reports and Pathology Reports are provided separately, in subsequent sections. Lab Results This section contains the Chemistry/Hematology Results that were resulted 30 days before or 30 daysafter the date of the Encounter. Date/Time Source Result Type Result - Unit Interpretation Reference Range Comment Jul 30, 2024 02:16 PM [facility] PSA (TILE AND MOTTLE SUPERVISOR) Specimen Type: SERUM Comment: , Tests performed on [employer] Sales Consultant Robles SN:[id number] (405) TSH within normal limits. Reflex testing not required. Ordering Provider: ERIC GARDNER Report Released Date/Time: Jun 26, 2024 08:27 AM Reporting Lab[facility] [address] [facility] [address] Performing Lab: [facility] [address] [facility] [address] PSA (TILE AND MOTTLE SUPERVISOR) 3.72 ng/mL Jul 30, 2024 02:16 PM [facility] VIT D 25-OH(WRJ) Specimen Type: SERUM Comment: , Tests performed on [employer] Sales Consultant Robles SN:[id number] (405) TSH within normal limits. Reflex testing not required. Ordering Provider: ERIC GARDNER Report Released Date/Time: Jun 26, 2024 08:27 AM Reporting Lab: [facility] [address] [facility] [place] [address] Performing Lab: [facility] [address] [facility] [place] [address] VIT D 25-OH(J) 28.9 ng/mL 20.0-50.0 Jul 30, 2024 02:16 PM [facility] THYROID TESTING CASCADE Specimen Type: SERUM Comment: , Tests performed on [employer] Sales Consultant Robles SN:[id number] (405) TSH within normal limits. Reflex testing not required. Ordering Provider: ERIC GARDNER Report Released Date/Time: Jun 26, 2024 08:27 AM Reporting Lab: [facility] [address] [facility] [place] [address] Performing Lab: [facility] [address] [facility] [address] TSH 3.10 u[IU]/mL 0.35-5.00 Jul 30, 2024 02:16 PM [facility] LIVER PROFILE Specimen Type: PLASMA Comment: , Tests performed on [employer] Joon SN:[id number] (405). Ordering Provider: ERIC GARDNER Report Released Date/Time: Jun 26, 2024 08:27 AM Reporting Lab: [facility] [address] [facility] [address] Performing Lab: [facility] [address] [place] [id number] PROTEIN, TOTAL 6.7 g/dL 6.0-8.5 ALBUMIN 3.7 g/dL 3.2-5.0 BILIRUBIN, TOTAL 0.4 mg/dL 0.2-1.2 ALKALINE PHOSPHATASE 41 U/L 40-150 ALT(SGPT) 34 U/L 7-52 AST(SGOT) 25 U/L 5-34 FIB-4 SCORE 1.41 <2.67 Jul 30, 2024 02:16 PM [facility] CBC NO DIFF Specimen Type: BLOOD No comment entered. Ordering Provider: ERIC GARDNER Report Released Date/Time: Jun 26, 2024 08:27 AM Reporting Lab: [facility] [address] [facility] [address] Performing Lab: [place] [id number] WBC 4.5 10*3/uL 4.5-11.0 RBC 4.59 10*6/uL 4.23-5.66 HGB 14.7 g/dL 12.8-17 HEMATOCRIT 44.0 39.2-50.4 MCV 95.9 fL 82-99 MCH 32.0 pg 26.2-32.6 MCHC 33.4 g/dL 30.8-35.1 PLT 245 10*3/uL 140-360 MPV 8.8 fL L 9.2-12.4 RDW 13.1 12.0-16.0 Jul 30, 2024 02:16 PM [facility] P4 GLU,BUN,CREAT,LYTES,CA Specimen Type: PLASMA Comment: , Tests performed on [employer] SN:[id number] (755). Ordering Provider: ERIC GARDNER Report Released Date/Time: Jun 26, 2024 08:27 AM Reporting Lab: [facility] [address] [place] [phone] Performing Lab: [place] [id number] UREA NITROGEN 15 mg/dL 7-25 SODIUM 138 mmol/L 135-145 POTASSIUM 4.4 mmol/L 3.5-5.0 CHLORIDE 103 mmol/L 100-110 CARBON DIOXIDE 28 mmol/L 20-30 ANION GAP 7 4-16 GLUCOSE 99 mg/dL 65-100 CREATININE 0.96 mg/dL 0.50-1.50 CALCIUM 8.7 mg/dL 8.5-10.5 eGFR(CKD-EPI 2020) 81 mL/min Jul 30, 2024 02:16 PM [facility] CB LIPOPROTEIN CHOLESTEROL FRACT. PANEL Specimen Type: PLASMA Comment: , Tests performed on [employer] SN:[id number] (405). Ordering Provider: ERIC GARDNER Report Released Date/Time: Jun 26, 2024 08:27 AM Reporting Lab: [facility] [address] [facility] [address] Performing Lab: [facility] [address] [facility] [address] CHOLESTEROL 236 mg/dL H 0-200 TRIGLYCERIDE 183 mg/dL H 0-150 HDL CHOLESTEROL 52 mg/dL >40 LDL CHOLESTEROL (CALC) 147 mg/dL H 0-129 Social History: Smoking Status (Most current) and Tobacco Use (All prior to encounter date) This section includes the most current, and the historical, smoking and tobacco- related health factors from the AL facility where the Encounter took place. Current Smoking Status This section includes the most current smoking, or tobacco-related health factor, from the AL facility where the Encounter took place. Date/Time Current Smoking Status Comment Facility Sep 04, 2010 01:20 PM QUIT TOBACCO USE > 7 YEARS AGO Pt. quit smoking in 1974. [facility] Advance Directives: All historical and current Section Date Range: From patient's date of to the date document was created. This section includes ALL of a patient's completed or amended [place] Advance and Rescinded Directives. The entries below indicate that a directive exists for the patient, but an actual copy is not included with this document. The data comes from all AL facilities. Date Advance Directives Provider Source Oct [...] the Encounter. The data comes from all [place] treatment facilities. Date/Time Radiology Report Provider Source Jul 31, 2024 12:10 PM UNLISTED COPIES FO R OUTSIDE REFERRAL: REYNA ROSALES [id number] -1945 M Exm Date: JUL 31, 2024@12:10 Req Phys: EDITH GARDNER L Pat Loc: COM CARE-ORTHO GEN (Req'g Loc) Img Loc: XRAY (OOS) Service: Unknown (Case [id number] COMPLETE) UNLISTED COPIES FOR OUTSIDE REFER(RAD Detailed) CPT:16263 Reason for Study: Copies for outside referral Clinical History: Please send 05/28/2024 knee XRs, L and R, to [facility], r/t [facility] Report Status: Electronically Filed Date Reported: Report: Copies (CD) made for outside facility. Impression: Copies (CD) made for outside facility Primary Diagnostic Code: VERIFIED BY: / *ELECTRONICALLY FILED* [facility]UCAS KING [facility] Encounter Notes: All associated encounter notes This section contains the clinical notes associated to the Encounter. Date/Time Encounter Note(s) Provider Source Jul 31, 2024 01:54 PM ADMINISTRATIVE NOT E: LOCAL TITLE: Has Admin Note STANDARD TITLE: ADMINISTRATIVE NOTE DATE OF NOTE: JUL 31, 2024@13:54 ENTRY DATE: JUL 31, 2024@13:54:30 AUTHOR: SIMONA DAVILA EXP COSIGNER: URGENCY: STATUS: COMPLETED Reason for call - Attempt to schedule Clinic Name: [facility] 07/30/2024 1st Call-Message left requesting call back. Letter sent requesting call to schedule. /ken/ SIMONA DAVILA AMSA Signed: 07/31/2024 13:55 SIMONA DAVILA [facility]
--- OUTSIDE RECORDS SUMMARY | 2024-10-09 10:36 | XMS_ITS | Encounter Summary ---
Author Name [facility] [place] [facility] [place] Address [address] [place] [address] Care Team Providers Care Tourist Information Assistant Name Role Phone JUAN HANNA Primary [...] BASIC SELF+ 1 Sep 16, 2024 33C [id number] [phone] REYNA ROSALES PATIENT ANTHEM BCBS CT FEDERAL PREFERRED PROVIDER ORGANIZAT ION (PPO) BASIC SELF+ ONE Mar 17, 2018 113 [id number] [phone] REYNA ROSALES PATIENT ANTHEM [place] OF [place] (FEDERAL) PREFERRED PROVIDER ORGANIZAT ION (PPO) BASIC SELF+ ONE Mar 17, 2018 113 [id number] [phone] REYNA ROSALES PATIENT [place] OF [place] FEDERAL PREFERRED PROVIDER ORGANIZAT ION (PPO) BASIC SELF+ 1 Mar 17, 2018 113 [id number] REYNA ROSALES PATIENT [employer] FEPRX PLAN PRESCRIPT ION CAREM ARK FEPRX Sep 16, 2024 [id number] REYNA ROSALES PATIENT DARLENE-F EP BCBS PRESCRIPT ION BCBS FEP PLAN Sep 16, 2010 [id number] REYNA ROSALES PATIENT MEDICARE (WNR) MEDICARE (M) PART A Mar 17, 2018 PART A [id number] REYNA ROSALES PATIENT MEDICARE (WNR) MEDICARE (M) PART A Sep 16, 2010 PART A [id number] REYNA ROSALES PATIENT Selected Encounter This section includes the information on record at [place] for the Encounter. Date/Time Encounter Type Encounter Description Reason Pro vider Source Jun 12, 2024 10:29 AM Outpatient Encounter ADMIN PAT ACTIVTIES (MASNONCT) [...] AMBULATORY - REHAB MEDICIN E [facility] Jul 10, 2024 11:30 AM AMBULATORY - SURGERY [facility] Jul 30, 2024 01:00 PM AMBULATORY - NONE [facility] Jul 30, 2024 02:00 PM AMBULATORY - NONE [facility] Aug 24, 2024 08:30 AM AMBULATORY - NONE [facility] Aug 26, 2024 08:30 AM AMBULATORY - MEDICINE [facility] Sep 14, 2024 08:30 AM AMBULATORY - MEDICINE [facility] Sep 15, 2024 09:30 AM [facility] Nov 05, 2024 08:30 AM [facility] Lab Results: +/- 30 days [...] Range Comment May 21, 2024 09:08 AM [facility] URINALYSIS W/REFLEX TO CULTURE Specimen Type: URINE No comment entered. Ordering Provider: ERIC GARDNER Report Released Date/Time: May 01, 2024 10:59 AM Reporting Lab: [facility] [address] [facility] [address] Performing Lab: [facility] [address] [facility] [address] URINE COLOR Colorless NOT DEFINED SPECIFIC GRAVITY [...] Source Oct 08, 2019 ADVANCE DIRECTIVE LEISA ROBETRS [facility] Radiology Reports: +/- 30 days [...] KNEE 4 VIEWS (ORTH O): REYNA ROSALES [id number] -1945 M Exm Date: MAY 28, 2024@08:43 Req Phys: EDITH GARDNER Pat Loc: LIT PACT T (Req'g Loc) Img Loc: XRAY (OOS) Service: [place] [address] (Case [id number] COMPLETE) KNEE 4 VIEWS (ORTHO) (RAD Detailed) CPT:20649 Reason for Study: knee pain Clinical History: [...] 28, 2024 Date Verified: MAY 28, 2024 Water Resource Manager E-Sig:/ES/DERRELL RODRIGES Report: Bilateral knees: COMPARISON: No [...] Primary Interpreting Staff: DERRELL RODRIGES, RADIOLOGY ATTENDING (Water Resource Manager) /DERRELL [facility] May 28, 2024 08:43 AM KNEE 4 VIEWS (ORTH O): REYNA ROSALES [facility] [id number] -1945 M Exm Date: MAY 28, 2024@08:43 Req Phys: JJ,EDITH L Pat Loc: LIT PACT T (Req'g Loc) Img Loc: XRAY (OOS) Service: Unknown [facility] [place] [address] (Case [id number] COMPLETE) KNEE 4 VIEWS (ORTHO) (RAD Detailed) CPT:23028 Proc Modifiers : LEFT Reason for Study: [...] 28, 2024 Date Verified: MAY 28, 2024 Water Resource Manager E-Sig:/ES/DERRELL RODRIGES Report: Bilateral knees: COMPARISON: No [...] Primary Interpreting Staff: DERRELL RODRIGES, RADIOLOGY ATTENDING (Water Resource Manager) /DERRELL [facility] Encounter Notes: All associated encounter notes This section contains the clinical notes associated to the Encounter. Date/Time Encounter Note(s) Provider Source Jun 12, 2024 10:29 AM LETTERS: LOCAL TITLE: LETTER TO PATIENT ATTEMPT TO CONTACT STANDARD TITLE: LETTERS DATE OF NOTE: JUN 12, 2024@10:29 ENTRY DATE: JUN 12, 2024@10:29:33 AUTHOR: NELSON LYNN COSIGNER: URGENCY: STATUS: COMPLETED [facility] [address] [place] [address] JUN 12, 2024 REYNA ROSALES [address] [place], [place] [address] Dear REYNA ROSALES, [facility] in [place] is trying to reach you to schedule [...] date for you: Service: Physical Therapy Direct: [phone] Ext: [phone] Toll Free: [phone] [phone] We look forward to hearing from you. Sincerely, Clinical Operations NELSON LYNN [facility]
--- OUTSIDE RECORDS SUMMARY | 2024-10-09 10:36 | XMS_ITS | Encounter Summary ---
Author Name [facility] [place] [facility] [place] Address [address] [place] [address] Care Team Providers Care Motor Vehicle Representative Name Role Phone JUAN HANNA Primary [...] BASIC SELF+ 1 Sep 16, 2024 33C [id number] [phone] REYNA ROSALES PATIENT ANTHEM BCBS CT FEDERAL PREFERRED PROVIDER ORGANIZAT ION (PPO) BASIC SELF+ ONE Mar 17, 2018 113 [id number] [phone] REYNA ROSALES PATIENT ANTHEM BCBS OF [place] (FEDERAL) PREFERRED PROVIDER ORGANIZAT ION (PPO) BASIC SELF+ ONE Mar 17, 2018 113 [id number] [phone] REYNA ROSALES PATIENT BCBS OF [place] FEDERAL PREFERRED PROVIDER ORGANIZAT ION (PPO) BASIC SELF+ 1 Mar 17, 2018 113 [id number] [phone] REYNA ROSALES PATIENT CAREMARK FEPRX PLAN PRESCRIPT ION CAREM ARK FEPRX Sep 16, 2024 [id number] REYNA ROSALES PATIENT DARLENE-F EP BCBS PRESCRIPT ION BCBS FEP PLAN Sep 16, 2010 [id number] REYNA ROSALES PATIENT MEDICARE (WNR) MEDICARE (M) PART A Mar 17, 2018 PART A [id number] REYNA ROSALES PATIENT MEDICARE (WNR) MEDICARE (M) PART A Sep 16, 2010 PART A [id number] REYNA ROSALES PATIENT Selected Encounter This section includes the information on record at [place] for the Encounter. Date/Time Encounter Type Encounter Description Reason Provider Source Jul 10, 2024 11:30 AM ORTHOPEDIC MENS SHOES [facility] ICD-10-CM Z46.89 Encounter for fitting and adjustment of oth devices RABIA WEISS Tati Encounter Template Text not used by [place] Assessments - Encounter Diagnoses This section includes the primary and secondary diagnoses documented for the Encounter. Date/Time Primary/Secondary Diagnosis Diagnosis Name Provider Source Jul 30, 2024 06:59 AM PRIMARY Encounter for fitting and adjustment of oth devices RABIA WEISS [facility] Jul 30, 2024 06:59 AM SECONDARY Hallux valgus (acquired), unspecified foot RABIA WEISS [facility] Jul 30, 2024 06:59 AM SECONDARY Other hammer toe(s) (acquired), unspecified foot RABIA WEISS [facility] Plan of Treatment: Future Appointments (+ 6 months) and Future Tests (+/- 45 days) The Plan of Treatment section includes future care activities for the patient from all [place] treatmentfacilities. This section includes future appointments and future orders which are active, pending or scheduled. Future Appointments This section includes appointments that were scheduled to occur 6 months from the date of the Encounter, up to a maximum of 20 appointments. The data comes from all [place] treatment facilities. Appointment Date/Time Appointment Type Appointme nt Facility Name Jul 30, 2024 01:00 PM AMBULATORY - NONE [facility] Jul 30, 2024 02:00 PM AMBULATORY - NONE [facility] Aug 24, 2024 08:30 AM AMBULATORY - NONE [facility] [place] [place] [facility] Aug 26, 2024 08:30 AM AMBULATORY - MEDICINE [facility] [place] [place] [facility] Sep 14, 2024 08:30 AM AMBULATORY - MEDICINE [facility] [place] [facility] Sep 15, 2024 09:30 AM AMBULATORY - REHAB [facility] Nov 05, 2024 08:30 AM AMBULATORY - MEDICINE [facility] Lab Results: +/- 30 days of the encounter This section includes the Chemistry and Hematology Lab Results on record with [place] for the patient. Radiology Reports and Pathology Reports are provided separately, in subsequent sections. Lab Results This section contains the Chemistry/Hematology Results that were resulted 30 days before or 30 daysafter the date of the Encounter. Date/Time Source Result Type Result - Unit Interpretation Reference Range Comment Jul 30, 2024 02:16 PM [facility] VIT D 25-OH(J) Specimen Type: SERUM Comment: , Tests performed on Adapt SN:[id number] (405) TSH within normal limits. Reflex testing not required. Ordering Provider: ERIC GARDNER Report Released Date/Time: Jun 26, 2024 08:27 AM Reporting Lab: [facility] [address] [facility] [address] Performing Lab: [facility] [place] [facility] [address] [facility] [address] VIT D 25-OH([facility]) 28.9 ng/mL 20.0-50.0 Jul 30, 2024 02:16 PM [facility] PSA (MAILROOM CLERK) Specimen Type: SERUM Comment: , Tests performed on [employer] Robles SN:[id number] (405) TSH within normal limits. Reflex testing not required. Ordering Provider: ERIC GARDNER Report Released Date/Time: Jun 26, 2024 08:27 AM Reporting Lab: [place] [facility] [address] [facility] [address] Performing Lab: [place] [facility] [address] [facility] [address] PSA (MAILROOM CLERK) 3.72 ng/mL Jul 30, 2024 02:16 PM [facility] THYROID TESTING CASCADE Specimen Type: SERUM Comment: , Tests performed on [employer] SN:[id number] (405) TSH within normal limits. Reflex testing not required. Ordering Provider: ERIC GARDNER Report Released Date/Time: Jun 26, 2024 08:27 AM Reporting Lab: [facility] [address] [facility] [address] Performing Lab: [facility] [address] [facility] [address] TSH 3.10 u[IU]/mL 0.35-5.00 Jul 30, 2024 02:16 PM [facility] LIVER PROFILE Specimen Type: PLASMA Comment: , Tests performed on [employer] Joon SN:[id number] (405). Ordering Provider: ERIC GARDNER Report Released Date/Time: Jun 26, 2024 08:27 AM Reporting Lab: [facility] [address] [facility] [address] Performing Lab: [place] [id number] PROTEIN, TOTAL 6.7 g/dL 6.0-8.5 ALBUMIN 3.7 g/dL 3.2-5.0 BILIRUBIN, TOTAL 0.4 mg/dL 0.2-1.2 ALKALINE PHOSPHATASE 41 U/L 40-150 ALT(SGPT) 34 U/L 7-52 AST(SGOT) 25 U/L 5-34 FIB-4 SCORE 1.41 <2.67 Jul 30, 2024 02:16 PM [facility] CBC NO DIFF Specimen Type: BLOOD No comment entered. Ordering Provider: ERIC GARDNER Report Released Date/Time: Jun 26, 2024 08:27 AM Reporting Lab: [facility] [address] [facility] [address] Performing Lab: [facility] [address] [facility] [address] WBC 4.5 10*3/uL 4.5-11.0 RBC 4.59 10*6/uL 4.23-5.66 HGB 14.7 g/dL 12.8-17 HEMATOCRIT 44.0 39.2-50.4 MCV 95.9 fL 82-99 MCH 32.0 pg 26.2-32.6 MCHC 33.4 g/dL 30.8-35.1 PLT 245 10*3/uL 140-360 MPV 8.8 fL L 9.2-12.4 RDW 13.1 12.0-16.0 Jul 30, 2024 02:16 PM [facility] CB P4 GLU,BUN,CREAT,LYTES,CA Specimen Type: PLASMA Comment: , Tests performed on Desai Carp[employer] Teacher Joon SN:[id number] (405). Ordering Provider: ERIC GARDNER Report Released Date/Time: Jun 26, 2024 08:27 AM Reporting Lab: [facility] [address] [facility] [address] Performing Lab: [facility] [address] [facility] [address] UREA NITROGEN 15 mg/dL 7-25 SODIUM 138 mmol/L 135-145 POTASSIUM 4.4 mmol/L 3.5-5.0 CHLORIDE 103 mmol/L 100-110 CARBON DIOXIDE 28 mmol/L 20-30 ANION GAP 7 4-16 GLUCOSE 99 mg/dL 65-100 CREATININE 0.96 mg/dL 0.50-1.50 CALCIUM 8.7 mg/dL 8.5-10.5 eGFR(CKD-EPI 2020) 81 mL/min Jul 30, 2024 02:16 PM [facility] CB LIPOPROTEIN CHOLESTEROL FRACT. PANEL Specimen Type: PLASMA Comment: , Tests performed on [employer] Carpentry Teacher Joon SN:[id number] (405). Ordering Provider: ERIC GARDNER Report Released Date/Time: Jun 26, 2024 08:27 AM Reporting Lab: [facility] [address] [facility] [address] Performing Lab: [facility] [address] [facility] [address] CHOLESTEROL 236 mg/dL H 0-200 TRIGLYCERIDE 183 mg/dL H 0-150 HDL CHOLESTEROL 52 mg/dL >40 LDL CHOLESTEROL (CALC) 147 mg/dL H 0-129 Social History: Smoking Status (Most current) and Tobacco Use (All prior to encounter date) This section includes the most current, and the historical, smoking and tobacco- related health factors from the [facility] where the Encounter took place. Current Smoking Status This section includes the most current smoking, or tobacco-related health factor, from the [place] facility where the Encounter took place. Date/Time Current Smoking Status Comment Facility Sep 04, 2010 01:20 PM QUIT TOBACCO USE > 7 YEARS AGO Pt. quit smoking in 1974. LUCAS MARCH [facility] Advance Directives: All historical and current Section Date Range: From patient's date of to the date document was created. This section includes ALL of a patient's completed or amended [place] Advance and Rescinded Directives. The entries below indicate that a directive exists for the patient, but an actual copy is not included with this document. The data comes from all [place] facilities. Date Advance Directives Provider Source Oct [...] the Encounter. The data comes from all [place] treatment facilities. Date/Time Radiology Report Provider Source Jul 31, 2024 12:10 PM UNLISTED COPIES FO R OUTSIDE REFERRAL: REYNA ROSALES [id number] -1945 M Exm Date: JUL 31, 2024@12:10 Req Phys: EDITH GARDNER Pat Loc: COM CARE-ORTHO GEN (Req'g Loc) Img Loc: XRAY (OOS) Service: Unknown (Case 63 COMPLETE) UNLISTED COPIES FOR OUTSIDE REFER(RAD Detailed) CPT:96589 Reason for Study: Copies for outside referral Clinical History: Please send 05/28/2024 knee XRs, L and R, to [facility], [facility] Report Status: Electronically Filed Date Reported: Report: Copies (CD) made for outside facility. Impression: Copies (CD) made for outside facility Primary Diagnostic Code: VERIFIED BY: / *ELECTRONICALLY FILED* [facility] Encounter Notes: All associated encounter notes This section contains the clinical notes associated to the Encounter. Date/Time Encounter Note(s) Provider Source Jul 10, 2024 01:35 PM PODIATRY NOTE: LOCAL TITLE: PODIATRY NAIL CLINIC NOTE STANDARD TITLE: PODIATRY NOTE DATE OF NOTE: JUL 10, 2024@13:35 ENTRY DATE: JUL 10, 2024@13:35:48 AUTHOR: RABIA WEISS EXP COSIGNER: URGENCY: STATUS: COMPLETED 78 y/o Non-DM patient seen in [facility] clinic today. Pt is here today for shoe fitting. 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[employer] [place] Style #: 642 Color: Brown Size: 8 Wide Shoe inspection before fitting: _x_checked linings, seams and insoles for defects Shoe inspection after shoes are on: _x_Checked width and depth of shoe _x_Checked tongue and facings to make sure they do not dig into ankle x__Checked facings are not meeting or overlapping x__No crease in vamp _x_Checked that there is no rubbing on maleoli _x_Heel in position with no slippage with ambulation _x_Check for firm quarters to control rearfoot _x_Checked for heel stability _x_Shoes fit well and were dispensed __Shoes did not fit well and will reorder the following: Patient advised to gradually increase wear time of shoes and check feet after wearing them. If any concerns or issues, stop wearing immediately and call podiatry. Patient verbalized understanding. 5 Minutes reviewing patients chart prior to encounter 10 Minutes obtaining history and performing physical exam,treatment and charting 5 Minutes counseling/ education patient/family/caregiver Minutes ordering medications/tests/procedures Minutes Referring and communicating with other healthcare professionals (when not separately reported) Minutes independently interpreting results ( not separately reported) and communicating results to the patient/family/caregiver Minutes care coordination Encounter time 20min /ken/ RABIA WEISS Podiatric Final Canoe Inspector Signed: 07/10/2024 13:41 RABIA WEISS [facility]
--- OUTSIDE RECORDS SUMMARY | 2024-10-09 10:36 | XMS_ITS | Encounter Summary ---
Author Name [facility] [place] [place] [facility] [place] Address [address] [place] [address] Care Team Providers Care Space Planner Name Role Phone JUAN HANNA Primary Care [...] BASIC SELF+ 1 Sep 16, 2024 33C [id number] [phone] REYNA ROSALES PATIENT ANTHEM BCBS CT FEDERAL PREFERRED PROVIDER ORGANIZAT ION (PPO) BASIC SELF+ ONE Mar 17, 2018 113 [id number] [phone] REYNA ROSALES PATIENT ANTHEM [place] (FEDERAL) PREFERRED PROVIDER ORGANIZAT ION (PPO) BASIC SELF+ ONE Mar 17, 2018 113 [id number] REYNA ROSALES PATIENT [place] FEDERAL PREFERRED PROVIDER ORGANIZAT ION (PPO) BASIC SELF+ 1 Mar 17, 2018 113 [id number] [phone] REYNA ROSALES PATIENT CAREMARK FEPRX PLAN PRESCRIPT ION CAREM ARK FEPRX Sep 16, 2024 [id number] REYNA ROSALES PATIENT CARESANKET-F EP BCBS PRESCRIPT ION BCBS FEP PLAN Sep 16, 2010 [id number] REYNA ROSALES PATIENT MEDICARE (WNR) MEDICARE (M) PART A Mar 17, 2018 PART A [id number] REYNA ROSALES PATIENT MEDICARE (WNR) MEDICARE (M) PART A Sep 16, 2010 PART A [id number] [phone] REYNA ROSALES PATIENT Selected Encounter This section includes the [place] for the Encounter. Date/Time Encounter Type Encounter Description Reason Provider Source Jul 03, 2024 02:01 PM Outpatient Encounter PROSTHETICS/ORTHOTIC S KALEY MARTIN Encounter Template Text not used by [place] Plan of Treatment: Future Appointments (+ 6 [...] AM AMBULATORY - SURGERY [facility]UCAS MARCH T [facility] Jul 30, 2024 01:00 PM AMBULATORY - NONE [facility] Jul 30, 2024 02:00 PM AMBULATORY - NONE [facility] Aug 24, 2024 08:30 AM AMBULATORY - NONE [place] [facility] Aug 26, 2024 08:30 AM AMBULATORY - MEDICINE [facility] Sep 14, 2024 08:30 AM AMBULATORY - MEDICINE [place] [facility] [facility] Sep 15, 2024 09:30 AM [facility] Nov 05, 2024 08:30 AM AMBULATORY - MEDICINE [facility] Lab Results: +/- 30 days of the encounter This section includes the Chemistry and Hematology Lab Results on record with [place] for the patient. Radiology Reports and Pathology Reports are provided separately, in subsequent sections. Lab Results This section contains the Chemistry/Hematology Results that were resulted 30 days before or 30 daysafter the date of the Encounter. Date/Time Source Result Type Result - Unit Interpretation Reference Range Comment Jul 30, 2024 02:16 PM [facility] PSA (INSULATION INSPECTOR) Specimen Type: SERUM Comment: , Tests performed on [employer]ai [employer] Robles SN:[id number] (405) TSH within normal limits. Reflex testing not required. Ordering Provider: ERIC GARDNER Report Released Date/Time: Jun 26, 2024 08:27 AM Reporting Lab: [place] [facility] [address] [place] [facility] [place] [address] Performing Lab: [place] [facility] [address] [place] [facility] [place] [address] PSA (INSULATION INSPECTOR) 3.72 ng/mL Jul 30, 2024 02:16 PM [facility] VIT D 25-OH([facility]) Specimen Type: SERUM Comment: , Tests performed on [employer]ai [employer] Robles SN:[id number] (405) TSH within normal limits. Reflex testing not required. Ordering Provider: ERIC GARDNER Report Released Date/Time: Jun 26, 2024 08:27 AM Reporting Lab: [place] [facility] [address] [place] [facility] [place] [address] Performing Lab: [place] [facility] [address] [place] [facility] [place] [address] VIT D 25-OH([facility]) 28.9 ng/mL 20.0-50.0 Jul 30, 2024 02:16 PM [facility] THYROID TESTING [place] Specimen Type: SERUM Comment: , Tests performed on Desai [employer]el[employer] Robles SN:[id number] (405) TSH within normal limits. Reflex testing not required. Ordering Provider: ERIC GARDNER Report Released Date/Time: Jun 26, 2024 08:27 AM Reporting Lab: [place] [facility] [address] [place] [facility] [place] [address] Performing Lab: [place] [facility] [address] [place] [facility] [place] [address] TSH 3.10 u[IU]/mL 0.35-5.00 Jul 30, 2024 02:16 PM [facility] LIVER PROFILE Specimen Type: PLASMA Comment: , Tests performed on [employer] Joon SN:[id number] (405). Ordering Provider: ERIC GARDNER Report Released Date/Time: Jun 26, 2024 08:27 AM Reporting Lab: [facility] [address] [facility] [address] Performing Lab: [facility] [address] [facility] [address] PROTEIN, TOTAL 6.7 g/dL 6.0-8.5 ALBUMIN 3.7 g/dL 3.2-5.0 BILIRUBIN, TOTAL 0.4 mg/dL 0.2-1.2 ALKALINE PHOSPHATASE 41 U/L 40-150 ALT(SGPT) 34 U/L 7-52 AST(SGOT) 25 U/L 5-34 FIB-4 SCORE 1.41 <2.67 Jul 30, 2024 02:16 PM [facility] CBC NO DIFF Specimen Type: BLOOD No comment entered. Ordering Provider: ERIC GARDNER Report Released Date/Time: Jun 26, 2024 08:27 AM Reporting Lab: [facility] [address] [facility] [address] Performing Lab: [facility] [address] [facility] [address] WBC 4.5 10*3/uL 4.5-11.0 RBC 4.59 10*6/uL 4.23-5.66 HGB 14.7 g/dL 12.8-17 HEMATOCRIT 44.0 39.2-50.4 MCV 95.9 fL 82-99 MCH 32.0 pg 26.2-32.6 MCHC 33.4 g/dL 30.8-35.1 PLT 245 10*3/uL 140-360 MPV 8.8 fL L 9.2-12.4 RDW 13.1 12.0-16.0 Jul 30, 2024 02:16 PM [facility] P4 GLU,BUN,CREAT,LYTES,CA Specimen Type: PLASMA Comment: , Tests performed on [employer] Joon SN:[id number] (736). Ordering Provider: ERIC GARDNER Report Released Date/Time: Jun 26, 2024 08:27 AM Reporting Lab: [facility] [address] [facility] [address] Performing Lab: [facility] [address] [facility] [address] UREA NITROGEN 15 mg/dL 7-25 SODIUM 138 mmol/L 135-145 POTASSIUM 4.4 mmol/L 3.5-5.0 CHLORIDE 103 mmol/L 100-110 CARBON DIOXIDE 28 mmol/L 20-30 ANION GAP 7 4-16 GLUCOSE 99 mg/dL 65-100 CREATININE 0.96 mg/dL 0.50-1.50 CALCIUM 8.7 mg/dL 8.5-10.5 eGFR(CKD-EPI 2020) 81 mL/min Jul 30, 2024 02:16 PM [facility] LIPOPROTEIN CHOLESTEROL FRACT. PANEL Specimen Type: PLASMA Comment: , Tests performed on [facility] SN:[id number] (405). Ordering Provider: ERIC GARDNER Report Released Date/Time: Jun 26, 2024 08:27 AM Reporting Lab: [facility] [address] [facility] [address] Performing Lab: [facility] [address] [facility] [address] CHOLESTEROL 236 mg/dL H 0-200 TRIGLYCERIDE 183 [...] ALL of a patient's completed or amended [place] Advance and Rescinded Directives. The entries below indicate that a directive exists for the patient, but an actual copy is not included with this document. The data comes from all [place] facilities. Date Advance Directives Provider Source Oct 08, 2019 ADVANCE DIRECTIVE LEISA ROBERTS [facility] Radiology Reports: +/- 30 days [...] COPIES FO R OUTSIDE REFERRAL: REYNA ROSALES [id number] M Exm Date: JUL 31, 2024@12:10 Req Phys: EDITH GARDNER Pat Loc: COM CARE-ORTHO GEN (Req'g Loc) Img Loc: XRAY (OOS) Service: Unknown (Case 63 COMPLETE) UNLISTED COPIES FOR OUTSIDE REFER(RAD Detailed) CPT:10088 Reason for Study: Copies for outside referral Clinical History: Please send 05/28/2024 knee XRs, L and R, to [facility], [facility] Report Status: Electronically Filed Date Reported: Report: Copies (CD) made for outside facility. Impression: Copies (CD) made for outside facility Primary Diagnostic Code: VERIFIED BY: / *ELECTRONICALLY FILED* [facility]
--- OUTSIDE RECORDS SUMMARY | 2024-10-09 10:36 | XMS_ITS | Encounter Summary ---
Author Name [facility] [facility] [place] [facility] [place] Address [address] [place] [address] Care Team Providers Care Abrading Machine Tender Name Role Phone JUAN HANNA Primary Care Provider [facility] le Insurance Providers: All historical and [...] BASIC SELF+ 1 Sep 16, 2024 [id number] [phone] REYNA ROSALES PATIENT ANTHEM BCBS CT FEDERAL PREFERRED PROVIDER ORGANIZAT ION (PPO) BASIC SELF+ ONE Mar 17, 2018 113 [id number] [phone] REYNA ROSALES PATIENT ANTHEM BCBS OF [place] (FEDERAL) PREFERRED PROVIDER ORGANIZAT ION (PPO) BASIC SELF+ ONE Mar 17, 2018 113 [id number] [phone] REYNA ROSALES PATIENT [place]BS OF [place] FEDERAL PREFERRED PROVIDER ORGANIZAT ION (PPO) BASIC SELF+ 1 Mar 17, 2018 113 [id number] [phone] REYNA ROSALES FEPRX PLAN PRESCRIPT ION CAREM ARK FEPRX Sep 16, 2024 [id number] REYNA ROSALES-F EP BCBS PRESCRIPT ION BCBS FEP PLAN Sep 16, 2010 [id number] REYNA ROSALES PATIENT MEDICARE (WNR) MEDICARE (M) PART A Mar 17, 2018 PART A [id number] REYNA ROSALES PATIENT MEDICARE (WNR) MEDICARE (M) PART A Sep 16, 2010 PART A [id number] [phone] REYNA ROSALES PATIENT Selected Encounter This section includes the information on record at [place] for the Encounter. Date/Time Encounter Type Encounter Description Reason Provider Source May 21, 2024 09:00 AM OFF/OP EST JANUARY X REQ PHY/QHP PRIMARY CARE/MEDICINE ICD-10-CM N40.1 Benign prostatic hyperplasia with lower urinary tract symp PETTIGLIBRADY Bosch RA [facility] Encounter Template Text not used by [place] Assessments - Encounter Diagnoses This section includes the primary and secondary diagnoses documented for the Encounter. Date/Time Primary/Secondary Diagnosis Diagnosis Name Provider Source Jun 01, 2024 09:02 AM PRIMARY Benign prostatic hyperplasia with lower urinary tract symp PETTIGBRADY RAMIREZ RA [facility] Jun 01, 2024 09:02 AM SECONDARY Other obstructive and reflux uropathy BRADY WORRELL RA [facility] Plan of Treatment: Future [...] Appointment Type Appointme nt Facility Name May 28, 2024 09:00 AM AMBULATORY - SURGERY [facility] Jun 16, 2024 01:00 PM AMBULATORY - REHAB MEDICIN E [facility] Jul 10, 2024 11:30 AM AMBULATORY - SURGERY [facility] Jul 30, 2024 01:00 PM AMBULATORY - NONE [facility] Jul 30, 2024 02:00 PM AMBULATORY - NONE [facility] Aug 24, 2024 08:30 AM AMBULATORY - NONE [facility] Aug 26, 2024 08:30 AM AMBULATORY - MEDICINE [facility] Sep 14, 2024 08:30 AM AMBULATORY - MEDICINE [facility] Sep 15, 2024 09:30 AM [facility] Nov 05, 2024 08:30 AM AMBULATORY [...] Range Comment May 21, 2024 09:08 AM [facility] URINALYSIS W/REFLEX TO CULTURE Specimen Type: URINE No comment entered. Ordering Provider: ERIC GARDNER Report Released Date/Time: May 01, 2024 10:59 AM Reporting Lab: [facility] [address] [facility] [id number] Performing Lab: [facility] [address] [facility] [facility] [id number] URINE COLOR Colorless NOT DEFINED SPECIFIC GRAVITY [...] took place. Date/Time Current Smoking Status Comment Facil ity Oct 02, 2023 11:00 AM VA-TOBACCO FORMER USER [facility] Tobacco Use History This section includes a history of the smoking, or tobacco-related health factors, that were collected on or before the date of the Encounter. The data comes from the [place] facility where the Encounter [...] USE > 7 YEARS AGO quit early [facility] Advance Directives: All historical [...] Oct 08, 2019 ADVANCE DIRECTIVE LEISA ROBERTS [facility] Radiology Reports: +/- 30 days of [...] KNEE 4 VIEWS (ORTH O): REYNA ROSALES [facility] [id number] -1945 M Exm Date: MAY 28, 2024@08:43 Req Phys: ERIC GARDNERN Ervin Pat Loc: LIT PACT T (Req'g Loc) Img Loc: XRAY (OOS) Service: Unknown [facility] [place] [address] (Case [id number] COMPLETE) KNEE 4 VIEWS (ORTHO) (RAD Detailed) CPT:72155 Reason for Study: knee pain Clinical History: [...] tears surgically repaired both knees. Agus Finch [facility]. coordinate with LICHA pearl Report Status: Verified Date Reported: MAY 28, 2024 Date Verified: MAY 28, 2024 [employer] Crusher [employer] Washer E-Sig:/ES/DERRELL RODRIGES Report: Bilateral knees: COMPARISON: No [...] Primary Interpreting Staff: DERRELL RODRIGES, RADIOLOGY ATTENDING ([employer]her) /DERRELL BARRAGAN [facility] May 28, 2024 08:43 AM KNEE 4 VIEWS (ORTH O): REYNA ROSALES [facility] [id number] -1945 M Exm Date: MAY 28, 2024@08:43 Req Phys: EDITH GARDNER L Pat Loc: LIT PACT T (Req'g Loc) Img Loc: XRAY (OOS) Service: Unknown [facility] [place] [address] (Case [id number] COMPLETE) KNEE 4 VIEWS (ORTHO) (RAD Detailed) CPT:44541 Proc Modifiers : LEFT Reason for Study: [...] both knees. [facility]. coordinate with [facility] apt Report Status: Verified Date Reported: MAY 28, 2024 Date Verified: MAY 28, 2024 [employer] E-Sig:/ES/DERRELL RODRIGES Report: Bilateral knees: COMPARISON: No [...] Primary Interpreting Staff: DERRELL RODRIGES, RADIOLOGY ATTENDING (Cullet Crusher And Washer) /DERRELL BARRAGAN [facility] Encounter Notes: All associated encounter notes This section contains the clinical notes associated to the Encounter. Date/Time Encounter Note(s) Provider Source May 23, 2024 04:16 PM ADDENDUM: LOCAL TITLE: Addendum STANDARD TITLE: ADDENDUM DATE OF NOTE: MAY 23, 2024@16:16:23 ENTRY DATE: MAY 23, 2024@16:16:23 AUTHOR: EDITH GARDNER EXP COSIGNER: URGENCY: STATUS: COMPLETED Please mail to Derek. /ken/ EDITH GARDNER GEOPHYSICAL PARTY CHIEF Signed: 05/23/2024 16:16 Receipt Acknowledged By: 06/01/2024 09:44 /ken/ ANGELIKA DOVE Food Mixer Assembler === --- Original Document --- 05/23/24 Letter to Ila Scurggs: MAY 23, 2024 REYNA REED CONNIE [address] [place] [id number] Dear REYNA ROSALES: Your urinalysis and post void residual were both normal. Continue tamsulosin, I look forward to seeing you in June Please don't hesitate to call if you have any questions or concerns, . Sincerely, EDITH GARDNER APRN [address] [address] EDITH GARDNER [facility] May 23, 2024 04:14 PM LETTERS: LOCAL TITLE: Letter to Patient Jeronimo Scruggs STANDARD TITLE: LETTERS DATE OF NOTE: MAY 23, 2024@16:14 ENTRY DATE: MAY 23, 2024@16:14:47 AUTHOR: EDITH GARDNER EXP COSIGNER: URGENCY: STATUS: COMPLETED Letter to Patient Jeronimo Scruggs Has ADDENDA MAY 23, 2024 REYNA REED [place] [address] [place] [id number] Dear REYNA ROSALES: Your urinalysis and post void residual were both normal. Continue tamsulosin, I look forward to seeing you in June Please don't hesitate to call if you have any questions or concerns, . Sincerely, EDITH GARDNER APRN [address] [address] 05/23/2024 ADDENDUM STATUS: COMPLETED Please mail to Thanks. /ken/ EDITH GARDNER APRN Signed: 05/23/2024 16:16 Receipt Acknowledged By: * AWAITING SIGNATURE * ANGELIKA DOVE EVELYN L [facility] May 21, 2024 09:13 AM PRIMARY CARE NOTE: LOCAL TITLE: [place] Conservationist Note STANDARD TITLE: PRIMARY CARE NOTE DATE OF NOTE: MAY 21, 2024@09:13 ENTRY DATE: MAY 21, 2024@09:14:01 AUTHOR: PAMELLA WORRELL EXP COSIGNER: URGENCY: STATUS: COMPLETED Vet presenting to clinic for U/A- PVR. Specimen obtained PVR 18ml /es/ PAMELLA WORRELL RN Signed: 05/21/2024 09:16 PAMELLA WORRELL [facility]
--- OUTSIDE RECORDS SUMMARY | 2024-10-09 10:37 | XMS_ITS | Encounter Summary ---
Author Organization [facility] Address [facility] [place] [address] Care Team Providers Care Operations/Dispatch Name Role Phone Sariah To APRN Primary Care Provider Reason for Visit * Reason Comments Skin Check Encounter Details Date Type Department Care Team (Late st Contact Info) Description 01/22/2019 11:00 AM EDT Office Visit Dermatology at [facility] [address] [place] [address] Sheryl Good MD [facility] [address] [address] SK (seborrheic keratosis); Lentigines; Lanier angioma; AK (actinic keratosis) Social History Tobacco Use Types Packs/Day Years Used Date Smoking Tobacco: Former Smokeless Tobacco: Never Alcohol Use Standard Drinks/Week Comments Yes 7 (1 standard drink = 0.6 oz pur e alcohol) Sex and Gender Information Value Date Recorded Sex Assigned at Not on file Gender Identity Not on file Sexual Orientation Not on file documented as of this encounter Progress Notes * Sheryl Good MD - 01/22/2019 11:00 AM EDT DERMATOLOGY ESTABLISHED PATIENT CLINIC NOTE Date of service: 01/22/2019 Deepak Allen Machias : 1945 Provider: Sheryl Good MD Preferred name: Deepak Preferred contact method with results: Cell Message okay: yes PROBLEM: new area on neck SKIN HISTORY: actinic keratosis- LN2 HPI Mr. Pak is a 73 y.o. year old male. Established patient, last seen 09/23/2018. Here today for a new concerning lesion on his neck. It appeared just a few months ago. Denies any pain, itching, or bleeding. Just notes it is new and appears different. ADR: Cis free text allergy and Penicillins MEDS: Current Outpatient Medications on File Prior to Visit Medication Sig Dispense Refill ??? sildenafil (VIAGRA) 50 mg tablet Take 50 mg by mouth as needed. ??? OMEGA-3S/DHA/EPA/FISH OIL (OMEGA 3 ORAL) Take by mouth daily. ??? cholecalciferol, Vitamin D3, (VITAMIN D) 1,000 unit Tab tablet Take 2,000 Units by mouth daily. ??? VITAMIN E ACETATE (VITAMIN E ORAL) Take by mouth daily. ??? multivitamin (THERAGRAN) tablet Take 1 tablet by mouth daily. ??? Magnesium 100 mg Cap Take by mouth daily. ??? RED YEAST RICE ORAL Take by mouth daily. No current facility-administered medications on file prior to visit. 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 Full skin examination of the scalp, hair, head, face, neck, back, chest, abdomen, right and left upper extremities, right and left lower extremities and buttocks was normal with the exception of the findings listed below. Significant skin findings: A. Multiple 0.4-0.6cm brown papules with waxy, stuck-on appearance B. Sun exposed areas: 0.3-0.6cm light-brown evenly pigmented, well-demarcated macules. C. Multiple 0.2-0.4cm bright red, well-demarcated papules D. Right buddhism x1, right cheek x1, vertex scalp x4, left helix x1: 0.2-0.3cm scaly irregular pink papules ASSESSMENT/PLAN: A. Seborrheic Keratoses - Benign. No treatment necessary. - Reassured about benign nature and natural history. B. Solar Lentigines - Benign. No treatment necessary. - Reassured about benign nature and natural history. - Sun avoidance, protective clothing and the use of SPF 30+ sunscreen is advised. Observe closely for skin changes and call if such occurs. C. Lanier Angiomas - Benign. No treatment necessary. - Reassured about benign nature and natural history. D. Actinic Keratoses Counseled: AKs, risk for progression to SCCs, and treatment options, including observation, LN2, topicals, and PDT. Procedure Note: Procedure: Destruction of lesions with cryotherapy. Number: 7 Location: as above Discussed procedure and expectations including risks (including risk of hypopigmentation) and benefits. Verbal consent obtained. Frozen with LN2, 15-30 second thaw time, TWICE. There were no complications; the patient tolerated the procedure well. Post-procedure expectations and wound care were reviewed. RTC 6 months for FSE Note initiated and routed to physician for review and change by: Michaelle Nelson LPN I, Mehul Melo, have performed the documentation for this encounter in the presence of and actingas a scribe for SHERYL GOOD MD. I performed the services which were documented by the scribe, and I agree with the accuracy of the documentation in this encounter. SHERYL GOOD MD. Sheryl Good MD Section of Dermatology [facility] documented in this encounter Plan of Treatment Not on file documented as of this encounter Visit Diagnoses Diagnosis SK (seborrheic keratosis) Other seborrheic keratosis Lentigines Other dyschromia Lanier angioma Nevus, non-neoplastic AK (actinic keratosis) Actinic keratosis documented in this encounter Care Teams Operations/Dispatch Relationship Specialty Start Date End Date Sariah To APRN [address] [place] [address] PCP - General General Internal Medicine 10/21/1711/14 documented as of this encounter
--- OUTSIDE RECORDS SUMMARY | 2024-10-09 10:37 | XMS_ITS | Encounter Summary ---
Author Organization [facility] Address [facility] [place] [address] Care Team Providers Care Button Grader Name Role Phone None Primary Care Provider Unavailabl e Encounter Details Date Type Department Care Team (Late st Contact Info) Description 01/04/2009 Orders [place] [address] rAiana Blue MD [facility] [place] [address] Social History Tobacco Use Types Packs/Day Years Used Date Smoking Tobacco: Never Assessed Sex and Gender Information Value Date Recorded Sex Assigned at Not on file Gender Identity Not on file Sexual Orientation Not on file documented as of this encounter Plan of Treatment Not on file documented as of this encounter Procedures Procedure Name Priority Date/Time Associated Diagnosis Comments SURGICAL PATHOLOGY REPORT Routine 01/04/2009 3:50 PM EDT documented in this encounter Results * Surgical Pathology Report (01/04/2009 3:50 PM EDT) Surgical Pathology Report [id number] ? Location: 4T The signing pathologist has (i) examined the relevant preparation(s) for the specimen(s) and (ii) rendered or confirmed the diagnosis(es). . ?Pathology Surgical Pathology Final Report Clinical Information Specimen Submitted: A - Polyp; Transverse, 60 cm Clinical History: 63 YO male with family history of colon cancer and personal history of polyps. Clinical Diagnosis: H/O polyps, one year surveillance Gross Description Labeled/Fixative : ? Transverse polyp, 60 cm, formalin. Qty/Size/Weight: ?Five, ranging from 0.1 cm to 0.3 cm in greatest ?dimension. Tissue Description: ?? Soft, house tissues. Sections/Process ing: ??(T1) ??lars/SNS Microscopic Description Slides reviewed, microscopic description not recorded. Diagnosis Endoscopic biopsies - Tubular adenoma(s) (multiple fragments). CR-PX 01/06/09 AAS 01/06/09 Verified by: ? Eulalia DOW, Sydnee Urena ?Pathologist ?(Electronic Signature) The attending pathologist whose signature appears on this report has reviewed all diagnostic slides and has edited the gross and/or microscopic portion of the report in rendering the final pathologic diagnosis. HIEU FERRELL 01/04/2009 3:50 PM EDT Ariana Blue MD PATHOLOGY/CYTOLOGY O RDERABLES HIEU FERRELL documented in this encounter Visit Diagnoses Not on filedocumented in this encounter Care Teams Button Grader Relationship Specialty Start Date End Date None None PCP - General 11/27/21 documented as of this encounter
--- OUTSIDE RECORDS SUMMARY | 2024-10-09 10:37 | XMS_ITS | Encounter Summary ---
Author Organization [facility] [place] [address] Care Team Providers Care Wine Specialist Name Role Phone None Primary Care Provider Unavailabl e Reason for Visit * Reason Comments Skin Check Encounter Details Date Type Department Care Team (Late st Contact Info) Description 11/27/2021 2:45 PM EDT Office Visit Dermatology at [address] [phone] Robert Good MD [facility] [address] [facility] [address] Lentigines; Lanier angioma; Neoplasm of uncertain behavior; Seborrheic keratoses; Inflammatory papule Social History Tobacco Use Types Packs/Day Years Used Date Smoking Tobacco: Former Smokeless Tobacco: Never Alcohol Use Standard Drinks/Week Comments Yes 7 (1 standard drink = 0.6 oz pur e alcohol) Sex and Gender Information Value Date Recorded Sex Assigned at Not on file Gender Identity Not on file Sexual Orientation Not on file documented as of this encounter Progress Notes * Robert Good MD - 11/27/2021 2:45 PM EDT Images from the original note were not included. DEPARTMENT OF DERMATOLOGY Medical D[facility]atology [facility] Provider: ROBERT GOOD MD Patient's preferred name Deepak Preferred contact method for results [x]Phone: Cell []myD-H []Letter Detailed phone message OK? Yes Are there any other people with whom we may discuss your care? 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 They also have four grandchildren, the youngest of whom lives in [place], [place]. Pre-Procedure Questions Details Allergy to lidocaine, epinephrine, Dermabond, chlorhexidine, or adhesives No Bleeding disorder or blood thinners Quincy-3, Vitamin E Pacemaker, defibrillator, deep brain stimulator, cochlear implant No History of Present Illness: Deepak Pak is a 76 y.o. Patient returns to clinic today for a full skin exam with no concerns. Deepak reports that he had bilateral cataract surgery last month. Last visit at Dermatology: 08/04/2020 Last visit with this provider: 08/04/2020 Medications: Reviewed in eD-H Allergies: Reviewed in eD-H Skin Examination: Full skin examination: Patient asked to undress to their comfort level. Verbalized that the provider???s preference is that the patient remove all clothing and that the provider will not examine areas patient elects to keep covered. Patient elects to keep underwear on and have the following examined: scalp, hair, face, ears, neck, chest, axillae, abdomen, back, and upper and lower extremities. Genitalia and buttocks were not examined. Assessment/Plan 1. Solar Lentigines - Light-brown evenly, pigmented, well-demarcated macules on sun exposed areas of the skin. - Patient reassured of benign nature. 2. Lanier Angiomas - 0.2-0.4cm bright red, well-demarcated papules on the trunk. - Benign. No treatment needed. 3. Neoplasm of Uncertain Behavior - 0.3cm irregular, brown macule on the central chest (Figure 1) DDx: Nevus, r/o Atypia - After review of risks and benefits, joint decision made to pursue shave biopsy today. Procedure: Skin biopsy by shave technique Location: Central chest Discussed indications for procedure and expectations including risks and benefits. Verbal consent obtained. Skin prep with alcohol. Local anesthesia with 1% lidocaine. A sample of the lesion was removed by shave technique to the level of the dermis and submitted to Pathology. Hemostasis obtained. There were no complications; the patient tolerated the procedure well. The wound was dressed. Post-procedure expectations, wound care and activity restrictions were reviewed. Follow-up based on pathology results. 4. Seborrheic Keratoses - Stuck on, waxy papules on the trunk and extremities. - Benign. No treatment needed. 5. Inflammatory Papule on the left lower lid. Per patient, reason is cataract surgery. Figure 1 Photo taken and charted with patient's verbal consent. Other: ??? N/A RTC: Pending Pathology []Note routed to marketing secretary []Recall placed in scheduling system []Appointment scheduled at checkout Scribe attestation: NAM Jackosn has performed the documentation for this encounter in the presence of and acting as a scribe for ROBERT GOOD MD. I performed the above scribed service and agree with the accuracy of the documentation in this encounter. Reviewed and signed by: ROBERT GOOD MD Dermatology [facility] * Robert Good MD - 11/27/2021 2:45 PM EDT Benign seborrheic keratosis, Call to inform patientRobert documented in this encounter Plan of Treatment Not on file documented as of this encounter Procedures Procedure Name Priority Date/Time Associated Diagnosis Comments SPECIMEN TO PATHOLOGY Routine 11/27/2021 3:10 PM EDT Neoplasm of uncertain behavior SURGICAL PATHOLOGY REPORT Routine 11/27/2021 3:03 PM EDT documented in this encounter Results * Specimen to Pathology (11/27/2021 3:10 PM EDT) AP Specimen 11/27/2021 3:10 PM EDT 11/27/2021 3:10 PM EDT Narrative [facility] - 11/27/2021 3:10 PM EDT Specimen requisition ordered. ??Separate Pathology report to follow Robert Good MD PATHOLOGY/CYTOLOGY O RDERABLES [facility] [place] [address] * Surgical Pathology Report (11/27/2021 3:03 PM EDT) Final Diagnosis [id number] ? Location: HDM The signing pathologist has (i) examined the relevant preparation(s) for the specimen(s) and (ii) rendered or confirmed the diagnosis(es). . ?Surgical Pathology DIAGNOSIS Central chest, skin shave biopsy: - Pigmented macular ??seborrheic keratosis Electronically signed by: ?Gabriel DOW, Berta Verified: ??11/29/2021 13:38 ??Dermatopathol ogist Performed at: ??-[facility] Dept. of Pathology, [place], [place] SPECIMEN(S) SUBMITTED A - Central chest, skin shave biopsy (1) CLINICAL INFORMATION 0.3 cm irregular brown macule on the central chest. DDX: Nevus, R/O atypia SPECIMEN PROCESSING A - Labeled/Fixativ e: Patient demographics, formalin. Quantity/Size: ??Single, 0.6 x 0.5 x < 0.1 cm. Tissue Description: Shave of house skin with a 0.5 x 0.4 cm irregular and ill-defined brown and dark brown macule. Sections/Proces sing: Inked, bisected and entirely submitted in 1 cassette labeled A1. ??mnd 11/29/2021 1:38 PM EDT [facility] SPECIMEN FROM SKIN / Unknown 11/27/2021 3:03 PM EDT 11/27/2021 3:03 PM EDT Robert Good MD PATHOLOGY/CYTOLOGY O NARCISO [facility] [place] [address] documented in this encounter Visit Diagnoses Diagnosis Lentigines Other dyschromia Lanier angioma Nevus, non-neoplastic Neoplasm of uncertain behavior Neoplasm of uncertain behavior, site unspecified Seborrheic keratoses Inflammatory papule Other specified disorder of skin documented in this encounter Care Teams Wine Specialist Relationship Specialty Start Date End Date None None PCP - General 11/27/21 documented as of this encounter
--- OUTSIDE RECORDS SUMMARY | 2024-10-09 10:37 | XMS_ITS | Encounter Summary ---
Author Organization [facility] Address [facility] [place] [address] Care Team Providers Care Chief I Dispatcher Name Role Phone Sariah To APRN Primary Care Provider Reason for Visit * Auth/Cert Specialty Diagnoses / Procedures Referred By Marsha rebolledo Referred To Contact Diagnoses hx of polyps Procedures PRO COLONOSCOPY, DIAGNOSTIC COLONOSCOPY, DIAGNOSTIC Referral ID Status Reason Start Date Expiration Date Visits Re quested Visits Authorized [id number] 1 1 Encounter Details Date Type Department Care Team (Late st Contact Info) Description 12/30/2017 10:19 AM EDT Anesthesia Event [place] [address] Heather Tobias MD [facility] [place] [address] Brodie Montague, KINDERGARTEN INSTRUCTIONAL ASSISTANT [address] [place] [address] Anesthesia Record Procedure Summary Procedure Name Responsible Anesthesiologist Anesthesia Start Time Anesthesia Stop Time COLONOSCOPY, DIAGNOSTIC (WRVU 3.26) (Trunk) Heather Tobias MD 12/30/17 1019 12/30/17 1047 Events Date Time Event Comment 12/30/2017 1019 AN Verify 1019 Start 1024 An Start Data 1024 An Induction 1024 Anesthesia Ready 1047 an stop data 1047 Recovery or ICU Handoff Francisca ent care was transferred to the destination unit staff after review of the patient's medical history, current anesthetic/surgical status and plan, according to the Provider Handoff Checklist. 1047 Stop 1322 Meds Name Total Propofol 50 mg Propofol INF 328.05 mg Labetalol 10 mg lactated Ringers infusion 300 mL * Agents Name O2 Auxiliary Flowmeter 1 * Blood No blood administrations on file. Lines, Drains, and Airways Type Details Placement Removal (RETIRED) Peripheral IV Line - Single Lumen 12/30/17; 1003; median cubital vein (antecubital fossa), right; [id number] catheter system; 22 gauge, 1 in length; Virginia Foley Rn; distraction, tolerated well; 1; 12/30/17; 1055 12/30/17 1003 by Lola Ritchie RN 12/30/17 1055 by Lizet Blanton RN documented in this encounter Social History Tobacco Use Types Packs/Day Years Used Date Smoking Tobacco: Former Smokeless Tobacco: Never Alcohol Use Standard Drinks/Week Comments Yes 7 (1 standard drink = 0.6 oz pur e alcohol) Sex and Gender Information Value Date Recorded Sex Assigned at Not on file Gender Identity Not on file Sexual Orientation Not on file documented as of this encounter OR Notes * Anesthesia Postprocedure Evaluation - Heather Tobias MD - 12/30/2017 2:49 PM EDT [facility] Department of Anesthesiology Post-procedure Note Patient: Deepak Pak Procedure Summary Date Anesthesia Start Anesthesia Stop Room / Location 12/30/17 1019 1047 [facility] 4 / [facility] Procedure Diagnosis Surgeon Responsible Provider COLONOSCOPY, DIAGNOSTIC (N/A Trunk) (hx of polyps; consult) Renaldo Ye MD Havidich, Jeana E, MD All Anesthesia Providers: Anesthesiologist: Heather Tobias MD KINDERGARTEN INSTRUCTIONAL ASSISTANT: Brodie Montague CRNA Most Recent Vitals: 12/30/17 1105 BP: Pulse: Resp: SpO2: 94% Pain Patient Location: PACU/[facility] Level of Consciousness: Awake and Alert Pain Management: Satisfactory Analgesia PONV: None Cardiovascular Status: At Baseline Respiratory Status: At Baseline Postoperative Fluid Status: Intravascular EUvolemia Possible Anesthetic Complications: NONE apparent at time of evaluation Final Primary Anesthesia Type: MAC (The anesthetic type performed was the same as planned.) Comments: * Anesthesia Preprocedure Evaluation - Heather Tobias MD - 12/29/2017 7:38 PM EDT Pre-Anesthesia Evaluation for: Deepak Pak a 72 y.o. male. Procedure(s): COLONOSCOPY, DIAGNOSTIC There are no active problems to display for this patient. Past Medical History: Diagnosis Date ??? Actinic keratosis LN2 Past Surgical History: Procedure Laterality Date ??? PRO COLONOSCOPY, DIAGNOSTIC 04/07/2012 COLONOSCOPY, DIAGNOSTIC performed by SU SINGH at [facility]COPY Social History Substance Use Topics ??? Smoking status: Former Smoker ??? Smokeless tobacco: Not on file ??? Alcohol use Not on file History Drug Use Not on file Allergies Allergen Reactions ??? Cis Free Text Allergy Hymenoptera (Bee) Stings. CIS - severe swelling of pts arm ??? Penicillins CIS - Rash Medications: MAR and/or home medications have been reviewed. Physical Exam: There were no vitals filed for this visit. There is no height or weight on file to calculate BMI. Airway Assessment: Mallampati: II TM distance: >3 FB Neck ROM: full Cardiovascular Assessment: Pulmonary Assessment: Dental Assessment: Misc Assessment: IV access: Peripheral line Anesthesia Plan: ASA 3 MAC, 72 year old male with a PMH significant for LARON, skin cancer who presents for colonoscopy. There is no problem list on file for this patient. Region - Other Informed Consent: PAT Staff Note documented in this encounter Plan of Treatment Not on file documented as of this encounter Visit Diagnoses Not on filedocumented in this encounter Administered Medications Inactive Administered Medications - up to 3 most recent administrations Medication Order MAR Action Action Date Dose Rate Site labetalol (NORMODYNE,TRANDATE) multi-dose injection PRN, Starting on Sat12/30/17 at 1033, Until Sat12/30/17 at 1047, High Blood Pressure, Anesthesia Intra-op, Routine Given 12/30/2017 10:33 AM EDT 10 mg lactated Ringers infusion 100 mL/hr, Intravenous, CONTINUOUS, Starting on Sat12/30/17 at 1015, Until Sat12/30/17 at 1055, Endoscopy (Day of Procedure) New Bag 12/30/2017 10:19 AM EDT propofol (DIPRIVAN) 10 mg/mL bolus injection (Anesthesia) PRN, Starting on Sat12/30/17 at 1024, Until Sat12/30/17 at 1047, Anesthesia Intra-op Given 12/30/2017 10:24 AM EDT 50 mg propofol (DIPRIVAN) infusion CONTINUOUS PRN, Starting on Sat12/30/17 at 1024, Until Sat12/30/17 at 1047, Anesthesia Intra-op, Routine Rate/Dose Change 12/30/2017 10:37 AM EDT 200 mcg/kg/min 97.2 mL/hr New Bag 12/30/2017 10:24 AM EDT 250 mcg/kg/min 121.5 mL /hr documented in this encounter Care Teams Chief I Dispatcher Relationship Specialty Start Date End Date Sariah To, COMMUNITY ASSOCIATE [address] [place], [place] [id number] PCP - General General Internal Medicine 10/21/1711/14 documented as of this encounter
--- OUTSIDE RECORDS SUMMARY | 2024-10-09 10:37 | XMS_ITS | Encounter Summary ---
Author Organization [facility] [place] [address] Care Team Providers Care Division Superintendent Name Role Phone None Primary Care Provider Unavailabl e Encounter Details Date Type Department Care Team (Latest Contact Info) Description 01/16/2023 Travel Social History Tobacco Use Types Packs/Day Years [...] on filedocumented in this encounter Care Teams Division Superintendent Relationship Specialty Start Date End Date None None PCP - General 11/27/21 documented as of this encounter
--- OUTSIDE RECORDS SUMMARY | 2024-10-09 10:37 | XMS_ITS | Encounter Summary ---
Author Organization [facility] Address [facility] [place] [address] Care Team Providers Care Cosmetics Counter Manager Name Role Phone None Primary Care Provider Unavailabl e Encounter Details Date Type Department Care Team (Late st Contact Info) Description 01/20/2008 Orders [place] [address] Ariana Blue MD [facility] [place] [address] Social History Tobacco Use Types Packs/Day Years [...] Associated Diagnosis Comments SURGICAL PATHOLOGY REPORT Routine 01/20/2008 2:37 PM EDT documented in this encounter Results * Surgical Pathology Report (01/20/2008 2:37 PM EDT) Surgical Pathology Report [id number] ? Location: 4T The signing pathologist has (i) examined the relevant preparation(s) for the specimen(s) and (ii) rendered or confirmed the diagnosis(es). . ?Pathology Surgical Pathology Final Report Clinical Information Specimen Submitted: A - Biopsy: rectum Clinical History: Polyp surveillance Clinical Diagnosis: F/U of polyp Gross Description Labeled/Fixative : ? Biopsy rectum, formalin. Qty/Size/Weight: ?Single, 0.3 x 0.2 x 0.2 cm. Tissue Description: ?? Soft, house tissue. Sections/Process ing: ??(T1) ??aje/EJR Microscopic Description Slides reviewed, microscopic description not recorded. Diagnosis A-Rectum biopsy: ??Fragment of colonic mucosa with no evidence of adenomatous change. CR-0 01/29/08 01/29/08 Verified by: ? Ben Ortega MD ?Pathologist ?(Electronic Signature) The attending pathologist whose signature appears on this report has reviewed all diagnostic slides and has edited the gross and/or microscopic portion of the report in rendering the final pathologic diagnosis. HIEU FERRELL 01/20/2008 2:37 PM EDT Ariana Blue MD PATHOLOGY/CYTOLOGY [facility] Performing Organization Address City/State/[facility] Co de Phone Number HIEU FERRELL documented in this encounter Visit Diagnoses Not on filedocumented in this encounter Care Teams Cosmetics Counter Manager Relationship Specialty Start Date End Date None None PCP - General 11/27/21 documented as of this encounter
--- OUTSIDE RECORDS SUMMARY | 2024-10-09 10:37 | XMS_ITS | Encounter Summary ---
Author Name [facility] Address [address] [place] [address] Care Team Providers Care Supervisor In Charge Name Role Phone JUAN HANNA Primary Care [...] BASIC SELF+ 1 Sep 16, 2024 33C [id number] [phone] REYNA ROSALES PATIENT ANTHEM [place] FED[place] PREFERRED PROVIDER ORGANIZAT ION (PPO) BASIC SELF+ ONE Mar 17, 2018 113 [id number] [phone] REYNA ROSALES PATIENT ANTHEM [place] (FEDER[place]) PREFERRED PROVIDER ORGANIZAT ION (PPO) BASIC SELF+ ONE Mar 17, 2018 113 [id number] [phone] REYNA ROSALES PATIENT BCBS OF CT FEDERAL PREFERRED PROVIDER ORGANIZAT ION (PPO) BASIC SELF+ 1 Mar 17, 2018 113 [id number] REYNA ROSALES PATIENT [place] FEPRX PLAN PRESCRIPT ION CAREM ARK FEPRX Sep 16, 2024 [id number] REYNA ROSALES PATIENT DARLENE-F EP BCBS PRESCRIPT ION BCBS FEP PLAN Sep 16, 2010 [id number] REYNA ROSALES PATIENT MEDICARE (WNR) MEDICARE (M) PART A Mar 17, 2018 PART A [id number] [phone] REYNA ROSALES PATIENT MEDICARE (WNR) MEDICARE (M) PART A Sep 16, 2010 PART A [id number] [phone] REYNA ROSALES PATIENT Selected Encounter This section includes the information on record at [place] for the Encounter. Date/Time Encounter Type Encounter Description Reason Pro vider Source Oct 09, 2024 08:40 AM Outpatient Encounter TELEPHONE TRIAGE IHE Encounter Template Text not used by [...] Appointment Type Appointme nt Facility Name Nov 05, 2024 08:30 AM AMBULATORY - [facility] Social History: Smoking Status (Most current) and [...] Encounter took place. Date/Time Current Smoking Status [facility] Facility Sep 04, 2010 01:20 PM QUIT TOBACCO USE > 7 YEARS AGO Pt. quit smoking in 1974. LUCAS MARCH [facility] Advance Directives: All historical and [...] 2019 ADVANCE DIRECTIVE LEISA ROBERTS [facility] Encounter Notes: All associated encounter notes This section contains the clinical notes associated to the Encounter. Date/Time Encounter Note(s) Provider Source Oct 09, 2024 08:40 AM RN PROGRESS NOTE: LOCAL TITLE: CCC: CLINICAL TRIAGE STANDARD TITLE: RN PROGRESS NOTE DATE OF NOTE: OCT 09, 2024@08:40:55 ENTRY DATE: OCT 09, 2024@08:40:55 AUTHOR: [place]ACE [place] COSIGNER: URGENCY: STATUS: COMPLETED Patient Demographics Patient Name: REYNA ROSALES Patient Primary [address] [address] [place] [address] Patient Primary Phone: [phone] Patient : 1945 Patient Age: 78 Caller/Recipient Relation to Patient: Self Caller Name: REYNA ROSALES Emergency Contact: TERRA WHYTETON Triage Summary Conducted triage/discussed symptoms Pain Score: 5 (Moderate to Severe Pain) Utilized the Triage Tool: No Chief Complaint: Head injury Nurse's Recommendation / WHEN: Now Nurse's Recommendation / WHERE: ED Other Patient Disposition Patient/Caregiver agrees to plan of care: Yes Patient is Urgent or Emergent Nursing Plan and Disposition Referred patient to higher level of care Instructed to go to Emergency Room (ER) Advised of Financial Disclaimer: Patient advised that recommendation for care provided during the call does not constitute an approval or authorization for payment by the [place] or its staff. Patient advised to report a community ED visit [facility] the [facility] Office of Community Care at within 72 hours. Other course(s) of action Generated msg to PACT/Provider Provided guidance for worsening symptoms: *Caller/Patient* advised to call facilities [place] Clinical Contact Center or seek immediate medical attention for new or worsening symptoms Nurse Summary Nurse Summary: [place] calling to report that on Saturday evening while loading up his car, the trunk came down and struck him on the back of he head. [place] reports sleeping most of yesterday, which he states is very unusual. denies any vision problems. endorses increased headache today. [place] agrees to go now to the nearest ED for evaluation. [place] understands that the Triage Line is staffed to 24/7 should any need arise. stated no additional concerns to address at this time. +++PACT please follow up with .+++ (TXCC tool not used based on 's description of events and symptoms. Recommendation: ED NOW.) Clinical Contact Center Codes Clinic/Location: V1 WRJ PHONE CCC RN IMPORTANT: This note was created by [facility] Clinical Contact Center staff. Please do not alert the staff member by adding them as a signer for future communications. Alerts are not monitored by this user. /ken/ [place]ACE [place] Signed: 10/09/2024 08:40 Receipt Acknowledged By: 10/09/2024 09:19 /ken/ LIZY SPICER LPN * AWAITING SIGNATURE * RITO CRUM [facility] [place] [facility]
--- OUTSIDE RECORDS SUMMARY | 2024-10-09 10:37 | XMS_ITS | Encounter Summary ---
Author Organization [facility] Address [facility] [place] [address] Care Team Providers Care Manager Cancer Name Role Phone Nella Lemus APRN Primary Care Provider Reason for Visit * Reason Comments Skin Check Encounter Details Date Type Department Care Team (Late st Contact Info) Description 07/01/2014 4:15 PM EDT Office Visit Dermatology at [facility] [address] [place] [address] Altaf Alexandre MD [facility] (Primary Dx); Benign nevus of skin; SK (seborrheic keratosis); AK (actinic keratosis) Discharge Disposition: Home Social History Tobacco Use Types Packs/Day Years Used Date Smoking Tobacco: Former Alcohol Use Standard Drinks/Week Comments Not Asked 2 (1 standard drink = 0.6 oz pur e alcohol) Sex and Gender Information Value Date Recorded Sex Assigned at Not on file Gender Identity Not on file Sexual Orientation Not on file documented as of this encounter Progress Notes * Tiago Romero MD - 07/04/2014 5:35 PM EDT I directly supervised Dr. Huey Alexandre during this office visit. Dr. Alexandre presented the history and physical exam to me. I then saw and examined this patient with Dr. Alexandre. We reviewed the history and pertinent details and I confirmed the physical findings. I agree with the details of the history and physical exam as documented in Dr. Alexandre's note. TIAGO ROMERO MD Staff Physician * Altaf Alexandre MD - 07/01/2014 4:06 PM EDT DERMATOLOGY - NEW PATIENT NOTE Date of service: 07/01/2014 Deepak Pak : 1945 Dermatology Resident Note: Altaf Alexandre MD Chief Complaint Patient presents with ??? Skin Check HPI: Mr. Deepak Pak is a 68 y.o. male. This is a new patient to me. Seen in consultation at the request of Bianca Rosales specifically for the evaluation and management of the above problem. He presents to clinic today for a full skin exam. He states that he has a couple 'moles' located onthe left posterior popliteal that his massage therapist has noticed a slight change in approximately 6-8 months ago. No bleeding, tenderness or itching noted to these sites or any other site on his body. Patient admits to wearing sun protection while outdoors. Past Skin History: - benign nevi - SK There is no problem list on file for this patient. Current Outpatient Prescriptions on File Prior to Visit Medication Sig [...] YEAST RICE ORAL Take by mouth daily. Allergies Allergen Reactions ??? Cis Free Text Allergy Hymenoptera (Bee) Stings. CIS - severe swelling of pts arm ??? 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 Skin: A full skin examination was performed. This includes the head, neck, face and scalp includingbehind the ears. The chest, abdomen, back, and axillae, as well as the arms, hands, palms, fingers.Legs, feet, toes and soles were also examined. Buttocks and breasts were also examined with patientconsent. Genitalia were not examined. Specific skin findings: A. Multiple 0.4-1 cm, brown-black papules/plaques with waxy stuck on appearance-scattered B. Multiple, 0.3-0.5cm, medium-brown, evenly-pigmented macules and papules. All with regular pigment pattern on dermoscopy. No pigmented lesions suspicious for melanoma. C. .4cm dark kala-dg-[id number] easily compressible papule on left posterior popliteal D. 0.2-0.3cm scaly irregular pink papules located on the right cheek and rastafari area E. Multiple 0.2-0.4cm bright red, well-demarcated papules scattered on trunk and back Diagnosis/Assessment/Treatment Plan: A. Seborrheic keratosis: Etiology discussed with patient - patient reassured lesions are benign in nature - education material provided B. Benign appearing nevi: with even pigmentation and well defined margins are noted. Patient reassured. Advised to monitor and observe skin for changes. Call if such occurs - C. Varicosity: Patient reassured. No treatment needed D. Actinic Keratoses: Discussed with patient the natural history and etiology of actinic keratoses.Discussed premalignant potential of these lesions. Discussed treatment options including risks, benefits, and alternatives. Decision was made together with patient to proceed with Cryotherapy (LN2), see procedure note below. Procedure Note: Procedure: Destruction of lesions with cryotherapy. Number: 3 Location: right cheek x 1, right rastafari x 2 Discussed procedure and expectations including risks (specifically discussed with pt the risk of hypopigmentation) and benefits. Verbal consent obtained. Frozen with LN2, 15-30 second thaw time, TWICE. There were no complications; the patient tolerated the procedure well. Post-procedure expectations and wound care were reviewed. Recommendations: The nature of sun-induced skin cancers was discussed. Discussed importance of sun protection, sun avoidance strategies, protective clothing (including wide brim hat), and use and frequent reapplication of a broad spectrum sunscreen with an SPF of >30. Patient was instructed to observe closely for any skin changes, and call if such occurs. Patient instructed to return to clinic for re-evaluation if lesion does not resolve with this treatment; as expected. E. Lanier Angiomas: Patient reassured - No treatment needed - RTC in 1 year. Sooner should problems occur. Instructed to call for questions or concerns. IStaci LPN am documenting this encounter acting as the scribe for and in the presenceof Dr.Dan Alexandre I performed the above scribed service and agree with the accuracy of the documentation in this encounter. Reviewed and signed by Altaf Alexandre MD Resident in Dermatology [facility] Patient seen and evaluated with staff fur nailer: MD Viri Section of Dermatology [facility] documented in this encounter Plan of Treatment Not on file documented as of this encounter Visit Diagnoses Diagnosis Venous townsend- Primary Hemangioma of skin and subcutaneous tissue Benign nevus of skin Benign neoplasm of skin, site unspecified SK (seborrheic keratosis) Other seborrheic keratosis AK (actinic keratosis) Actinic keratosis documented in this encounter Care Teams Manager Cancer Relationship Specialty Start Date End Date Nella Lemus APRN PCP - General 07/01/14 09/15/16 documented as of this encounter
--- OUTSIDE RECORDS SUMMARY | 2024-10-09 10:37 | XMS_ITS | Encounter Summary ---
Author Organization [facility] [place] [address] Care Team Providers Care Decorative Engraver Apprentice Name Role Phone None Primary Care Provider Unavailabl e Encounter Details Date Type Department Care Team (Latest Contact Info) Description 04/29/2024 Travel Social History Tobacco Use Types Packs/Day [...] on filedocumented in this encounter Care Teams Decorative Engraver Apprentice Relationship Specialty Start Date End Date None None PCP - General 11/27/21 documented as of this encounter
--- OUTSIDE RECORDS SUMMARY | 2024-10-09 10:37 | XMS_ITS | Encounter Summary ---
Author Organization [facility] Address [facility] [place] [address] Care Team Providers Care Geek Squad Manager Name Role Phone Sariah To APRN Primary Care Provider Reason for Visit * Reason Comments Skin Cancer Examination Encounter Details Date Type Department Care Team (Late st Contact Info) Description 07/27/2019 10:00 AM EST Office Visit Dermatology at [facility] [address] [place] [address] Sheryl Good MD [facility] [address] [place] [address] Lanier angioma; SK (seborrheic keratosis); Lentigines; Multiple benign nevi; AK (actinic keratosis) Social History Tobacco Use [...] Progress Notes * Sheryl Good MD - 07/27/2019 10:00 AM EST DERMATOLOGY ESTABLISHED PATIENT CLINIC NOTE Date of service: 07/27/2019 Deepak Alejandro Pasha : 1945 Provider: Sheryl Good MD Preferred name: Deepak Preferred contact method with results: Cell Message okay: yes PROBLEM: Skin Cancer Screening SKIN HISTORY: actinic keratosis- LN2 HPI Mr. Pak is a 73 y.o. year old male. Established patient, last seen 01/22/2019. Here today for a full skin examination and has no areas of concern today. Denies any itching, pain, or bleeding. 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 ROS General: feeling well Skin: denies other [...] findings listed below. Significant skin findings: A. A. Multiple 0.2-0.4cm bright red, well-demarcated papules. B. Multiple 0.4-0.6cm brown papules with waxy, stuck-on appearance. C. 0.3-0.6cm light-brown evenly pigmented, well-demarcated macules. D. Multiple, 0.3-0.5cm, medium-brown, evenly-pigmented macules and papules. No pigmented lesions suspicious for melanoma. E. 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 B. Seborrheic Keratoses - Reassured about benign nature and natural history. C. Solar Lentigines - Reassured about benign nature and natural history. - Sun avoidance, protective clothing and the use of SPF 30 sunscreen is advised. Observe closely for skin changes and call if such occurs D. Benign Appearing Nevi - Reassured about benign nature and natural history. E. Actinic Keratoses Counseled: AKs, risk for progression to SCCs, and treatment options, including observation, LN2, topicals, and PDT. Procedure Note: Procedure: Destruction of lesions with cryotherapy. Number: 1 Location: as above Discussed procedure and expectations including risks (including risk of hypopigmentation) and benefits. Verbal consent obtained. Frozen with LN2, 15-30 second thaw time, TWICE. There were no complications; the patient tolerated the procedure well. Post-procedure expectations and wound care were reviewed. RTC 1 year for FSE Note initiated and routed to physician for review and change by: Michaelle Nelson, JACKIE I, Mehul Melo, have performed the documentation for this encounter in the presence of and actingas a scribe for SHERYL GOOD MD. I performed the services which were documented by the scribe, and I agree with the accuracy of the documentation in this encounter. SHERYL GOOD MD. Sheryl Good MD Section of Dermatology [facility] documented in this encounter Plan of Treatment Not on file documented as of this encounter Visit Diagnoses Diagnosis Lanier angioma Nevus, non-neoplastic SK (seborrheic keratosis) Other seborrheic keratosis Lentigines Other dyschromia Multiple benign nevi Benign neoplasm of skin, site unspecified AK (actinic keratosis) Actinic keratosis documented in this encounter Care Teams Geek Squad Manager Relationship Specialty Start Date End Date Sariah To, BALTA [address] [place] [address] PCP - General General Internal Medicine 10/21/1711/14 documented as of this encounter
--- OUTSIDE RECORDS SUMMARY | 2024-10-09 10:37 | XMS_ITS | Encounter Summary ---
[place] [address] Care Team Providers Care Professor Of German Name Role Phone Sariah To APRN Primary Care Provider [phone] Reason for Visit * Auth/Cert Specialty Diagnoses / Procedures Referred By Marsha rebolledo Referred To Contact Diagnoses hx of polyps Procedures PRO COLONOSCOPY, DIAGNOSTIC COLONOSCOPY, DIAGNOSTIC Referral ID Status Reason Start Date Expiration Date Visits Re quested Visits Authorized [id number] 1 1 Encounter Details Date Type Department Care Team (Late st Contact Info) Description 12/30/2017 10:30 AM EDT - 12/30/2017 11:15 AM EDT [place] [address] Renaldo Ye MD COLONOSCOPY, DIAGNOSTIC (WRVU 3.26) Social History Tobacco Use Types Packs/Day Years Used Date Smoking Tobacco: Former Smokeless Tobacco: Never Alcohol Use Standard Drinks/Week Comments Yes 7 (1 standard drink = 0.6 oz pur e alcohol) Sex and Gender Information Value Date Recorded Sex Assigned at Not on file Gender Identity Not on file Sexual Orientation Not on file documented as of this encounter Last Filed Vital Signs Vital Sign Reading Time Taken Comments Blood Pressure 147/84 12/30/2017 11:00 AM EDT Pulse 61 12/30/2017 9:54 AM EDT Temperature - - Respiratory Rate 16 12/30/2017 10:51 AM EDT Oxygen Saturation 94% 12/30/2017 11:05 AM EDT Inhaled Oxygen Concentration - - Weight - - Height - - Body Mass Index - - documented in this encounter Discharge Instructions * Discharge Instructions* Lizet Blanton, RN - 12/30/2017 10:53 AM EDT Colonoscopy What to expect after the procedure You may feel a little more gassy or bloated than usual. This is normal. You should expect the return of normal bowel function in the 2 to 3 days. Activity Because of the sedation that you received your judgement and reaction time are effected ?? Go home and rest quietly for the remainder of the day. You may resume your normal activities tomorrow. ?? Change from one position to the next slowly. You may lose your balance unexpectedly ?? Be careful on stairs, as you may be unsteady on your feet FOR THE NEXT 24 HRS ?? DO NOT DRIVE OR OPERATE ANY MACHINERY ?? DO NOT DRINK ALCOHOLIC BEVERAGES ?? DO NOT SIGN LEGAL DOCUMENTS ?? If you are a smoker: DO NOT SMOKE WHILE YOU ARE ALONE Diet ?? Start by eating small portions of foods that ordinarily will not upset your stomach . Avoid gas producing foods for the next few days ?? Be gentle with what you choose to start with ?? Drink plenty of fluids ( unless your doctor has told you not to). IV SITE-- slight redness, or tenderness is normal. You can use warm compresses if you become concerned. If the tenderness +/or redness increases or foul drainage and a red streak occurs, please contact your PCP immediately When shoud you call for help? Call 911 anytime you think you may need emergency care. For example If you pass out ( loss of consciousness) If you pass maroon or bloody stools If you have severe belly pain Call your doctor now or seek immediate medical care If your stools are black and tarlike If your stools have streaks of blood, but you did not have a biopsy or any polyps removed If you have belly pain, or your belly is swollen and firm If you vomit If you have a fever If you are very dizzy Watch closely for changes in your health, and be sure to contact your doctor if you have any problems Your doctor will let you know when you will need your next colonoscopy. The results of your test and your risk for colorectal cancer will help your doctor decide how often you need to be checked. Saturday-Saturday Same Day Endo [phone] 7a-8p Otherwise contact [phone] and ask to speak to the trailer chief breakdown person Follow up care is a flanagan part of your treatment and safety. Be sure to make and go to all appointments, and call your doctor if you are having problems. Discharge instructions reviewed with patient who expresses understanding documented in this encounter Medications at Time of Discharge Medication Sig Dispensed Refills Start Date End Date sildenafiL (Viagra) 50 mg tablet Take 50 mg by mouth as needed. OMEGA-3S/DHA/EPA/FISH OIL (OMEGA 3 ORAL) Take by mouth daily. cholecalciferol (Vitamin D3) 1,000 unit tablet Take 2,000 Units by mouth daily. VITAMIN E ACETATE (VITAMIN E ORAL) Take by mouth daily. multivitamin (THERAGRAN) tablet Take 1 tablet by mouth daily. Magnesium 100 mg Cap Take by mouth daily. RED YEAST RICE ORAL Take by mouth daily. documented as of this encounter H&P Notes * Renaldo Ye MD - 12/30/2017 10:10 AM EDT Gastroenterology and Hepatology Pre-Procedure History and Physical Exam Procedure: Colonoscopy: Indication: Polyp surveillance There is no problem list on file for this patient. EXAM: HEENT: Airway examined, oropharynx clear Mallampati Score: II (soft palate, uvula, fauces visible) LUNGS: Clear to auscultation HEART: Regular rate and rhythm, normal S1, S2 ABDOMEN: Normal bowel sounds, soft, non tender, non distended, A/P Proceed with the planned endoscopic procedure. ASA 3 - Patient with moderate systemic disease with functional limitations Sedation Plan: anesthesia Risks and benefits of the procedure explained to the patient. Consent signed. Electronically signed by: Renaldo Ye MD Department of Gastroenterology [facility] 12/30/2017 documented in this encounter Plan of Treatment Not on file documented as of this encounter Procedures Procedure Name Priority Date/Time Associated Diagnosis Comments COLONOSCOPY, DIAGNOSTIC (WRVU 3.26) 12/30/2017 10:19 AM EDT hx of polyps consult COLONOSCOPY Routine 12/30/2017 10:12 AM EDT documented in this encounter Results * COLONOSCOPY (12/30/2017 10:12 AM EDT) [facility] Signature COLONOSCOPY [facility] Endoscopy Procedure Date: 12/30/2017 10:12 AM ? Patient Name: Deepak Pak ? N: [id number] ? Date of : 1945 ? Age: 72 ? Order #: [id number] ? Instrument Name: [id number] ? Procedure: ? Colonoscopy Indications: ? High risk colon cancer surveillance: ? Personal history of colonic polyps Providers: ? Renaldo Ye MD, Steven Morrow, ? Rashmi Tabares, Company Dancer Referring MD: ?None, MD Medicines: ? Monitored Anesthesia Care Complications: ? No immediate complications. Procedure: ? Pre-Anesthesia Assessment: ? - Prior to the procedure, a History ? and Physical was performed, and ? patient medications and allergies ? were reviewed. The patient is ? competent. The risks and benefits of ? the procedure and the sedation ? options and risks were discussed with ? the patient. All questions were ? answered and informed consent was ? obtained. Patient identification and ? proposed procedure were verified by ? the physician and the nurse in the ? pre-procedure area in the procedure ? room. Mental Status Examination: ? alert and oriented. Airway ? Examination: normal oropharyngeal ? airway and neck mobility. Respiratory ? Examination: clear to auscultation. ? CV Examination: normal. ASA Grade ? Assessment: III - A patient with ? severe systemic disease. After ? reviewing the risks and benefits, the ? patient was deemed in satisfactory ? condition to undergo the procedure. ? The anesthesia plan was to use ? monitored anesthesia care (MAC). ? Immediately prior to administration ? of medications, the patient was ? re-assessed for adequacy to receive ? sedatives. The heart rate, ? respiratory rate, oxygen saturations, ? blood pressure, adequacy of pulmonary ? ventilation, and response to care ? were monitored throughout the ? procedure. The physical status of the ? patient was re-assessed after the ? procedure. ? The procedure, indications, benefits, ? risks and alternatives were explained ? to the patient. Specifically ? discussed were potential ? complications including, but not ? limited to, bleeding, perforation, ? infection, missing a cancer, and ? adverse medication reactions. The ? patient was placed in the left ? lateral decubitus position, and a ? digital rectal exam was performed. ? The Colonoscope was inserted in the ? anus and under direct visualization, ? advanced to the terminal ileum. ? Careful inspection was made as the ? colonoscope was withdrawn. The ? colonoscopy was performed without ? difficulty. The patient tolerated the ? procedure well. The quality of the ? bowel preparation was good. ? Findings: ? The perianal and digital rectal examinations were ? normal. ? Internal hemorrhoids were found during retroflexion. ? The hemorrhoids were moderate. ? The colon (entire examined portion) appeared normal. ? The terminal ileum appeared normal. ? Moderate Sedation: ? Not applicable - See Anesthesia documentation Impression: ?- Moderate internal hemorrhoids. ? - The entire examined colon is normal. ? - The examined portion of the ileum ? was normal. Recommendation: ?- Discharge to home ? - Repeat colonoscopy in 5 years, ? given age defer to PCP regarding ? risks/benefits of elective ? colonoscopy at that time ? Attending Participation: ? I personally performed the entire procedure. ? Dr. Renaldo Ye Renaldo Ye MD 12/30/2017 10:55:42 AM Number of Addenda: 0 Note Initiated On: 12/30/2017 10:12 AM PROVATION 12/30/2017 10:1 2 AM EDT None GENERAL SURGICAL ORD ERABLES PROVATION documented in this encounter Visit Diagnoses Not on filedocumented in this encounter Active and Recently Administered Medications Times are shown in EDT. Continuous Medication Order 12/28/2017 12/29/2017 12/30/2017 lactated Ringers infusion (CANCELED) 100 mL/hr, Intravenous, CONTINUOUS, Starting on 12/30/17 at 1015, Until 12/30/17 at 1055, Endoscopy (Day of Procedure) 1019 (New Bag - Prov ider: Brodie Montague CRNA)1045 (Anesthesia Volume Adjustment - Provider: Brodie Montague CRNA) documented in this encounter Care Teams Professor Of German Relationship Specialty Start Date End Date Sariah To APRN [address] [place] [id number] PCP - General General Internal Medicine 10/21/1711/14 documented as of this encounter
--- OUTSIDE RECORDS SUMMARY | 2024-10-09 10:37 | XMS_ITS | Encounter Summary ---
[place] [address] Care Team Providers Care Tax Advisor Name Role Phone Bianca Rosales MD Primary Care Provider [phone] Encounter Details Date Type Department Care Team (Late st Contact Info) Description 12/15/2010 2:00 PM EDT - 12/15/2010 11:59 PM EDT Hospital Encounter Non-[place] [phone] Social History Tobacco Use Types Packs/Day Years Used Date Smoking Tobacco: Never Assessed Sex and Gender Information Value Date Recorded Sex Assigned at Not on file Gender Identity Not on file Sexual Orientation Not on file documented as of this encounter Plan of Treatment Not on file documented as of this encounter Visit Diagnoses Not on filedocumented in this encounter Care Teams Tax Advisor Relationship Specialty Start Date End Date Bianca Rosales MD [address] [place] [address] PCP - General 08/08/10 06/30/14 documented as of this encounter
--- OUTSIDE RECORDS SUMMARY | 2024-10-09 10:37 | XMS_ITS | Encounter Summary ---
[place] [address] Care Team Providers Care Chiropractic Physician Name Role Phone Sariah To APRN Primary Care Provider Reason for Visit * Auth/Cert Specialty Diagnoses / Procedures Referred By Marsha rebolledo Referred To Contact Diagnoses hx of polyps Procedures PRO COLONOSCOPY, DIAGNOSTIC COLONOSCOPY, DIAGNOSTIC Referral ID Status Reason Start Date Expiration Date Visits Re quested Visits Authorized [id number] 1 1 Encounter Details Date Type Department Care Team (Latest Contact Info) Description 12/30/2017 9:35 AM EDT - 12/30/2017 11:22 AM EDT Hospital En[place] [address] Renaldo Ye MD Discharge Disposition: Home Social History Tobacco Use [...] to be checked. Saturday-Saturday Same Day Endo [phone] 7a-8p Otherwise contact [phone] and ask to speak to the parts lister manager of operations Follow up care is a flanagan part [...] by: Renaldo Ye MD Department of Gastroenterology [facility] 12/30/2017 documented in this encounter Plan of Treatment Not on file documented as of this encounter Procedures Procedure Name Priority Date/Time Associated Diagnosis Comments COLONOSCOPY, DIAGNOSTIC (WRVU 3.26) 12/30/2017 10:19 AM EDT hx of polyps consult COLONOSCOPY Routine 12/30/2017 10:12 AM EDT documented in this encounter Results * COLONOSCOPY (12/30/2017 10:12 AM EDT) [facility] Signature COLONOSCOPY [facility] Endoscopy Procedure Date: 12/30/2017 10:12 AM ? Patient Name: Deepak Pak ? N: [id number] ? Date of : 1945 ? Age: 72 ? Order #: [id number] ? Instrument Name: [id number] ? Procedure: ? Colonoscopy Indications: ? High risk colon cancer surveillance: ? Personal history of colonic polyps Providers: ? Renaldo Ye MD, Steven Morrow, ? Rashmi Tabares, Sorority Supervisor Referring MD: ?None, Medicines: ? Monitored Anesthesia Care Complications: ? [...] CRNA) documented in this encounter Care Teams Chiropractic Physician Relationship Specialty Start Date End Date Sariah To APRN [address] [place] [id number] PCP - General General Internal Medicine 10/21/1711/14 documented as of this encounter
--- OUTSIDE RECORDS SUMMARY | 2024-10-09 10:37 | XMS_ITS | Encounter Summary ---
Author Organization [facility] Address [facility] [place] [address] Care Team Providers Care Equipment Service Technician Name Role Phone Sariah To APRN Primary Care Provider Reason for Visit * Reason Comments Skin Lesion Encounter Details Date Type Department Care Team (Late st Contact Info) Description 01/31/2017 11:30 AM EDT Office Visit Dermatology at [facility] [address] [place] [phone] Altaf Alexandre MD AK (actinic keratosis) Social History Tobacco Use Types Packs/Day Years Used Date Smoking Tobacco: Former Alcohol Use Standard Drinks/Week Comments Not Asked 2 (1 standard drink = 0.6 oz pur e alcohol) Sex and Gender Information Value Date Recorded Sex Assigned at Not on file Gender Identity Not on file Sexual Orientation Not on file documented as of this encounter Progress Notes * Altaf Alexandre MD - 01/31/2017 11:30 AM EDT DERMATOLOGY - ESTABLISHED PATIENT FOLLOW-UP Date of service: 01/31/2017 Deepak Pak : 1945 Dermatology Resident Note: Altaf Alexandre MD Chief Complaint Patient presents with ??? Skin Lesion This is an established patient, last seen by me on June 2014 HPI: Mr. Pak presents for a complete skin examination with concerns of a few rough areas on the temples. He denies spots/bumps that bleed spontaneously, that are not healing, or that are changing in size, shape, or color. Skin History: Actinic Keratosis - LN2 Medical History: Past Medical History: Diagnosis Date ??? Actinic keratosis LN2 Medications: Current Outpatient Prescriptions on File Prior to [...] facility-administered medications on file prior to visit. Allergies: Allergies Allergen Reactions ??? Cis Free Text Allergy Hymenoptera (Bee) Stings. CIS - severe swelling of pts arm ??? Penicillins CIS - Rash Family History: No family history of melanoma or non-melanoma skin cancer No family history of atopy, psoriasis or other skin disease Social History: Biking Review of Systems: - General: Feels well. - Skin: As per HPI; no other skin concerns. Examination: - Constitutional: Patient was alert, well-appearing and in no noticeable distress. - Skin: A full skin examination was performed. This includes the head, neck, face and scalp including behind the ears. The chest, abdomen, back, and axillae, as well as the arms, hands, palms, fingers. Legs, feet, toes and soles were also examined. Buttocks and genitalia were examined. Specific skin findings: 1. Cheek and temples bilaterally: 0.2-0.3cm scaly irregular pink papules Diagnosis/Assessment/Treatment Plan: 1. Generalized thin actinic damage: Discussed multiple treatment options in detail, including cryotherapy every 6 months, field treatment with 5- Fluorouracil, photodynamic therapy. Patient understands the efficacy of each treatment, and elected to have regular cryotherapy therapy. Procedure Note: Procedure: Destruction of lesions with cryotherapy. Number: 8 Location: as above Discussed procedure and expectations including risks (including risk of hypopigmentation) and benefits. Verbal consent obtained. Frozen with LN2, 15-30 second thaw time, TWICE. There were no complications; the patient tolerated the procedure well. Post-procedure expectations and wound care were reviewed. - Discussed importance of sun protection, sun avoidance strategies, protective clothing, and sunscreen SPF 15-30 . RTC in 6 months. Instructed to call for questions/concerns. I am documenting this encounter acting as the scribe for and in the presence of . Katie Jang, Clinical Scribe ABBY KNUTSON LPN I performed the above scribed service and agree with the accuracy of the documentation in this encounter, Altaf Alexandre MD Reviewed and signed by Altaf Alexandre MD Resident in Dermatology [facility] Patient seen and evaluated with staff structural architect: Rj Sparks MD Section of Dermatology [facility] * Rj Sparks MD - 01/31/2017 11:30 AM EDT I directly supervised Dr. Huey Alexandre during this office visit. Dr. Alexandre presented the history and physical exam to me. I then saw and examined this patient with Dr. Alexandre. We reviewed the history and pertinent details and I confirmed the physical findings. I agree with the details of the history and physical exam as documented in Dr. Alexandre's note. RJ SPARKS MD Staff Physician documented in this encounter Plan of Treatment Not on file documented as of this encounter Visit Diagnoses Diagnosis AK (actinic keratosis) Actinic keratosis documented in this encounter Care Teams Equipment Service Technician Relationship Specialty Start Date End Date Sariah To, VALET ATTENDANT [address] [place] [address] PCP - General General Internal Medicine 09/16/1601/15 documented as of this encounter
--- OUTSIDE RECORDS SUMMARY | 2024-10-09 10:37 | XMS_ITS | Encounter Summary ---
Author Organization [facility] Address [facility] [place] [address] Care Team Providers Care Biochemistry Teacher Name Role Phone Sariah To APRN Primary Care Provider Reason for Visit * Reason Comments Skin Lesion Skin Check Encounter Details Date Type Department Care Team (Late st Contact Info) Description 09/23/2018 2:15 PM EST Office Visit Dermatology at [facility] [address] [place] [address] Sheryl Good MD [facility] [address] [address] Lanier angioma; SK (seborrheic keratosis); Lentigines; Multiple benign nevi; Seborrheic keratosis, inflamed; AK (actinic keratosis) Social History Tobacco Use [...] Progress Notes * Sheryl Good MD - 09/23/2018 2:15 PM EST DERMATOLOGY ESTABLISHED PATIENT CLINIC NOTE Date of service: 09/23/2018 Deepak Pak : 1945 Provider: Sheryl Good MD Preferred name: Deepak Preferred contact method with results: Cell Message okay: yes PROBLEM: scaly spot on forehead/scar on back SKIN HISTORY: actinic keratosis- LN2 HPI Mr. Pak is a 72 y.o. year old male. Established patient, last seen 09/19/2017. Here today for a full skin examination and does have a few areas of concern. Patient states that he has some scalyness on his buddhism. Denies any irritation, however does note some occasional discomfort. Also would like to discuss treatment options for the scar on his back. States that his and children are bothered by it's appearance. ADR: Cis free text allergy and Penicillins [...] file prior to visit. SOCIAL HISTORY Occupation: [employer] (indoor job) - hoping to retire in a few months ROS General: feeling well Skin: denies other skin complaints EXAM General: NAD, pleasant, cooperative Skin: Patient was asked to disrobe to the level of their comfort. A total body skin exam except forthe genitalia was performed. This includes examination of the skin of the face, ears, neck, chest, axillae, left and right upper and lower extremities, hands, feet, abdomen, back, and buttocks. The genitalia, perineum, and perianal areas were not examined. Significant skin findings: A. Multiple 0.2-0.4cm bright red, well-demarcated papules. B. Multiple 0.4-0.6cm brown papules with waxy, stuck-on appearance. C. 0.3-0.6cm light-brown evenly pigmented, well-demarcated macules. D. Multiple, 0.3-0.5cm, medium-brown, evenly-pigmented macules and papules. No pigmented lesions suspicious for melanoma. E. Central back x6: Verrucous stuck on papule with surrounding erythema F. Right buddhism x1: 0.2-0.3cm scaly irregular pink papule ASSESSMENT/PLAN: A. Lanier Angiomas - Reassured about [...] about benign nature and natural history. E. Irritated Seborrheic Keratosis - Benign, but symptomatic. Procedure Note: Procedure: Destruction of lesion(s) with cryotherapy. Number: 6 Location: as above Discussed procedure and expectations including risks (including risk of hypopigmentation) and benefits. Verbal consent obtained. Frozen with LN2, 15-30 second thaw time, TWICE. There were no complications; the patient tolerated the procedure well. Post-procedure expectations and wound care were reviewed. F. Actinic Keratoses Counseled: AKs, risk for progression [...] expectations and wound care were reviewed. RTC January-February 2019 for recheck spots on the back Note initiated and routed to physician for review and change by: Michaelle Haywood LPN I, Mehul Melo, have performed the documentation for this encounter in the presence of and actingas a scribe for SHERYL GOOD MD. I performed the services which were documented by the scribe, and I agree with the accuracy of the documentation in this encounter. SHERYL GOOD MD. Sheryl Good MD Section of Dermatology [facility] documented in this encounter Plan of Treatment Not on file documented as of this encounter Visit Diagnoses Diagnosis Lanier angioma Nevus, non-neoplastic SK (seborrheic keratosis) Other seborrheic keratosis Lentigines Other dyschromia Multiple benign nevi Benign neoplasm of skin, site unspecified Seborrheic keratosis, inflamed Inflamed seborrheic keratosis AK (actinic keratosis) Actinic keratosis documented in this encounter Care Teams Biochemistry Teacher Relationship Specialty Start Date End Date Sariah To, SOLID GLASS ROD DOWEL MACHINE OPERATOR [address] [place] [id number] PCP - General General Internal Medicine 10/21/1711/14 documented as of this encounter
--- OUTSIDE RECORDS SUMMARY | 2024-10-09 10:37 | XMS_ITS | Encounter Summary ---
Author Organization [facility] Address [facility] [place] [address] Care Team Providers Care Laborer Drying Department Name Role Phone None Primary Care Provider Unavailabl e Encounter Details Date Type Department Care Team (Late st Contact Info) Description 04/29/2024 4:30 PM EDT Office Visit Dermatology at [place] [address] [place] [address] Robert Good MD [facility] [address] [place] [address] Skin cancer screening; Seborrheic keratoses; Multiple benign nevi of upper extremity, lower extremity, and trunk; Lentigines; Tick bite of back, initial encounter; Actinic keratoses; Inflamed seborrheic keratosis; Lanier angioma Social History Tobacco Use Types Packs/Day Years Used Date Smoking Tobacco: Former Smokeless Tobacco: Never Alcohol Use Standard Drinks/Week Comments Yes 7 (1 standard drink = 0.6 oz pur e alcohol) Sex and Gender Information Value Date Recorded Sex Assigned at Not on file Gender Identity Not on file Sexual Orientation Not on file documented as of this encounter Progress Notes * Annette Virk CCMA - 04/29/2024 4:30 PM EDT Images from the original note [...] NMSC Other relevant family history Social History 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 They also have four grandchildren, the youngest of whom lives in [place], [place]. Pre-Procedure Questions Details Allergy to lidocaine, epinephrine, Dermabond, chlorhexidine, or adhesives No Bleeding disorder or blood thinners Frazer-3, Vitamin E Pacemaker, defibrillator, deep brain stimulator, cochlear implant No History of Present Illness: Deepak Pak is a 78 y.o. Patient returns to clinic today for full skin exam. Patient denies any specific skin concerns today; no lesions that are new, changing or symptomatic. Last visit at Dermatology: 01/17/2023 Last visit with this provider: Visit date not found Medications: Reviewed in eD-H Allergies: Reviewed in [...] Genitalia and buttocks were not examined. Assessment/Plan #. Actinic Keratosis - Ill-defined gritty papules on the right forehead(x1) right yarsanism(x1) right cheek(x2)left forehead(x1)left cheek(x1)Vertex Scalp (x3) - Explained premalignant potential of these lesions. - Discussed treatment with cryotherapy. Patient elects to proceed with cryotherapy today. - Instructed patient to return to clinic for re-evaluation if lesion(s) does not resolve as expected with this treatment. Procedure: Destruction of lesion(s) with cryotherapy (LN2). Location(s): As noted above. Number: 9 Discussed procedure and expectations, including risks and benefits. Verbal consent obtained. Treated with LN2. There were no complications; Patient tolerated the procedure well. Post-procedure expectations and wound care reviewed. #. Inflamed Seborrheic Keratoses - Inflamed, stuck on, waxy papule on the right forearm(x1). - Discussed benign nature of lesion(s) and provided reassurance. - Due to irritation present on today's exam and history of symptoms, discussed removal with cryotherapy. - Patient elects to proceed with cryotherapy today. Procedure: Destruction of lesion(s) with cryotherapy (LN2). Location(s): As noted above Number: 1 Discussed procedure and expectations including risks and benefits. Verbal consent obtained. Treatedwith LN2. There were no complications; Patient tolerated the procedure well. Post-procedure expectations and wound care were reviewed. #. Seborrheic Keratoses - Stuck on, waxy papules on the trunk and extremities. - Discussed benign nature of lesions and provided reassurance. No treatment necessary at this time. #. Benign Nevi - Scattered medium brown, evenly pigmented macules and papules on the trunk and extremities with reassuring pigment pattern on dermoscopy. - Discussed benign nature of lesions and provided reassurance. Will continue to monitor. #. Solar Lentigines - Scattered light-brown, evenly pigmented, well-demarcated macules on sun-exposed areas of the trunk and extremities. - No worrisome pigmented lesions. #. Lanier Angiomas - Multiple bright red, well-demarcated papules on the trunk and extremities. - Discussed benign nature of lesions and provided reassurance. No treatment necessary at this time. #. Tick Bite- left flank Patient treated with Doxycycline for 10 day course Other: N/A RTC: 1 yr for FBSE, otherwise PRN []Note routed to admin secretary [x]Recall placed in scheduling system []Appointment scheduled at checkout Scribe attestation: An[facility] Virk [facility] has performed the documentation for this encounter in the presence of and acting as a scribe for ROBERT GOOD MD. I performed the above scribed service and agree with the accuracy of the documentation in this encounter. Reviewed and signed by: ROBERT GOOD MD Dermatology [facility] documented in this encounter Plan of Treatment Not on file documented as of this encounter Visit Diagnoses Diagnosis Skin cancer screening Screening for malignant neoplasm of the skin Seborrheic keratoses Multiple benign nevi of upper extremity, lower extremity, and trunk Lentigines Other dyschromia Tick bite of back, initial encounter Actinic keratoses Actinic keratosis Inflamed seborrheic keratosis Lanier angioma Nevus, non-neoplastic documented in this encounter Care Teams Laborer Drying Department Relationship Specialty Start Date End Date None None PCP - General 11/27/21 documented as of this encounter
--- OUTSIDE RECORDS SUMMARY | 2024-10-09 10:37 | XMS_ITS | Encounter Summary ---
Author Organization [facility] Address [facility] [place] [address] Care Team Providers Care Computer Systems Security Analyst Name Role Phone Sariah To APRN Primary Care Provider Reason for Visit * Reason Comments Skin Cancer Examination Encounter Details Date Type Department Care Team (Late st Contact Info) Description 08/04/2020 10:00 AM EST Office Visit Dermatology at [facility] [address] [place] [address] Sheryl Good MD [facility] [place] [address] Lanier angioma; SK (seborrheic keratosis); Lentigines; Multiple [...] Progress Notes * Sheryl Good MD - 08/04/2020 10:00 AM EST DERMATOLOGY ESTABLISHED PATIENT CLINIC NOTE Date of service: 08/03/2020 Deepak Alejandro Pasha : 1945 Provider: Sheryl Good MD Preferred name: Deepak Preferred contact method with results: Cell Message okay: yes ?? PROBLEM: Skin Cancer Screening SKIN HISTORY: actinic keratosis- LN2 HPI Mr. Pak is a 74 y.o. year old male. Established patient, last seen 07/27/2019. Here today for a full skin exam and he has no specific areas of concern today. Denies any itching, pain, or bleeding. 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 Significant skin findings: A. Multiple 0.4-1 cm, brown-black papules/plaques with waxy stuck on appearance B. 0.3-0.6cm light-brown evenly pigmented, well-demarcated macules on sun exposed areas C. Multiple, 0.3-0.5cm, medium-brown, evenly-pigmented macules and papules. All with regular pigment pattern on dermoscopy. No pigmented lesions suspicious for melanoma. D. Multiple 0.2-0.4cm bright red, well-demarcated papules E. 0.2-0.3cm scaly irregular pink papules on the vertex scalp x 4, left forehead x 1, right forehead x 1, and right cheek x 1 ASSESSMENT/PLAN: A. Seborrheic Keratoses - Benign. No treatment necessary. - Reassured about benign nature and natural history. B. Solar Lentigines - Benign. No treatment necessary. - Reassured about benign nature and natural history. - Sun avoidance, protective clothing and the use of SPF 30+ sunscreen is advised. Observe closely for skin changes and call if such occurs. C. Benign Appearing Nevi - Benign. No treatment necessary. - Reassured about benign nature and natural history. D. Lanier Angiomas - Benign. No treatment necessary. - Reassured about benign nature and natural history. E. Actinic Keratoses - Counseled: AKs, risk for progression to SCCs, and treatment options, including observation, LN2, Efudex cream, and PDT. Procedure Note: Procedure: Destruction of lesions with cryotherapy. Number: 7 Location: as above Discussed procedure and expectations including risks (including risk of hypopigmentation) and benefits. Verbal consent obtained. Frozen with LN2, 15-30 second thaw time, TWICE. There were no complications; the patient tolerated the procedure well. Post-procedure expectations and wound care were reviewed. RTC 1 year for follow-up and full skin exam, or sooner if needed. Reminder placed in the system to schedule. Patient instructed to call with any questions or concerns. Note initiated and routed to physician for review and change by: Iliana Ha LPN IMichaelle LPN, have performed the documentation for this encounter in the presence of and acting as a scribe for SHERYL GOOD MD. I performed the services which were documented by the scribe, and I agree with the accuracy of the documentation in this encounter. SHERYL GOOD MD. Sheryl Good MD Section of Dermatology [facility] documented in this encounter Plan of Treatment Not on file documented as of this encounter Visit Diagnoses Diagnosis Lanier angioma Nevus, non-neoplastic SK (seborrheic keratosis) Other seborrheic keratosis Lentigines Other dyschromia Multiple benign nevi Benign neoplasm of skin, site unspecified AK (actinic keratosis) Actinic keratosis documented in this encounter Care Teams Computer Systems Security Analyst Relationship Specialty Start Date End Date Sariah To, BAR HOSTESS [address] [place] [address] PCP - General General Internal Medicine 10/21/1711/14 documented as of this encounter
--- OUTSIDE RECORDS SUMMARY | 2024-10-09 10:37 | XMS_ITS | Encounter Summary ---
[facility] Organization [facility] [place] [address] Care Team Providers Care Transitions Rn Care Coordinator Name Role Phone Bianca Rosales MD Primary Care Provider [phone] Encounter Details Date Type Department Care Team (Late st Contact Info) Description 12/15/2010 10:07 AM EDT - 12/15/2010 7:12 PM EDT [place] [id number] Bhavik Kay MD Discharge Disposition: Home Social History Tobacco [...] Procedure Name Priority Date/Time Associated Diagnosis Comments CARDIAC ENZYMES (DH/CGP) STAT 12/15/2010 5:15 PM EDT DIFFERENTIAL, AUTOMATED STAT 12/16/19 10:50 AM EDT BLUE TUBE HOLD STAT 12/15/2010 10:50 AM EDT CARDIAC ENZYMES ([facility]/CG[facility]) STAT 12/15/2010 10:50 AM EDT CREATININE STAT 12/15/2010 10:50 AM EDT CBC (WITH DIFF) STAT 12/15/2010 10:50 AM EDT BUN STAT 12/15/2010 10:50 AM EDT GLUCOSE STAT 12/15/2010 10:50 AM EDT ELECTROLYTES PANEL STAT 12/15/2010 10 :50 AM EDT EKG 12-LEAD Routine 12/15/2010 10:40 AM EDT ECHOCARDIOGRAM STRESS TEST (TREADMILL) Routine 12/15/2010 documented in this encounter Results * (ABNORMAL) CARDIAC ENZYMES (12/15/2010 5:15 PM EDT) Troponin-T <0.03 <=0.03 ng/mL [facility] Comment: 0.03 ng/mL: Represents the 99th percentile upper reference limit for normals. >0.03 ng/mL: Elevated cardiac troponin T level indicative of myocardial damage. Diagnosis of acute, evolving or recent OK requires a typical rise and gradual fall of cTnT with at least ONE of the following: a) Ischemic symptoms b) Development of pathologic Q waves on the ECG c) ECG changes indicative of eschemia (S-T segment elevation/depression) d) Coronary artery intervention Serial bloods should be obtained for testing on admission, at 6 to 9 hrs and again at 12 to 24 hrs if earlier samples are negative and the clinical index of suspicion is high. Reference: [Myocardial infarction redefined a consensus document of the Joint Society of Cardiology/[place] College of Cardiology Committee for the redefinition of myocardial infarction. Journal of the [place] College of Cardiology 2000; 36: 959-969] Creatine Kinase 1072(H) 0 - 200 unit/L [facility] Blood specimen (specimen) 12/15/2010 5:15 PM EDT 12/15/2010 5:25 PM EDT Bhavik Kay MD CHEMISTRY ORDERABLE S HIEU MARKSIUM * REFLEX LAB-A-DIFF (12/15/2010 10:50 AM EDT) Neutrophil % 58.3 34.0 - 71.0 % CERNER MILLENNIUM Neutrophil Absolute 2.44 1.50 - 6.30 x10(3)/mcL CERNER MILLENNIUM Lymph % 28.7 19.0 - 53.0 % CERNER MILLENNIUM Lymphocytes Abs 1.2 1.0 - 3.6 x10(3)/mcL CERNER MILLENNIUM Monocyte % 9.6 4.0 - 13.0 % CERNER MILLENNIUM Monocyte Abs 0.4 0.2 - 1.0 x10(3)/mcL CERNER MILLENNIUM Eos % 2.9 0.0 - 7.0 % CERNER MILLENNIUM Eosinophils Abs 0.1 0.0 - 0.5 x10(3)/mcL CERNER MILLENNIUM Basophil % 0.5 0.0 - 2.0 % CERNER MILLENNIUM Baso Absolute 0.0 0.0 - 0.2 x10(3)/mcL CERNER MILLENNIUM Immature Gran % 0.00 0.00 - 0.66 % CERNER MILLENNIUM Comment: Immature granulocytes(IG's)percentage and absolute count will include metamyelocytes, myelocytes, and promyelocytes. Blood smears from CBCs yielding IG's will be scanned manually for concordance. If this scan disagrees with the automated IG or if promyelocytes are noted, a manual differential will be performed. Immature Gran Absolute 0.00 0.00 - 0.05 x10(3)/mcL CERNER MILLENNIUM Blood specimen (specimen) 12/15/2010 10:50 AM EDT 12/15/2010 11:23 AM EDT Bhavik Kay MD HEMATOLOGY ORDERABL ES HIEU MARKSIUM * BLUE TUBE HOLD (12/15/2010 10:50 AM EDT) Blue Hold Sample in lab. CERNER MILLENNIUM Blood specimen (specimen) 12/15/2010 10:50 AM EDT 12/15/2010 11:24 AM EDT Bhavik Kay MD HEMATOLOGY ORDERABL ES Performing Organization Address [facility] Co de Phone Number HIEU FERRELL * (ABNORMAL) CARDIAC ENZYMES (12/15/2010 10:50 AM EDT) Troponin-T <0.03 <=0.03 ng/mL [facility] Comment: 0.03 ng/mL: Represents the 99th percentile upper reference limit for normals. >0.03 ng/mL: Elevated cardiac troponin T level indicative of myocardial damage. Diagnosis of acute, evolving or recent OK requires a typical rise and gradual fall of cTnT with at least ONE of the following: a) Ischemic symptoms b) Development of pathologic Q waves on the ECG c) ECG changes indicative of eschemia (S-T segment elevation/depression) d) Coronary artery intervention Serial bloods should be obtained for testing on admission, at 6 to 9 hrs and again at 12 to 24 hrs if earlier samples are negative and the clinical index of suspicion is high. Reference: [Myocardial infarction redefined a consensus document of the Joint Society of Cardiology/[place] College of Cardiology Committee for the redefinition of myocardial infarction. Journal of the [place] College of Cardiology 2000; 36: 959-969] Creatine Kinase 1392(H) 0 - 200 unit/L [facility] Blood specimen (specimen) 12/15/2010 10:50 AM EDT 12/15/2010 11:23 AM EDT Bhavik Kay MD CHEMISTRY ORDERABLE S Performing Organization Address [facility]/ZIP Co de Phone Number HIEU FERRELL * GLUCOSE, RANDOM (12/15/2010 10:50 AM EDT) Glucose 91 60 - 199 mg/dL [facility] Comment:Diabetes: >=200 mg/d L plus symptoms Blood specimen (specimen) 12/15/2010 10:50 AM EDT 12/15/2010 11:23 AM EDT Bhavik Kay MD CHEMISTRY ORDERABLE S Performing Organization Address [facility]/ZIP Co de Phone Number CERKERRY PAGEENNIUM * (ABNORMAL) CBC (WITH DIFF) (12/15/2010 10:50 AM EDT) White Blood Cell 4.2 4.0 - 10.0 x10(3)/mc L CERNER MILLENNIUM Red Blood Cell 4.98 4.63 - 6.08 x10(6)/mc L CERNER MILLENNIUM Hemoglobin 15.5 13.7 - 17.5 gm/dL CERNER MILLENNIUM Hematocrit 45.5 40.0 - 51.0 % CERNER MILLENNIUM Mean Cell Volume 91.4 79.0 - 92.0 fL CERNER MILLENNIUM Mean Cell Hemoglobin 31.1 25.6 - 32.2 pg CERNER MILLENNIUM Mean Cell Hemoglobin Concentration 34.1 32.0 - 36.5 gm/dL CERNER MILLENNIUM Platelet 248 145 - 370 x10(3)/mc L CERNER MILLENNIUM RDW Standard Deviation 48.1(H) 35.0 - 46.0 fL CERNER MILLENNIUM RDW coefficient of variation 14.4 10.9 - 14.4 % CERNER MILLENNIUM Mean Platelet Volume 9.6 9.0 - 12.0 fL CERNER MILLENNIUM Blood specimen (specimen) 12/15/2010 10:50 AM EDT 12/15/2010 11:23 AM EDT Bhavik Kay MD HEMATOLOGY ORDERABL ES Performing Organization Address [facility]/ZIP Co de Phone Number CERKERRY PAGEENNIUM * CREATININE, SERUM (12/15/2010 10:50 AM EDT) Creatinine 0.81 0.80 - 1.50 mg/dL CERNER MILLENNIUM Est Glomerular Filtration Rate >60 >=60 CERNER MILLENNIUM Comment: The National Kidney Disease Education Program (NKDEP) has recommended all laboratories report estimated GFR (eGFR) along with plasma creatinine measurements to assist you with recognition of early kidney disease. Caveats: ??Plasma creatinine should be at steady-state (unchanged within the past week). ??Patient age > = 18 years, and for Americans multiply eGFR by 1.2. At present, NKDEP does NOT recommend using the MDRD equation for drug dosing purposes and pharmacists should continue to use their current dosing methods. In addition, numerical eGFR values greater than 60 ml/min/1.73 square meters should be treated as > 60, and not an exact number due to greater inaccuracies at these higher values. Per NKDEP, they classify normal renal function as any GFR >60ml/min/1.73 square meters; chronic kidney disease when GFR <60, and renal failure when GFR <15. ??This calculation may not be valid for patients with atypical muscle mass (very lean or obese), acute renal failure, and in patients with diabetic kidney disease. References: http://nkdep.nih.gov/resources/NKDEP_Suggestn4Labs_0606_508.pdf http://www.kidney.org/professionals/kls/pdf/faq_gfr.pdf Blood specimen (specimen) 12/15/2010 10:50 AM EDT 12/15/2010 11:23 AM EDT Bhavik Kay MD CHEMISTRY ORDERABLE S Performing Organization Address [facility] Co de Phone Number BANNERKERRY SimpliVTIUM * (ABNORMAL) BUN (12/15/2010 10:50 AM EDT) Blood Urea Nitrogen 8(L) 10 - 20 mg/dL HIEU SimpliVTIUM Blood specimen (specimen) 12/15/2010 10:50 AM EDT 12/15/2010 11:23 AM EDT Bhavik Kay MD CHEMISTRY ORDERABLE S Performing Organization Address [facility] Co de Phone Number BANNERKERRY SimpliVTIUM * ELECTROLYTE PANEL (12/15/2010 10:50 AM EDT) Sodium 140 135 - 145 mmol/L CERNER MILLENNIUM Potassium 4.0 3.5 - 5.0 mmol/L CERNER MILLENNIUM Comment: Please note: ??Patients with WBC >100,000 may have falsely elevated Potassium levels. ??For accurate Potassium quantification in these patients send serum separator tube (gold top) for subsequent determinations. ??Contact the Clinical Chemistry Laboratory if there are any questions. Chloride 103 98 - 107 mmol/L CERNER MILLENNIUM Carbon Dioxide 28 22 - 31 mmol/L CERNER MILLENNIUM Anion Gap 9 5 - 15 mmol/L CERNER MILLENNIUM Blood specimen (specimen) 12/15/2010 10:50 AM EDT 12/15/2010 11:23 AM EDT Bhavik Kay MD CHEMISTRY ORDERABLE S CERWordinaire * EKG 12-LEAD (12/15/2010 10:40 AM EDT) Ventricular rate 62 BPM MUSE SYSTEM Atrial Rate 62 BPM MUSE SYSTEM P-R Interval 156 ms MUSE SYSTEM QRS Duration 94 ms MUSE SYSTEM Q-T Interval 396 ms MUSE SYSTEM QTC Calculated (Bezet) 401 ms MUSE SYSTEM Calculated P [place] 1 degrees MUSE SYSTEM Calculated R [place] -15 degrees MUSE SYSTEM Calculated T [place] 4 degrees MUSE SYSTEM INTERPRETATION Normal sinus rhythm Moderate voltage criteria for LVH, may be normal variant Borderline ECG When compared with ECG of 04-NOV-1992 13:23, No significant change was found Confirmed by Helio Jules, Shalom Rios ([id number]) on 12/15/2010 3:25:31 PM MUSE SYSTEM 12/15/2010 10:4 0 AM EDT 12/15/2010 3:25 PM EDT Unknown ECG ORDERABLES MUSE SYSTEM * ECHOCARDIOGRAM STRESS TEST (TREADMILL) (12/15/2010) Anatomical Region Laterality Modality Other 12/15/2010 Narrative 12/15/2010 4:43 PM EDT Procedure: ? Stress Echocardiogram ? Patient: ? CONNIE Allen ?(Age): 1945(65) Med Rec#: ?[id number] ?Sex: ?M ? Site Loc: ?[facility] ?Ht / Wt: ??167(cm)/82(kg) Pt. Loc: ? Echo Lab ?BSA: ?1.91 Study Date: ?12/15/2010 ?Pt. Type: Outpatient Tape: ? Referring: Nilay Pisano MD Cabin Cleaner: Richard Berry Compounding Pharmacy Technician: Mera Ballard Compounding Pharmacy Technician 2: Morro Burgos Diagnosis: ??Chest pain (786.50) CPT Code(s): ??Stress Echo (08401), ??Color Doppler (20000), ??Definity (13400UU), ??Doppler LTD (09547), ??ECG Interpretation (42577), Indication(s): ??Chest Pain Medication(s): ?? Rhythm: Stage ?HR ?BP Rest ? 59 ?138/78 ?? Peak ? 133 ? 206/70 ?? Recovery ? 96 ?140/76 ?? SUMMARY: 1. BASELINE: ?? Left ventricular chamber size, wall thickness, global and segmental systolic function are within normal limits. Ejection fraction is estimated to be 60%. Right ventricular chamber size, wall thickness, and systolic function are within normal limits. ??Chamber sizes and valve structures are normal. EKG: NSR with no ST or T changes 2. STRESS: ??Patient followed a Eusebio protocol and the patient exercised into stage 3. ??The total exercise duration was: 9:20. ??Peak HR= 173 bpm (111% MPHR)) and peak BP= 206/70 mmHg for a DP-35.6 K. ??There were no symptoms, EKG changes, or ectopy with stress. ??No segmental wall motion abnormalities and EF increased from 60 to 80%. ?? 3. IMPRESSION: ??Normal stress echocardiogram with no ischemia in responst to a maximal stress and very high workload. FINDINGS: Rest Left Ventricle ?Left ventricular chamber size, wall thickness, global and segmental systolic function are within normal limits. Ejection fraction is estimated to be 60%. Left Atrium ?The left atrium is probably normal in size. Right Ventricle ?Right ventricular chamber size, wall thickness, and systolic function are within normal limits. Right Atrium ?The right atrium is probably normal in size. Aortic Valve ?The aortic valve is trileaflet. The leaflets are thin with normal excursion. There is no aortic stenosis or regurgitation present. Mitral Valve ?The mitral valve appears normal in structure and function. ?There is trace mitral regurgitation present. Tricuspid Valve ?The tricuspid valve appears normal in structure and function. ?There is trace tricuspid regurgitation present. Pericardium ?The pericardium appears normal and there is no evidence of a pericardial effusion. Stress ?EKG: normal sinus rhythm. Misc ?Other echo and stress findings as noted in report. ?Definity contrast (one 1.5 ml vial)was used to enhance endocardial definition. Excess contrast was discarded. ?Stress echo, limited spectral Doppler, color Doppler and ECG interpretation performed. FINDINGS: Peak Left Ventricle ?There are no left ventricular segmental wall motion abnormalities. Stress ?Patient followed a Eusebio protocol. ?The patient exercised into stage 3. ?The total exercise duration was: ?The study was terminated because of fatigue. ?Maximum heart rate achieved was 133, which is 86% of the maximum(155 beats/min). ?The target heart rate was achieved. ?The patient did not express feelings of chest discomfort. ?The blood pressure response was normal. ?Exercise capacity was good. ?The patient achieved a level of 10 METS. ?There were no arrhythmias. ?There were no significant ST segment changes. ?This was a negative electrocardiographic stress test for ischemia. ?EKG: normal sinus rhythm. ?The patient is on no cardiac or blood pressure medications. FINDINGS: Recovery Stress ?EKG: normal sinus rhythm. Wall Motion: Segment Name ?Rest ?Peak ? Base-Anteroseptal ?? Normal ?Normal ? Base-Anterior ? Normal ?Normal ? Base-Anterolateral ??Normal ?Normal ? Base-Posterolateral Normal ?Normal ? Base-Inferior ? Normal ?Normal ? Base-Inferoseptal ?? Normal ?Normal ? Mid-Anteroseptal ?Normal ?Normal ? Mid-Anterior ?Normal ?Normal ? Mid-Anterolateral ?? Normal ?Normal ? Mid-Posterolateral ??Normal ?Normal ? Mid-Inferior ?Normal ?Normal ? Mid-Inferoseptal ?Normal ?Normal ? [place]-Septal ? Normal ?Normal ? [place]-Anterior ? Normal ?Normal ? [place]-Lateral ?Normal ?Normal ? [place]-Inferior ? Normal ?Normal ? [place]-Tip ?Normal ?Normal ? Chambers ?Value ?Units (Range) ? LV EF Est ? 60 ? % (55 to 80) ? This report has been electronically signed by: Pravin Alfaro MD ? 12/15/2010 16:42:42 Images reviewed and interpretation verified [facility] Cardiac Ultrasound Laboratory Procedure Note 12/15/2010 Procedure: Stress Echocardiogram Patient: CONNIE PANCHAL(Age): 1945(65) Med Rec#: [id number] Sex: M Site Loc: [facility] Ht / Wt: 167(cm)/82(kg) Pt. Loc: Echo Lab BSA: 1.91 Study Date: 12/15/2010 Pt. Type: Outpatient Tape: Referring: Nilay Pisano MD Cabin Cleaner: Richard Berry Compounding Pharmacy Technician: Mera Ballard Compounding Pharmacy Technician 2: Morro Burgos Diagnosis: Chest pain (786.50) CPT Code(s): Stress Echo (45223), Color Doppler (99407), Definity (68011HM), Doppler LTD (20139), ECG Interpretation (46810), Indication(s): Chest Pain Medication(s): Rhythm: Stage HR BP Rest 59 138/78 Peak 133 206/70 Recovery 96 140/76 SUMMARY: 1. BASELINE: Left ventricular chamber size, wall thickness, global and segmental systolic function are within normal limits. Ejection fraction is estimated to be 60%. Right ventricular chamber size, wall thickness, and systolic function are within normal limits. Chamber sizes and valve structures are normal. EKG: NSR with no ST or T changes 2. STRESS: Patient followed a Eusebio protocol and the patient exercised into stage 3. The total exercise duration was: 9:20. Peak HR= 173 bpm (111% MPHR)) and peak BP= 206/70 mmHg for a DP-35.6 K. There were no symptoms, EKG changes, or ectopy with stress. No segmental wall motion abnormalities and EF increased from 60 to 80%. 3. IMPRESSION: Normal stress echocardiogram with no ischemia in responst to a maximal stress and very high workload. FINDINGS: Rest Left Ventricle Left ventricular chamber size, wall thickness, global and segmental systolic function are within normal limits. Ejection fraction is estimated to be 60%. Left Atrium The left atrium is probably normal in size. Right Ventricle Right ventricular chamber size, wall thickness, and systolic function are within normal limits. Right Atrium The right atrium is probably normal in size. Aortic Valve The aortic valve is trileaflet. The leaflets are thin with normal excursion. There is no aortic stenosis or regurgitation present. Mitral Valve The mitral valve appears normal in structure and function. There is trace mitral regurgitation present. Tricuspid Valve The tricuspid valve appears normal in structure and function. There is trace tricuspid regurgitation present. Pericardium The pericardium appears normal and there is no evidence of a pericardial effusion. Stress EKG: normal sinus rhythm. Misc Other echo and stress findings as noted in report. Definity contrast (one 1.5 ml vial)was used to enhance endocardial definition. Excess contrast was discarded. Stress echo, limited spectral Doppler, color Doppler and ECG interpretation performed. FINDINGS: Peak Left Ventricle There are no left ventricular segmental wall motion abnormalities. Stress Patient followed a Eusebio protocol. The patient exercised into stage 3. The total exercise duration was: The study was terminated because of fatigue. Maximum heart rate achieved was 133, which is 86% of the maximum(155 beats/min). The target heart rate was achieved. The patient did not express feelings of chest discomfort. The blood pressure response was normal. Exercise capacity was good. The patient achieved a level of 10 METS. There were no arrhythmias. There were no significant ST segment changes. This was a negative electrocardiographic stress test for ischemia. EKG: normal sinus rhythm. The patient is on no cardiac or blood pressure medications. FINDINGS: Recovery Stress EKG: normal sinus rhythm. Wall Motion: Segment Name Rest Peak Base-Anteroseptal Normal Normal Base-Anterior Normal Normal Base-Anterolateral Normal Normal Base-Posterolateral Normal Normal Base-Inferior Normal Normal Base-Inferoseptal Normal Normal Mid-Anteroseptal Normal Normal Mid-Anterior Normal Normal Mid-Anterolateral Normal Normal Mid-Posterolateral Normal Normal Mid-Inferior Normal Normal Mid-Inferoseptal Normal Normal [place]-Septal Normal Normal [place]-Anterior Normal Normal [place]-Lateral Normal Normal [place]-Inferior Normal Normal [place]-Tip Normal Normal Chambers Value Units (Range) LV EF Est 60 % (55 to 80) This report has been electronically signed by: Pravin Alfaro MD 12/15/2010 16:42:42 Images reviewed and interpretation verified [facility] Cardiac Ultrasound Laboratory Unknown ECHO ORDERABLES documented in this encounter Visit Diagnoses Not on filedocumented in this encounter Active and Recently Administered Medications Care Teams Transitions Rn Care Coordinator Relationship Specialty Start Date End Date Bianca Roslaes MD [facility] [address] [place] [address] PCP - General 08/08/10 06/30/14 documented as of this encounter
--- OUTSIDE RECORDS SUMMARY | 2024-10-09 10:37 | XMS_ITS | Encounter Summary ---
Author Organization [facility] Address [facility] [place] [address] Care Team Providers Care Automotive Fuel Injection Servicer Name Role Phone Bianca Rosales MD Primary Care Provider [phone] Encounter Details Date Type Department Care Team (Late st Contact Info) Description 04/07/2012 10:45 AM EDT - 04/07/2012 11:30 AM EDT Surgery [place] [address] Su Singh MD [facility] [place] [address] COLONOSCOPY, DIAGNOSTIC (WRVU 3.26) Social History Tobacco [...] Sign Reading Time Taken Comments Blood Pressure 133/67 04/07/2012 1:03 PM EDT Pulse 64 04/07/2012 1:11 PM EDT Temperature 36.6 ??C (97.9 ??F) 04/07/2012 11:18 AM E DT Respiratory Rate 16 04/07/2012 1:11 PM EDT Oxygen Saturation 95% 04/07/2012 1:11 PM EDT Inhaled Oxygen Concentration - - Weight - - Height - - Body Mass Index - - documented in this encounter Discharge Instructions * Discharge Instructions* Adriano Mackey RN - 04/07/2012 1:09 PM EDT You may have received medication before and/or during your procedure, which affects judgement and reaction time. Do not drive, operate machinery, drink alcoholic beverages, or make important decisions for 24 hours. Be careful on stairs, as you may be unsteady on your feet. You may eat a regular diet as tolerated. Do not smoke if you are alone. IV site -- slight redness, or tenderness is normal, you can use a warm compress. If tenderness and redness increases or foul drainage occurs, please contact your M. D. * Patient Instructions* Su Singh MD - 04/07/2012 12:56 PM EDT Please see Recommendations in the Provation procedure report which is documented in the procedural note in E-DH. * Attachments The following attachments cannot be sent through Care Everywhere. * COLONOSCOPY: WHAT TO EXPECT AT HOME (ROMANSH) documented in this encounter H&P Notes * Su Singh MD - 04/07/2012 12:06 PM EDT Gastroenterology and Hepatology Pre-Procedure History and Physical Exam Procedure: Colonoscopy: Indication: hx polyp (HGD) There is no problem list on file for this patient. EXAM: HEENT: Airway examined, oropharynx clear LUNGS: Clear to auscultation HEART: Regular rate and rhythm, normal S1, S2 ABDOMEN: Normal bowel sounds, soft, non tender, non distended, A/P Proceed with the planned endoscopic procedure. Risks and benefits of the procedure explained to the patient. Consent signed. documented in this encounter Miscellaneous Notes * Miscellaneous - Provider, Scanning - 04/08/2012 6:05 AM EDT * Op Note - Su Singh MD - 04/07/2012 12:55 PM EDT [facility] Patient Name: Deepak Pak : [id number] MR#: [id number] Case Date: 04/07/2012 Surgeon: Surgeon(s) and Role: * SU SINGH MD - Primary Preoperative diagnosis: hx ofpolyps Full procedure note is documented under the Procedure section of eDH. * Miscellaneous - Provider, Scanning - 04/07/2012 11:52 AM EDT documented in this encounter Plan of Treatment Not on file documented as of this encounter Procedures Procedure Name Priority Date/Time Associated Diagnosis Comments COLONOSCOPY, DIAGNOSTIC (WRVU 3.26) 04/07/2012 12:17 PM EDT hx ofpolyps COLONOSCOPY Routine 04/07/2012 11:07 AM EDT documented in this encounter Results * COLONOSCOPY (04/07/2012 11:07 AM EDT) COLONOSCOPY [facility] Endoscopy Patient Name: Deepak Pak ? Procedure Date: 04/07/2012 11:07 AM ? Date of : 1945 ? Age: 66 ? Order #: [id number] ? Procedure: ? Colonoscopy Indications: ? High risk colon CA surveillance: ? 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 iwth HGD) Patient Profile: ? s/p hernia repair x2, repair of ? broken jaw Providers: ? Su Singh MD, Karis Luna, ? RN, Rashmi Tabares, Machine Tool Operator Referring : ?Bianca Rosales MD Medicines: ? Prior colos done with Propofol due to ? ineffective sedation on first colo 5 ? years ago; however, this colo ? scheduled with mod sedation. This was ? discussed with the patient, who ? wished to proceed ? Midazolam 2 mg IV, Meperidine 100 mg ? IV. This resulted in the patient ? being awake but comfortable ? throughout the procedure, which he ? tolerated extremely well Complications: ? No immediate complications. Procedure: ? Pre-Anesthesia Assessment: ? - Prior to the procedure, a History ? and Physical was performed, and ? patient medications, allergies and ? sensitivities have been reviewed. The ? patient's tolerance of previous ? anesthesia has been reviewed. ? - The risks and benefits of the ? procedure and the sedation options ? and risks were discussed with the ? patient. All questions were answered ? and informed consent was obtained. ? - Airway Examination: normal ? oropharyngeal airway and neck ? mobility. ? - Respiratory Examination: clear to ? auscultation. ? - CV Examination: normal. ? - After reviewing the risks and ? benefits, the patient was deemed in ? satisfactory condition to undergo the ? procedure. ? - The anesthesia plan was to use ? moderate sedation/analgesia ? (conscious sedation). ? - Immediately prior to administration ? of medications, the patient was ? re-assessed for adequacy to receive ? sedatives. ? - The heart rate, respiratory rate, ? oxygen saturations, blood pressure, ? adequacy of pulmonary ventilation, ? and response to care were monitored ? throughout the procedure. ? - The physical status of the patient ? was re-assessed after the procedure. ? - ASA Grade Assessment: I - A normal, ? healthy patient. ? The procedure, indications, benefits, ? risks [...] direct visualization, ? advanced to the terminal ileum, with ? identification of the appendiceal ? orifice and IC valve. Careful ? inspection was made as the ? colonoscope was withdrawn. The ? quality of the bowel preparation was ? excellent. ? Findings: ? The entire examined colon appeared normal. ? Impression: ?- The entire examined colon is normal. Recommendation: ?- Repeat colonoscopy in 5 years for ? surveillance. ? - Return to primary care physician. ? _ Su Singh MD 04/07/2012 1:02 PM ? Number of Addenda: 0 Note Initiated On: 04/07/2012 11:07 AM PROVATION 04/07/2012 11:0 7 AM EDT Bianca Rosales MD GENERAL SURGICAL ORD ERABLES PROVATION documented in this encounter Visit Diagnoses Not on filedocumented in this encounter Administered Medications Inactive Administered Medications - up to 3 most recent administrations Medication Order MAR Action Action Date Dose Rate Site meperidine (PF) (DEMEROL) 50 mg/mL carpuject ONCE PRN, Starting on Sat04/07/12 at 1222, Until Sat04/07/12 at 1746, Pain, Intra-Operative (Intra-Procedure), Routine Given 04/07/2012 12:25 PM EDT 50 mg Given 04/07/2012 12:22 PM EDT 50 mg midazolam (VERSED) injection ONCE PRN, Starting on Sat04/07/12 at 1223, Until Sat04/07/12 at 1746, Sleep, Intra-Operative (Intra-Procedure), Routine Given 04/07/2012 12:26 PM EDT 1 mg Given 04/07/2012 12:23 PM EDT 1 mg sodium chloride 0.9% infusion 30 mL/hr, Intravenous, CONTINUOUS, Starting on Sat04/07/12 at 1145, Until Sat04/07/12 at 1746, Endoscopy (Day of Procedure) New Bag 04/07/2012 11:50 AM EDT 30 mL/hr 30 mL/hr documented in this encounter Active and Recently Administered Medications Times are shown in EDT. Continuous Medication Order 04/05/2012 04/06/2012 04/07/2012 sodium chloride 0.9% infusion (CANCELED) 30 mL/hr, Intravenous, CONTINUOUS, Starting on Sat04/07/12 at 1145, Until Sat04/07/12 at 1746, Endoscopy (Day of Procedure) 1150 (New Bag - Prov ider: Randal Swenson RN) PRN Medication Order 04/05/2012 04/06/2012 04/07/2012 meperidine (PF) (DEMEROL) 50 mg/mL carpuject (CANCELED) ONCE PRN, Starting on Sat04/07/12 at 1222, Until Sat04/07/12 at 1746, Pain, Intra-Operative (Intra-Procedure), Routine 1222 (Given - Provid er: Virginia Foley RN - Comment: moderate sedation started )1225 (Given - Provider: Virginia Foley RN - Comment: awake) midazolam (VERSED) injection (CANCELED) ONCE PRN, Starting on Sat04/07/12 at 1223, Until Sat04/07/12 at 1746, Sleep, Intra-Operative (Intra-Procedure), Routine 1223 (Given - Provid er: Virginia Foley RN - Comment: moderate sedation started )1226 (Given - Provider: Virginia Foley RN - Comment: awake) documented in this encounter Care Teams Automotive Fuel Injection Servicer Relationship Specialty Start Date End Date Bianca Rosales MD [facility] DARLENE GARCIA [address] [place] [id number] PCP - General 08/08/10 06/30/14 documented as of this encounter
--- OUTSIDE RECORDS SUMMARY | 2024-10-09 10:37 | XMS_ITS | Clinical Summary ---
Author Organization [facility] Address [facility] [place] [address] Care Team Providers Care Electrician Helper Automotive Name Role Phone None Primary Care Provider Unavailabl e Allergies Active Allergy Reactions Criticality Noted Date Comments Cis Free Text Allergy Medium Hymenoptera (Bee) Stings. CIS - severe swelling of pts arm Penicillins Medium CIS - Rash Medications Medication Sig Dispensed Refills Start Date End Date Status sildenafiL (Viagra) 50 mg tablet Take 50 mg by mouth as needed. Active OMEGA-3S/DHA/EPA/FISH OIL (OMEGA 3 ORAL) Take by mouth daily. Active cholecalciferol (Vitamin D3) 1,000 unit tablet Take 2,000 Units by mouth daily. Active VITAMIN E ACETATE (VITAMIN E ORAL) Take by mouth daily. Active multivitamin (THERAGRAN) tablet Take 1 tablet by mouth daily. Active Magnesium 100 mg Cap Take by mouth daily. Active RED YEAST RICE ORAL Take by mouth daily. Active zinc sulfate (ZINC-15 ORAL) Take by mouth. Active Active Problems No known active problems Social History Tobacco Use Types Packs/Day Years Used Date Smoking Tobacco: Former Smokeless Tobacco: Never Alcohol Use Standard Drinks/Week Comments Yes 7 (1 standard drink = 0.6 oz pur e alcohol) Sex and Gender Information Value Date Recorded Sex Assigned at Not on file Gender Identity Not on file Sexual Orientation Not on file Last Filed Vital Signs Vital Sign Reading Time Taken Comments Blood Pressure 147/84 12/30/2017 11:00 AM EDT Pulse 61 12/30/2017 9:54 AM EDT Temperature 36.6 ??C (97.9 ??F) 04/07/2012 11:18 AM E DT Respiratory Rate 16 12/30/2017 10:51 AM EDT Oxygen Saturation 94% 12/30/2017 11:05 AM EDT Inhaled Oxygen Concentration - - Weight 81.6 kg (180 lb) 09/22/2013 3:08 PM EST Height 167.6 cm (5' 6) 09/22/2013 3:08 PM EST Body Mass Index 29.05 09/22/2013 3:08 PM EST Plan of Treatment Health Maintenance Due Date Last Done Comments Hepatitis C Screening 1963 Tetanus/Diphtheria/Pertussis Vaccines (1 - Tdap) 1964 Pneumoccocal Vaccine: 50+ (1 of 1 - PCV) 1995 Zoster vaccine (1 of 2) 1995 Advance Directive 2000 RSV Vaccine (1 - 1-dose 75+ series) 2020 Covid-19 Vaccine (2023-2 5 season) 2024 Influenza (Flu) vaccine (1 o f 1 - Influenza standard series) 05/17/2024 Colonoscopy Discontinued 12/30/2017, 12/15, 04/07/2012, Additional history exists Colorectal Cancer Screening Discontinued Sigmoidoscopy (10 year) with FIT yearly Discontinued 12/30/2017, 12/30/2017, 04/07/2012, Additional history exists CT Colonography Discontinued FIT DNA Discontinued FIT Discontinued Sigmoidoscopy Discontinued Procedures Procedure Name Priority Date/Time Associated Diagnosis Comments COLONOSCOPY Routine 12/30/2017 10:12 AM EDT from Last 3 Months or Most Recently Relevant to Health Maintenance Results * COLONOSCOPY (12/30/2017 10:12 AM EDT) COLONOSCOPY [facility] Endoscopy Procedure Date: 12/30/2017 10:12 AM ? Patient Name: Deepak Pak ? Date of : 1945 ? Age: 72 ? Order #: [id number] ? Instrument Name: [id number] ? Procedure: ? Colonoscopy Indications: ? High risk colon cancer surveillance: ? Personal history of colonic polyps Providers: ? Renaldo Ye MD, Steven Morrow, ? Rashmi Tabares, Veneer Patcher Referring : ?None, MD Medicines: ? Monitored Anesthesia Care [...] EDT None GENERAL SURGICAL ORD ERABLES PROVATION from Last 3 Months or Most Recently Relevant to Health Maintenance Care Teams Electrician Helper Automotive Relationship Specialty Start Date End Date None None PCP - General 11/27/21
--- OUTSIDE RECORDS SUMMARY | 2024-10-09 10:37 | XMS_ITS | Encounter Summary ---
Author Organization [facility] Address [facility] [place] [address] Care Team Providers Care Benchroom Shop Optician Name Role Phone Bianca Rosales MD Primary Care Provider Encounter Details Date Type Department Care Team (Latest Contact Info) Description 04/07/2012 9:43 AM EDT - 04/07/2012 1:47 PM EDT Hospital En[place] [address] Su Singh MD [facility] [place] [address] Discharge Disposition: Home Social History Tobacco Use [...] * COLONOSCOPY: WHAT TO EXPECT AT HOME (KISWAHILI) documented in this encounter H&P Notes * [...] Singh MD - 04/07/2012 12:55 PM EDT [facility] Operative Note Patient Name: Deepak Pak : [id number] MR#: [id number] Case Date: 04/07/2012 Surgeon: Surgeon(s) and Role: [...] * COLONOSCOPY (04/07/2012 11:07 AM EDT) COLONOSCOPY [facility] Endoscopy Patient Name: Deepak Pak ? Procedure Date: 04/07/2012 11:07 AM ? Date of : 1945 ? Age: 66 ? Order #: [id number] ? Procedure: ? Colonoscopy Indications: ? High risk colon CA surveillance: ? 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 iwth HGD) Patient Profile: ? s/p hernia repair x2, repair of ? broken jaw Providers: ? Su Singh MD, Karis Luna, ? RN, Rashmi Tabares, Boiling House Oiler Referring : ?Bianca Rosales MD Medicines: ? [...] MAR Action Action Date Dose Rate Site sodium chloride 0.9% infusion 30 mL/hr, Intravenous, [...] awake) documented in this encounter Care Teams Benchroom Shop Optician Relationship Specialty Start Date End Date Bianca Rosales MD [facility] D[address]LEN[address] [place] [address] PCP - General 08/08/10 06/30/14 documented as of this encounter
--- OUTSIDE RECORDS SUMMARY | 2024-10-09 10:37 | XMS_ITS | Encounter Summary ---
Author Organization [facility] [place] [address] Care Team Providers Care Nuclear Medicine Technologist Name Role Phone Bianca Rosales MD Primary Care Provider [phone] Encounter Details Date Type Department Care Team (Latest Contact Info) Description 12/15/2010 2:00 PM EDT Procedure visit Non-Invasive [place] [address] CLINIC, Nilay Madrigal MD [facility] [place] [address] Discharge Disposition: Home Social History Tobacco Use [...] on filedocumented in this encounter Care Teams Nuclear Medicine Technologist Relationship Specialty Start Date End Date Bianca Rosales MD [address] G[address] [place], [place] [id number] PCP - General 08/08/10 06/30/14 documented as of this encounter
--- OUTSIDE RECORDS SUMMARY | 2024-10-09 10:37 | XMS_ITS | Encounter Summary ---
Author Organization [facility] Address [facility] [place] [address] Care Team Providers Care Installation Specialist Name Role Phone None Primary Care Provider Unavailabl e Encounter Details Date Type Department Care Team (Late st Contact Info) Description 10/22/2007 Orders Only [place] [address] Ariana Blue MD [facility] [place] [address] Social History Tobacco Use Types Packs/Day Years [...] Associated Diagnosis Comments SURGICAL PATHOLOGY REPORT Routine 10/22/2007 2:43 PM EST documented in this encounter Results * Surgical Pathology Report (10/22/2007 2:43 PM EST) Surgical Pathology Report [id number] ? Location: 4T The signing pathologist has (i) examined the relevant preparation(s) for the specimen(s) and (ii) rendered or confirmed the diagnosis(es). . ?Pathology Surgical Pathology Final Report Clinical Information Specimen Submitted: A - Polyp: rectum Clinical History: 62-yr-old white male with family history of CRC Clinical Diagnosis: CRC in mother Gross Description Labeled/Fixativ e: ? Rectum polyp, formalin. Qty/Size/Weight : ?Multiple, ranging from 1.0 cm to 1.5 cm in greatest ?dimension. Tissue Description: ?? Soft, house-red, polypoid tissues. Sections/Proces sing: ??(1) tissue fragments; (2) polyp, quadrisected. ??(T2) ?aje/SNS Microscopic Description Slides reviewed, microscopic description not recorded. Diagnosis Endoscopic biopsy - ??Tubular adenoma with high grade dysplasia (multiple fragments). CR-PX 10/23/07 AAS 10/23/07 Verified by: ? Sydnee Esteban MD ?Pathologist ?(Electronic Signature) The attending pathologist whose signature appears on this report has reviewed all diagnostic slides and has edited the gross and/or microscopic portion of the report in rendering the final pathologic diagnosis. HIEU FERRELL 10/22/2007 2:43 PM EST Ariana Blue MD PATHOLOGY/CYTOLOGY O FARNAZERAJOSUE HIEU FERRELL documented in this encounter Visit Diagnoses Not on filedocumented in this encounter Care Teams Installation Specialist Relationship Specialty Start Date End Date None None PCP - General 11/27/21 documented as of this encounter
--- OUTSIDE RECORDS SUMMARY | 2024-10-09 10:37 | XMS_ITS | Encounter Summary ---
Author Organization [facility] Address [facility] [place] [address] Care Team Providers Care Logging Rafter Laborer Name Role Phone None Primary Care Provider Unavailabl e Encounter Details Date Type Department Care Team (Late st Contact Info) Description 09/19/2017 1:15 PM EST Office Visit Dermatology at [address] [address] Sheryl Mayes MD [facility] [place] [address] AK (actinic keratosis); SK (seborrheic keratosis); Inflamed seborrheic keratosis; Solar lentigo; Lanier angioma Social History Tobacco Use Types Packs/Day Years Used Date Smoking Tobacco: Former Alcohol Use Standard Drinks/Week Comments Not Asked 2 (1 standard drink = 0.6 oz pur e alcohol) Sex and Gender Information Value Date Recorded Sex Assigned at Not on file Gender Identity Not on file Sexual Orientation Not on file documented as of this encounter Progress Notes * Sheryl Mayes MD - 09/19/2017 1:15 PM EST DERMATOLOGY ESTABLISHED PATIENT CLINIC NOTE Date of service: 09/19/2017 Deepak Pak : 1945 Provider: Sheryl Mayes MD PROBLEM: Full skin cancer examination SKIN HISTORY: actinic keratosis- LN2 HPI Mr. Pak is a 71 y.o. year old male last seen by Dr. Alexandre on 01/31/2017. Here today for a full skin cancer examination. Patient reports that there is a small spot on the left side of his neck that started growing over the last few weeks. He notices it when washing as it is raised. Denies any itching, bleeding or crusting. ADR: Cis free text allergy and Penicillins MEDS: Current Outpatient Prescriptions on File Prior to [...] findings listed below. Significant skin findings: A. Vertex scalp x2: 0.2-0.3cm scaly irregular pink papules. B. Left neck: verrucous stuck on papules with surrounding erythema. C. Multiple 0.4-0.6cm brown papules with waxy, stuck-on appearance. D. Sun exposed areas: 0.3-0.6cm light-brown evenly pigmented, well-demarcated macules. E. Multiple 0.2-0.4cm bright red, well-demarcated papules. ASSESSMENT/PLAN: A. Actinic Keratoses Procedure Note: Procedure: Destruction of lesions with cryotherapy. Number: 2 Location: as above Discussed procedure and expectations including risks (including risk of hypopigmentation) and benefits. Verbal consent obtained. Frozen with LN2, 15-30 second thaw time, TWICE. There were no complications; the patient tolerated the procedure well. Post-procedure expectations and wound care were reviewed. B. Irritated Seborrheic Keratosis Procedure Note: Procedure: Destruction of lesion with cryotherapy. Number: 1 Location: as above Discussed procedure and expectations including risks (including risk of hypopigmentation) and benefits. Verbal consent obtained. Frozen with LN2, 15-30 second thaw time, TWICE. There were no complications; the patient tolerated the procedure well. Post-procedure expectations and wound care were reviewed. C. Seborrheic Keratoses -Reassured about benign nature and natural history. D. Solar Lentigines -Reassured about benign nature and natural history. -Sun avoidance, protective clothing and the use of SPF 30 sunscreen is advised. Observe closely forskin changes and call if such occurs. E. Lanier Angiomas -Reassured about benign nature and natural history. RTC September 2018 for 1 year full skin exam, hx AKs - or sooner as needed. I am documenting this encounter acting as the scribe for and in the presence of Dr. Mayes. Amanda Hart, RN Genoveva Lou is documenting this encounter acting as the scribe for and in the presence of Sheryl Mayes MD. I performed the above scribed service and agree with the accuracy of the documentation in this encounter. Sheryl Mayes MD Section of Dermatology [facility] documented in this encounter Plan of Treatment Not on file documented as of this encounter Visit Diagnoses Diagnosis AK (actinic keratosis) Actinic keratosis SK (seborrheic keratosis) Other seborrheic keratosis Inflamed seborrheic keratosis Solar lentigo Other dyschromia Lanier angioma Nevus, non-neoplastic documented in this encounter Care Teams Logging Rafter Laborer Relationship Specialty Start Date End Date None None PCP - General 09/19/17 10/20/17 documented as of this encounter
--- OUTSIDE RECORDS SUMMARY | 2024-10-09 10:37 | XMS_ITS | Encounter Summary ---
Author Organization [facility] Address [facility] [place] [address] Care Team Providers Care Clerk Supervisor Name Role Phone None Primary Care Provider Unavailabl e Reason for Visit * Reason Comments Skin Check Encounter Details Date Type Department Care Team (Late st Contact Info) Description 01/17/2023 4:00 PM EDT Office Visit Dermatology at [address] [phone] Robert Good MD [facility] [address] [address] Seborrheic keratoses; Multiple benign melanocytic nevi of upper and lower extremities and trunk; Lentigines; Lanier angioma; Actinic keratoses Social History Tobacco Use Types Packs/Day Years [...] Progress Notes * Robert Good MD - 01/17/2023 4:00 PM EDT Images from the original note were not included. DEPARTMENT OF DERMATOLOGY Medical Dermatology Clinic Provider: ROBERT GOOD MD Patient's preferred name Deepak Preferred contact method for results [x]??Phone: Cell??[]??myD-H []??Letter Detailed phone message OK? Yes Are there any other people with whom we may discuss your care? , Tatiana ?? Past Medical History Date, location, treatment Melanoma No Dysplastic nevi No SCC No BCC No AKs LN2 UV Exposure & Protection ?? Other relevant past medical history?? 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 They also have??four??grandchildren, the youngest of whom lives in [place], [place]. ?? Pre-Procedure Questions Details Allergy to lidocaine, epinephrine, Dermabond, chlorhexidine, or adhesives No Bleeding disorder or blood thinners Van-3, Vitamin E Pacemaker, defibrillator, deep brain stimulator, cochlear implant No History of Present Illness: Deepak Pak is a 77 y.o. Patient returns to clinic today for a full skin exam. Patient denies any specific skin concerns today; no lesions that are new, changing orsymptomatic. Last visit at Dermatology: 01/16/2023 Last visit with this provider: 01/16/2023 Medications: Reviewed in eD-H Allergies: Reviewed in [...] and buttocks were not examined. Assessment/Plan #. Seborrheic Keratoses - Stuck on, waxy [...] provided reassurance. Will continue to monitor. #. Lentigines - Scattered light-brown, evenly pigmented, well-demarcated macules on sun-exposed areas of the trunk and extremities. - No worrisome pigmented lesions. Discussed benign nature of lesions and provided reassurance. Willcontinue to monitor. #. Lanier Angiomas - Multiple bright red, well-demarcated papules on the trunk and extremities. - Discussed benign nature of lesions and provided reassurance. No treatment necessary at this time. #. Actinic Keratoses - Ill-defined gritty papules on the right lateral cheek x1, right helix x1, vertex scalp x3, right brow x1. - Explained premalignant potential of these lesions. - Discussed treatment with cryotherapy. Patient elects to proceed with cryotherapy today. - Instructed patient to return to clinic for re-evaluation if lesion(s) does not resolve as expected with this treatment. Procedure: Destruction of lesion(s) with cryotherapy (LN2). Location(s): As noted above. Number: 6 Discussed procedure and expectations, including risks and benefits. Verbal consent obtained. Treated with LN2. There were no complications; Patient tolerated the procedure well. Post-procedure expectations and wound care reviewed. Other: ??? N/A RTC: 1 year for FSE []Note routed to typing secretary [x]Recall placed in scheduling system []Appointment scheduled at checkout Scribe attestation: Judi Ayers, RANI has performed the documentation for this encounter in the presence of and acting as a scribe for ROBERT GOOD MD. I performed the above scribed service and agree with the accuracy of the documentation in this encounter. Reviewed and signed by: ROBERT GOOD MD Dermatology [facility] documented in this encounter Plan of Treatment Not on file documented as of this encounter Visit Diagnoses Diagnosis Seborrheic keratoses Multiple benign melanocytic nevi of upper and lower extremities and trunk Lentigines Other dyschromia Lanier angioma Nevus, non-neoplastic Actinic keratoses Actinic keratosis documented in this encounter Care Teams Clerk Supervisor Relationship Specialty Start Date End Date None None PCP - General 11/27/21 documented as of this encounter
--- OUTSIDE RECORDS SUMMARY | 2024-10-09 10:37 | XMS_ITS | Encounter Summary ---
Author Name [facility] [place] [facility] [place] Address [address] [place] [address] Care Team Providers Care Agriculture Science Teacher Name Role Phone JUAN HANNA Primary Care [...] BASIC SELF+ 1 Sep 16, 2024 33C [id number] [phone] REYNA ROSALES PATIENT ANTHEM BCBS CT FEDERAL PREFERRED PROVIDER ORGANIZAT ION (PPO) BASIC SELF+ ONE Mar 17, 2018 113 [id number] [phone] REYNA ROSALES PATIENT ANTHE[place] (FEDERAL) PREFERRED PROVIDER ORGANIZAT ION (PPO) BASIC SELF+ ONE Mar 17, 2018 113 [id number] [phone] REYNA ROSALES PATIENT [place] FED[place]AL PREFERRED PROVIDER ORGANIZAT ION (PPO) BASIC SELF+ 1 Mar 17, 2018 113 [id number] REYNA ROSALES PATIENT [place] FEPRX PLAN PRESCRIPT ION CAREM ARK FEPRX Sep 16, 2024 [id number] REYNA ROSALES PATIENT DARLENE-F EP BCBS PRESCRIPT ION BCBS FEP PLAN Sep 16, 2010 [id number] REYNA RSOALES PATIENT MEDICARE (WNR) MEDICARE (M) PART A Mar 17, 2018 PART A [id number] REYNA ROSALES PATIENT MEDICARE (WNR) MEDICARE (M) PART A Sep 16, 2010 PART A [id number] REYNA ROSALES PATIENT Selected Encounter This section includes the information on record at [place] for the Encounter. Date/Time Encounter Type Encounter Description Reason Provider Source Sep 14, 2024 08:30 AM 3D RENDER W/INTRP POSTPROCES CARDIAC ECHO ICD-10-CM R01.1 Cardiac murmur, unspecified JAYLYN MEDINA IHE Encounter Template Text not used by [place] Assessments - Encounter Diagnoses This section includes the primary and secondary diagnoses documented for the Encounter. Date/Time Primary/Secondary Diagnosis Diagnosis Name Provider Source Sep 28, 2024 08:02 AM PRIMARY Cardiac murmur, unspecified MATI [facility]LSON [facility] Plan of Treatment: Future Appointments [...] Date/Time Appointment Type Appointme nt Facility Name Sep 15, 2024 09:30 AM AMBULATORY - RE[facility] Nov 05, 2024 08:30 AM AMBULATORY - MEDICINE [facility] Social History: Smoking Status (Most current) and [...] Pt. quit smoking in 1974. LUCAS MARCH [facility] Advance Directives: All historical and current [...] Oct 08, 2019 ADVANCE DIRECTIVE LEISA ROBERTS [facility] Encounter Notes: All associated encounter notes This section contains the clinical notes associated to the Encounter. Date/Time Encounter Note(s) Provider Source Sep 14, 2024 10:06 AM CARDIOLOGY DIAGNOS TIC STUDY REPORT: LOCAL TITLE: Cardiology Echo Report (CP) STANDARD TITLE: CARDIOLOGY DIAGNOSTIC STUDY REPORT DATE OF NOTE: SEP 14, 2024@10:06:07 ENTRY DATE: SEP 14, 2024@10:06:07 AUTHOR: CLINICAL,DEVICE PRO EXP COSIGNER: URGENCY: STATUS: COMPLETED PROCEDURE SUMMARY CODE: Machine Resulted DATE/TIME PERFORMED: SEP 14, 2024@09:08:1 DOCUMENT IN [employer] SEE FULL REPORT IN VISTA IMAGING SIGNATURE NOT REQUIRED SEE SIGNATURE IN VISTA IMAGING (ISCV KURT (TTE)) AUTO-INSTRUMENT DIAGNOSIS Procedure: TTE Adult Release Status: Released Off-Line Verified Date Verified: Sep 14, 2024@10:05:48 CP Order Number: [id number] DTIEd: 8.81 DTIEs: 7.94 +--+ +--+ Comprehensive Adult Transthoracic Echocardiogram Report + :Name: REYNA ROSALESLuz Date: 09/14/2024 09:08 AM BP: 122/64 mmHg: : Patient Location: [facility] CARDIO ECHO A [id number]: 73 : :: 1945 Gender: Male Height: 66 in : :Age: 78 yrs Weight: 180 lb : :Reason For Study: Murmur - rule out valvular heart disease BSA: 1.9 m2 : + Technical Issues Complete 2D, M-mode, Spectral and Color Flow Doppler performed. Good quality study. ECG demonstrated normal sinus rhythm. Left Ventricle The left ventricle is normal in size. There is normal left ventricular wall thickness. Left ventricular systolic function is normal. Visually estimated ejection fraction = 65%. Doppler findings are consistent with normal left ventricular filling pressure. No regional wall motion abnormalities noted. Right Ventricle The right ventricle is not well visualized. The right ventricle is probably normal size. Right ventricular systolic function is probably normal. Atria Normal right and left atrial size. The interatrial septum is intact with no evidence for an atrial septal defect. Mitral Valve The degree of mitral annular calcification is mild. The anterior mitral valve leaflet appears thickened. There is trace mitral regurgitation. Tricuspid Valve The tricuspid valve is not well visualized. Anatomically normal tricuspid valve structure. There is trace tricuspid regurgitation. Aortic Valve The aortic valve is tricuspid. There is mild aortic valve thickening. No hemodynamically significant valvular aortic stenosis. Peak aortic valve gradient is 11.7 mmHg. Mean aortic valve gradient is 7.0 mmHg. Mild aortic regurgitation. Pulmonic Valve The pulmonic valve is not well visualized. Trace pulmonic valvular regurgitation. Great Vessels The aortic root is not well visualized. Aortic root diameter is 3.5 cm. The aortic root is normal in size. The ascending aorta was not well visualized. Ascending aortic diameter is 3.8 cm . RA pressure is estimated to be 3 mmHg. Pericardium/Pleural There is no pericardial effusion. There is no pleural effusion. + + :ECHO DIMENSIONS: : : (0.6- (3.8- Ao root diam: (2.5- : :IVSd: 0.80 cm 1.1) LVIDd: 5.1 cm 5.7) 3.5 cm 3.7) : : (0.6- (2.5- (2.5- : :LVPWd: 0.50 cm 1.1) LVIDs: 3.2 cm 4.0) LA dimension: 4.0) : :DOPPLER FINDINGS: : :MV E max benson: MV A max benson: : :68.1 cm/sec 95.9 cm/sec MV E/A: 0.71 : :MV dec time: 0.20 sec LV IVRT: sec : : RPul V A max benson: cm/sec RPul V S/D ratio: : : DTI E? : : E/E?: 7.73 : :L: 8.81 cm/sec : + + + : : :I WMSI = 1.00 : +- ----+ + :+ -----+:+ ++--- +: : :: ::: :: :: : :: ::: :: :: : :: ::: :: :: : :: ::: :: :: : :: ::: :: :: : :: ::: :: :: : :: ::+ ++-------- ------+: : :: ::+ ++-------- ------+: : :: ::: :: :: : :: ::: :: :: : :: ::: :: :: : :: ::: :: :: : :: ::: :: :: : :: ::: :: :: : :+ -----+:+ ++--- +: : ----+ + : : : : : Segments Size : : :+--------+--------+: :X - Cannot 2 - 4 - ::1-2 :small :: :Interpret 1 - Normal Hypokinetic 3 - Akinetic Dyskinetic :+--------+--------+: :5 - ::3-5 :moderate:: :Aneurysmal :+--------+--------+: : ::6-14 :large :: : :+--------+--------+: : ::15-16 :diffuse :: : :+--------+--------+: ----+ + Interpretation Summary 1. Left ventricular systolic function is normal. Visually estimated ejection fraction = 65%. No regional wall motion abnormalities noted. 2. The right ventricle is probably normal size and systolic function. 3. Normal biatrial size 4. No hemodynamically significant valvular disease. There is aortic sclerosis without stenosis. There is mild aortic regurgitation. 5. See the body of the report for additonal findings. 6. When compared to the previous study from 07/2023, no significant change. MMode/2D Measurements \T\ Calculations asc Aorta Diam: 3.8 cmTAPSE_phl: 3.7 cm AO_Root_index: 1.8 RA A4Cs_phl: 7.9 cm2 Asc_Ao_index: 2.0 Doppler Measurements \T\ Calculations AMILCAR(I,D): 2.3 cm2LV V1 VTI: 28.1 cm SV(LVOT): 88.3 ml AV VR_phl: 0.75 AMILCAR(V,D): 2.4 cm2 SI(LVOT): 46.2 ml/m2AVA(VTI)/BSA_phl: 1.2 Measurements from QLAB BSA (HM): CI (HM): Pat Height (HM): Pat Weight (): 1.9 m2 3.1 l/min/m2 168.0 cm 81.6 kg QLAB Heart Model ESV ()_phl: 51.0 ml EF ()_phl: 65.0 % SV ()_phl: 95.0 ml +--+ Reading Physician:+--+ Brian Medina 09/14/2024 10:05 AM Attending Sales Representative Business Courses Referring Physician: EDITH GARDNER Performed By: Mati Carlson Administrative Closure: 09/14/2024 by: Clinical,Device Proxy Service CLINICAL,DEVICE PROXY SERVICE [facility]
--- OUTSIDE RECORDS SUMMARY | 2024-10-09 10:37 | XMS_ITS | Encounter Summary ---
Author Name [facility] [place] [facility] [place] Address [address] [place] [address] Care Team Providers Care Golf Course Laborer Name Role Phone JUAN HANNA Primary Care [...] BASIC SELF+ 1 Sep 16, 2024 33C [id number] [phone] REYNA ROSALES PATIENT ANTHEM BCBS CT FEDERAL PREFERRED PROVIDER ORGANIZAT ION (PPO) BASIC SELF+ ONE Mar 17, 2018 113 [id number] [phone] REYNA ROSALES PATIENT ANTHEM [place] (FEDERAL) PREFERRED PROVIDER ORGANIZAT ION (PPO) BASIC SELF+ ONE Mar 17, 2018 113 [id number] [phone] REYNA ROSALES PATIENT [place]BS [place] FEDERAL PREFERRED PROVIDER ORGANIZAT ION (PPO) BASIC SELF+ 1 Mar 17, 2018 113 [id number] [phone] REYNA ROSALES PATIENT [employer] FEPRX PLAN PRESCRIPT ION CAREM ARK FEPRX Sep 16, 2024 [id number] REYNA ROSALES-F EP BCBS PRESCRIPT ION BCBS FEP PLAN Sep 16, 2010 [id number] REYNA ROSALES PATIENT MEDICARE (WNR) MEDICARE (M) PART A Mar 17, 2018 PART A [id number] [phone] REYNA ROSALES PATIENT MEDICARE (WNR) MEDICARE (M) PART A Sep 16, 2010 PART A [id number] REYNA ROSALES PATIENT Selected Encounter This section includes the information on record at [place] for the Encounter. Date/Time Encounter Type Encounter Description Reason Provider Source Sep 15, 2024 09:30 AM HEARING AID SUP/ACCESS/DEV AUDIOLOGY ICD-10-CM Z46.1 Encounter for fitting and adjustment of hearing aid GULSHAN FABIAN Tati Encounter Template Text not used by CT Assessments - Encounter Diagnoses This section includes the primary and secondary diagnoses documented for the Encounter. Date/Time Primary/Secondary Diagnosis Diagnosis Name Provider Source Sep 15, 2024 10:11 AM PRIMARY Encounter for fitting and adjustment of hearing aid GULSHAN FABIAN [facility] Sep 15, 2024 10:11 AM SECONDARY Sensorineural hearing loss, bilateral GULSHAN FABIAN [facility] Sep 15, 2024 10:11 AM SECOND[facility], [facility] Plan of Treatment: Future Appointments (+ [...] 2024 08:30 AM AMBULATORY - MEDICINE [facility] Social History: Smoking Status (Most current) [...] 02, 2023 11:00 AM VA-TOBACCO FORMER USER [facility] Tobacco Use History This section includes a history of the smoking, or tobacco-related health factors, that were collected on or before the date of the Encounter. The data comes from the [place] facility where the Encounter took place. Date/Time Smoking Status/Tobacco Use Comment Jimy beauchamp Oct 02, 2023 11:00 AM VA-TOBACCO QUIT 15 YRS OR MORE [facility] May 18, 2022 02:00 PM VA-TOBACCO FORMER USER [facility] May 18, 2022 02:00 PM VA-TOBACCO QUIT 15 YRS OR MORE [facility] May 17, 2021 09:30 AM VA-TOBACCO FORMER USER [facility] May 17, 2021 09:30 AM VA-TOBACCO QUIT 15 YRS OR MORE [facility] Nov 04, 2018 09:35 AM VA-TOBACCO FORMER USER [facility] Nov 04, 2018 09:35 AM VA-TOBACCO QUIT 15 YRS OR MORE [facility] January 27, 2018 03:02 PM QUIT TOBACCO USE > 7 YEARS AGO quit in 1970-72 [facility] Apr 05, 2016 06:59 AM QUIT TOBACCO USE > 7 YEARS AGO quit early 's [facility] Advance Directives: All historical [...] Encounter. Date/Time Encounter Note(s) Provider Source Sep 15, 2024 10:06 AM AUDIOLOGY NOTE: LOCAL TITLE: Audiology Note STANDARD TITLE: AUDIOLOGY NOTE DATE OF NOTE: SEP 15, 2024@10:06 ENTRY DATE: SEP 15, 2024@10:06:42 AUTHOR: GULSHAN FABIAN COSIGNER: URGENCY: STATUS: COMPLETED HEARING AID SERVICE: The patient has been diagnosed with a sensorineural hearing loss bilaterally and is being seen today for a hearing aid service appointment. JOSHI FIT: 09/25/23 HEARING AID INFORMATION: PHONAK AUDEO L90-R MARIELLA SERIAL NUMBERS- RIGHT: [id number] LEFT: [id number] COUPLING: SlimTip MARIELLA mold with canal locks POWER: rechargeable battery WAX PROTECTION SYSTEM: CERUSTOP WARRANTY EXPIRES: 09/25/26 Patient requests routine cleaning Otoscopy was unremarkable bilaterally. Visual inspection of the hearing aids revealed the need for service. Cleaned both aids, brushed mics, cleaned vents, cleaned custom earmolds and replaced excavator operator filters. Listening check revealed both aids to sound appropriate and gave back to the [place]. ADDITIONAL SUPPLIES ISSUED/OREDERED: CERUSTOP 8 PIECES DIAGNOSIS (primary) Z46.1 Adjustment of Hearing Aid PROCEDURES COMPLETED: Otoscopy Hearing Aid Repair/Modification RIGHT V5014 Hearing Aid Repair/Modification LEFT V5014 Hearing Aid or Assistive Listening Device/Supplies/Accessories [id number] PLAN: -f/u per request --STATUS-- --DUE DATE-- --LAST DONE-- Suicide Screen RESOLVED 03/26/2025 03/26/2024 Frequency: Due every 1 year for all ages. Resolution: Last done - 03/26/2024@09:30 Mental Health Test: [place] Suicide Severity Rating Scale (C-SSRS) 03/26/2024@09:30 scale: Ques1 - raw score: 2, transformed score: /es/ GULSHAN FABIAN Sound Technician Signed: 09/15/2024 10:26 [facility]ABIAN [facility]
--- OUTSIDE RECORDS SUMMARY | 2024-10-09 10:37 | XMS_ITS | Encounter Summary ---
[facility] Organization [facility] Address [facility] [place] [address] Care Team Providers Care Railroad Emergency Services Manager Name Role Phone Bianca Rosales MD Primary Care Provider [phone] Reason for Visit * Reason Comments Varicose Veins RLE superficial thro mbophlebitis Encounter Details Date Type Department Care Team (Latest Contact Info) Description 09/22/2013 2:50 PM EST Office Visit [place] [phone] Mya Lowe MD [facility] [place] [address] Varicose veins (Primary Dx); Superficial thrombophlebitis of right leg Discharge Disposition: Home Social History Tobacco Use [...] Sign Reading Time Taken Comments Blood Pressure 142/62 09/22/2013 3:09 PM EST rig ht arm Pulse 84 09/22/2013 3:08 PM EST Temperature - - Respiratory Rate - - Oxygen Saturation 98% 09/22/2013 3:08 PM EST Inhaled Oxygen Concentration - - Weight 81.6 kg (180 lb) 09/22/2013 3:08 PM EST Height 167.6 cm (5' 6) 09/22/2013 3:08 PM EST Body Mass Index 29.05 09/22/2013 3:08 PM EST documented in this encounter Progress Notes * Mya Lowe MD - 09/22/2013 11:41 PM EST Reason for Visit Shelly Lemus requested a consultation for superficial thrombophlebitis and possible extension into deep venous system HPI 67 yowm developed spontaneous onset RIGHT medial thigh and calf erythema and pain on 09/16/13. Heunderwent a RLE venous duplex exam at [facility] on 09/17/13 that was negative for DVT but demonstrated thrombus in the greater saphenous vein from calf through his thigh, terminating 1 cm from the saphenofemoral junction. Lovenox was suggested, but there has been some difficulty procuring the agent, and he has not taken any yet. He reports improvement of symptoms with less pain, erythema and tenderness over the last 2-3 days. He has a 15 year h/o small to medium size varicose veins/ Denies SOB or any other symptoms that might suggest PE. Denies any systemic symptoms that might suggest this initial onset phlebitis as an occult sign of malignancy. Feels well overall. Exercises regularly. Eats well. Denies fevers, chills or any sense of malaise. History of PE No History of DVT No Hx leg swelling None previous, and only minimal now Hx venous ulcer No PMH Hearing loss H/O major traumatic facial fracture 20 years ago PSH Open repair of [place] 2 facial fracture Vascular meds Aspirin None at time of event onset. Used to take ASA daily. Tapered off for no specific reason Coumadin No Lovenox no Other meds Recorded and reconciled in eDH Allergies PCN, bee stings FHSH Smoked for 3 years, quit long ago. Minimal EtOH. Retired ROS Constitutional Denies fever, chills, fatigue Cardiac No angina, No overt CHF sx, no palpitations Pulmonary No GREEN[place]G, no dyspnea at rest GI Denies nausea, vomiting, diarrhea, constipation Denies UTI symptoms Musculoskeletal Denies joint pain, muscle aches Endocrine Denies s/s DM Derm Denies new skin lesions Psyche No s/s psychiatric issues Neuro Denies stroke, TIA, amaurosis fugax, dysarthria Physical Exam General Alert wm nad 142/62, 84 rrr, 81.6 kg Carotid pulses Normal pulses no bruits Radial pulses Normal pulses bilat Heart Normal s1s2 no mgr Lungs Clear Upper Ext Full rom Abdomen Soft, nontender, no hint of aaa Lower Ext Full rom, erythema extending full length of right medial thigh and most of his calf. Erythema has a resolving hue, not angry looking. Tenderness over GSV only at knee level. Maximum calf circumference 39 cm on RIGHT and 38 cm on LEFT Femoral pulses Normal bilat Popliteal pulses Normal bilat DP pulses Not readily palpable PT pulses Normal bilat Motor/Sensory Full intact both lower extremities Psyche Ox3 Venous Duplex I ordered an urgent RLE venous duplex exam to determine whether the thrombus in his GSV had progressed to extend into the common femoral vein, since that would have a major impact on myclinical recommendations. I examined all of today???s venous duplex exam in detail, and there is noevidence of DVT. In fact, the maximum extent of thrombus in his GSV was measured as 3 cm from the saphenofemoral junction today compared to 1 cm from the SFJ on the [facility] exam done [address] scan None Other studies [facility] Impression Mr. Pak suffered a significant episode of RIGHT lower extremity superficial thrombophlebitis that started 6 days ago and has now resolved substantially. Since the thrombus in his GSV is not immediately encroaching upon his deep venous system, and since his phlebitis is resolving, I do not think the small but real risks of Lovenox injection are indicated at this time. I did recommend the other components of therapy for superficial thrombophlebitis including local heat, elevation of the extremity and NSAIDS. In addition, I suggested he reinitiate low dose aspirin as a general recommendation for antiplatelet effect. Recommendations Wet or Dry local heat to medial aspect of RIGHT lower extremity RLE elevation until further resolution of symptoms NSAIDS at 200-400 mg qid for next 4-5 days Patient clearly warned to get repeat venous duplex for worsening of RLE symptoms, especially if hislimb swells substantially Patient clearly warned to seek ED attention immediately for any dyspnea that might indicate PE Recurrent episodes should stimulate malignancy screening RTC vascular clinic PRN I appreciate being asked to perform a consult on Mr. Pak Mya Lowe M.D. Section of Vascular Surgery CC: Shelly Estradacarla documented in this encounter Plan of Treatment Not on file documented as of this encounter Results * Duplex for DVT, Leg, Unilat (09/22/2013 4:02 PM EST) VB Text Report Department: Vascular Surgery Lab Patient: [id number] (DEEPAK PAK) CPT Code: 24465 ICD-9: 451.2 Referring Physician: MYA LOWE Indication: ?? R GSV thrombus by outside hospital ICD9 Diagnosis Code: 451.2 RIGHT: The greater saphenous vein is thrombosed to within 3.0 cm of the saphenofemoral junction. Thrombus extends from the proximal calf. Patent common femoral vein and popliteal vein with spontaneous, respirophasic Doppler waveforms that respond normally to augmentation maneuvers. The common femoral vein, saphenofemoral junction, femoral vein through the thigh and popliteal vein are fully compressible. Patent posterior tibial and peroneal veins with no evidence of thrombus. Interpretation: RIGHT: No evidence of lower extremity deep venous thrombosis. The greater saphenous vein is thrombosed to within 3.0 cm of the saphenofemoral junction. Thrombus extends from the proximal calf. Notification: Dr. Lowe will see the patient back in clinic at completion of this exam. Electronically Signed by: MYA LOWE on 2013-09-22 10:56:39 PM [facility] VB Text Report End of Report VAS[facility] 09/22/2013 4:02 PM EST Mya Lowe MD VASCULAR ORDERABLES [facility] documented in this encounter Visit Diagnoses Diagnosis Varicose veins- Primary Asymptomatic varicose veins Superficial thrombophlebitis of right leg Phlebitis and thrombophlebitis of superficial vessels of lower extremities documented in this encounter Care Teams Railroad Emergency Services Manager Relationship Specialty Start Date End Date Bianca Rosales MD [address] [place] [address] PCP - General 08/08/10 06/30/14 documented as of this encounter
--- OUTSIDE RECORDS SUMMARY | 2024-10-09 10:37 | XMS_ITS | Encounter Summary ---
Author Organization [facility] Address [facility] [place] [address] Care Team Providers Care Air Pumper Name Role Phone Bianca Rosales MD Primary Care Provider [phone] Encounter Details Date Type Department Care Team (Late st Contact Info) Description 09/17/2013 Orders [place] [address] Tristan Padilla MD [facility] [place] [address] Social History Tobacco Use Types Packs/Day Years Used Date Smoking Tobacco: Former Alcohol Use Standard Drinks/Week Comments Not Asked 2 (1 standard drink = 0.6 oz pur e alcohol) Sex and Gender Information Value Date Recorded Sex Assigned at Not on file Gender Identity Not on file Sexual Orientation Not on file documented as of this encounter Plan of Treatment Pending Results Name Type Priority Associated Diagnoses Date /Time Film Library- Storage only Ultrasound Study Imaging Routine 09/17/2013 11:52 PM EST documented as of this encounter Visit Diagnoses Not on filedocumented in this encounter Care Teams Air Pumper Relationship Specialty Start Date End Date Bianca Rosales MD [address] [place] [address] [address] [place] [address] PCP - General 08/08/10 06/30/14 documented as of this encounter
--- OUTSIDE RECORDS SUMMARY | 2024-10-09 10:37 | XMS_ITS | Encounter Summary ---
Author Name [facility] [place] [facility] [facility] [place] Address [address] [place] [address] Care Team Providers Care Crabber Name Role Phone JUAN HANNA Primary Care [...] BASIC SELF+ 1 Sep 16, 2024 33C [id number] [phone] REYNA ROSALES PATIENT ANTHE[place] FED[place]AL PREFERRED PROVIDER ORGANIZAT ION (PPO) BASIC SELF+ ONE Mar 17, 2018 113 [id number] [phone] REYNA ROSALES PATIENT [place] (FEDER[place]) PREFERRED PROVIDER ORGANIZAT ION (PPO) BASIC SELF+ ONE Mar 17, 2018 113 [id number] [phone] REYNA ROSALES PATIENT [place] FEDERAL PREFERRED PROVIDER ORGANIZAT ION (PPO) BASIC SELF+ 1 Mar 17, 2018 113 [id number] REYNA ROSALES PATIENT [place] FEPRX PLAN PRESCRIPT ION CAREM ARK FEPRX Sep 16, 2024 [id number] REYNA ROSALES PATIENT DARLENE-F EP BCBS PRESCRIPT ION BCBS FEP PLAN Sep 16, 2010 [id number] REYNA ROSALES PATIENT MEDICARE (WNR) MEDICARE (M) PART A Mar 17, 2018 PART A [id number] [phone] REYNA ROSALES PATIENT MEDICARE (WNR) MEDICARE (M) PART A Sep 16, 2010 PART A [id number] [phone] REYNA ROSALES PATIENT Selected Encounter This section includes the information on record at [place] for the Encounter. Date/Time Encounter Type Encounter Description Reason Pro vider Source Aug 24, 2024 12:00 PM Outpatient Encounter COMMUNITY CARE CONSULT IHE [...] Appointment Type Appointme nt Facility Name Aug 26, 2024 08:30 AM AMBULATORY - MEDICINE [facility] Sep 14, 2024 08:30 AM AMBULATORY - MEDICINE [facility] Sep 15, 2024 09:30 AM AMBULATORY - REHAB [facility] Nov 05, 2024 08:30 AM AMBULATORY - MEDICINE [facility] Lab Results: +/- 30 days of the encounter This section includes the Chemistry and Hematology Lab Results on record with [place] for the patient. Radiology Reports and Pathology Reports are provided separately, in subsequent sections. Lab Results This section contains the Chemistry/Hematology Results that were resulted 30 days before or 30 daysafter the date of the Encounter. Date/Time Source Result Type Result - Unit Interpretation Reference Range Comment Jul 30, 2024 02:16 PM [facility] CB PSA (PAYROLL TECHNICIAN) Specimen Type: SERUM Comment: , Tests performed on Desai Grease Rack Worker Robles SN:[id number] (405) TSH within normal limits. Reflex testing not required. Ordering Provider: ERIC GARDNER Report Released Date/Time: Jun 26, 2024 08:27 AM Reporting Lab: [facility] [address] [facility] [address] Performing Lab: [facility] [address] [facility] [address] PSA (PAYROLL TECHNICIAN) 3.72 ng/mL Jul 30, 2024 02:16 PM [facility] VIT D 25-OH([facility]) Specimen Type: SERUM Comment: , Tests performed on Desai Grease Rack Worker Rboles SN:[id number] (405) TSH within normal limits. Reflex testing not required. Ordering Provider: ERIC GARDNER Report Released Date/Time: Jun 26, 2024 08:27 AM Reporting Lab: [facility] [address] [facility] [address] Performing Lab: [facility] [address] [facility] [address] VIT D 25-OH([facility]) 28.9 ng/mL 20.0-50.0 Jul 30, 2024 02:16 PM [facility] THYROID TESTING [place] Specimen Type: SERUM Comment: , Tests performed on Desai Grease Rack Worker Robles SN:[id number] (405) TSH within normal limits. Reflex testing not required. Ordering Provider: ERIC GARDNER Report Released Date/Time: Jun 26, 2024 08:27 AM Reporting Lab: [facility] [address] [facility] [address] Performing Lab: [facility] [address] [facility] [address] TSH 3.10 u[IU]/mL 0.35-5.00 Jul 30, 2024 02:16 PM [facility] LIVER PROFILE Specimen Type: PLASMA Comment: , Tests performed on Desai Dakim Joon SN:[id number] (405). Ordering Provider: ERIC GARDNER Report Released Date/Time: Jun 26, 2024 08:27 AM Reporting Lab: [facility] [address] [facility] [address] Performing Lab: [facility] [address] [facility] [address] PROTEIN, TOTAL 6.7 g/dL 6.0-8.5 ALBUMIN 3.7 g/dL 3.2-5.0 BILIRUBIN, TOTAL 0.4 mg/dL 0.2-1.2 ALKALINE PHOSPHATASE 41 U/L 40-150 ALT(SGPT) 34 U/L 7-52 AST(SGOT) 25 U/L 5-34 FIB-4 SCORE 1.41 <2.67 Jul 30, 2024 02:16 PM [facility] P4 GLU,BUN,CREAT,LYTES,CA Specimen Type: PLASMA Comment: , Tests performed on [employer] SN:[id number] (405). Ordering Provider: ERIC GARDNER Report Released Date/Time: Jun 26, 2024 08:27 AM Reporting Lab: [facility] [address] [facility] [address] Performing Lab: [place] [id number] UREA NITROGEN 15 mg/dL 7-25 SODIUM 138 mmol/L 135-145 POTASSIUM 4.4 mmol/L 3.5-5.0 CHLORIDE 103 mmol/L 100-110 CARBON DIOXIDE 28 mmol/L 20-30 ANION GAP 7 4-16 GLUCOSE 99 mg/dL 65-100 CREATININE 0.96 mg/dL 0.50-1.50 CALCIUM 8.7 mg/dL 8.5-10.5 eGFR(CKD-EPI 2020) 81 mL/min Jul 30, 2024 02:16 PM [facility] CBC NO DIFF Specimen Type: BLOOD No comment entered. Ordering Provider: ERIC GARDNER Report Released Date/Time: Jun 26, 2024 08:27 AM Reporting Lab: [facility] [address] [facility] [address] Performing Lab: [facility] [address] [facility] [address] WBC 4.5 10*3/uL 4.5-11.0 RBC 4.59 10*6/uL 4.23-5.66 HGB 14.7 g/dL 12.8-17 HEMATOCRIT 44.0 39.2-50.4 MCV 95.9 fL 82-99 MCH 32.0 pg 26.2-32.6 MCHC 33.4 g/dL 30.8-35.1 PLT 245 10*3/uL 140-360 MPV 8.8 fL L 9.2-12.4 RDW 13.1 12.0-16.0 Jul 30, 2024 02:16 PM Des [facility] LIPOPROTEIN CHOLESTEROL FRACT. PANEL Specimen Type: PLASMA Comment: , Tests performed on [employer] Grease Rack Worker Joon SN:[id number] (405). Ordering Provider: ERIC GARDNER Report Released Date/Time: Jun 26, 2024 08:27 AM Reporting Lab: [facility] [address] [facility] [address] Performing Lab: [facility] [address] [facility] [address] CHOLESTEROL 236 mg/dL H 0-200 TRIGLYCERIDE 183 [...] YEARS AGO Pt. quit smoking in 1974. [facility] Advance Directives: All historical and [...] Oct 08, 2019 ADVANCE DIRECTIVE LEISA ROBERTS [facility] Radiology Reports: +/- 30 days of [...] COPIES FO R OUTSIDE REFERRAL: REYNA ROSALES [id number] -[id number] M Exm Date: JUL 31, 2024@12:10 Req Phys: JJ,EDITH L Pat Loc: COM CARE-ORTHO GEN (Req'g Loc) Img Loc: XRAY (OOS) Service: Unknown (Case [id number] COMPLETE) UNLISTED COPIES FOR OUTSIDE REFER(RAD Detailed) CPT:67609 Reason for Study: Copies for outside referral Clinical History: Please send 05/28/2024 knee XRs, L and R, to [facility], r/t [facility] Report Status: Electronically Filed Date Reported: Report: Copies (CD) made for outside facility. Impression: Copies (CD) made for outside facility Primary Diagnostic Code: VERIFIED BY: / *ELECTRONICALLY FILED* [facility] Encounter Notes: All associated encounter notes This section contains the clinical notes associated to the Encounter. Date/Time Encounter Note(s) Provider Source Aug 24, 2024 12:00 PM NONVA CONSULT: LOCAL TITLE: COMMUNITY CARE CONSULT RESULT NOTE STANDARD TITLE: NONVA CONSULT DATE OF NOTE: AUG 24, 2024@12:00 ENTRY DATE: SEP 12, 2024@06:57:38 AUTHOR: LEISA ROBERTS EXP COSIGNER: URGENCY: STATUS: COMPLETED VistA Imaging - Scanned Document COMMUNITY CARE-ORTHOPEDICS GENERAL Cons Consult # [id number] Date of Service (Procedure/Event): 08/24/2024 Note Title: COMMUNITY CARE CONSULT RESULT NOTE Origin: NON-VA Type: PROGRESS NOTE Specialty: ORTHOPEDICS Procedure: [id number] KNEE PAIN. [facility] SCANNED DOCUMENT SIGNATURE NOT REQUIRED Electronically Filed: 09/12/2024 by: [facility]
--- OUTSIDE RECORDS SUMMARY | 2024-10-09 10:37 | XMS_ITS | Encounter Summary ---
Author Organization [facility] [place] [address] Care Team Providers Care Gripper Machine Operator Name Role Phone None Primary Care Provider Unavailabl e Reason for Visit * Reason Comments Skin Lesion Encounter Details Date Type Department Care Team (Late st Contact Info) Description 01/16/2023 9:30 AM EDT Office Visit Dermatology at [address] [phone] Robert Good MD [facility] [address] [place] [address] Judi Ayers, RN Actinic keratoses Social History Tobacco Use Types [...] Progress Notes * Robert Good MD - 01/16/2023 9:30 AM EDT Images from the original note were not included. DEPARTMENT OF DERMATOLOGY Medical Dermatology Clinic Provider: ROBERT GOOD MD Patient's preferred name Deepak Preferred contact method for results [x]?Phone: Cell []?myD-H []?Letter Detailed phone message OK? Yes Are there any other people with whom we may discuss your care? , Tatiana ?? Past Medical History Date, location, treatment Melanoma No Dysplastic nevi No SCC No BCC No AKs LN2 UV Exposure & Protection ?? 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 They also have four grandchildren, the youngest of whom lives in [place], [place]. ?? Pre-Procedure Questions Details Allergy to lidocaine, epinephrine, Dermabond, chlorhexidine, or adhesives No Bleeding disorder or blood thinners Shokan-3, Vitamin E Pacemaker, defibrillator, deep brain stimulator, cochlear implant No ?? History of Present Illness: Deepak Pak is a 77 y.o. Patient returns to clinic today for spot on the top of the left that has been there for a few months, asymptomatic. Last visit at Dermatology: 11/27/2021 Last visit with this provider: 11/27/2021 Medications: Reviewed in eD-H Allergies: Reviewed in eD-H Skin Examination: Focused skin examination of the left ear was normal with the exception of the findings below. Assessment/Plan #. Actinic Keratoses - Ill-defined gritty papules on the left superior helix x1 and right cheek 1. - Explained premalignant potential of these lesions. - Discussed treatment with cryotherapy. Patient elects to proceed with cryotherapy today. - Instructed patient to return to clinic for re-evaluation if lesion(s) does not resolve as expected with this treatment. Procedure: Destruction of lesion(s) with cryotherapy (LN2). Location(s): As noted above. Number: 2 Discussed procedure and expectations, including risks and benefits. Verbal consent obtained. Treated with LN2. There were no complications; Patient tolerated the procedure well. Post-procedure expectations and wound care reviewed. Other: ??? N/A RTC: Tomorrow for FSE []Note routed to manager forms []Recall placed in scheduling system [x]Appointment scheduled at checkout Scribe attestation: Judi Ayers RN has performed the documentation for this encounter in the presence of and acting as a scribe for ROBERT GOOD MD. I performed the above scribed service and agree with the accuracy of the documentation in this encounter. Reviewed and signed by: ROBERT GOOD MD Dermatology [facility] documented in this encounter Plan of Treatment Not on file documented as of this encounter Visit Diagnoses Diagnosis Actinic keratoses Actinic keratosis documented in this encounter Care Teams Gripper Machine Operator Relationship Specialty Start Date End Date None None PCP - General 11/27/21 documented as of this encounter
[2024-10-09] MEDS: Acetaminophen 500 MG TAB PO (10:45)
== END 2024-10-09 10:51 | disposition home or self-care (01) ==
PROVIDERS: Emergency Provider Registered Nurse Emergency
DX: S06.0X0A Concussion without loss of consciousness, initial encounter (principal); W20.8XXA Other cause of strike by thrown, projected or falling object, initial encounter
CPT/HCPCS: 99284; 70450; 99283